=== PATIENT | female | born 1950 | race Caucasian/White ===

== ENCOUNTER 2016-10-25 10:22 | Inpatient (IN) | payer MEDICARE, OTHER ==
[2016-10-25 11:23] LABS: BASO % 0.5 % (0.0-2.0); EOS % 0.5 % (0.0-4.0); HEMOGLOBIN 12.7 g/dL (11.0-16.0); LYMPH # 0.3 K/uL (1.0-4.3); LYMPH % 5.8 % (20.0-40.0); MEAN CORPUSCULAR HEMOGLOBIN 26.2 pg (27.0-31.0); MEAN PLATELET VOLUME 7.8 fL (7.2-11.7); MONO # 0.2 K/uL (0.0-0.8); MONO % 4.1 % (0.0-10.0); NEUT # 4.9 K/uL (1.8-7.0); NEUT % 89.1 % (50.0-75.0); PLATELET COUNT 145 K/uL (130-400); RBC 4.83 Mil/uL (3.80-5.20); RED CELL DISTRIBUTION WIDTH 19.3 % (11.5-14.5); WHITE BLOOD COUNT 5.5 K/uL (4.8-10.8)
[2016-10-25 11:40] LABS: ALBUMIN 3.1 g/dL (3.5-5.0)
[2016-10-25 11:44] LABS: ALB/GLOB RATIO 1.1 (1.0-2.1); CALCIUM 7.7 mg/dl (8.6-10.4)
--- NOTE | 2016-10-25 11:54 | RAD ---
PROCEDURE: CHEST RADIOGRAPH, 1 VIEW HISTORY: chest pain COMPARISON: Comparison is made to 04/11/2016 FINDINGS: LUNGS: No evidence of new infiltrate or consolidation in the lungs. Emphysematous changes and hyperinflation lungs are again noted. PLEURA: No pneumothorax or pleural fluid seen. CARDIOVASCULAR: Mild cardiomegaly is again noted. OSSEOUS STRUCTURES: No significant abnormalities. VISUALIZED UPPER ABDOMEN: Normal. OTHER FINDINGS: None. IMPRESSION: No evidence of new infiltrate or consolidation in the lungs. Moderate emphysema. Mild cardiomegaly.
[2016-10-25 12:22] LABS: ANISOCYTOSIS SLIGHT; BANDS 1 % (0-2); HYPOCHROMIC SLIGHT; LYMPHOCYTE 2 % (20-40); MONOCYTE 2 % (0-10); NEUTROPHIL 95 % (50-75); PLATELET ESTIMATE NORMAL (NORMAL); POLYCHROMIC SLIGHT; TOTAL CELLS COUNTED 100; TROPONIN I 0.28 ng/mL (0.00-0.120)
[2016-10-25 12:23] LABS: LARGE PLATELETS PRESENT; OVALOCYTES SLIGHT; POIKILOCYTOSIS SLIGHT
--- NOTE | 2016-10-25 12:34 | C.PDOC ---
History Of Present Illness The patient, a 66 y/o female with PMHx of HTN, ESRD (dialysis M-W-F), Coronary Artery Disease, and Peripheral Vascular Disease with left [id number] amputation, presents to the ED for evaluation of left-sided chest pain which began this morning after drinking coffee. Patient states her pain was 9/10 in severity this morning but states her symptoms have now improved after tasking 4 baby aspirins. Patient also reports she was sweating and slightly dizzy. Otherwise she denies fever, chills, shortness of breath and nausea. PMD: Dr. Deborah Larson [employer] Assistant: Dr. William Time Seen by Provider: 10/25/16 10:33 Chief Complaint (Nursing): Palpitations History Per: Patient History/Exam Limitations: no limitations Onset/Duration Of Symptoms: Hrs Current Symptoms Are (Timing): Better Quality: "Pain" Associated Symptoms: denies: Nausea, Dyspnea Past Medical History Reviewed: Historical Data, Nursing Documentation, Vital Signs Vital Signs: Last Vital Signs Temp 98.8 F 10/25/16 13:25 Pulse 66 10/25/16 13:25 Resp 16 10/25/16 13:25 BP 163/73 H 10/25/16 13:25 Pulse Ox 100 10/25/16 13:25 - Medical History PMH: Anemia, Arthritis, Asthma, Colonic Polyps, HTN, Hypercholesterolemia, Pneumonia (10 YRS AGO), End Stage Renal Disease, Chronic Kidney Disease Surgical History: Coronary Stent, Endoscopy - [facility] Procedures ANGIOPLASTY OF OTHER NON-CORONARY VESSEL(S) (12/19/14) ATHERECTOMY OF OTHER NON-CORONARY VESSEL(S) (12/19/14) BYPASS L FEM ART TO POPLIT ART W NONAUT SUB, OPEN (06/19/15) BYPASS R FEM ART TO POPLIT ART WITH AUTOL VN, OPEN APPROACH (06/19/15) CONTRAST ARTERIOGRAM-LEG (12/19/14) DETACHMENT AT LEFT UPPER LEG, HIGH, OPEN APPROACH (01/01/16) EXTIRPATION OF MATTER FROM L FEM ART, OPEN APPROACH (06/19/15) EXTIRPATION OF MATTER FROM L POPL ART, OPEN APPROACH (06/19/15) MEASURE OF CARDIAC SAMPL & PRESSURE, L HEART, PERC APPROACH (06/19/15) PERFORMANCE OF URINARY FILTRATION, MULTIPLE (11/01/15) PERFORMANCE OF URINARY FILTRATION, SINGLE (01/01/16) PLAIN RADIOGRAPHY OF LEFT HEART USING OTHER CONTRAST (06/19/15) PROCEDURE ON SINGLE VESSEL (11/07/14) PROCEDURE ON TWO VESSELS (12/19/14) Family History: States: Unknown Family Hx - Social History Hx Tobacco Use: Yes Hx Alcohol Use: No Hx Substance Use: No - Immunization History Hx Tetanus Toxoid Vaccination: Yes Hx Influenza Vaccination: Yes Hx Pneumococcal Vaccination: Yes Review Of Systems Constitutional: Positive for: Sweats. Negative for: Fever, Chills Cardiovascular: Positive for: Chest Pain (left-sided ) Respiratory: Negative for: Shortness of Breath Gastrointestinal: Negative for: Nausea Neurological: Positive for: Dizziness Physical Exam - Physical Exam Appears: Non-toxic, No Acute Distress Skin: Normal Color, Warm, Dry Head: Atraumatic Eye(s): bilateral: Normal Inspection Oral Mucosa: Moist Neck: Supple Chest: Symmetrical, No Deformity, No Tenderness Cardiovascular: Rhythm Regular, No Murmur Respiratory: Normal Breath Sounds, No Rales, No Rhonchi, No Wheezing Gastrointestinal/Abdominal: Soft, No Tenderness, No Guarding, No Rebound Back: Normal Inspection, No Vertebral Tenderness Extremity: Normal ROM, Capillary Refill (less than 2 seconds ), Other (+0.5 pitting edema ) Pulses: Left Dorsalis Pedis: Normal, Right Dorsalis Pedis: Normal Neurological/Psych: Normal Speech, Normal Cognition Gait: Steady ED Course And Treatment - Laboratory Results Result Diagrams: 10/25/16 11:18 10/25/16 11:18 O2 Sat by Pulse Oximetry: 97 (on RA) Pulse Ox Interpretation: Normal Medical Decision Making Medical Decision Making: Impression: 66 y/o female with right-sided chest pain Plan: * labs * EKG * CXR * reassess and disposition Progress: labs, EKG, and CXR ordered and reviewed. Case discussed with Dr. Deborah Larson and Dr. William, who both agree upon admission. Disposition Discussed With : Mateo William - Disposition Disposition: HOME/ ROUTINE Disposition Time: 12:29 Condition: GUARDED - Clinical Impression Clinical Impression: ESRD (end stage renal disease), CAD (coronary artery disease), Elevated troponin I level, CHF (congestive heart failure), ACS (acute coronary syndrome) - Scribe Statement The provider has reviewed the documentation as recorded by the Scribe (Karen Larson) Provider Attestation: All medical record entries made by the Davidibe were at my direction and personally dictated by me. I have reviewed the chart and agree that the record accurately reflects my personal performance of the history, physical exam, medical decision making, and the department course for this patient. I have also personally directed, reviewed, and agree with the discharge instructions and disposition. Decision To Admit - Pt Status Changed To: Hospital Disposition Of: Inpatient - Admit Certification Admit to Inpatient:: After my assessment, the patient will require hospitalization for at least two midnights. This is because of the severity of symptoms shown, intensity of services needed, and/or the medical risk in this patient being treated as an outpatient. - InPatient: Physician Admission Certification: I certify that this patient requires 2 or more midnights of care for the following reason:: patient with ESRD, chest pain , elevated trops, and BNP - . Bed Request Type: Telemetry Patient Diagnosis: ESRD (end stage renal disease), CAD (coronary artery disease), Elevated troponin I level, CHF (congestive heart failure), ACS (acute coronary syndrome)
[2016-10-25 12:50] VITALS: BMI 26.5
[2016-10-25] MEDS ORDERED: Oxycodone/Acetaminophen 5/325 mg Tab PO PRN (16:43)
[2016-10-25 21:08] LABS: INR 1.1
[2016-10-25] MEDS ORDERED: SODIUM CHLORIDE 0.9% IV ONE (21:27)
[2016-10-25] MEDS ORDERED: HEPARIN IV ONE (21:27)
[2016-10-25] MEDS ORDERED: Heparin25000 units/250ml 1/2NS 25,000 UNITS/250 ML BAG IV SCH (22:00)
[2016-10-25] MEDS: Heparin25000 units/250ml 1/2NS 25,000 UNITS/250 ML BAG IV PRN (23:00)
[2016-10-25] MEDS ORDERED: Metoprolol 1 mg/ml Inj IVP ONE (23:21)
--- NOTE | 2016-10-25 23:39 | CP.CCUPN ---
CCU Subjective - Physician Review Events Since Last Encounter (Free Text): 10/26/16 00:20 The Patient was seen and examined at the bedside, Medical records reviewed, all clinical/lab/hemodynamic/radiographic data were reviewed and management issues were discussed and formulated, 66 Y/O F with PMHx of HTN, Hypercholesterolemia, Anemia, Arthritis, Asthma, Colonic Polyps, End Stage Renal Disease, and Peripheral Vascular Disease with left uwyyz-[id number]-woyq amputation Who presents to the ER for evaluation of left-sided chest pain which began this morning after drinking coffee and improved after tasking 4 baby aspirins. Denies fever/chills, shortness of breath, palpitations, nausea/vomiting or diaphoresis. Intially admitted to the telemetry however the second set of Trop went up 0.28-- >6.03, Also in A-Fib with RVR with EKG changes She was started on Heparin drip and ransferred for hemodynamic monitoring and further cardiac work up Also started on ASA, Plavix, BB, Statins Pt Currently she is alert, awake, comfortable, follow basic commands No signs of chest pain noted at this time, breathing comfortable and unlabored. She was admitted to ICU with Acute Coronary syndrome for further cardiac work up and to address uncontrolled A-Fib Currently Chest Pain free CCU Objective - Vital Signs / Intake & Output Vital Signs (Last 4 hours): Vital Signs Pulse 10/25/16 19:40 95 H Intake and Output (Last 8hrs): Intake & Output 10/25/16 10/25/16 10/26/16 14:59 22:59 06:59 Weight 90 lb 3.2 oz - Physical Exam Head: Positive for: Atraumatic, Normocephalic. Negative for: Tenderness, Contusion Pupils: Positive for: PERRL. Negative for: Sluggish, Non-Reactive Extroacular Muscles: Positive for: EOMI Conjunctiva: Positive for: Normal. Negative for: Injected, Icteric Mouth: Positive for: Moist Mucous Membranes Pharnyx: Positive for: Normal Nose (Internal): Positive for: Normal Inspection, Purulent Mucous Neck: Positive for: Trachea Midline. Negative for: Normal Range of Motion, Meningeal Signs, MIDLINE TENDERNESS, Paraspinal Tenderness, JVD, Lymphadenopathy , Bruit, Other Respiratory/Chest: Positive for: Clear to Auscultation. Negative for: Respiratory Distress, Accessory Muscle Use Cardiovascular: Positive for: Irregular Rhythm, Peripheal Pulses Present, Tachycardic. Negative for: Murmurs, Rub Abdomen: Positive for: Normal Bowel Sounds. Negative for: Tenderness, Distention, Peritoneal Signs Upper Extremity: Positive for: Normal Inspection, Normal ROM, NORMAL PULSES, Capillary Refill < 2s. Negative for: Cyanosis, Edema, Tenderness Lower Extremity: Positive for: Normal Inspection, NORMAL PULSES, Capillary Refill < 2 s. Negative for: Edema, CALF TENDERNESS Neurological: Positive for: GCS=15, CN II-XII Intact, Speech Normal, Motor Func Grossly Intact, Normal Sensory Function Skin: Positive for: Warm Psychiatric: Positive for: Alert, Oriented x 3, Normal Insight - Medications Active Medications: Active Medications Generic Name Dose Route Start Last Admin Trade Name Freq PRN Reason Stop Dose Admin Amlodipine Besylate 5 mg 10/26/16 10:00 Norvasc PO DAILY [facility] Aspirin 81 mg 10/26/16 10:00 Ecotrin PO DAILY [facility] Cinacalcet 60 mg 10/26/16 10:00 Sensipar PO DAILY [facility] Clopidogrel Bisulfate 75 mg 10/25/16 20:12 10/25/16 20:29 Plavix PO 75 mg DAILY [facility] Administration Ezetimibe 10 mg 10/26/16 10:00 Zetia PO DAILY [facility] Famotidine 20 mg 10/26/16 10:00 Pepcid PO DAILY [facility] Heparin Sodium/Sodium Chloride 25,000 units in 250 mls @ 4.91 mls/hr 10/25/16 22:56 Heparin 97104 Units/250ml 1/2 Normal Saline IV .Q24H PRN PROTOCOL Protocol 12 UNITS/KG/HR Metoprolol Tartrate 50 mg 10/25/16 18:00 10/25/16 17:51 Lopressor PO 50 mg BID BILL Administration Metoprolol Tartrate 5 mg 10/25/16 23:21 Lopressor IVP 10/25/16 23:22 ONCE ONE Oxycodone/Acetaminophen 1 tab 10/25/16 16:43 Percocet 5/325 Mg Tab PO 10/28/16 16:44 Q4H PRN Pain, Mild (1-3) Rosuvastatin Calcium 10 mg 10/25/16 22:00 Crestor PO HS BILL Sevelamer Carbonate 800 mg 10/25/16 17:00 10/25/16 17:51 Renvela PO 800 mg [facility] BILL Administration - Patient Studies Lab Studies: Lab Studies 10/25/16 10/25/16 Range/Units 20:58 19:23 PT 13.0 H (9.7-12.2) SECONDS INR 1.1 APTT 37 H (21-34) SECONDS Troponin I 6.0300 H* (0.00-0.120) ng/mL Laboratory Results - last 24 hr 10/25/16 10/25/16 19:23 20:58 PT 13.0 H INR 1.1 APTT 37 H Troponin I 6.0300 H* EKG/Cardiology Studies: Cardiology / EKG Studies 10/25/16 20:06 EKG [ELECTROCARDIOGRAM] Stat Comment: Mode Of Transportation: Reason For Exam: elevated [place]CC[place] Review of Systems - Cardiovascular Cardiovascular: absent: As Per HPI, Acrocyanosis, Chest Pain, Chest Pain at Rest , Chest Pain with Activity, Claudication, Diaphoresis, Dyspnea, Dyspnea on Exertion, Edema, Irregular Heart Rhythm, Pain Radiating to Arm/Neck/Jaw, Leg Edema, Leg Ulcers, Lightheadedness, Orthopnea, Palpitations, Paroxysmal Nocturnal Dyspnea, Pedal Edema, Radiating Pain, Rapid Heart Rate, Slow Heart Rate, Syncope, Other, UNREMARKABLE - Respiratory Respiratory: absent: As Per HPI, Cough, Dyspnea, Hemoptysis, Dyspnea on Exertion , Wheezing, Snoring, Stridor, Pain on Inspiration, Chest Congestion, Excessive Mucous Production, Change in Mucous Color, Pain with Coughing, Other, UNREMARKABLE Critical Care Progress Note - Extremities/Vascular Does the Patient have a Central Venous Catheter?: No Does the Patient need a Central Venous Catheter?: No Does the Patient have a Alicea Catheter?: No Does the Patient need a Alicea Catheter?: No - Nutrition Nutrition: Nutrition Category Date Time Status Heart Healthy Diet [DIET] Diets 10/25/16 Lunch Active Assessment/Plan (1) ACS (acute coronary syndrome) Current Visit: Yes Status: Acute Comment: Currently Chest Pain free She was started on Heparin drip and ransferred for hemodynamic monitoring and further cardiac work up Also started on ASA, Plavix, BB, Statins (2) CAD (coronary artery disease) Current Visit: Yes Status: Acute Comment: Patient scheduled for cath on Thursday (3) CHF (congestive heart failure) Current Visit: Yes Status: Acute (4) ESRD (end stage renal disease) Current Visit: Yes Status: Acute Comment: End-stage renal disease on hemodialysis, dialysis schedule for Thursday after cath. (5) Elevated troponin I level Current Visit: Yes Status: Acute (6) A-fib Current Visit: No Status: Acute Comment: HR controlled, on Lopressor Heparin drip (7) Atrial fibrillation with RVR Current Visit: No Status: Acute (8) Prophylactic measure Current Visit: No Status: Acute Comment: DVT PPX: heparin drip GI PPX: Pepcid - Assessment and Plan (Free Text) Assessment: Code status - full code
[2016-10-26 06:14] LABS: INR 1.2; PROTHROMBIN TIME 13.2 SECONDS (9.7-12.2)
[2016-10-26 06:41] LABS: TROPONIN I 4.62 ng/mL (0.00-0.120)
[2016-10-26 08:42] LABS: MAGNESIUM 2.4 mg/dL (1.6-2.3)
--- NOTE | 2016-10-26 15:11 | CP.CCUPN ---
CCU Subjective - Physician Review Events Since Last Encounter (Free Text): 10/26/16 15:05 clinically stable, no complaints, no chest pain. CCU Objective - Vital Signs / Intake & Output Vital Signs (Last 4 hours): Vital Signs Temp Pulse Resp BP Pulse Ox 10/26/16 14:00 129 H 15 97 10/26/16 13:38 131 H 13 161/75 H 99 10/26/16 13:00 117 H 12 97 10/26/16 12:38 128 H 15 150/71 96 10/26/16 12:00 97.5 F L 68 12 96 10/26/16 11:38 133 H 17 168/77 H 97 Intake and Output (Last 8hrs): Intake & Output 10/26/16 10/26/16 10/26/16 06:59 14:59 22:59 Intake Total 39.2 975.0 Output Total 0 0 Balance 39.2 975.0 Weight 90 lb 3 oz Intake: IV 65 Intake, IV Amount 39.2 40.0 Left Hand 39.2 40.0 Oral 870 Output: Urine 0 0 Urine, Voided 0 0 Stool 0 0 Other: # Voids Urine, Voided 0 # Bowel Movements 0 - Physical Exam Head: Positive for: Atraumatic, Normocephalic. Negative for: Tenderness, Contusion Pupils: Positive for: PERRL. Negative for: Sluggish, Non-Reactive Extroacular Muscles: Positive for: EOMI Conjunctiva: Positive for: Normal. Negative for: Injected, Icteric Mouth: Positive for: Moist Mucous Membranes Pharnyx: Positive for: Normal Nose (Internal): Positive for: Normal Inspection, Purulent Mucous Neck: Positive for: Trachea Midline. Negative for: Normal Range of Motion, Meningeal Signs, MIDLINE TENDERNESS, Paraspinal Tenderness, JVD, Lymphadenopathy , Bruit, Other Respiratory/Chest: Positive for: Clear to Auscultation. Negative for: Respiratory Distress, Accessory Muscle Use Cardiovascular: Positive for: Irregular Rhythm, Peripheal Pulses Present, Tachycardic. Negative for: Murmurs, Rub Abdomen: Positive for: Normal Bowel Sounds. Negative for: Tenderness, Distention, Peritoneal Signs Upper Extremity: Positive for: Normal Inspection, Normal ROM, NORMAL PULSES, Capillary Refill < 2s. Negative for: Cyanosis, Edema, Tenderness Lower Extremity: Positive for: Normal Inspection, NORMAL PULSES, Capillary Refill < 2 s. Negative for: Edema, CALF TENDERNESS Neurological: Positive for: GCS=15, CN II-XII Intact, Speech Normal, Motor Func Grossly Intact, Normal Sensory Function Skin: Positive for: Warm Psychiatric: Positive for: Alert, Oriented x 3, Normal Insight - Medications Active Medications: Active Medications Generic Name Dose Route Start Last Admin Trade Name Freq PRN Reason Stop Dose Admin Amlodipine Besylate 5 mg 10/26/16 10:00 10/26/16 09:40 Norvasc PO 5 mg DAILY BILL Administration Aspirin 81 mg 10/26/16 10:00 10/26/16 09:40 Ecotrin PO 81 mg DAILY BILL Administration Cinacalcet 60 mg 10/26/16 10:00 10/26/16 09:40 Sensipar PO 60 mg DAILY BILL Administration Clopidogrel Bisulfate 75 mg 10/25/16 20:12 10/26/16 09:40 Plavix PO 75 mg DAILY BILL Administration Ezetimibe 10 mg 10/26/16 10:00 10/26/16 09:40 Zetia PO 10 mg DAILY BILL Administration Famotidine 20 mg 10/26/16 10:00 10/26/16 09:40 Pepcid PO 20 mg DAILY BILL Administration Heparin Sodium/Sodium Chloride 25,000 units in 250 mls @ 4.91 mls/hr 10/25/16 22:56 10/26/16 12:54 Heparin 62034 Units/250ml 1/2 Normal Saline IV 14 units/kg/hr .Q24H PRN 5.728 mls/hr PROTOCOL Titration Protocol 12 UNITS/KG/HR Metoprolol Tartrate 50 mg 10/25/16 18:00 10/26/16 09:40 Lopressor PO 50 mg BID BILL Administration Oxycodone/Acetaminophen 1 tab 10/25/16 16:43 Percocet 5/325 Mg Tab PO 10/28/16 16:44 Q4H PRN Pain, Mild (1-3) Rosuvastatin Calcium 10 mg 10/25/16 22:00 10/25/16 22:15 Crestor PO 10 mg HS BILL Administration Sevelamer Carbonate 800 mg 10/25/16 17:00 10/26/16 12:16 Renvela PO 800 mg [facility] BILL Administration - Patient Studies Lab Studies: Lab Studies 0710/26/16 10/26/16 Range/Units 12:02 06:02 06:02 PT 13.2 H (9.7-12.2) SECONDS INR 1.2 APTT 42 H D 57 H D (21-34) SECONDS Sodium 133 (132-148) mmol/L Potassium 4.7 (3.6-5.2) mmol/L Chloride 95 L (98-107) mmol/L Carbon Dioxide 26 (22-30) mmol/L Anion Gap 17 (10-20) BUN 36 H (7-17) mg/dL Creatinine 5.2 H (0.7-1.2) MG/DL Est GFR ( Amer) 10 Est GFR (Non-Af Amer) 8 Random Glucose 79 (65-105) mg/dL Calcium 8.0 L (8.6-10.4) mg/dl Phosphorus 6.5 H (2.5-4.5) mg/dL Magnesium 2.4 H (1.6-2.3) mg/dL Troponin I 4.6200 H* (0.00-0.120) ng/mL 10/25/16 10/25/16 Range/Units 20:58 19:23 PT 13.0 H (9.7-12.2) SECONDS INR 1.1 APTT 37 H (21-34) SECONDS Sodium (132-148) mmol/L Potassium (3.6-5.2) mmol/L Chloride (98-107) mmol/L Carbon Dioxide (22-30) mmol/L Anion Gap (10-20) BUN (7-17) mg/dL Creatinine (0.7-1.2) MG/DL Est GFR ( Amer) Est GFR (Non-Af Amer) Random Glucose (65-105) mg/dL Calcium (8.6-10.4) mg/dl Phosphorus (2.5-4.5) mg/dL Magnesium (1.6-2.3) mg/dL Troponin I 6.0300 H* (0.00-0.120) ng/mL Laboratory Results - last 24 hr 10/25/16 10/25/16 10/26/16 19:23 20:58 06:02 PT 13.0 H 13.2 H INR 1.1 1.2 APTT 37 H 57 H D Sodium Potassium Chloride Carbon Dioxide Anion Gap BUN Creatinine Est GFR ( Amer) Est GFR (Non-Af Amer) Random Glucose Calcium Phosphorus Magnesium Troponin I 6.0300 H* 10/26/16 10/26/16 06:02 12:02 PT INR APTT 42 H D Sodium 133 Potassium 4.7 Chloride 95 L Carbon Dioxide 26 Anion Gap 17 BUN 36 H Creatinine 5.2 H Est GFR ( Amer) 10 Est GFR (Non-Af Amer) 8 Random Glucose 79 Calcium 8.0 L Phosphorus 6.5 H Magnesium 2.4 H Troponin I 4.6200 H* EKG/Cardiology Studies: Cardiology / EKG Studies 10/25/16 20:06 EKG [ELECTROCARDIOGRAM] Stat Comment: Mode Of Transportation: Reason For Exam: elevated [place] Review of Systems - EENT Eyes: UNREMARKABLE Ears: UNREMARKABLE Nose/Mouth/Throat: UNREMARKABLE - Cardiovascular Cardiovascular: Paroxysmal Nocturnal Dyspnea, UNREMARKABLE. absent: Chest Pain - Respiratory Respiratory: UNREMARKABLE - Gastrointestinal Gastrointestinal: UNREMARKABLE - Musculoskeletal Musculoskeletal: UNREMARKABLE - Neurological Neurological: UNREMARKABLE - Psychiatric Psychiatric: UNREMARKABLE Critical Care Progress Note - Nutrition Nutrition: Nutrition Category Date Time Status Heart Healthy Diet [DIET] Diets 10/25/16 Lunch Active Assessment/Plan (1) NSTEMI (non-ST elevated myocardial infarction) Assessment and plan: 66yo F. PMHx HTN, hypercholesterolemia, anemia, arthritis, asthma, colonic polyps, ESRD on HD (MWF), PVD with Left AKA. p/w chest pain, found to have NSTEMI. Neuro: Alert and oriented 3 Pulm: No acute issues, breathing spontaneously on 2L NC CV: Hemodynamically stable. Hypertension continue amlodipine. NSTEMI, no chest pain currently, continue Crestor. Patient scheduled for cath tomorrow. Hem: No acute issues. Started on heparin drip, aspirin and Plavix. Renal: No acute issues. End-stage renal disease on hemodialysis, dialysis schedule for tomorrow after cath. Endo: Continue sevelamer and cinacalcet for secondary hyperparathyroidism. GI: Heart healthy diet ID: No acute issues DVT proph - heparin drip GI proph - Pepcid Code status - full code Critical Care Time spent 35 minutes Multi-disciplinary rounds were performed with house staff, nursing, speech therapy, respiratory therapy, pharmacy and nutrition with integrated input from the primary team/attending and other consulting services. The documented time is cumulative and includes review of patient data/exams/labs/chart review and examination of the patient on rounds and throughout the day; time is exclusive of any procedures or teaching time. Current Visit: Yes Status: Acute
--- NOTE | 2016-10-26 16:09 | CP.PCM.PN ---
Subjective - Date & Time of Evaluation Date of Evaluation: 10/26/16 Time of Evaluation: 12:06 - Subjective Subjective: CONDITION SAME. NO CHEST PAIN. ELEVATED TROPONINS. Objective - Vital Signs/Intake and Output Vital Signs (last 24 hours): Temp Pulse Resp BP Pulse Ox 97.5 F L 63 15 152/69 H 96 10/26/16 12:00 10/26/16 15:00 10/26/16 15:00 10/26/16 14:38 10/26/16 15:00 Intake and Output: 10/26/16 10/26/16 06:59 18:59 Intake Total 39.2 980.7 Output Total 0 0 Balance 39.2 980.7 - Medications Medications: Current Medications Amlodipine Besylate (Norvasc) 5 mg PO DAILY [facility] Last Admin: 10/26/16 09:40 Dose: 5 mg Aspirin (Ecotrin) 81 mg PO DAILY [facility] Last Admin: 10/26/16 09:40 Dose: 81 mg Cinacalcet (Sensipar) 60 mg PO DAILY [facility] Last Admin: 10/26/16 09:40 Dose: 60 mg Clopidogrel Bisulfate (Plavix) 75 mg PO DAILY [facility] Last Admin: 10/26/16 09:40 Dose: 75 mg Ezetimibe (Zetia) 10 mg PO DAILY [facility] Last Admin: 10/26/16 09:40 Dose: 10 mg Famotidine (Pepcid) 20 mg PO DAILY [facility] Last Admin: 10/26/16 09:40 Dose: 20 mg Heparin Sodium/Sodium Chloride (Heparin 86854 Units/250ml 1/2 Normal Saline) 25 ,000 units in 250 mls @ 4.91 mls/hr IV .Q24H PRN; Protocol; 12 UNITS/KG/HR PRN Reason: PROTOCOL Last Titration: 10/26/16 12:54 Dose: 14 units/kg/hr, 5.728 mls/hr Metoprolol Tartrate (Lopressor) 50 mg PO BID [facility] Last Admin: 10/26/16 09:40 Dose: 50 mg Oxycodone/Acetaminophen (Percocet 5/325 Mg Tab) 1 tab PO Q4H PRN PRN Reason: Pain, Mild (1-3) Stop: 10/28/16 16:44 Rosuvastatin Calcium (Crestor) 10 mg PO HS [facility] Last Admin: 10/25/16 22:15 Dose: 10 mg Sevelamer Carbonate (Renvela) 800 mg PO [facility] BILL Last Admin: 10/26/16 12:16 Dose: 800 mg - Labs Labs: 10/26/16 06:02 PT 13.2 SECONDS (9.7-12.2) H 10/26/16 06:02 INR 1.2 10/26/16 06:02 APTT 42 SECONDS (21-34) H D 10/26/16 12:02 - Constitutional Appears: No Acute Distress, Chronically Ill - Eye Exam Eye Exam: Normal appearance, PERRL - ENT Exam ENT Exam: Normal Exam - Respiratory Exam Respiratory Exam: Clear to Ausculation Bilateral, NORMAL BREATHING PATTERN - Cardiovascular Exam Cardiovascular Exam: Irregular Rhythm, +S1, +S2 - GI/Abdominal Exam GI & Abdominal Exam: Soft, Normal Bowel Sounds - Back Exam Back Exam: NORMAL INSPECTION - Neurological Exam Neurological Exam: Alert, Awake, CN II-XII Intact, Normal Gait, Oriented x3 Assessment and Plan - Assessment and Plan (Free Text) Assessment: NON ST ELEVATION SD. CRF. PVD. HTN. Plan: ICU CARE. EVAL BY DR. EL.
--- NOTE | 2016-10-26 19:40 | CP.PCM.CON ---
History of Present Illness - History of Present Illness History of Present Illness: Patient with Acute Coronary syndrome Currently Chest Pain free IV Heparin, ASA and Plavix ICU monitoring Past Patient History - Past Medical History & Family History Past Medical History?: Yes - Past Social History Smoking Status: Former Smoker - CARDIAC Hx Hypercholesterolemia: Yes Hx Hypertension: Yes - PULMONARY Hx Asthma: Yes Hx Pneumonia: Yes (10 YRS AGO) - NEUROLOGICAL Hx Neurological Disorder: No - HEENT Hx HEENT Problems: Yes Hx Cataracts: Yes Hx Glaucoma: Yes (slight, no meds) - RENAL Hx Chronic Kidney Disease: Yes - ENDOCRINE/METABOLIC Hx Endocrine Disorders: Yes Hx Diabetes Mellitus Type 2: Yes - HEMATOLOGICAL/ONCOLOGICAL Hx Anemia: Yes - INTEGUMENTARY Hx Dermatological Problems: Yes (SMALL ULCER RIGHT FOOT) Other/Comment: LEFT MEDIAL KNEE AREA- ULCER - MUSCULOSKELETAL/RHEUMATOLOGICAL Hx Arthritis: Yes Hx Falls: Yes - GASTROINTESTINAL Hx Gastrointestinal Disorders: Yes - GENITOURINARY/GYNECOLOGICAL Hx Genitourinary Disorders: Yes Other/Comment: dialysis MWF - PSYCHIATRIC Hx Substance Use: No - SURGICAL HISTORY Hx Coronary Stent: Yes - ANESTHESIA Hx Anesthesia: Yes Hx Anesthesia Reactions: No Hx Malignant Hyperthermia: No Meds Allergies/Adverse Reactions: Allergies Allergy/AdvReac Type Severity Reaction Status Date / Time vancomycin Allergy Intermediate RASH Verified 10/25/16 10:27 - Medications Medications: Current Medications Amlodipine Besylate (Norvasc) 5 mg PO DAILY [facility] Last Admin: 10/26/16 09:40 Dose: 5 mg Aspirin (Ecotrin) 81 mg PO DAILY [facility] Last Admin: 10/26/16 09:40 Dose: 81 mg Cinacalcet (Sensipar) 60 mg PO DAILY [facility] Last Admin: 10/26/16 09:40 Dose: 60 mg Clopidogrel Bisulfate (Plavix) 75 mg PO DAILY [facility] Last Admin: 10/26/16 09:40 Dose: 75 mg Ezetimibe (Zetia) 10 mg PO DAILY [facility] Last Admin: 10/26/16 09:40 Dose: 10 mg Famotidine (Pepcid) 20 mg PO DAILY [facility] Last Admin: 10/26/16 09:40 Dose: 20 mg Heparin Sodium/Sodium Chloride (Heparin 70377 Units/250ml 1/2 Normal Saline) 25 ,000 units in 250 mls @ 4.91 mls/hr IV .Q24H PRN; Protocol; 12 UNITS/KG/HR PRN Reason: PROTOCOL Last Titration: 10/26/16 12:54 Dose: 14 units/kg/hr, 5.728 mls/hr Metoprolol Tartrate (Lopressor) 50 mg PO BID [facility] Last Admin: 10/26/16 17:53 Dose: 50 mg Oxycodone/Acetaminophen (Percocet 5/325 Mg Tab) 1 tab PO Q4H PRN PRN Reason: Pain, Mild (1-3) Stop: 10/28/16 16:44 Rosuvastatin Calcium (Crestor) 10 mg PO HS [facility] Last Admin: 10/25/16 22:15 Dose: 10 mg Sevelamer Carbonate (Renvela) 800 mg PO TIDCC [facility] Last Admin: 10/26/16 16:25 Dose: 800 mg Results - Vital Signs Recent Vital Signs: Last Vital Signs Temp 97.6 F 10/26/16 16:00 Pulse 65 10/26/16 19:00 Resp 16 10/26/16 19:00 BP 154/75 H 10/26/16 18:38 Pulse Ox 96 10/26/16 19:00 - Labs Result Diagrams: 10/25/16 11:18 10/26/16 06:02 Labs: Laboratory Results - last 24 hr 10/25/16 10/25/16 10/26/16 19:23 20:58 06:02 PT 13.0 H 13.2 H INR 1.1 1.2 APTT 37 H 57 H D Sodium Potassium Chloride Carbon Dioxide Anion Gap BUN Creatinine Est GFR ( Amer) Est GFR (Non-Af Amer) Random Glucose Calcium Phosphorus Magnesium Troponin I 6.0300 H* 10/26/16 10/26/16 10/26/16 06:02 12:02 19:00 PT INR APTT 42 H D 48 H D Sodium 133 Potassium 4.7 Chloride 95 L Carbon Dioxide 26 Anion Gap 17 BUN 36 H Creatinine 5.2 H Est GFR ( Amer) 10 Est GFR (Non-Af Amer) 8 Random Glucose 79 Calcium 8.0 L Phosphorus 6.5 H Magnesium 2.4 H Troponin I 4.6200 H*
--- NOTE | 2016-10-26 19:42 | CP.PCM.PN ---
Subjective - Date & Time of Evaluation Date of Evaluation: 10/26/16 Time of Evaluation: 16:05 - Subjective Subjective: Patient seen and evaluated Non ST [facility] For cath tomorrow afternoon Patient on ASA, Plavix and IV Heparin NPO after breakfast Hold IV Heparin from tomorrow 6am till Thursday 6am Orders written Objective - Vital Signs/Intake and Output Vital Signs (last 24 hours): Temp Pulse Resp BP Pulse Ox 97.6 F 65 16 154/75 H 96 10/26/16 16:00 10/26/16 19:00 10/26/16 19:00 10/26/16 18:38 10/26/16 19:00 Intake and Output: 10/26/16 10/27/16 18:59 06:59 Intake Total 1297.8 5.7 Output Total 0 Balance 1297.8 5.7 - Medications Medications: Current Medications Amlodipine Besylate (Norvasc) 5 mg PO DAILY [facility] Last Admin: 10/26/16 09:40 Dose: 5 mg Aspirin (Ecotrin) 81 mg PO DAILY [facility] Last Admin: 10/26/16 09:40 Dose: 81 mg Cinacalcet (Sensipar) 60 mg PO DAILY [facility] Last Admin: 10/26/16 09:40 Dose: 60 mg Clopidogrel Bisulfate (Plavix) 75 mg PO DAILY [facility] Last Admin: 10/26/16 09:40 Dose: 75 mg Ezetimibe (Zetia) 10 mg PO DAILY [facility] Last Admin: 10/26/16 09:40 Dose: 10 mg Famotidine (Pepcid) 20 mg PO DAILY [facility] Last Admin: 10/26/16 09:40 Dose: 20 mg Heparin Sodium/Sodium Chloride (Heparin 96802 Units/250ml 1/2 Normal Saline) 25 ,000 units in 250 mls @ 4.91 mls/hr IV .Q24H PRN; Protocol; 12 UNITS/KG/HR PRN Reason: PROTOCOL Last Titration: 10/26/16 12:54 Dose: 14 units/kg/hr, 5.728 mls/hr Metoprolol Tartrate (Lopressor) 50 mg PO BID [facility] Last Admin: 10/26/16 17:53 Dose: 50 mg Oxycodone/Acetaminophen (Percocet 5/325 Mg Tab) 1 tab PO Q4H PRN PRN Reason: Pain, Mild (1-3) Stop: 10/28/16 16:44 Rosuvastatin Calcium (Crestor) 10 mg PO HS [facility]ILL Last Admin: 10/25/16 22:15 Dose: 10 mg Sevelamer Carbonate (Renvela) 800 mg PO [facility] BILL Last Admin: 10/26/16 16:25 Dose: 800 mg - Labs Labs: 10/26/16 06:02 PT 13.2 SECONDS (9.7-12.2) H 10/26/16 06:02 INR 1.2 10/26/16 06:02 APTT 48 SECONDS (21-34) H D 10/26/16 19:00
[2016-10-27 06:25] LABS: HEMOGLOBIN 12.1 g/dL (11.0-16.0); MEAN CELL VOLUME 82.3 fL (81.0-99.0); MEAN CORPUSCULAR HEMOGLOBIN 26.4 pg (27.0-31.0); MEAN CORPUSCULAR HGB CONC 32.1 g/dL (33.0-37.0); MEAN PLATELET VOLUME 8.2 fL (7.2-11.7); RBC 4.6 Mil/uL (3.80-5.20); WHITE BLOOD COUNT 4.5 K/uL (4.8-10.8)
[2016-10-27 06:35] LABS: CALCIUM 7.3 mg/dl (8.6-10.4)
[2016-10-27 06:56] LABS: INR 1.1; PROTHROMBIN TIME 12.4 SECONDS (9.7-12.2)
--- NOTE | 2016-10-27 07:11 | CP.CCUPN ---
CCU Subjective - Physician Review Subjective (Free Text): 10/27/16 11:01 Patient was seen and examined in the AM at bedside. Patient denies chest pain, shortness of breath, nausea, vomiting, headache, dysuria, constipation or diarrhea. Later in the morning patient began to have palpations as her heart rate increased. CCU Objective - Vital Signs / Intake & Output Vital Signs (Last 4 hours): Vital Signs Temp Pulse Resp BP Pulse Ox 10/27/16 06:00 67 14 97 10/27/16 05:39 142/67 10/27/16 05:00 83 17 95 10/27/16 04:38 99 H 18 132/63 93 L 10/27/16 04:00 97.8 F 118 H 16 95 10/27/16 03:38 82 15 140/69 97 Intake and Output (Last 8hrs): Intake & Output 10/26/16 10/27/16 10/27/16 22:59 06:59 14:59 Intake Total 585.6 145.6 Balance 585.6 145.6 Intake: Intake, IV Amount 45.6 45.6 Left Hand 45.6 45.6 Oral 540 100 Other: # Voids Urine, Voided 0 # Bowel Movements 0 - Physical Exam Head: Positive for: Atraumatic, Normocephalic. Negative for: Tenderness, Contusion Pupils: Positive for: PERRL. Negative for: Sluggish, Non-Reactive Extroacular Muscles: Positive for: EOMI Conjunctiva: Positive for: Normal. Negative for: Injected, Icteric Mouth: Positive for: Moist Mucous Membranes Nose (Internal): Positive for: Normal Inspection Neck: Positive for: Trachea Midline. Negative for: Normal Range of Motion, Meningeal Signs, MIDLINE TENDERNESS, Paraspinal Tenderness, JVD, Lymphadenopathy , Bruit, Other Respiratory/Chest: Positive for: Clear to Auscultation. Negative for: Respiratory Distress, Accessory Muscle Use Cardiovascular: Positive for: Murmurs, Irregular Rhythm, Peripheal Pulses Present, Tachycardic. Negative for: Rub Abdomen: Positive for: Normal Bowel Sounds. Negative for: Tenderness, Distention, Peritoneal Signs, Guarding Upper Extremity: Positive for: Normal Inspection, Normal ROM, NORMAL PULSES, Capillary Refill < 2s. Negative for: Cyanosis, Edema, Tenderness Lower Extremity: Positive for: Normal Inspection (Left AKA), NORMAL PULSES, Capillary Refill < 2 s. Negative for: Edema, CALF TENDERNESS Neurological: Positive for: GCS=15, CN II-XII Intact, Speech Normal, Motor Func Grossly Intact, Normal Sensory Function Skin: Positive for: Warm Psychiatric: Positive for: Alert, Oriented x 3, Normal Insight, Normal Concentration - Medications Active Medications: Active Medications Generic Name Dose Route Start Last Admin Trade Name Freq PRN Reason Stop Dose Admin Amlodipine Besylate 5 mg 10/26/16 10:00 10/26/16 09:40 Norvasc PO 5 mg DAILY BILL Administration Aspirin 81 mg 10/26/16 10:00 10/26/16 09:40 Ecotrin PO 81 mg DAILY BILL Administration Cinacalcet 60 mg 10/26/16 10:00 10/26/16 09:40 Sensipar PO 60 mg DAILY BILL Administration Clopidogrel Bisulfate 75 mg 10/25/16 20:12 10/26/16 09:40 Plavix PO 75 mg DAILY BILL Administration Ezetimibe 10 mg 10/26/16 10:00 10/26/16 09:40 Zetia PO 10 mg DAILY BILL Administration Famotidine 20 mg 10/26/16 10:00 10/26/16 09:40 Pepcid PO 20 mg DAILY BILL Administration Heparin Sodium/Sodium Chloride 25,000 units in 250 mls @ 4.91 mls/hr 10/25/16 22:56 10/26/16 12:54 Heparin 37741 Units/250ml 1/2 Normal Saline IV 14 units/kg/hr .Q24H PRN 5.728 mls/hr PROTOCOL Titration Protocol 12 UNITS/KG/HR Metoprolol Tartrate 50 mg 10/25/16 18:00 10/26/16 17:53 Lopressor PO 50 mg BID BILL Administration Oxycodone/Acetaminophen 1 tab 10/25/16 16:43 Percocet 5/325 Mg Tab PO 10/28/16 16:44 Q4H PRN Pain, Mild (1-3) Rosuvastatin Calcium 10 mg 10/25/16 22:00 10/26/16 21:05 Crestor PO 10 mg HS BILL Administration Sevelamer Carbonate 800 mg 10/25/16 17:00 10/26/16 16:25 Renvela PO 800 mg [facility] BILL Administration - Patient Studies Lab Studies: Lab Studies 10/27/16 10/27/16 10/27/16 Range/Units 06:43 06:11 06:11 WBC 4.5 L (4.8-10.8) K/uL RBC 4.60 (3.80-5.20) Mil/uL Hgb 12.1 (11.0-16.0) g/dL Hct 37.8 (34.0-47.0) % MCV 82.3 (81.0-99.0) fL MCH 26.4 L (27.0-31.0) pg MCHC 32.1 L (33.0-37.0) g/dL RDW 19.0 H (11.5-14.5) % Plt Count 153 (130-400) K/uL MPV 8.2 (7.2-11.7) fL PT 12.4 H (9.7-12.2) SECONDS INR 1.1 APTT 37 H D (21-34) SECONDS Sodium 131 L (132-148) mmol/L Potassium 5.4 H (3.6-5.2) mmol/L Chloride 91 L (98-107) mmol/L Carbon Dioxide 26 (22-30) mmol/L Anion Gap 19 (10-20) BUN 48 H (7-17) mg/dL Creatinine 6.7 H (0.7-1.2) MG/DL Est GFR ( Amer) 7 Est GFR (Non-Af Amer) 6 Random Glucose 73 (65-105) mg/dL Calcium 7.3 L (8.6-10.4) mg/dl Phosphorus (2.5-4.5) mg/dL Magnesium (1.6-2.3) mg/dL Troponin I (0.00-0.120) ng/mL 10/26/16 10/26/16 10/26/16 Range/Units 19:00 12:02 06:02 WBC (4.8-10.8) K/uL RBC (3.80-5.20) Mil/uL Hgb (11.0-16.0) g/dL Hct (34.0-47.0) % MCV (81.0-99.0) fL MCH (27.0-31.0) pg MCHC (33.0-37.0) g/dL RDW (11.5-14.5) % Plt Count (130-400) K/uL MPV (7.2-11.7) fL PT (9.7-12.2) SECONDS INR APTT 48 H D 42 H D (21-34) SECONDS Sodium 133 (132-148) mmol/L Potassium 4.7 (3.6-5.2) mmol/L Chloride 95 L (98-107) mmol/L Carbon Dioxide 26 (22-30) mmol/L Anion Gap 17 (10-20) BUN 36 H (7-17) mg/dL Creatinine 5.2 H (0.7-1.2) MG/DL Est GFR ( Amer) 10 Est GFR (Non-Af Amer) 8 Random Glucose 79 (65-105) mg/dL Calcium 8.0 L (8.6-10.4) mg/dl Phosphorus 6.5 H (2.5-4.5) mg/dL Magnesium 2.4 H (1.6-2.3) mg/dL Troponin I 4.6200 H* (0.00-0.120) ng/mL Laboratory Results - last 24 hr 10/26/16 10/26/16 10/26/16 06:02 12:02 19:00 WBC RBC Hgb Hct MCV MCH MCHC RDW Plt Count MPV PT INR APTT 42 H D 48 H D Sodium 133 Potassium 4.7 Chloride 95 L Carbon Dioxide 26 Anion Gap 17 BUN 36 H Creatinine 5.2 H Est GFR ( Amer) 10 Est GFR (Non-Af Amer) 8 Random Glucose 79 Calcium 8.0 L Phosphorus 6.5 H Magnesium 2.4 H Troponin I 4.6200 H* 10/27/16 10/27/16 10/27/16 06:11 06:11 06:43 WBC 4.5 L RBC 4.60 Hgb 12.1 Hct 37.8 MCV 82.3 MCH 26.4 L MCHC 32.1 L RDW 19.0 H Plt Count 153 MPV 8.2 PT 12.4 H INR 1.1 APTT 37 H D Sodium 131 L Potassium 5.4 H Chloride 91 L Carbon Dioxide 26 Anion Gap 19 BUN 48 H Creatinine 6.7 H Est GFR ( Amer) 7 Est GFR (Non-Af Amer) 6 Random Glucose 73 Calcium 7.3 L Phosphorus Magnesium Troponin I Review of Systems - Constitutional Constitutional: absent: Fever - Cardiovascular Cardiovascular: Palpitations. absent: Chest Pain, Dyspnea - Respiratory Respiratory: absent: Dyspnea - Gastrointestinal Gastrointestinal: absent: Constipation, Diarrhea, Nausea, Vomiting - Genitourinary Genitourinary: absent: Dysuria - Neurological Neurological: absent: Headaches Critical Care Progress Note - Nutrition Nutrition: Nutrition Category Date Time Status Heart Healthy Diet [DIET] Diets 10/25/16 Lunch Active NPO Diet [DIET] Diets 10/27/16 Lunch Active Assessment/Plan - Assessment and Plan (Free Text) Assessment: 66yo F. PMHx HTN, hypercholesterolemia, anemia, arthritis, asthma, colonic polyps, ESRD on HD (MWF), PVD with Left AKA. p/w chest pain, found to have NSTEMI. Plan: Neuro: Alert and oriented 3 Pulm: No acute issues, breathing spontaneously on 2L NC CV: Hemodynamically stable. Hypertension continue amlodipine. NSTEMI, no chest pain currently, continue Crestor. Patient scheduled for cath today 10/27/16. - Patient tachycardia - given 10mg Cardizem IVP - Cardiology Consult: Dr. William --> help appreciated - f/u Lipid panel Hem: No acute issues. Started on heparin drip, aspirin and Plavix. Renal: No acute issues. End-stage renal disease on hemodialysis, dialysis schedule for today after cath. Dialysis is also scheduled for tomorrow per Dr. Lo Renal Consult: Dr. North --> help appreciated Endo: Continue sevelamer and cinacalcet for secondary hyperparathyroidism. - f/u Hemaglobin A1C GI: Heart healthy diet - currently NPO per cardiac cath ID: No acute issues DVT proph - heparin drip GI proph - Pepcid Code status - full code Case discussed with Dr. Cherrie Goldstein PGY-1
--- NOTE | 2016-10-27 10:52 | CP.PCM.CON ---
History of Present Illness - History of Present Illness History of Present Illness: The patient, a 66 y/o female with PMHx of HTN, ESRD (dialysis M-W-), Coronary Artery Disease, and Peripheral Vascular Disease with left [id number] amputation, presents to the ED for evaluation of left-sided chest pain which began this morning after drinking coffee. Patient states her pain was 9/10 in severity this morning but states her symptoms have now improved after tasking 4 baby aspirins. Patient also reports she was sweating and slightly dizzy. Otherwise she denies fever, chills, shortness of breath and nausea. TNIs elevated and cardiac cath planned today. Last dialysis 10/24. Now with AFib with RPR PMH: AOPKD ESRD HTN PVD CAD POST PREVIOUS CATH COPD PAROXYSMAL AFIB DM 2 PSH: AV ACCESS SURGERY X 2 CARDIAC CATH/STENT LEFT AKA Review of Systems - Constitutional Constitutional: Fatigue, Weakness - EENT Eyes: absent: As Per HPI, Blind Spots, Blurred Vision, Change in Vision, Decreased Night Vision, Diplopia, Discharge, Dry Eye, Exophthalmos, Floaters, Irritation, Itchy Eyes, Loss of Peripheral Vision, Pain, Photophobia, Requires Corrective Lenses, Sees Flashes, Spots in Vision, Tunnel Vision, Other Visual Disturbances, Loss of Vision, Other Ears: absent: As Per HPI, Decreased Hearing, Ear Discharge, Ear Pain, Tinnitus, Abnormal Hearing, Disequilibrium, Dizziness, Other Nose/Mouth/Throat: absent: As Per HPI, Epistaxis, Nasal Congestion, Nasal Discharge, Nasal Obstruction, Nasal Trauma, Nose Pain, Post Nasal Drip, Sinus Pain, Sinus Pressure, Bleeding Gums, Change in Voice, Dental Pain, Dry Mouth, Dysphagia, Halitosis, Hoarsness, Lip Swelling, Mouth Lesions, Mouth Pain, Odynophagia, Sore Throat, Throat Swelling, Tongue Swelling, Facial Pain, Neck Pain, Neck Mass, Other - Cardiovascular Cardiovascular: Chest Pain, Dyspnea on Exertion - Respiratory Respiratory: Cough, Dyspnea on Exertion - Gastrointestinal Gastrointestinal: absent: As Per HPI, Abdominal Pain, Belching, Bloating, Change in Bowel Habits, Change in Stool Character, Coffee Ground Emesis, Constipation, Cramping, Diarrhea, Dyspepsia, Dysphagia, Early Satiety, Excessive Flatus, Fecal Incontinence, Heartburn, Hematemesis, Hematochezia, Loose Stools, Melena, Nausea, Odynophagia, Temesmus, Vomiting, Other - Genitourinary Genitourinary: As Per HPI - Musculoskeletal Musculoskeletal: Muscle Weakness, Stiffness - Integumentary Integumentary: absent: As Per HPI, Acne, Alopecia, Bleeding Lesions, Change in Hair, Change in Nails, Change in Pigmentation, Changing Lesions, Dry Skin, Erythema, Furuncle, Hirsutism, Lesions, New Lesions, Non-Healing Lesions, Photosensitivity, Pruritus, Rash, Skin Pain, Skin Ulcer, Sores, Striae, Swelling , Unusual Bruising, Wounds, Jaundice, Other - Neurological Neurological: absent: As Per HPI, Abnormal Gait, Abnormal Hearing, Abnormal Movements, Abnormal Speech, Behavioral Changes, Burning Sensations, Confusion, Convulsions, Disequilibrium, Dizziness, Numbness, Focal Weakness, Frequent Falls , Headaches, Lack of Coordination, Loss of Vision, Memory Loss, Paresthesias, Radicular Pain, Restless Legs, Sensory Deficit, Syncope, Tingling, Tremor, Vertigo, Weakness, Other Visual Disturbances, Other - Psychiatric Psychiatric: absent: As Per HPI, Abnormal Sleep Pattern, Anhedonia, Anxiety, Auditory Hallucinations, Behavioral Changes, Change in Appetite, Change in Libido, Confusion, Depression, Difficulty Concentrating, Hallucinations, Homicidal Ideation, Hopelessness, Irritability, Memory Loss, Mood Swings, Panic Attacks, Paranoia, Suicidal Ideation, Visual Hallucinations, Tactile Hallucinations, Other Past Patient History - Past Medical History & Family History Past Medical History?: Yes Pertinent Family History: AOPKD- brother with polcystic kidneys - Past Social History Smoking Status: Former Smoker Cigar Use: No Alcohol: None Drugs: Denies Home Situation {Lives}: With Family - CARDIAC Hx Hypercholesterolemia: Yes Hx Hypertension: Yes - PULMONARY Hx Asthma: Yes Hx Pneumonia: Yes (10 YRS AGO) - NEUROLOGICAL Hx Neurological Disorder: No - HEENT Hx HEENT Problems: Yes Hx Cataracts: Yes Hx Glaucoma: Yes (slight, no meds) - RENAL Hx Chronic Kidney Disease: Yes Hx Dialysis: Yes - ENDOCRINE/METABOLIC Hx Endocrine Disorders: Yes Hx Diabetes Mellitus Type 2: Yes - HEMATOLOGICAL/ONCOLOGICAL Hx Anemia: Yes - INTEGUMENTARY Hx Dermatological Problems: Yes (SMALL ULCER RIGHT FOOT) Other/Comment: LEFT MEDIAL KNEE AREA- ULCER - MUSCULOSKELETAL/RHEUMATOLOGICAL Hx Arthritis: Yes Hx Falls: Yes - GASTROINTESTINAL Hx Gastrointestinal Disorders: Yes - GENITOURINARY/GYNECOLOGICAL Hx Genitourinary Disorders: Yes Other/Comment: dialysis MWF - PSYCHIATRIC Hx Substance Use: No - SURGICAL HISTORY Hx Surgeries: Yes Hx Amputation: Yes Hx Angiogram: Yes Hx Coronary Stent: Yes - ANESTHESIA Hx Anesthesia: Yes Hx Anesthesia Reactions: No Hx Malignant Hyperthermia: No Meds Allergies/Adverse Reactions: Allergies Allergy/AdvReac Type Severity Reaction Status Date / Time vancomycin Allergy Intermediate RASH Verified 10/25/16 10:27 - Medications Medications: Current Medications Aspirin (Ecotrin) 81 mg PO DAILY [facility] Last Admin: 10/27/16 10:20 Dose: 81 mg Cinacalcet (Sensipar) 60 mg PO DAILY [facility] Last Admin: 10/27/16 10:20 Dose: 60 mg Clopidogrel Bisulfate (Plavix) 75 mg PO DAILY [facility] Last Admin: 10/27/16 10:20 Dose: 75 mg Diltiazem HCl (Cardizem) 30 mg PO QID [facility] Ezetimibe (Zetia) 10 mg PO DAILY [facility] Last Admin: 10/27/16 10:20 Dose: 10 mg Famotidine (Pepcid) 20 mg PO DAILY [facility] Last Admin: 10/27/16 10:20 Dose: 20 mg Heparin Sodium/Sodium Chloride (Heparin 22531 Units/250ml 1/2 Normal Saline) 25 ,000 units in 250 mls @ 4.91 mls/hr IV .Q24H PRN; Protocol; 12 UNITS/KG/HR PRN Reason: PROTOCOL Last Titration: 10/26/16 12:54 Dose: 14 units/kg/hr, 5.728 mls/hr Metoprolol Tartrate (Lopressor) 50 mg PO BID [facility] Last Admin: 10/27/16 10:21 Dose: 50 mg Oxycodone/Acetaminophen (Percocet 5/325 Mg Tab) 1 tab PO Q4H PRN PRN Reason: Pain, Mild (1-3) Stop: 10/28/16 16:44 Rosuvastatin Calcium (Crestor) 10 mg PO HS [facility] Last Admin: 10/26/16 21:05 Dose: 10 mg Sevelamer Carbonate (Renvela) 800 mg PO [facility] Last Admin: 10/27/16 10:21 Dose: 800 mg Physical Exam - Eye Exam Eye Exam: EOMI, Normal appearance - ENT Exam ENT Exam: Normal Exam. absent: Mucous Membranes Dry, Mucous Membranes Moist, Normal External Ear Exam, Normal Oropharynx, TM's Normal Bilaterally - Neck Exam Neck exam: Positive for: Normal Inspection. Negative for: Tenderness - Respiratory Exam Respiratory Exam: Rales, NORMAL BREATHING PATTERN - Cardiovascular Exam Cardiovascular Exam: Tachycardia, Irregular Rhythm - GI/Abdominal Exam GI & Abdominal Exam: Soft. absent: Tenderness - Extremities Exam Extremities exam: Positive for: normal inspection. Negative for: tenderness - Neurological Exam Neurological exam: CN II-XII Intact, Oriented x3 - Skin Skin Exam: Dry, Warm Results - Vital Signs Recent Vital Signs: Last Vital Signs Temp 97.8 F 10/27/16 04:00 Pulse 67 10/27/16 06:00 Resp 14 10/27/16 06:00 BP 142/67 10/27/16 05:39 Pulse Ox 97 10/27/16 06:00 - Labs Result Diagrams: 10/27/16 06:11 10/27/16 06:11 Labs: Laboratory Results - last 24 hr 10/26/16 10/26/16 10/27/16 12:02 19:00 06:11 WBC 4.5 L RBC 4.60 Hgb 12.1 Hct 37.8 MCV 82.3 MCH 26.4 L MCHC 32.1 L RDW 19.0 H Plt Count 153 MPV 8.2 PT INR APTT 42 H D 48 H D Sodium Potassium Chloride Carbon Dioxide Anion Gap BUN Creatinine Est GFR ( Amer) Est GFR (Non-Af Amer) Random Glucose Calcium 10/27/16 10/27/16 06:11 06:43 WBC RBC Hgb Hct MCV MCH MCHC RDW Plt Count MPV PT 12.4 H INR 1.1 APTT 37 H D Sodium 131 L Potassium 5.4 H Chloride 91 L Carbon Dioxide 26 Anion Gap 19 BUN 48 H Creatinine 6.7 H Est GFR ( Amer) 7 Est GFR (Non-Af Amer) 6 Random Glucose 73 Calcium 7.3 L Assessment & Plan (1) ACS (acute coronary syndrome) Status: Acute (2) CAD (coronary artery disease) Status: Acute (3) CHF (congestive heart failure) Status: Acute (4) ESRD (end stage renal disease) Status: Acute (5) NSTEMI (non-ST elevated myocardial infarction) Status: Acute (6) A-fib Status: Acute (7) ADPKD (autosomal dominant polycystic kidney disease) Status: Acute (8) HTN (hypertension) Status: Acute Priority: Medium - Assessment and Plan (Free Text) Plan: Cardiac cath Dialysis later and in AM Cardiac plans post cath Rx AFib
--- NOTE | 2016-10-27 16:25 | CP.PCM.CON ---
History of Present Illness - History of Present Illness History of Present Illness: 66 Y/O F with PMHx of HTN, HLD, Anemia, Arthritis, Asthma, Colonic Polyps, ESRD , and PVD w/ L AKA, who presented to the ER for evaluation of left-sided chest pain. She denied fever/chills, shortness of breath, palpitations, nausea/ vomiting or diaphoresis. Trops were trended as follows: 0.28-->6.03-->4.6. She was also found to be in A- Fib with RVR. Pt was seen by Dr. William who has been caring for her NSTEMI. She was started on Heparin drip, ASA, Plavix, BB, and Statin. She is undergoing cath today. Pt was seen and examined at bedside. She is alert, awake, and oriented. She is not in any acute distress and denies chest pain noted at this time. She is breathing comfortably and unlabored. PMH: ESRD, HTN, HLD, PVD, CAD s/p cath and stents, COPD, PAROXYSMAL AFIB, DM 2 PSH: AV ACCESS SURGERY X 2, CARDIAC CATH/STENT, LEFT AKA Meds: as per med rec Allergies: Vancomycin Social hx: Former tobacco user Review of Systems - EENT Eyes: absent: Change in Vision - Cardiovascular Cardiovascular: As Per HPI. absent: Chest Pain, Chest Pain at Rest, Diaphoresis , Dyspnea - Respiratory Respiratory: As Per HPI. absent: Cough, Dyspnea - Gastrointestinal Gastrointestinal: absent: Bloating, Diarrhea, Dyspepsia - Neurological Neurological: As Per HPI. absent: Dizziness, Numbness Past Patient History - Past Medical History & Family History Past Medical History?: Yes - Past Social History Smoking Status: Former Smoker Cigar Use: No Alcohol: None Drugs: Denies Home Situation {Lives}: With Family - CARDIAC Hx Hypercholesterolemia: Yes Hx Hypertension: Yes - PULMONARY Hx Asthma: Yes Hx Pneumonia: Yes (10 YRS AGO) - NEUROLOGICAL Hx Neurological Disorder: No - HEENT Hx HEENT Problems: Yes Hx Cataracts: Yes Hx Glaucoma: Yes (slight, no meds) - RENAL Hx Chronic Kidney Disease: Yes Hx Dialysis: Yes - ENDOCRINE/METABOLIC Hx Endocrine Disorders: Yes Hx Diabetes Mellitus Type 2: Yes - HEMATOLOGICAL/ONCOLOGICAL Hx Anemia: Yes - INTEGUMENTARY Hx Dermatological Problems: Yes (SMALL ULCER RIGHT FOOT) Other/Comment: LEFT MEDIAL KNEE AREA- ULCER - MUSCULOSKELETAL/RHEUMATOLOGICAL Hx Arthritis: Yes Hx Falls: Yes - GASTROINTESTINAL Hx Gastrointestinal Disorders: Yes - GENITOURINARY/GYNECOLOGICAL Hx Genitourinary Disorders: Yes Other/Comment: dialysis MWF - PSYCHIATRIC Hx Substance Use: No - SURGICAL HISTORY Hx Surgeries: Yes Hx Amputation: Yes Hx Angiogram: Yes Hx Coronary Stent: Yes - ANESTHESIA Hx Anesthesia: Yes Hx Anesthesia Reactions: No Hx Malignant Hyperthermia: No Meds Allergies/Adverse Reactions: Allergies Allergy/AdvReac Type Severity Reaction Status Date / Time vancomycin Allergy Intermediate RASH Verified 10/25/16 10:27 - Medications Medications: Current Medications Aspirin (Ecotrin) 81 mg PO DAILY [facility] Last Admin: 10/27/16 10:20 Dose: 81 mg Cinacalcet (Sensipar) 60 mg PO DAILY [facility] Last Admin: 10/27/16 10:20 Dose: 60 mg Clopidogrel Bisulfate (Plavix) 75 mg PO DAILY [facility] Last Admin: 10/27/16 10:20 Dose: 75 mg Diltiazem HCl (Cardizem) 30 mg PO QID [facility] Last Admin: 10/27/16 16:16 Dose: Not Given Ezetimibe (Zetia) 10 mg PO DAILY [facility] Last Admin: 10/27/16 10:20 Dose: 10 mg Famotidine (Pepcid) 20 mg PO DAILY [facility] Last Admin: 10/27/16 10:20 Dose: 20 mg Heparin Sodium/Sodium Chloride (Heparin 79825 Units/250ml 1/2 Normal Saline) 25 ,000 units in 250 mls @ 4.91 mls/hr IV .Q24H PRN; Protocol; 12 UNITS/KG/HR PRN Reason: PROTOCOL Last Titration: 10/26/16 12:54 Dose: 14 units/kg/hr, 5.728 mls/hr Metoprolol Tartrate (Lopressor) 50 mg PO BID [facility] Last Admin: 10/27/16 10:21 Dose: 50 mg Oxycodone/Acetaminophen (Percocet 5/325 Mg Tab) 1 tab PO Q4H PRN PRN Reason: Pain, Mild (1-3) Stop: 10/28/16 16:44 Rosuvastatin Calcium (Crestor) 10 mg PO HS [facility] Last Admin: 10/26/16 21:05 Dose: 10 mg Sevelamer Carbonate (Renvela) 800 mg PO TIDCC [facility] Last Admin: 10/27/16 14:42 Dose: Not Given Physical Exam - Constitutional Appears: No Acute Distress - Head Exam Head Exam: NORMAL INSPECTION - Eye Exam Eye Exam: EOMI, Normal appearance - ENT Exam ENT Exam: Mucous Membranes Moist - Respiratory Exam Respiratory Exam: Clear to Auscultation Bilateral, NORMAL BREATHING PATTERN - Cardiovascular Exam Cardiovascular Exam: Irregular Rhythm - GI/Abdominal Exam GI & Abdominal Exam: Soft. absent: Distended, Tenderness - Extremities Exam Extremities exam: Positive for: normal inspection. Negative for: calf tenderness Results - Vital Signs Recent Vital Signs: Last Vital Signs Temp 97.8 F 10/27/16 12:00 Pulse 61 10/27/16 15:00 Resp 10 L 10/27/16 15:00 BP 110/59 L 10/27/16 14:39 Pulse Ox 99 10/27/16 15:00 - Labs Result Diagrams: 10/27/16 06:11 10/27/16 06:11 Labs: Laboratory Results - last 24 hr 10/26/16 10/27/16 10/27/16 19:00 06:11 06:11 WBC 4.5 L RBC 4.60 Hgb 12.1 Hct 37.8 MCV 82.3 MCH 26.4 L MCHC 32.1 L RDW 19.0 H Plt Count 153 MPV 8.2 PT INR APTT 48 H D Sodium 131 L Potassium 5.4 H Chloride 91 L Carbon Dioxide 26 Anion Gap 19 BUN 48 H Creatinine 6.7 H Est GFR ( Amer) 7 Est GFR (Non-Af Amer) 6 Random Glucose 73 Hemoglobin A1c Calcium 7.3 L Triglycerides 205 H Cholesterol 135 LDL Cholesterol Direct 86 HDL Cholesterol 35 10/27/16 10/27/16 06:43 12:06 WBC RBC Hgb Hct MCV MCH MCHC RDW Plt Count MPV PT 12.4 H INR 1.1 APTT 37 H D Sodium Potassium Chloride Carbon Dioxide Anion Gap BUN Creatinine Est GFR ( Amer) Est GFR (Non-Af Amer) Random Glucose Hemoglobin A1c 5.1 Calcium Triglycerides Cholesterol LDL Cholesterol Direct HDL Cholesterol Assessment & Plan - Assessment and Plan (Free Text) Assessment: 66 Y/O F with PMHx of HTN, HLD, Anemia, Arthritis, Asthma, Colonic Polyps, ESRD , CAD s/p stents, and PVD w/ L AKA presenting with NSTEMI and Afib Plan: NSTEMI Pt undergoing diagnostic cath by Dr. William- total occlusion of RCA identified, but pre-existing. Medical mgmt as per Dr. William. Pt had stent already in RCA that was placed 7-8 years ago c/w ASA 81mg PO daily c/w Crestor 10mg PO daily c/w metoprolol 50mg PO BID c/w heparin ggt Trops: 0.28-->6.03-->4.6 AFib- Rate controlled c/w heparin ggt c/w cardizem 30mg PO QID c/w metoprolol 50mg PO BID Pt is currently rate limited, stable and asymptomatic
[2016-10-27] MEDS ORDERED: Midazolam 2 MG/2 ML VIAL ONE (16:28)
[2016-10-27] MEDS ORDERED: Iodixanol 320 MG/ML 200 ML BOTTLE IV ONE (16:30)
--- NOTE | 2016-10-27 18:39 | HP ---
HISTORY OF PRESENT ILLNESS: This is a 66-year-old female came to the emergency room with history of severe chest pain associated with diaphoresis. The patient denies having any nausea and vomiting. The patient also had similar pain yesterday, which *------* and went away after drinking coffee. The patient states her pain was 9 to 10 in severity this morning, but states her symptoms have now improved after taking 4 baby aspirins. The patient also reports she has sweating and slight dizzy. The patient denies fever, chills, or shortness of breath. PAST MEDICAL HISTORY: 1. History of hypertension. 2. Peripheral vascular disease. 3. Coronary artery disease. The patient has stent done in the past. 4. History of anemia. 5. Asthma. 6. Colonic polyp. 7. Hypercholesterolemia. 8. Pneumonia . 9. End-stage renal disease. FAMILY HISTORY: No known disease. SOCIAL HISTORY: Nonalcoholic. No IVDA. ALLERGIES: THE PATIENT IS ALLERGIC TO VANCOMYCIN. MEDICATIONS: The patient's medications are reviewed by me. REVIEW OF SYSTEMS: CARDIOVASCULAR: As mentioned above. RESPIRATORY: No shortness of breath. No cough. GASTROINTESTINAL: Negative for vomiting, abdominal pain. CENTRAL NERVOUS SYSTEM: No focal neurological complaints offered. The patient has dizziness. Complained of backache. GENITOURINARY: No urinary complaints. All other systems negative. PSYCHIATRIC: The patient is stable. PHYSICAL EXAMINATION GENERAL: This is a 66-year-old female with left above-knee amputation. Awake, alert, comfortable. VITAL SIGNS: Temperature 98.8, pulse 66, respirations 16, blood pressure 163/73 mmHg, pulse ox is 100% at room air. HEENT: Normal. NECK: JVP is flat. Carotids, no bruits. HEART: S1 and S2 normal. No gallop. No murmur. LUNGS: No rales. No wheezing. ABDOMEN: Soft, nontender. No organomegaly. CENTRAL NERVOUS SYSTEM: No focal neurological deficits. EXTREMITIES: No edema of the legs. LABORATORY DATA: On admission; EKG shows normal sinus rhythm. No acute ST-T change. BUN 26, creatinine 4.0. On repeat first set of troponin is elevated at 0.28. IMPRESSION: 1. Acute coronary syndrome, rule out non-ST elevation myocardial infarction. 2. Chronic renal failure. 3. Hypertension. 4. Peripheral vascular disease. 5. Left above-knee amputation. PLAN: The patient will be admitted to the floor. We will get consult with Dr. William. Continue all the medications. Other workup as needed. Susana Larson MD
--- NOTE | 2016-10-27 20:01 | CP.PCM.PN ---
Subjective - Date & Time of Evaluation Date of Evaluation: 10/27/16 Time of Evaluation: 13:00 - Subjective Subjective: PT WAITING FOR CARDIAC CATH. TROPONIN ELEVATED. MILD CHEST PAIN. Objective - Vital Signs/Intake and Output Vital Signs (last 24 hours): Temp Pulse Resp BP Pulse Ox 97.9 F 110 H 13 135/60 98 10/27/16 18:00 10/27/16 19:00 10/27/16 19:00 10/27/16 18:38 10/27/16 19:00 Intake and Output: 10/27/16 10/28/16 18:59 06:59 Intake Total 550 0 Output Total 0 0 Balance 550 0 - Medications Medications: Current Medications Aspirin (Ecotrin) 81 mg PO DAILY [facility] Last Admin: 10/27/16 10:20 Dose: 81 mg Cinacalcet (Sensipar) 60 mg PO DAILY [facility] Last Admin: 10/27/16 10:20 Dose: 60 mg Clopidogrel Bisulfate (Plavix) 75 mg PO DAILY [facility] Last Admin: 10/27/16 10:20 Dose: 75 mg Diltiazem HCl (Cardizem) 30 mg PO QID [facility] Last Admin: 10/27/16 18:36 Dose: 30 mg Ezetimibe (Zetia) 10 mg PO DAILY [facility] Last Admin: 10/27/16 10:20 Dose: 10 mg Famotidine (Pepcid) 20 mg PO DAILY [facility] Last Admin: 10/27/16 10:20 Dose: 20 mg Heparin Sodium/Sodium Chloride (Heparin 00942 Units/250ml 1/2 Normal Saline) 25 ,000 units in 250 mls @ 4.91 mls/hr IV .Q24H PRN; Protocol; 12 UNITS/KG/HR PRN Reason: PROTOCOL Last Titration: 10/26/16 12:54 Dose: 14 units/kg/hr, 5.728 mls/hr Metoprolol Tartrate (Lopressor) 50 mg PO BID [facility] Last Admin: 10/27/16 18:36 Dose: 50 mg Oxycodone/Acetaminophen (Percocet 5/325 Mg Tab) 1 tab PO Q4H PRN PRN Reason: Pain, Mild (1-3) Stop: 10/28/16 16:44 Rosuvastatin Calcium (Crestor) 10 mg PO HS [facility] Last Admin: 10/26/16 21:05 Dose: 10 mg Sevelamer Carbonate (Renvela) 800 mg PO TIDCC BILL Last Admin: 10/27/16 18:35 Dose: 800 mg - Labs Labs: 10/27/16 06:11 10/27/16 06:11 PT 12.4 SECONDS (9.7-12.2) H 10/27/16 06:43 INR 1.1 10/27/16 06:43 APTT 37 SECONDS (21-34) H D 10/27/16 06:43 - Constitutional Appears: No Acute Distress, Chronically Ill - Eye Exam Eye Exam: Normal appearance, PERRL - ENT Exam ENT Exam: Normal Exam - Respiratory Exam Respiratory Exam: Clear to Ausculation Bilateral, NORMAL BREATHING PATTERN - Cardiovascular Exam Cardiovascular Exam: Irregular Rhythm, +S1, +S2 - GI/Abdominal Exam GI & Abdominal Exam: Soft, Normal Bowel Sounds - Extremities Exam Extremities Exam: Full ROM, Normal Capillary Refill, Normal Inspection. absent : Joint Swelling, Pedal Edema - Back Exam Back Exam: NORMAL INSPECTION - Neurological Exam Neurological Exam: Alert, Awake, CN II-XII Intact, Normal Gait, Oriented x3 - Psychiatric Exam Psychiatric exam: Normal Affect, Normal Mood Assessment and Plan - Assessment and Plan (Free Text) Assessment: CAD. PVD. CRF. Plan: CT PRESENT TREATMENT. FOR CATH.
--- NOTE | 2016-10-27 23:11 | CP.PCM.PN ---
Subjective - Date & Time of Evaluation Date of Evaluation: 10/27/16 Time of Evaluation: 23:08 - Subjective Subjective: Patient s/p cardiac cath 1. L Main: Patent 2. LAD/L Cx: Non obstructive 3. 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 Left to right collaterals Cath findings unchnaged c/w last year Recommend aggressive medica therapy Objective - Vital Signs/Intake and Output Vital Signs (last 24 hours): Temp Pulse Resp BP Pulse Ox 97.6 F 63 13 101/59 L 99 10/27/16 20:00 10/27/16 22:21 10/27/16 22:21 10/27/16 22:21 10/27/16 22:21 Intake and Output: 10/27/16 10/28/16 18:59 06:59 Intake Total 550 100 Output Total 0 0 Balance 550 100 - Medications Medications: Current Medications Aspirin (Ecotrin) 81 mg PO DAILY [facility] Last Admin: 10/27/16 10:20 Dose: 81 mg Cinacalcet (Sensipar) 60 mg PO DAILY [facility] Last Admin: 10/27/16 10:20 Dose: 60 mg Clopidogrel Bisulfate (Plavix) 75 mg PO DAILY [facility] Last Admin: 10/27/16 10:20 Dose: 75 mg Diltiazem HCl (Cardizem) 30 mg PO QID [facility] Last Admin: 10/27/16 18:36 Dose: 30 mg Ezetimibe (Zetia) 10 mg PO DAILY [facility] Last Admin: 10/27/16 10:20 Dose: 10 mg Famotidine (Pepcid) 20 mg PO DAILY [facility] Last Admin: 10/27/16 10:20 Dose: 20 mg Heparin Sodium/Sodium Chloride (Heparin 38886 Units/250ml 1/2 Normal Saline) 25 ,000 units in 250 mls @ 4.91 mls/hr IV .Q24H PRN; Protocol; 12 UNITS/KG/HR PRN Reason: PROTOCOL Last Titration: 10/26/16 12:54 Dose: 14 units/kg/hr, 5.728 mls/hr Metoprolol Tartrate (Lopressor) 50 mg PO BID [facility] Last Admin: 10/27/16 18:36 Dose: 50 mg Oxycodone/Acetaminophen (Percocet 5/325 Mg Tab) 1 tab PO Q4H PRN PRN Reason: Pain, Mild (1-3) Stop: 10/28/16 16:44 Rosuvastatin Calcium (Crestor) 10 mg PO HS [facility] Last Admin: 10/26/16 21:05 Dose: 10 mg Sevelamer Carbonate (Renvela) 800 mg PO TIDCC BILL Last Admin: 10/27/16 18:35 Dose: 800 mg - Labs Labs: 10/27/16 06:11 10/27/16 06:11 PT 12.4 SECONDS (9.7-12.2) H 10/27/16 06:43 INR 1.1 10/27/16 06:43 APTT 37 SECONDS (21-34) H D 10/27/16 06:43
[2016-10-28] MEDS: Heparin25000 units/250ml 1/2NS 25,000 UNITS/250 ML BAG IV PRN ×3 (06:22→21:01)
[2016-10-28 06:42] LABS: BASO % 0.5 % (0.0-2.0); EOS # 0.1 K/uL (0.0-0.7); EOS % 1.3 % (0.0-4.0); HEMOGLOBIN 12.5 g/dL (11.0-16.0); LYMPH # 0.7 K/uL (1.0-4.3); LYMPH % 15.3 % (20.0-40.0); MEAN CELL VOLUME 81.8 fL (81.0-99.0); MEAN CORPUSCULAR HEMOGLOBIN 26.4 pg (27.0-31.0); MEAN CORPUSCULAR HGB CONC 32.2 g/dL (33.0-37.0); MEAN PLATELET VOLUME 8.1 fL (7.2-11.7); MONO # 0.3 K/uL (0.0-0.8); MONO % 6.3 % (0.0-10.0); NEUT # 3.4 K/uL (1.8-7.0); NEUT % 76.6 % (50.0-75.0); RBC 4.73 Mil/uL (3.80-5.20); RED CELL DISTRIBUTION WIDTH 18.8 % (11.5-14.5); WHITE BLOOD COUNT 4.4 K/uL (4.8-10.8)
[2016-10-28 07:02] LABS: ALBUMIN 2.9 g/dL (3.5-5.0); PROTHROMBIN TIME 11.3 SECONDS (9.7-12.2)
[2016-10-28 07:05] LABS: CALCIUM 7.3 mg/dl (8.6-10.4); MAGNESIUM 2.1 mg/dL (1.6-2.3)
--- NOTE | 2016-10-28 09:58 | CP.PCM.PN ---
Subjective - Date & Time of Evaluation Date of Evaluation: 10/28/16 Time of Evaluation: 09:52 - Subjective Subjective: Progress note- Cardiology- Pt seen and examined at bedside. She expresses that she is actively having chest discomfort but denies any shortness or breath. Monitoring exhibits afib with rvr at 135bpm. As per nursing staff pt is due for AM doses of metoprolol and diltiazem. Otherwise pt has been well overnight. She denies F/C/SOB/N/V/bowel and/or bladder irregularities. Pt had cath done by Dr. William yesterday which yielded the following results: 1. L Main: Patent 2. LAD/L Cx: Non obstructive 3. 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 Left to right collaterals Objective - Vital Signs/Intake and Output Vital Signs (last 24 hours): Temp Pulse Resp BP Pulse Ox 97.7 F 93 H 15 135/78 94 L 10/28/16 08:00 10/28/16 08:00 10/28/16 08:00 10/28/16 08:00 10/28/16 08:00 Intake and Output: 10/28/16 10/28/16 06:59 18:59 Intake Total 725 12.3 Output Total 0 Balance 725 12.3 - Medications Medications: Current Medications Aspirin (Ecotrin) 81 mg PO DAILY [facility] Last Admin: 10/28/16 09:07 Dose: 81 mg Cinacalcet (Sensipar) 60 mg PO DAILY [facility] Last Admin: 10/28/16 09:14 Dose: 60 mg Clopidogrel Bisulfate (Plavix) 75 mg PO DAILY [facility] Last Admin: 10/28/16 09:06 Dose: 75 mg Diltiazem HCl (Cardizem) 30 mg PO QID [facility] Last Admin: 10/28/16 09:07 Dose: 30 mg Ezetimibe (Zetia) 10 mg PO DAILY [facility] Last Admin: 10/28/16 09:07 Dose: 10 mg Famotidine (Pepcid) 20 mg PO DAILY [facility] Last Admin: 10/28/16 09:06 Dose: 20 mg Heparin Sodium/Sodium Chloride (Heparin 02977 Units/250ml 1/2 Normal Saline) 25 ,000 units in 250 mls @ 5.728 mls/hr IV .Q24H PRN; Protocol; 14 UNITS/KG/HR PRN Reason: PROTOCOL Last Admin: 10/28/16 07:50 Dose: 16 units/kg/hr, 6.546 mls/hr Metoprolol Tartrate (Lopressor) 50 mg PO BID [facility] Last Admin: 10/28/16 09:07 Dose: 50 mg Oxycodone/Acetaminophen (Percocet 5/325 Mg Tab) 1 tab PO Q4H PRN PRN Reason: Pain, Mild (1-3) Stop: 10/28/16 16:44 Last Admin: 10/28/16 01:09 Dose: 1 tab Rosuvastatin Calcium (Crestor) 10 mg PO HS [facility] Last Admin: 10/27/16 23:40 Dose: 10 mg Sevelamer Carbonate (Renvela) 800 mg PO TIDCC [facility] Last Admin: 10/28/16 07:50 Dose: 800 mg - Labs Labs: 10/28/16 06:35 10/28/16 06:35 PT 11.3 SECONDS (9.7-12.2) 10/28/16 06:35 INR 1.0 10/28/16 06:35 APTT 37 SECONDS (21-34) H 10/28/16 06:35 - Constitutional Appears: In Acute Distress (Pt is experiencing symptomatic afib at 135bpm- mild distress) - Eye Exam Eye Exam: EOMI, Normal appearance - ENT Exam ENT Exam: Mucous Membranes Moist - Respiratory Exam Respiratory Exam: Clear to Ausculation Bilateral, NORMAL BREATHING PATTERN - Cardiovascular Exam Cardiovascular Exam: Tachycardia, Irregular Rhythm - GI/Abdominal Exam GI & Abdominal Exam: Soft. absent: Tenderness - Extremities Exam Extremities Exam: absent: Calf Tenderness - Neurological Exam Neurological Exam: Alert, Awake, Oriented x3 - Psychiatric Exam Psychiatric exam: Normal Mood Assessment and Plan - Assessment and Plan (Free Text) Assessment: 66 Y/O F with PMHx of HTN, HLD, Anemia, Arthritis, Asthma, Colonic Polyps, ESRD , CAD s/p stents in RCA, and PVD w/ L AKA presenting with NSTEMI and Afib with symptomatic RVR when not medically rate controlled Plan: NSTEMI Cardiac cath done by Dr. William- total occlusion of RCA identified; Previous RCA stenting observed. Medical mgmt as per Dr. William. c/w ASA 81mg PO daily c/w Crestor 10mg PO daily c/w metoprolol 50mg PO BID c/w heparin ggt c/w plavix 75mgP PO daily Trops: 0.28-->6.03-->4.6 AFib- Rate controlled with medications c/w heparin ggt c/w cardizem 30mg PO QID switched to cardizem CD 180mg PO daily c/w metoprolol 50mg PO BID Pt can be rate limited, stable and asymptomatic with medications as above. [id number] score: 4 = 4.8% Pt was previously on coumadin at home and may be bridged back, dosing as per INR Eliquis may be considered as pt meets criteria for dosing at 2.5mg PO BID. Criteria fulfilled: under 60kg weight, creatinine >1.5. Case discussed with Dr. Whitehead
--- NOTE | 2016-10-28 10:30 | CP.CCUPN ---
<TristonDeedee NayanMiri - Last Filed: 10/28/16 11:14> CCU Subjective - Physician Review Subjective (Free Text): Patient was seen and examined at bedside in the AM. Patient states she had a chest pain earlier this morning but denies having any currently. Patient does still feel palpitations. Patient denies shortness of breath, headache, nausea, or vomiting. CCU Objective - Vital Signs / Intake & Output Vital Signs (Last 4 hours): Vital Signs Temp Pulse Resp BP Pulse Ox 10/28/16 08:00 97.7 F 93 H 15 135/78 94 L 10/28/16 07:00 149 H 29 H 93 L Intake and Output (Last 8hrs): Intake & Output 10/27/16 10/28/16 10/28/16 22:59 06:59 14:59 Intake Total 585 440 12.3 Output Total 0 Balance 585 440 12.3 Weight 90 lb 6.232 oz Intake: IV 185 Intake, IV Amount 12.3 Left Hand 12.3 Oral 400 440 Output: Urine 0 Urine, Voided 0 Other: # Bowel Movements 0 - Physical Exam Head: Positive for: Atraumatic, Normocephalic. Negative for: Tenderness, Contusion Pupils: Positive for: PERRL. Negative for: Sluggish, Non-Reactive Extroacular Muscles: Positive for: EOMI Conjunctiva: Positive for: Normal. Negative for: Injected, Icteric Mouth: Positive for: Moist Mucous Membranes Pharnyx: Positive for: Normal Neck: Positive for: Trachea Midline. Negative for: Normal Range of Motion, Meningeal Signs, MIDLINE TENDERNESS, Paraspinal Tenderness, JVD, Lymphadenopathy , Bruit, Other Respiratory/Chest: Positive for: Clear to Auscultation. Negative for: Respiratory Distress, Accessory Muscle Use, Rales Cardiovascular: Positive for: Murmurs, Irregular Rhythm, Peripheal Pulses Present, Tachycardic. Negative for: Rub Abdomen: Positive for: Normal Bowel Sounds. Negative for: Tenderness, Distention, Peritoneal Signs Upper Extremity: Positive for: Normal Inspection, Normal ROM, NORMAL PULSES, Capillary Refill < 2s. Negative for: Cyanosis, Edema, Tenderness Lower Extremity: Positive for: Normal Inspection (left lower extremity AKA), NORMAL PULSES, Capillary Refill < 2 s. Negative for: Edema, CALF TENDERNESS Neurological: Positive for: GCS=15, Speech Normal Skin: Positive for: Warm Psychiatric: Positive for: Alert, Oriented x 3, Normal Insight, Normal Concentration - Medications Active Medications: Active Medications Generic Name Dose Route Start Last Admin Trade Name Freq PRN Reason Stop Dose Admin Aspirin 81 mg 10/26/16 10:00 10/28/16 09:07 Ecotrin PO 81 mg DAILY BILL Administration Cinacalcet 60 mg 10/26/16 10:00 10/28/16 09:14 Sensipar PO 60 mg DAILY BILL Administration Clopidogrel Bisulfate 75 mg 10/25/16 20:12 10/28/16 09:06 Plavix PO 75 mg DAILY BILL Administration Diltiazem HCl 30 mg 10/27/16 14:00 10/28/16 09:07 Cardizem PO 30 mg QID BILL Administration Ezetimibe 10 mg 10/26/16 10:00 10/28/16 09:07 Zetia PO 10 mg DAILY BILL Administration Famotidine 20 mg 10/26/16 10:00 10/28/16 09:06 Pepcid PO 20 mg DAILY BILL Administration Heparin Sodium/Sodium Chloride 25,000 units in 250 mls @ 5.728 mls/hr 07:45 10/28/16 07:50 Heparin 68451 Units/250ml 1/2 Normal Saline IV 16 units/kg/hr .Q24H PRN 6.546 mls/hr PROTOCOL Administration Protocol 14 UNITS/KG/HR Metoprolol Tartrate 50 mg 10/25/16 18:00 10/28/16 09:07 Lopressor PO 50 mg BID BILL Administration Oxycodone/Acetaminophen 1 tab 10/25/16 16:43 10/28/16 01:09 Percocet 5/325 Mg Tab PO 10/28/16 16:44 1 tab Q4H PRN Administration Pain, Mild (1-3) Rosuvastatin Calcium 10 mg 10/25/16 22:00 10/27/16 23:40 Crestor PO 10 mg HS BILL Administration Sevelamer Carbonate 800 mg 10/25/16 17:00 10/28/16 07:50 Renvela PO 800 mg TIDCC BILL Administration - Patient Studies Lab Studies: Microbiology Studies 10/25/16 Unknown MRSA Culture (Admit) - Final Nose MRSA NOT DETECTED Lab Studies 10/28/16 10/28/16 10/28/16 Range/Units 06:35 06:35 06:35 WBC 4.4 L (4.8-10.8) K/uL RBC 4.73 (3.80-5.20) Mil/uL Hgb 12.5 (11.0-16.0) g/dL Hct 38.7 (34.0-47.0) % MCV 81.8 (81.0-99.0) fL MCH 26.4 L (27.0-31.0) pg MCHC 32.2 L (33.0-37.0) g/dL RDW 18.8 H (11.5-14.5) % Plt Count 161 (130-400) K/uL MPV 8.1 (7.2-11.7) fL Neut % (Auto) 76.6 H (50.0-75.0) % Lymph % (Auto) 15.3 L (20.0-40.0) % [place] % (Auto) 6.3 (0.0-10.0) % Eos % (Auto) 1.3 (0.0-4.0) % Baso % (Auto) 0.5 (0.0-2.0) % Neut # 3.4 (1.8-7.0) K/uL Lymph # 0.7 L (1.0-4.3) K/uL [place] # 0.3 (0.0-0.8) K/uL Eos # 0.1 (0.0-0.7) K/uL Baso # 0.0 (0.0-0.2) K/uL PT 11.3 (9.7-12.2) SECONDS INR 1.0 APTT 37 H (21-34) SECONDS Sodium 136 (132-148) mmol/L Potassium 4.6 (3.6-5.2) mmol/L Chloride 93 L (98-107) mmol/L Carbon Dioxide 31 H (22-30) mmol/L Anion Gap 17 (10-20) BUN 24 H (7-17) mg/dL Creatinine 3.9 H (0.7-1.2) MG/DL Est GFR ( Amer) 14 Est GFR (Non-Af Amer) 12 Random Glucose 66 (65-105) mg/dL Hemoglobin A1c (4.2-6.5) % Calcium 7.3 L (8.6-10.4) mg/dl Phosphorus 4.4 (2.5-4.5) mg/dL Magnesium 2.1 (1.6-2.3) mg/dL Total Bilirubin 0.7 (0.2-1.3) mg/dL AST 17 (14-36) U/L ALT 23 (9-52) U/L Alkaline Phosphatase 166 H D (38-126) U/L Total Protein 5.8 L (6.3-8.3) g/dL Albumin 2.9 L (3.5-5.0) g/dL Globulin 2.9 (2.2-3.9) gm/dL Albumin/Globulin Ratio 1.0 (1.0-2.1) Triglycerides (0-149) mg/dL Cholesterol (0-199) mg/dL LDL Cholesterol Direct (0-129) mg/dL HDL Cholesterol (30-70) mg/dL 10/27/16 10/27/16 Range/Units 12:06 06:11 WBC (4.8-10.8) K/uL RBC (3.80-5.20) Mil/uL Hgb (11.0-16.0) g/dL Hct (34.0-47.0) % MCV (81.0-99.0) fL MCH (27.0-31.0) pg MCHC (33.0-37.0) g/dL RDW (11.5-14.5) % Plt Count (130-400) K/uL MPV (7.2-11.7) fL Neut % (Auto) (50.0-75.0) % Lymph % (Auto) (20.0-40.0) % [place] % (Auto) (0.0-10.0) % Eos % (Auto) (0.0-4.0) % Baso % (Auto) (0.0-2.0) % Neut # (1.8-7.0) K/uL Lymph # (1.0-4.3) K/uL [place] # (0.0-0.8) K/uL Eos # (0.0-0.7) K/uL Baso # (0.0-0.2) K/uL PT (9.7-12.2) SECONDS INR APTT (21-34) SECONDS Sodium 131 L (132-148) mmol/L Potassium 5.4 H (3.6-5.2) mmol/L Chloride 91 L (98-107) mmol/L Carbon Dioxide 26 (22-30) mmol/L Anion Gap 19 (10-20) BUN 48 H (7-17) mg/dL Creatinine 6.7 H (0.7-1.2) MG/DL Est GFR ( Amer) 7 Est GFR (Non-Af Amer) 6 Random Glucose 73 (65-105) mg/dL Hemoglobin A1c 5.1 (4.2-6.5) % Calcium 7.3 L (8.6-10.4) mg/dl Phosphorus (2.5-4.5) mg/dL Magnesium (1.6-2.3) mg/dL Total Bilirubin (0.2-1.3) mg/dL AST (14-36) U/L ALT (9-52) U/L Alkaline Phosphatase (38-126) U/L Total Protein (6.3-8.3) g/dL Albumin (3.5-5.0) g/dL Globulin (2.2-3.9) gm/dL Albumin/Globulin Ratio (1.0-2.1) Triglycerides 205 H (0-149) mg/dL Cholesterol 135 (0-199) mg/dL LDL Cholesterol Direct 86 (0-129) mg/dL HDL Cholesterol 35 (30-70) mg/dL Laboratory Results - last 24 hr 10/27/16 10/27/16 10/28/16 06:11 12:06 06:35 WBC 4.4 L RBC 4.73 Hgb 12.5 Hct 38.7 MCV 81.8 MCH 26.4 L MCHC 32.2 L RDW 18.8 H Plt Count 161 MPV 8.1 Neut % (Auto) 76.6 H Lymph % (Auto) 15.3 L [place] % (Auto) 6.3 Eos % (Auto) 1.3 Baso % (Auto) 0.5 Neut # 3.4 Lymph # 0.7 L [place] # 0.3 Eos # 0.1 Baso # 0.0 PT INR APTT Sodium 131 L Potassium 5.4 H Chloride 91 L Carbon Dioxide 26 Anion Gap 19 BUN 48 H Creatinine 6.7 H Est GFR ( Amer) 7 Est GFR (Non-Af Amer) 6 Random Glucose 73 Hemoglobin A1c 5.1 Calcium 7.3 L Phosphorus Magnesium Total Bilirubin AST ALT Alkaline Phosphatase Total Protein Albumin Globulin Albumin/Globulin Ratio Triglycerides 205 H Cholesterol 135 LDL Cholesterol Direct 86 HDL Cholesterol 35 10/28/16 10/28/16 06:35 06:35 WBC RBC Hgb Hct MCV MCH MCHC RDW Plt Count MPV Neut % (Auto) Lymph % (Auto) [place] % (Auto) Eos % (Auto) Baso % (Auto) Neut # Lymph # [place] # Eos # Baso # PT 11.3 INR 1.0 APTT 37 H Sodium 136 Potassium 4.6 Chloride 93 L Carbon Dioxide 31 H Anion Gap 17 BUN 24 H Creatinine 3.9 H Est GFR ( Amer) 14 Est GFR (Non-Af Amer) 12 Random Glucose 66 Hemoglobin A1c Calcium 7.3 L Phosphorus 4.4 Magnesium 2.1 Total Bilirubin 0.7 AST 17 ALT 23 Alkaline Phosphatase 166 H D Total Protein 5.8 L Albumin 2.9 L Globulin 2.9 Albumin/Globulin Ratio 1.0 Triglycerides Cholesterol LDL Cholesterol Direct HDL Cholesterol Review of Systems - Constitutional Constitutional: absent: Fever - Cardiovascular Cardiovascular: Palpitations. absent: Chest Pain, Dyspnea - Respiratory Respiratory: absent: Cough, Dyspnea - Gastrointestinal Gastrointestinal: absent: Constipation, Diarrhea, Nausea, Vomiting - Genitourinary Genitourinary: absent: Dysuria - Neurological Neurological: absent: Headaches Critical Care Progress Note - Nutrition Nutrition: Nutrition Category Date Time Status Heart Healthy Diet [DIET] Diets 10/27/16 Dinner Active Assessment/Plan - Assessment and Plan (Free Text) Assessment: 66yo F. PMHx HTN, hypercholesterolemia, anemia, arthritis, asthma, colonic polyps, ESRD on HD (MWF), PVD with Left AKA. p/w chest pain, found to have NSTEMI. Plan: Neuro: Alert and oriented 3 Pulm: No acute issues, breathing spontaneously on 2L NC CV: Hemodynamically stable. - NSTEMI, no chest pain currently - Cardiology Consult: Dr. William --> help appreciated - Rosuvastatin 10mg PO HS - Ezetimibe 10mg PO daily - Metoprolol Tartrate 50mg PO BID - Cardizem 30mg PO QID - Cath 10/27/16: Left main: patent; LAD/L Cx: non obstructive; RCA: proximal 100 % chronical total occlusion - Per Dr. William's note - aggressive medical therapy - Patient tachycardia (10/27) - given 10mg Cardizem IVP - Lipid panel: - Cholesterol: 135; LDL: 86; HDL: 35; Triglycerides: 205 Hem: No acute issues. Started on heparin drip, aspirin and Plavix. Renal: No acute issues. End-stage renal disease on hemodialysis, Dialysis MWF Renal Consult: Dr. North --> help appreciated Endo: Continue sevelamer and cinacalcet for secondary hyperparathyroidism. - Hemaglobin A1C: 5.1 GI: Heart healthy diet ID: No acute issues DVT proph - heparin drip GI proph - Pepcid Code status - full code Case discussed with Dr. Segundo Goldstein PGY-1 <Junior Raymond S - Last Filed: 10/28/16 17:36> CCU Objective - Vital Signs / Intake & Output Vital Signs (Last 4 hours): Vital Signs Temp Pulse Resp BP Pulse Ox 10/28/16 16:00 98.1 F 99 H 16 125/71 94 L 10/28/16 15:00 91 H 21 130/64 95 10/28/16 14:00 109 H 16 135/65 95 Intake and Output (Last 8hrs): Intake & Output 10/28/16 10/28/16 10/28/16 06:59 14:59 22:59 Intake Total 440 411.9 13.2 Output Total 0 0 Balance 440 411.9 13.2 Weight 90 lb 6 oz Intake: Intake, IV Amount 51.9 13.2 Left Hand 51.9 13.2 Oral 440 360 Output: Urine 0 0 Urine, Voided 0 0 - Medications Active Medications: Active Medications Generic Name Dose Route Start Last Admin Trade Name Freq PRN Reason Stop Dose Admin Aspirin 81 mg 10/26/16 10:00 10/28/16 09:07 Ecotrin PO 81 mg DAILY BILL Administration Cinacalcet 60 mg 10/26/16 10:00 10/28/16 09:14 Sensipar PO 60 mg DAILY BILL Administration Clopidogrel Bisulfate 75 mg 10/25/16 20:12 10/28/16 09:06 Plavix PO 75 mg DAILY IBLL Administration Diltiazem HCl 180 mg 10/28/16 16:45 Cardizem Cd PO DAILY BILL Ezetimibe 10 mg 10/26/16 10:00 10/28/16 09:07 Zetia PO 10 mg DAILY BILL Administration Famotidine 20 mg 10/26/16 10:00 10/28/16 09:06 Pepcid PO 20 mg DAILY BILL Administration Heparin Sodium/Sodium Chloride 25,000 units in 250 mls @ 5.728 mls/hr 07:45 10/28/16 07:50 Heparin 93236 Units/250ml 1/2 Normal Saline IV 16 units/kg/hr .Q24H PRN 6.546 mls/hr PROTOCOL Administration Protocol 14 UNITS/KG/HR Metoprolol Tartrate 50 mg 10/25/16 18:00 10/28/16 09:07 Lopressor PO 50 mg BID BILL Administration Rosuvastatin Calcium 10 mg 10/25/16 22:00 10/27/16 23:40 Crestor PO 10 mg HS BILL Administration Sevelamer Carbonate 800 mg 10/25/16 17:00 10/28/16 12:12 Renvela PO 800 mg TIDCC BILL Administration - Patient Studies Lab Studies: Lab Studies 10/28/16 10/28/16 10/28/16 Range/Units 13:49 06:35 06:35 WBC (4.8-10.8) K/uL RBC (3.80-5.20) Mil/uL Hgb (11.0-16.0) g/dL Hct (34.0-47.0) % MCV (81.0-99.0) fL MCH (27.0-31.0) pg MCHC (33.0-37.0) g/dL RDW (11.5-14.5) % Plt Count (130-400) K/uL MPV (7.2-11.7) fL Neut % (Auto) (50.0-75.0) % Lymph % (Auto) (20.0-40.0) % [place] % (Auto) (0.0-10.0) % Eos % (Auto) (0.0-4.0) % Baso % (Auto) (0.0-2.0) % Neut # (1.8-7.0) K/uL Lymph # (1.0-4.3) K/uL [place] # (0.0-0.8) K/uL Eos # (0.0-0.7) K/uL Baso # (0.0-0.2) K/uL PT 11.3 (9.7-12.2) SECONDS INR 1.0 APTT 46 H D 37 H (21-34) SECONDS Sodium 136 (132-148) mmol/L Potassium 4.6 (3.6-5.2) mmol/L Chloride 93 L (98-107) mmol/L Carbon Dioxide 31 H (22-30) mmol/L Anion Gap 17 (10-20) BUN 24 H (7-17) mg/dL Creatinine 3.9 H (0.7-1.2) MG/DL Est GFR ( Amer) 14 Est GFR (Non-Af Amer) 12 Random Glucose 66 (65-105) mg/dL Calcium 7.3 L (8.6-10.4) mg/dl Phosphorus 4.4 (2.5-4.5) mg/dL Magnesium 2.1 (1.6-2.3) mg/dL Total Bilirubin 0.7 (0.2-1.3) mg/dL AST 17 (14-36) U/L ALT 23 (9-52) U/L Alkaline Phosphatase 166 H D (38-126) U/L Total Protein 5.8 L (6.3-8.3) g/dL Albumin 2.9 L (3.5-5.0) g/dL Globulin 2.9 (2.2-3.9) gm/dL Albumin/Globulin Ratio 1.0 (1.0-2.1) 10/28/16 Range/Units 06:35 WBC 4.4 L (4.8-10.8) K/uL RBC 4.73 (3.80-5.20) Mil/uL Hgb 12.5 (11.0-16.0) g/dL Hct 38.7 (34.0-47.0) % MCV 81.8 (81.0-99.0) fL MCH 26.4 L (27.0-31.0) pg MCHC 32.2 L (33.0-37.0) g/dL RDW 18.8 H (11.5-14.5) % Plt Count 161 (130-400) K/uL MPV 8.1 (7.2-11.7) fL Neut % (Auto) 76.6 H (50.0-75.0) % Lymph % (Auto) 15.3 L (20.0-40.0) % [place] % (Auto) 6.3 (0.0-10.0) % Eos % (Auto) 1.3 (0.0-4.0) % Baso % (Auto) 0.5 (0.0-2.0) % Neut # 3.4 (1.8-7.0) K/uL Lymph # 0.7 L (1.0-4.3) K/uL [place] # 0.3 (0.0-0.8) K/uL Eos # 0.1 (0.0-0.7) K/uL Baso # 0.0 (0.0-0.2) K/uL PT (9.7-12.2) SECONDS INR APTT (21-34) SECONDS Sodium (132-148) mmol/L Potassium (3.6-5.2) mmol/L Chloride (98-107) mmol/L Carbon Dioxide (22-30) mmol/L Anion Gap (10-20) BUN (7-17) mg/dL Creatinine (0.7-1.2) MG/DL Est GFR ( Amer) Est GFR (Non-Af Amer) Random Glucose (65-105) mg/dL Calcium (8.6-10.4) mg/dl Phosphorus (2.5-4.5) mg/dL Magnesium (1.6-2.3) mg/dL Total Bilirubin (0.2-1.3) mg/dL AST (14-36) U/L ALT (9-52) U/L Alkaline Phosphatase (38-126) U/L Total Protein (6.3-8.3) g/dL Albumin (3.5-5.0) g/dL Globulin (2.2-3.9) gm/dL Albumin/Globulin Ratio (1.0-2.1) Laboratory Results - last 24 hr 10/28/16 10/28/16 10/28/16 06:35 06:35 06:35 WBC 4.4 L RBC 4.73 Hgb 12.5 Hct 38.7 MCV 81.8 MCH 26.4 L MCHC 32.2 L RDW 18.8 H Plt Count 161 MPV 8.1 Neut % (Auto) 76.6 H Lymph % (Auto) 15.3 L [place] % (Auto) 6.3 Eos % (Auto) 1.3 Baso % (Auto) 0.5 Neut # 3.4 Lymph # 0.7 L [place] # 0.3 Eos # 0.1 Baso # 0.0 PT 11.3 INR 1.0 APTT 37 H Sodium 136 Potassium 4.6 Chloride 93 L Carbon Dioxide 31 H Anion Gap 17 BUN 24 H Creatinine 3.9 H Est GFR ( Amer) 14 Est GFR (Non-Af Amer) 12 Random Glucose 66 Calcium 7.3 L Phosphorus 4.4 Magnesium 2.1 Total Bilirubin 0.7 AST 17 ALT 23 Alkaline Phosphatase 166 H D Total Protein 5.8 L Albumin 2.9 L Globulin 2.9 Albumin/Globulin Ratio 1.0 10/28/16 13:49 WBC RBC Hgb Hct MCV MCH MCHC RDW Plt Count MPV Neut % (Auto) Lymph % (Auto) [place] % (Auto) Eos % (Auto) Baso % (Auto) Neut # Lymph # [place] # Eos # Baso # PT INR APTT 46 H D Sodium Potassium Chloride Carbon Dioxide Anion Gap BUN Creatinine Est GFR ( Amer) Est GFR (Non-Af Amer) Random Glucose Calcium Phosphorus Magnesium Total Bilirubin AST ALT Alkaline Phosphatase Total Protein Albumin Globulin Albumin/Globulin Ratio Critical Care Progress Note - Nutrition Nutrition: Nutrition Category Date Time Status Heart Healthy Diet [DIET] Diets 10/27/16 Dinner Active Attending/Attestation - Attestation I have personally seen and examined this patient.: Yes I have fully participated in the care of the patient.: Yes I have reviewed all pertinent clinical information: Yes Notes (Text): 10/28/16 17:35 Patient seen and examined in the intensive care unit. Case discussed with house staff in the morning rounds. On heparin drip for A. fib with rapid ventricular rate Started on by mouth Cardizem Status post cardiac cath and as per cardiology medical management Transfer patient to telemetry
--- NOTE | 2016-10-28 11:54 | CP.PCM.PN ---
Subjective - Date & Time of Evaluation Date of Evaluation: 10/28/16 Time of Evaluation: 11:52 - Subjective Subjective: s/p cardiac cath, results noted. medical therapy tolerated hd well heart rate remains high in low 100s. on heparin gtt denies any sob/nausea/vomiting/headache/fevers/chills/dizziness had some chest pain this am resolved Objective - Vital Signs/Intake and Output Vital Signs (last 24 hours): Temp Pulse Resp BP Pulse Ox 97.7 F 63 14 106/52 L 95 10/28/16 08:00 10/28/16 11:00 10/28/16 11:00 10/28/16 11:00 10/28/16 11:00 Intake and Output: 10/28/16 10/28/16 06:59 18:59 Intake Total 725 272.1 Output Total 0 0 Balance 725 272.1 - Medications Medications: Current Medications Aspirin (Ecotrin) 81 mg PO DAILY [facility] Last Admin: 10/28/16 09:07 Dose: 81 mg Cinacalcet (Sensipar) 60 mg PO DAILY [facility] Last Admin: 10/28/16 09:14 Dose: 60 mg Clopidogrel Bisulfate (Plavix) 75 mg PO DAILY [facility] Last Admin: 10/28/16 09:06 Dose: 75 mg Diltiazem HCl (Cardizem) 30 mg PO QID [facility] Last Admin: 10/28/16 09:07 Dose: 30 mg Ezetimibe (Zetia) 10 mg PO DAILY [facility] Last Admin: 10/28/16 09:07 Dose: 10 mg Famotidine (Pepcid) 20 mg PO DAILY [facility] Last Admin: 10/28/16 09:06 Dose: 20 mg Heparin Sodium/Sodium Chloride (Heparin 01291 Units/250ml 1/2 Normal Saline) 25 ,000 units in 250 mls @ 5.728 mls/hr IV .Q24H PRN; Protocol; 14 UNITS/KG/HR PRN Reason: PROTOCOL Last Admin: 10/28/16 07:50 Dose: 16 units/kg/hr, 6.546 mls/hr Metoprolol Tartrate (Lopressor) 50 mg PO BID [facility] Last Admin: 10/28/16 09:07 Dose: 50 mg Oxycodone/Acetaminophen (Percocet 5/325 Mg Tab) 1 tab PO Q4H PRN PRN Reason: Pain, Mild (1-3) Stop: 10/28/16 16:44 Last Admin: 10/28/16 01:09 Dose: 1 tab Rosuvastatin Calcium (Crestor) 10 mg PO HS BILL Last Admin: 10/27/16 23:40 Dose: 10 mg Sevelamer Carbonate (Renvela) 800 mg PO TIDCC BILL Last Admin: 10/28/16 07:50 Dose: 800 mg - Labs Labs: 10/28/16 06:35 10/28/16 06:35 PT 11.3 SECONDS (9.7-12.2) 10/28/16 06:35 INR 1.0 10/28/16 06:35 APTT 37 SECONDS (21-34) H 10/28/16 06:35 - Constitutional Appears: Non-toxic, No Acute Distress - Head Exam Head Exam: NORMAL INSPECTION - Eye Exam Eye Exam: Normal appearance - ENT Exam ENT Exam: Mucous Membranes Moist, Normal Exam - Neck Exam Neck Exam: Normal Inspection - Respiratory Exam Respiratory Exam: Clear to Ausculation Bilateral, NORMAL BREATHING PATTERN - Cardiovascular Exam Cardiovascular Exam: Tachycardia, Irregular Rhythm - GI/Abdominal Exam GI & Abdominal Exam: Distended, Soft - Extremities Exam Extremities Exam: Normal Inspection Additional comments: av fistula - Neurological Exam Neurological Exam: Alert, Awake - Skin Skin Exam: Warm Assessment and Plan (1) ACS (acute coronary syndrome) Status: Acute (2) ESRD (end stage renal disease) Status: Acute (3) NSTEMI (non-ST elevated myocardial infarction) Status: Acute (4) A-fib Status: Acute (5) Above knee amputation of left lower extremity Status: Acute - Assessment and Plan (Free Text) Assessment: hd tomorrow cardiac management
--- NOTE | 2016-10-28 12:44 | CP.PCM.PN ---
Subjective - Date & Time of Evaluation Date of Evaluation: 10/28/16 Time of Evaluation: 12:41 - Subjective Subjective: OCCASIONAL CHEST PAIN PRESENT. NO ACUTE DISTRESS. CARDIAC CATH DONE. OLD RCA LESION. MEDICAL THERAPT. A. JAY. DISCUSSED WITH DR. EL. Objective - Vital Signs/Intake and Output Vital Signs (last 24 hours): Temp Pulse Resp BP Pulse Ox 98.1 F 110 H 16 90/57 L 97 10/28/16 12:00 10/28/16 12:00 10/28/16 12:00 10/28/16 12:00 10/28/16 12:00 Intake and Output: 10/28/16 10/28/16 06:59 18:59 Intake Total 725 398.7 Output Total 0 0 Balance 725 398.7 - Medications Medications: Current Medications Aspirin (Ecotrin) 81 mg PO DAILY [facility] Last Admin: 10/28/16 09:07 Dose: 81 mg Cinacalcet (Sensipar) 60 mg PO DAILY [facility] Last Admin: 10/28/16 09:14 Dose: 60 mg Clopidogrel Bisulfate (Plavix) 75 mg PO DAILY [facility] Last Admin: 10/28/16 09:06 Dose: 75 mg Diltiazem HCl (Cardizem) 30 mg PO QID [facility] Last Admin: 10/28/16 09:07 Dose: 30 mg Ezetimibe (Zetia) 10 mg PO DAILY [facility] Last Admin: 10/28/16 09:07 Dose: 10 mg Famotidine (Pepcid) 20 mg PO DAILY [facility] Last Admin: 10/28/16 09:06 Dose: 20 mg Heparin Sodium/Sodium Chloride (Heparin 02773 Units/250ml 1/2 Normal Saline) 25 ,000 units in 250 mls @ 5.728 mls/hr IV .Q24H PRN; Protocol; 14 UNITS/KG/HR PRN Reason: PROTOCOL Last Admin: 10/28/16 07:50 Dose: 16 units/kg/hr, 6.546 mls/hr Metoprolol Tartrate (Lopressor) 50 mg PO BID [facility] Last Admin: 10/28/16 09:07 Dose: 50 mg Oxycodone/Acetaminophen (Percocet 5/325 Mg Tab) 1 tab PO Q4H PRN PRN Reason: Pain, Mild (1-3) Stop: 10/28/16 16:44 Last Admin: 10/28/16 01:09 Dose: 1 tab Rosuvastatin Calcium (Crestor) 10 mg PO HS [facility] Last Admin: 10/27/16 23:40 Dose: 10 mg Sevelamer Carbonate (Renvela) 800 mg PO TIDCC BILL Last Admin: 10/28/16 12:12 Dose: 800 mg - Labs Labs: 10/28/16 06:35 10/28/16 06:35 PT 11.3 SECONDS (9.7-12.2) 10/28/16 06:35 INR 1.0 10/28/16 06:35 APTT 37 SECONDS (21-34) H 10/28/16 06:35 - Constitutional Appears: No Acute Distress - Eye Exam Pupil Exam: PERRL - ENT Exam ENT Exam: Normal Exam - Respiratory Exam Respiratory Exam: Clear to Ausculation Bilateral, NORMAL BREATHING PATTERN - Cardiovascular Exam Cardiovascular Exam: Irregular Rhythm, +S1, +S2 - GI/Abdominal Exam GI & Abdominal Exam: Soft, Normal Bowel Sounds - Extremities Exam Extremities Exam: Full ROM, Normal Capillary Refill, Normal Inspection. absent : Joint Swelling, Pedal Edema - Neurological Exam Neurological Exam: Alert, Awake, CN II-XII Intact, Normal Gait, Oriented x3 - Psychiatric Exam Psychiatric exam: Normal Affect, Normal Mood Assessment and Plan - Assessment and Plan (Free Text) Assessment: CAD NSTEMI. CRF. Plan: FOR ANTICOAGULATION. COUMADIN. CT OTHER TREATMENT. HD.
[2016-10-28] MEDS: diltiaZEM 180 mg/24 Hours CD Cap PO SCH (17:40)
--- NOTE | 2016-10-28 22:56 | CP.PCM.PN ---
Subjective - Date & Time of Evaluation Date of Evaluation: 10/28/16 Time of Evaluation: 12:30 - Subjective Subjective: Patient seen and evaluated Denies chest apin and dyspnea s/p Cath Medical management Objective - Vital Signs/Intake and Output Vital Signs (last 24 hours): Temp Pulse Resp BP Pulse Ox 98.2 F 84 14 113/72 100 10/28/16 20:00 10/28/16 20:00 10/28/16 20:00 10/28/16 20:00 10/28/16 20:00 Intake and Output: 10/28/16 10/29/16 18:59 06:59 Intake Total 558.3 264.0 Output Total 0 0 Balance 558.3 264.0 - Medications Medications: Current Medications Aspirin (Ecotrin) 81 mg PO DAILY [facility] Last Admin: 10/28/16 09:07 Dose: 81 mg Cinacalcet (Sensipar) 60 mg PO DAILY [facility] Last Admin: 10/28/16 09:14 Dose: 60 mg Clopidogrel Bisulfate (Plavix) 75 mg PO DAILY [facility] Last Admin: 10/28/16 09:06 Dose: 75 mg Diltiazem HCl (Cardizem Cd) 180 mg PO DAILY [facility] Last Admin: 10/28/16 17:40 Dose: 180 mg Ezetimibe (Zetia) 10 mg PO DAILY [facility] Last Admin: 10/28/16 09:07 Dose: 10 mg Famotidine (Pepcid) 20 mg PO DAILY [facility] Last Admin: 10/28/16 09:06 Dose: 20 mg Heparin Sodium/Sodium Chloride (Heparin 42570 Units/250ml 1/2 Normal Saline) 25 ,000 units in 250 mls @ 5.728 mls/hr IV .Q24H PRN; Protocol; 14 UNITS/KG/HR PRN Reason: PROTOCOL Last Admin: 10/28/16 21:01 Dose: 18 units/kg/hr, 7.365 mls/hr Metoprolol Tartrate (Lopressor) 50 mg PO BID [facility] Last Admin: 10/28/16 17:40 Dose: 50 mg Rosuvastatin Calcium (Crestor) 10 mg PO HS [facility] Last Admin: 10/28/16 21:07 Dose: 10 mg Sevelamer Carbonate (Renvela) 800 mg PO TIDCC [facility] Last Admin: 10/28/16 17:40 Dose: 800 mg - Labs Labs: 10/28/16 06:35 10/28/16 06:35 PT 11.3 SECONDS (9.7-12.2) 10/28/16 06:35 INR 1.0 10/28/16 06:35 APTT 43 SECONDS (21-34) H 10/28/16 20:17
[2016-10-29 06:59] LABS: ALBUMIN 2.9 g/dL (3.5-5.0); MAGNESIUM 2.2 mg/dL (1.6-2.3)
[2016-10-29 07:24] LABS: BASO % 0.4 % (0.0-2.0); EOS # 0.1 K/uL (0.0-0.7); EOS % 1.4 % (0.0-4.0); LYMPH # 0.8 K/uL (1.0-4.3); LYMPH % 17.8 % (20.0-40.0); MEAN CELL VOLUME 83.2 fL (81.0-99.0); MEAN CORPUSCULAR HEMOGLOBIN 26.2 pg (27.0-31.0); MEAN CORPUSCULAR HGB CONC 31.5 g/dL (33.0-37.0); MEAN PLATELET VOLUME 7.9 fL (7.2-11.7); MONO # 0.3 K/uL (0.0-0.8); MONO % 7.4 % (0.0-10.0); NEUT # 3.3 K/uL (1.8-7.0); NRBC % 0.2 % (0.0-2.0); RBC 4.59 Mil/uL (3.80-5.20); RED CELL DISTRIBUTION WIDTH 19.5 % (11.5-14.5); WHITE BLOOD COUNT 4.5 K/uL (4.8-10.8)
--- NOTE | 2016-10-29 09:49 | CP.PCM.PN ---
Subjective - Date & Time of Evaluation Date of Evaluation: 10/29/16 Time of Evaluation: 09:45 - Subjective Subjective: Cardio progress note. Attending Dr. Whitehead Pt seen/examined at bedside. No acute distress. No events overnight. Pt feeling much better. No fevers, chills, chest pain, sob. Objective - Vital Signs/Intake and Output Vital Signs (last 24 hours): Temp Pulse Resp BP Pulse Ox 98.1 F 59 L 15 133/61 98 10/29/16 09:05 10/29/16 08:55 10/29/16 09:05 10/29/16 09:35 10/29/16 09:05 Intake and Output: 10/29/16 10/29/16 06:59 18:59 Intake Total 264.0 Output Total 0 Balance 264.0 - Medications Medications: Current Medications Aspirin (Ecotrin) 81 mg PO DAILY [facility] Last Admin: 10/28/16 09:07 Dose: 81 mg Cinacalcet (Sensipar) 60 mg PO DAILY [facility] Last Admin: 10/28/16 09:14 Dose: 60 mg Clopidogrel Bisulfate (Plavix) 75 mg PO DAILY [facility] Last Admin: 10/28/16 09:06 Dose: 75 mg Diltiazem HCl (Cardizem Cd) 180 mg PO DAILY [facility] Last Admin: 10/28/16 17:40 Dose: 180 mg Ezetimibe (Zetia) 10 mg PO DAILY [facility] Last Admin: 10/28/16 09:07 Dose: 10 mg Famotidine (Pepcid) 20 mg PO DAILY [facility] Last Admin: 10/28/16 09:06 Dose: 20 mg Heparin Sodium/Sodium Chloride (Heparin 47175 Units/250ml 1/2 Normal Saline) 25 ,000 units in 250 mls @ 5.728 mls/hr IV .Q24H PRN; Protocol; 14 UNITS/KG/HR PRN Reason: PROTOCOL Last Admin: 10/28/16 21:01 Dose: 18 units/kg/hr, 7.365 mls/hr Metoprolol Tartrate (Lopressor) 50 mg PO BID [facility] Last Admin: 10/28/16 17:40 Dose: 50 mg Rosuvastatin Calcium (Crestor) 10 mg PO HS [facility] Last Admin: 10/28/16 21:07 Dose: 10 mg Sevelamer Carbonate (Renvela) 800 mg PO TIDCC [facility] Last Admin: 10/29/16 07:46 Dose: 800 mg - Labs Labs: 10/29/16 06:39 10/29/16 06:39 PT 11.3 SECONDS (9.7-12.2) 10/28/16 06:35 INR 1.0 10/28/16 06:35 APTT 48 SECONDS (21-34) H D 10/29/16 03:23 - Constitutional Appears: Non-toxic, No Acute Distress - Head Exam Head Exam: ATRAUMATIC, NORMAL INSPECTION, NORMOCEPHALIC - Eye Exam Eye Exam: EOMI - ENT Exam ENT Exam: Mucous Membranes Moist - Neck Exam Neck Exam: Full ROM, Normal Inspection - Respiratory Exam Respiratory Exam: NORMAL BREATHING PATTERN. absent: Respiratory Distress - Cardiovascular Exam Cardiovascular Exam: +S1, +S2 - GI/Abdominal Exam GI & Abdominal Exam: Soft, Normal Bowel Sounds. absent: Tenderness - Extremities Exam Extremities Exam: absent: Full ROM, Normal Inspection Additional comments: Left AKA - Neurological Exam Neurological Exam: Alert, Awake, Oriented x3 - Psychiatric Exam Psychiatric exam: Normal Affect, Normal Mood - Skin Skin Exam: Dry, Intact, Normal Color, Warm Assessment and Plan - Assessment and Plan (Free Text) Assessment: This is a 66 year old female with past medical hx of HTN, HLD, Anemia, Arthritis , Asthma, Colonic Polyps, ESRD, CAD s/p stents in RCA, and peripheral vascular disease with left above knee amputation presenting with NSTEMI and A fib NSTEMI Cardiac cath done by Dr. William- total occlusion of RCA identified; Previous RCA stenting observed. Continue med management ASA 81mg PO daily Crestor 10mg PO daily metoprolol 50mg PO BID heparin ggt plavix 75mgP PO daily Trops: 0.28-->6.03-->4.6 AFib- Rate controlled with medications heparin ggt cardizem 30mg PO QID switched to cardizem CD 180mg PO daily metoprolol 50mg PO BID Pt can be rate limited, stable and asymptomatic with medications as above. [id number] score: 4 = 4.8% Pt was previously on warfarin at home and may be bridged back, dosing as per INR Eliquis may be considered as pt meets criteria for dosing at 2.5mg PO BID. Criteria fulfilled: under 60kg weight, creatinine >1.5. Case discussed with Dr. Whitehead
--- NOTE | 2016-10-29 12:53 | CP.PCM.PN ---
Subjective - Date & Time of Evaluation Date of Evaluation: 10/29/16 Time of Evaluation: 12:51 - Subjective Subjective: FEELS BETTER. NO CHEST PAIN. HR CONTROLLED WITH CARDIZEM. NSR. Objective - Vital Signs/Intake and Output Vital Signs (last 24 hours): Temp Pulse Resp BP Pulse Ox 97.9 F 62 15 118/59 L 94 L 10/29/16 12:35 10/29/16 12:35 10/29/16 12:35 10/29/16 12:35 10/29/16 12:00 Intake and Output: 10/29/16 10/29/16 06:59 18:59 Intake Total 264.0 Output Total 0 Balance 264.0 - Medications Medications: Current Medications Aspirin (Ecotrin) 81 mg PO DAILY [facility] Last Admin: 10/29/16 10:25 Dose: 81 mg Cinacalcet (Sensipar) 60 mg PO DAILY [facility] Last Admin: 10/29/16 10:24 Dose: 60 mg Clopidogrel Bisulfate (Plavix) 75 mg PO DAILY [facility] Last Admin: 10/29/16 10:24 Dose: 75 mg Diltiazem HCl (Cardizem Cd) 180 mg PO DAILY [facility] Last Admin: 10/28/16 17:40 Dose: 180 mg Ezetimibe (Zetia) 10 mg PO DAILY [facility] Last Admin: 10/29/16 10:24 Dose: 10 mg Famotidine (Pepcid) 20 mg PO DAILY [facility] Last Admin: 10/29/16 10:25 Dose: 20 mg Heparin Sodium/Sodium Chloride (Heparin 70719 Units/250ml 1/2 Normal Saline) 25 ,000 units in 250 mls @ 5.728 mls/hr IV .Q24H PRN; Protocol; 14 UNITS/KG/HR PRN Reason: PROTOCOL Last Admin: 10/28/16 21:01 Dose: 18 units/kg/hr, 7.365 mls/hr Metoprolol Tartrate (Lopressor) 50 mg PO BID [facility] Last Admin: 10/29/16 10:25 Dose: Not Given Rosuvastatin Calcium (Crestor) 10 mg PO HS [facility] Last Admin: 10/28/16 21:07 Dose: 10 mg Sevelamer Carbonate (Renvela) 800 mg PO TIDCC [facility] Last Admin: 10/29/16 12:26 Dose: 800 mg - Labs Labs: 10/29/16 06:39 10/29/16 06:39 PT 11.3 SECONDS (9.7-12.2) 10/28/16 06:35 INR 1.0 10/28/16 06:35 APTT 46 SECONDS (21-34) H 10/29/16 09:39 - Constitutional Appears: Non-toxic, No Acute Distress, Chronically Ill - Eye Exam Eye Exam: Normal appearance, PERRL - ENT Exam ENT Exam: Normal Exam - Respiratory Exam Respiratory Exam: Clear to Ausculation Bilateral, NORMAL BREATHING PATTERN - Cardiovascular Exam Cardiovascular Exam: REGULAR RHYTHM, +S1, +S2 - GI/Abdominal Exam GI & Abdominal Exam: Soft, Normal Bowel Sounds - Extremities Exam Extremities Exam: Full ROM, Normal Capillary Refill, Normal Inspection. absent : Joint Swelling, Pedal Edema - Neurological Exam Neurological Exam: Alert, Awake, CN II-XII Intact, Normal Gait, Oriented x3 - Psychiatric Exam Psychiatric exam: Normal Affect, Normal Mood Assessment and Plan - Assessment and Plan (Free Text) Assessment: CAD-STABLE. Plan: FOR TRANSFER TO TELEMETRY. CT OTHER TREATMENT.
[2016-10-29] MEDS: diltiaZEM 180 mg/24 Hours CD Cap PO SCH (14:15)
--- NOTE | 2016-10-29 15:32 | CP.PCM.PN ---
Subjective - Date & Time of Evaluation Date of Evaluation: 10/29/16 Time of Evaluation: 15:00 - Subjective Subjective: tolerated HD no chest pain appetite good in afib on monitor anuric no fever not sob no depression no rash no cough no abdominal pain chronic muscle weakness and joint pain Objective - Vital Signs/Intake and Output Vital Signs (last 24 hours): Temp Pulse Resp BP Pulse Ox 97.9 F 62 15 118/59 L 94 L 10/29/16 12:35 10/29/16 12:35 10/29/16 12:35 10/29/16 12:35 10/29/16 12:00 Intake and Output: 10/29/16 10/29/16 06:59 18:59 Intake Total 264.0 Output Total 0 Balance 264.0 - Medications Medications: Current Medications Aspirin (Ecotrin) 81 mg PO DAILY [facility] Last Admin: 10/29/16 10:25 Dose: 81 mg Cinacalcet (Sensipar) 60 mg PO DAILY [facility] Last Admin: 10/29/16 10:24 Dose: 60 mg Clopidogrel Bisulfate (Plavix) 75 mg PO DAILY [facility] Last Admin: 10/29/16 10:24 Dose: 75 mg Diltiazem HCl (Cardizem Cd) 180 mg PO DAILY [facility] Last Admin: 10/29/16 14:15 Dose: 180 mg Ezetimibe (Zetia) 10 mg PO DAILY [facility] Last Admin: 10/29/16 10:24 Dose: 10 mg Famotidine (Pepcid) 20 mg PO DAILY [facility] Last Admin: 10/29/16 10:25 Dose: 20 mg Heparin Sodium/Sodium Chloride (Heparin 31791 Units/250ml 1/2 Normal Saline) 25 ,000 units in 250 mls @ 5.728 mls/hr IV .Q24H PRN; Protocol; 14 UNITS/KG/HR PRN Reason: PROTOCOL Last Admin: 10/28/16 21:01 Dose: 18 units/kg/hr, 7.365 mls/hr Metoprolol Tartrate (Lopressor) 50 mg PO BID [facility] Last Admin: 10/29/16 10:25 Dose: Not Given Rosuvastatin Calcium (Crestor) 10 mg PO HS [facility] Last Admin: 10/28/16 21:07 Dose: 10 mg Sevelamer Carbonate (Renvela) 800 mg PO TIDCC [facility] Last Admin: 10/29/16 12:26 Dose: 800 mg - Labs Labs: 10/29/16 06:39 10/29/16 06:39 PT 11.3 SECONDS (9.7-12.2) 10/28/16 06:35 INR 1.0 10/28/16 06:35 APTT 46 SECONDS (21-34) H 10/29/16 09:39 - Constitutional Appears: Chronically Ill - Head Exam Head Exam: ATRAUMATIC - Eye Exam Eye Exam: EOMI - ENT Exam ENT Exam: Mucous Membranes Moist - Neck Exam Neck Exam: Full ROM. absent: Lymphadenopathy - Respiratory Exam Respiratory Exam: Clear to Ausculation Bilateral. absent: Accessory Muscle Use - Cardiovascular Exam Cardiovascular Exam: Irregular Rhythm. absent: Rubs - GI/Abdominal Exam GI & Abdominal Exam: Soft. absent: Tenderness - Extremities Exam Extremities Exam: absent: Pedal Edema Additional comments: left bka - Neurological Exam Neurological Exam: Alert, Oriented x3 Assessment and Plan - Assessment and Plan (Free Text) Assessment: esrd nstemi medical management maint HD pvd
--- NOTE | 2016-10-29 21:57 | CARDCATH ---
PROCEDURE DATE: 10/27/2016 PROCEDURES: Coronary angiogram. REFERRING PHYSICIANS: 1. Dr. Susana Larson. 2. Dr. Tariq Hubbard. PERFORMING PHYSICIAN: Dr. Mateo William. CLINICAL INDICATIONS: 1. Angina. 2. Non-ST elevation myocardial infarction. 3. Coronary artery disease. 4. Hypertension. 5. Chronic renal failure on hemodialysis. PROCEDURE: After informed consent, the patient was prepped and draped in the usual sterile fashion. A 2% Xylocaine was given in the right groin for local anesthesia. Using micropuncture technique, a 5-Bel[place]ian sheath was inserted in to the right common femoral artery. Using the usual diagnostic catheter, the coronary angiogram was performed. The patient tolerated the procedure well. FINDINGS: 1. Left main coronary artery. 2. LAD and diagonal branch palpated. 3. Left circumflex and obtuse marginal branches are patent. 4. Right coronary artery has proximal to distal lung calcific chronic total occlusion. There are left to right collaterals. IMPRESSION: Chronic total occlusion of the right coronary artery from proximal to distal patent. This is unchanged compared to last year. There are collaterals from left to right. Due to the patient's vascular issues and severe vasculopathy, recommend continued medical management. Mateo William MD
[2016-10-30 07:58] VITALS: RESP 17; TEMP 97.6
[2016-10-30 08:36] VITALS: O2SAT 97
[2016-10-30 08:40] LABS: BASO % 0.7 % (0.0-2.0); HEMOGLOBIN 13.1 g/dL (11.0-16.0); LYMPH # 0.6 K/uL (1.0-4.3); LYMPH % 14.5 % (20.0-40.0); MEAN CELL VOLUME 82.4 fL (81.0-99.0); MEAN CORPUSCULAR HEMOGLOBIN 26.4 pg (27.0-31.0); MEAN CORPUSCULAR HGB CONC 32.1 g/dL (33.0-37.0); MEAN PLATELET VOLUME 8.2 fL (7.2-11.7); MONO # 0.4 K/uL (0.0-0.8); MONO % 8.9 % (0.0-10.0); NEUT # 3.3 K/uL (1.8-7.0); NEUT % 74.9 % (50.0-75.0); RBC 4.96 Mil/uL (3.80-5.20); RED CELL DISTRIBUTION WIDTH 19.7 % (11.5-14.5); WHITE BLOOD COUNT 4.4 K/uL (4.8-10.8)
--- NOTE | 2016-10-30 08:41 | CP.PCM.PN ---
Subjective - Date & Time of Evaluation Date of Evaluation: 10/30/16 Time of Evaluation: 08:40 - Subjective Subjective: Cardiology progress note. Attending: Dr. Whitehead Pt seen and examined at bedside. No acute distress. No events overnight. Pt feels better, no cp, sob. No fevers, chills, vomiting, diarrhea. Objective - Vital Signs/Intake and Output Vital Signs (last 24 hours): Temp Pulse Resp BP Pulse Ox 97.6 F 66 17 146/68 97 10/30/16 07:15 10/30/16 07:15 10/30/16 07:15 10/30/16 07:15 10/30/16 07:15 Intake and Output: 10/30/16 10/30/16 06:59 18:59 Intake Total 279.2 Balance 279.2 - Medications Medications: Current Medications Aspirin (Ecotrin) 81 mg PO DAILY [facility] Last Admin: 10/29/16 10:25 Dose: 81 mg Cinacalcet (Sensipar) 60 mg PO DAILY [facility] Last Admin: 10/29/16 10:24 Dose: 60 mg Clopidogrel Bisulfate (Plavix) 75 mg PO DAILY [facility] Last Admin: 10/29/16 10:24 Dose: 75 mg Diltiazem HCl (Cardizem Cd) 180 mg PO DAILY [facility] Last Admin: 10/29/16 14:15 Dose: 180 mg Ezetimibe (Zetia) 10 mg PO DAILY [facility] Last Admin: 10/29/16 10:24 Dose: 10 mg Famotidine (Pepcid) 20 mg PO DAILY [facility] Last Admin: 10/29/16 10:25 Dose: 20 mg Metoprolol Tartrate (Lopressor) 50 mg PO BID [facility] Last Admin: 10/29/16 17:10 Dose: 50 mg Rosuvastatin Calcium (Crestor) 10 mg PO HS [facility] Last Admin: 10/29/16 21:57 Dose: 10 mg Sevelamer Carbonate (Renvela) 800 mg PO TIDCC [facility] Last Admin: 10/30/16 08:16 Dose: 800 mg Warfarin Sodium (Coumadin) 3 mg PO 1800 [facility] Stop: 10/30/16 18:01 - Labs Labs: 10/29/16 06:39 10/29/16 06:39 PT 11.3 SECONDS (9.7-12.2) 10/28/16 06:35 INR 1.0 10/28/16 06:35 APTT 46 SECONDS (21-34) H 10/29/16 09:39 - Constitutional Appears: Non-toxic, No Acute Distress - Head Exam Head Exam: ATRAUMATIC, NORMAL INSPECTION, NORMOCEPHALIC - Eye Exam Eye Exam: EOMI - ENT Exam ENT Exam: Mucous Membranes Moist - Neck Exam Neck Exam: Full ROM, Normal Inspection - Respiratory Exam Respiratory Exam: NORMAL BREATHING PATTERN. absent: Respiratory Distress - Cardiovascular Exam Cardiovascular Exam: +S1, +S2 - GI/Abdominal Exam GI & Abdominal Exam: Soft, Normal Bowel Sounds. absent: Tenderness - Extremities Exam Extremities Exam: absent: Normal Inspection - Back Exam Back Exam: NORMAL INSPECTION - Neurological Exam Neurological Exam: Alert, Awake, Oriented x3 - Psychiatric Exam Psychiatric exam: Normal Affect, Normal Mood - Skin Skin Exam: Dry, Intact, Normal Color, Warm Assessment and Plan - Assessment and Plan (Free Text) Assessment: This is a 66 year old female with past medical hx of HTN, HLD, Anemia, Arthritis , Asthma, Colonic Polyps, ESRD, CAD s/p stents in RCA, and peripheral vascular disease with left above knee amputation presenting with NSTEMI and A fib NSTEMI Cardiac cath done by Dr. William- total occlusion of RCA identified; Previous RCA stenting observed. Continue med management ASA 81mg PO daily Crestor 10mg PO daily metoprolol 50mg PO BID heparin ggt >>> will dc plavix 75mgPO daily Trops: 0.28-->6.03-->4.6 AFib- Rate controlled with medications cardizem 30mg PO QID switched to cardizem CD 180mg PO daily metoprolol 50mg PO BID Pt can be rate limited, stable and asymptomatic with medications as above. [id number] score: 4 = 4.8% Pt was previously on warfarin at home and may be bridged back, dosing as per INR will start warfarin 3 mg po today Eliquis may be considered as pt meets criteria for dosing at 2.5mg PO BID. Criteria fulfilled: under 60kg weight, creatinine >1.5. Case discussed with Dr. Whitehead
[2016-10-30 08:48] LABS: ALBUMIN 3.2 g/dL (3.5-5.0)
[2016-10-30 08:51] LABS: ALB/GLOB RATIO 1.1 (1.0-2.1)
[2016-10-30 08:52] LABS: CALCIUM 7.9 mg/dl (8.6-10.4); MAGNESIUM 2.3 mg/dL (1.6-2.3)
[2016-10-30 09:48] VITALS: BP 111/52
[2016-10-30] MEDS: diltiaZEM 180 mg/24 Hours CD Cap PO SCH (09:48)
--- NOTE | 2016-10-30 10:44 | CP.PCM.PN ---
Subjective - Date & Time of Evaluation Date of Evaluation: 10/30/16 Time of Evaluation: 10:42 - Subjective Subjective: s/p dialysis 10/29- UF 2500ml Sl CPs this AM Feels better now. Not dyspneic, No n, v, chills, diarrhea, fevers BP controlled s/p NSTEMI Objective - Vital Signs/Intake and Output Vital Signs (last 24 hours): Temp Pulse Resp BP Pulse Ox 97.6 F 73 17 111/52 L 97 10/30/16 07:15 10/30/16 09:47 10/30/16 07:15 10/30/16 09:47 10/30/16 07:15 Intake and Output: 10/30/16 10/30/16 06:59 18:59 Intake Total 279.2 Balance 279.2 - Medications Medications: Current Medications Aspirin (Ecotrin) 81 mg PO DAILY [facility] Last Admin: 10/30/16 09:50 Dose: 81 mg Cinacalcet (Sensipar) 60 mg PO DAILY [facility] Last Admin: 10/29/16 10:24 Dose: 60 mg Clopidogrel Bisulfate (Plavix) 75 mg PO DAILY [facility] Last Admin: 10/30/16 09:50 Dose: 75 mg Diltiazem HCl (Cardizem Cd) 180 mg PO DAILY [facility] Last Admin: 10/30/16 09:48 Dose: 180 mg Ezetimibe (Zetia) 10 mg PO DAILY [facility] Last Admin: 10/30/16 09:49 Dose: 10 mg Famotidine (Pepcid) 20 mg PO DAILY [facility] Last Admin: 10/30/16 09:50 Dose: 20 mg Metoprolol Tartrate (Lopressor) 50 mg PO BID [facility] Last Admin: 10/30/16 09:50 Dose: 50 mg Rosuvastatin Calcium (Crestor) 10 mg PO HS [facility] Last Admin: 10/29/16 21:57 Dose: 10 mg Sevelamer Carbonate (Renvela) 800 mg PO TIDCC [facility] Last Admin: 10/30/16 08:16 Dose: 800 mg Warfarin Sodium (Coumadin) 3 mg PO 1800 [facility] Stop: 10/30/16 18:01 - Labs Labs: 10/30/16 08:23 10/30/16 08:23 PT 11.3 SECONDS (9.7-12.2) 10/28/16 06:35 INR 1.0 10/28/16 06:35 APTT 44 SECONDS (21-34) H 10/30/16 08:23 - Constitutional Appears: No Acute Distress, Chronically Ill - Head Exam Head Exam: ATRAUMATIC, NORMAL INSPECTION - Eye Exam Eye Exam: EOMI, Normal appearance - Neck Exam Neck Exam: Normal Inspection. absent: Tenderness - Respiratory Exam Respiratory Exam: Clear to Ausculation Bilateral, NORMAL BREATHING PATTERN - Cardiovascular Exam Cardiovascular Exam: REGULAR RHYTHM, +S1 - GI/Abdominal Exam GI & Abdominal Exam: Soft. absent: Tenderness - Extremities Exam Extremities Exam: Normal Inspection. absent: Tenderness - Neurological Exam Neurological Exam: Alert, CN II-XII Intact - Skin Skin Exam: Dry, Warm Assessment and Plan (1) ACS (acute coronary syndrome) Status: Acute (2) CAD (coronary artery disease) Status: Acute (3) CHF (congestive heart failure) Status: Acute (4) ESRD (end stage renal disease) Status: Acute (5) NSTEMI (non-ST elevated myocardial infarction) Status: Acute (6) A-fib Status: Acute (7) ADPKD (autosomal dominant polycystic kidney disease) Status: Acute (8) HTN (hypertension) Status: Acute - Assessment and Plan (Free Text) Plan: Dialysis in AM Same meds Monitor BP Cardio plans
[2016-10-30 12:10] VITALS: PULSE 63
--- NOTE | 2016-10-30 13:36 | CP.PCM.PN ---
Subjective - Date & Time of Evaluation Date of Evaluation: 10/30/16 Time of Evaluation: 13:34 - Subjective Subjective: FEELS BETTER. NO CP. Objective - Vital Signs/Intake and Output Vital Signs (last 24 hours): Temp Pulse Resp BP Pulse Ox 97.6 F 63 17 111/52 L 97 10/30/16 07:15 10/30/16 12:00 10/30/16 07:15 10/30/16 09:47 10/30/16 07:15 Intake and Output: 10/30/16 10/30/16 06:59 18:59 Intake Total 279.2 Balance 279.2 - Medications Medications: Current Medications Aspirin (Ecotrin) 81 mg PO DAILY [facility] Last Admin: 10/30/16 09:50 Dose: 81 mg Cinacalcet (Sensipar) 60 mg PO DAILY [facility] Last Admin: 10/30/16 10:52 Dose: 60 mg Clopidogrel Bisulfate (Plavix) 75 mg PO DAILY [facility] Last Admin: 10/30/16 09:50 Dose: 75 mg Diltiazem HCl (Cardizem Cd) 180 mg PO DAILY [facility] Last Admin: 10/30/16 09:48 Dose: 180 mg Ezetimibe (Zetia) 10 mg PO DAILY [facility] Last Admin: 10/30/16 09:49 Dose: 10 mg Famotidine (Pepcid) 20 mg PO DAILY [facility] Last Admin: 10/30/16 09:50 Dose: 20 mg Metoprolol Tartrate (Lopressor) 50 mg PO BID [facility] Last Admin: 10/30/16 09:50 Dose: 50 mg Rosuvastatin Calcium (Crestor) 10 mg PO HS [facility] Last Admin: 10/29/16 21:57 Dose: 10 mg Sevelamer Carbonate (Renvela) 800 mg PO TIDCC [facility] Last Admin: 10/30/16 12:41 Dose: 800 mg Warfarin Sodium (Coumadin) 3 mg PO 1800 [facility] Stop: 10/30/16 18:01 - Labs Labs: 10/30/16 08:23 10/30/16 08:23 PT 11.3 SECONDS (9.7-12.2) 10/28/16 06:35 INR 1.0 10/28/16 06:35 APTT 44 SECONDS (21-34) H 10/30/16 08:23 - Constitutional Appears: No Acute Distress, Chronically Ill - Eye Exam Eye Exam: Normal appearance, PERRL - ENT Exam ENT Exam: Normal Exam - Respiratory Exam Respiratory Exam: Clear to Ausculation Bilateral, NORMAL BREATHING PATTERN - Cardiovascular Exam Cardiovascular Exam: REGULAR RHYTHM, +S1, +S2 - GI/Abdominal Exam GI & Abdominal Exam: Soft, Normal Bowel Sounds - Extremities Exam Extremities Exam: Full ROM, Normal Capillary Refill, Normal Inspection. absent : Joint Swelling, Pedal Edema - Neurological Exam Neurological Exam: Alert, Awake, CN II-XII Intact, Normal Gait, Oriented x3 Assessment and Plan - Assessment and Plan (Free Text) Assessment: NON ST ELEV MS. CAD. PVD HTN. A. FIB. Plan: FOR DISCHARGE HOME. CT ALL MEDS. COUMADIN 3MG PO OD. F/U IN THE OFFICE IN 2 WKS.
--- NOTE | 2016-10-30 14:17 | CP.PCM.PN ---
Subjective - Date & Time of Evaluation Date of Evaluation: 10/30/16 Time of Evaluation: 14:14 - Subjective Subjective: 66 Y/O FEMALE SEEN AND EXAMINED TODAY, PT DENIES ANY CP, SOB, PALPITATION, RESP EASY AND UNLABORED, NAD Objective - Vital Signs/Intake and Output Vital Signs (last 24 hours): Temp Pulse Resp BP Pulse Ox 97.6 F 63 17 111/52 L 97 10/30/16 07:15 10/30/16 12:00 10/30/16 07:15 10/30/16 09:47 10/30/16 07:15 Intake and Output: 10/30/16 10/30/16 06:59 18:59 Intake Total 279.2 Balance 279.2 - Medications Medications: Current Medications Aspirin (Ecotrin) 81 mg PO DAILY [facility] Last Admin: 10/30/16 09:50 Dose: 81 mg Cinacalcet (Sensipar) 60 mg PO DAILY [facility] Last Admin: 10/30/16 10:52 Dose: 60 mg Clopidogrel Bisulfate (Plavix) 75 mg PO DAILY [facility] Last Admin: 10/30/16 09:50 Dose: 75 mg Diltiazem HCl (Cardizem Cd) 180 mg PO DAILY [facility] Last Admin: 10/30/16 09:48 Dose: 180 mg Ezetimibe (Zetia) 10 mg PO DAILY [facility] Last Admin: 10/30/16 09:49 Dose: 10 mg Famotidine (Pepcid) 20 mg PO DAILY [facility] Last Admin: 10/30/16 09:50 Dose: 20 mg Metoprolol Tartrate (Lopressor) 50 mg PO BID [facility] Last Admin: 10/30/16 09:50 Dose: 50 mg Rosuvastatin Calcium (Crestor) 10 mg PO HS [facility] Last Admin: 10/29/16 21:57 Dose: 10 mg Sevelamer Carbonate (Renvela) 800 mg PO TIDCC [facility] Last Admin: 10/30/16 12:41 Dose: 800 mg Warfarin Sodium (Coumadin) 3 mg PO 1800 [facility] Stop: 10/30/16 18:01 - Labs Labs: 10/30/16 08:23 10/30/16 08:23 PT 11.3 SECONDS (9.7-12.2) 10/28/16 06:35 INR 1.0 10/28/16 06:35 APTT 44 SECONDS (21-34) H 10/30/16 08:23 Assessment and Plan - Assessment and Plan (Free Text) Plan: 66 Y/O FEMALE WITH ACS, CHEST PAIN, CAD, NSTEMI, PVD, HTN, AFIB, PT CLEARED FOR DISCHARGE PER DR IRENE CONTINUE HD M/W/F COUMADIN 3 MG PO DAILY CARDIZEM RX PER DR Gerber MOLINA F/U IN THE OFFICE IN 2 WEEKS W/ DR MOLINA
[2016-10-30 14:18] LABS: PROTHROMBIN TIME 10.6 SECONDS (9.7-12.2)
--- NOTE | 2016-10-31 14:09 | CARD ---
APPROVED REPORT EKG Measurement Heart [id number] <Conclusion> Normal sinus rhythm Septal infarct, age undetermined Abnormal ECG
--- NOTE | 2016-11-04 09:29 | DS ---
HISTORY OF PRESENT ILLNESS: This is a 66-year-old female came to the emergency room with history of severe retrosternal chest pain associated with diaphoresis. No history of nausea or vomiting. The patient has history of peripheral vascular disease with amputation done in the past. The patient also has history of chronic renal failure and hypertension. On admission, physical examination was within normal limits. EKG was atrial fibrillation. No acute ST-T changes noted. Blood test showed elevated troponin. Dr. William was consulted for cardiac evaluation. The patient has cardiac catheterization done, which was showing right-sided complete blockage. The findings were seem like previous cardiac catheterization. The patient was observed on the telemetry. The patient more stable. FINAL DIAGNOSES: 1. Non-ST elevation myocardial infarction. 2. Coronary artery disease. 3. Peripheral vascular disease. 4. Chronic renal failure. 5. Hypertension. PLAN: The patient will be discharged home. We will continue medical management. The patient needs Coumadin for atrial fibrillation. Other workup as outpatient. Susana Larson MD
== END 2016-10-30 17:44 | disposition home or self-care (01) | DRG 280 ==
LOC: C.ER 10:22 → C.9E 12:31 → C.6T 13:09 → C.9I 21:58 → C.6T 10-29 21:41
PROVIDERS: ADMIT Internal Medicine; ATTEND Internal Medicine
PROC: 4A023N7 Measurement of Cardiac Sampling and Pressure, Left Heart, Percutaneous Approach (ICD-10-PCS; principal; 2016-10-27)
PROC: B2151ZZ Fluoroscopy of Left Heart using Low Osmolar Contrast (ICD-10-PCS; 2016-10-27)
PROC: B2111ZZ Fluoroscopy of Multiple Coronary Arteries using Low Osmolar Contrast (ICD-10-PCS; 2016-10-27)
DX: I21.4 Non-ST elevation (NSTEMI) myocardial infarction (principal); N18.6 End stage renal disease; I13.2 Hypertensive heart and chronic kidney disease with heart failure and with stage 5 chronic kidney disease, or end stage renal disease; E11.22 Type 2 diabetes mellitus with diabetic chronic kidney disease; Q61.2 Polycystic kidney, adult type; I50.9 Heart failure, unspecified; I73.9 Peripheral vascular disease, unspecified; J44.9 Chronic obstructive pulmonary disease, unspecified; E78.00 Pure hypercholesterolemia, unspecified; I48.0 Paroxysmal atrial fibrillation; E78.5 Hyperlipidemia, unspecified; M19.90 Unspecified osteoarthritis, unspecified site; D64.9 Anemia, unspecified; I25.119 Atherosclerotic heart disease of native coronary artery with unspecified angina pectoris; Z79.01 Long term (current) use of anticoagulants; Z89.612 Acquired absence of left leg above knee; Z95.5 Presence of coronary angioplasty implant and graft; Z87.891 Personal history of nicotine dependence; Z86.010 Personal history of colon polyps; Z87.01 Personal history of pneumonia (recurrent); Z99.2 Dependence on renal dialysis

== ENCOUNTER 2016-11-14 20:16 | Emergency (ER) | payer MEDICARE, OTHER ==
--- NOTE | 2016-11-14 20:29 | C.PDOC ---
Time Seen by Provider: 11/14/16 20:28 Chief Complaint (Nursing): Chest Pain History Per: Patient Past Medical History - Medical History PMH: Anemia, Arthritis, Asthma, Colonic Polyps, HTN, Hypercholesterolemia, Pneumonia (10 YRS AGO), End Stage Renal Disease, Chronic Kidney Disease Surgical History: Coronary Stent, Endoscopy - [facility] Procedures ANGIOPLASTY OF OTHER NON-CORONARY VESSEL(S) (12/19/14) ATHERECTOMY OF OTHER NON-CORONARY VESSEL(S) (12/19/14) BYPASS L FEM ART TO POPLIT ART W NONAUT SUB, OPEN (06/19/15) BYPASS R FEM ART TO POPLIT ART WITH AUTOL VN, OPEN APPROACH (06/19/15) CONTRAST ARTERIOGRAM-LEG (12/19/14) DETACHMENT AT LEFT UPPER LEG, HIGH, OPEN APPROACH (01/01/16) EXTIRPATION OF MATTER FROM L FEM ART, OPEN APPROACH (06/19/15) EXTIRPATION OF MATTER FROM L POPL ART, OPEN APPROACH (06/19/15) FLUOROSCOPY OF LEFT HEART USING LOW OSMOLAR CONTRAST (10/25/16) FLUOROSCOPY OF MULT COR ART USING L OSM CONTRAST (10/25/16) MEASURE OF CARDIAC SAMPL & PRESSURE, L HEART, PERC APPROACH (10/25/16) PERFORMANCE OF URINARY FILTRATION, MULTIPLE (11/01/15) PERFORMANCE OF URINARY FILTRATION, SINGLE (01/01/16) PLAIN RADIOGRAPHY OF LEFT HEART USING OTHER CONTRAST (06/19/15) PROCEDURE ON SINGLE VESSEL (11/07/14) PROCEDURE ON TWO VESSELS (12/19/14) Family History: States: Unknown Family Hx - Social History Hx Tobacco Use: Yes Hx Alcohol Use: No Hx Substance Use: No - Immunization History Hx Tetanus Toxoid Vaccination: Yes Hx Influenza Vaccination: Yes Hx Pneumococcal Vaccination: Yes Disposition Counseled Patient/Family Regarding: Studies Performed, Diagnosis - Disposition Disposition Time: 20:29 Forms: [employer] ([employer])
[2016-11-14 20:31] VITALS: BMI 29.2
[2016-11-14 20:54] LABS: HEMOGLOBIN 13.9 g/dL (11.0-16.0); LYMPH # 0.6 K/uL (1.0-4.3); LYMPH % 12.8 % (20.0-40.0); MEAN CELL VOLUME 83.6 fL (81.0-99.0); MEAN CORPUSCULAR HEMOGLOBIN 26.9 pg (27.0-31.0); MEAN CORPUSCULAR HGB CONC 32.2 g/dL (33.0-37.0); MEAN PLATELET VOLUME 6.9 fL (7.2-11.7); MONO # 0.3 K/uL (0.0-0.8); MONO % 5.9 % (0.0-10.0); NEUT # 3.7 K/uL (1.8-7.0); NEUT % 79.3 % (50.0-75.0); RBC 5.18 Mil/uL (3.80-5.20); RED CELL DISTRIBUTION WIDTH 21.1 % (11.5-14.5); WHITE BLOOD COUNT 4.7 K/uL (4.8-10.8)
[2016-11-14 21:02] LABS: ALBUMIN 3.6 g/dL (3.5-5.0)
[2016-11-14 21:06] LABS: ALB/GLOB RATIO 1.2 (1.0-2.1); CALCIUM 8.6 mg/dl (8.6-10.4); INR 1.1
[2016-11-14 21:18] LABS: TROPONIN I 0.027 ng/mL (0.00-0.120)
--- NOTE | 2016-11-14 22:52 | C.PDOC ---
History Of Present Illness 66 year old female brought in via EMS for a complaint of a-fib and palpitations ; patient was found to have a HR of 120-150, given 23mg cardizem given enroute with resolution. Patient was in no distress on arrival to ER; denies nausea, vomiting, chest pain, or SOB. Time Seen by Provider: 11/14/16 20:28 Chief Complaint (Nursing): Chest Pain History Per: Patient History/Exam Limitations: no limitations Onset/Duration Of Symptoms: Hrs Current Symptoms Are (Timing): Gone Associated Symptoms: denies: Chest Pain, Dyspnea, Dizziness Quality Of Symptoms: Asymptomatic Exacerbating Factor(s): Pos: None Recent travel outside of the [place]: No Past Medical History Reviewed: Historical Data, Nursing Documentation, Vital Signs Vital Signs: Last Vital Signs Temp 98.2 F 11/14/16 20:26 Pulse 70 11/14/16 20:26 Resp 16 11/14/16 20:26 BP 111/57 L 11/14/16 20:26 Pulse Ox 94 L 11/14/16 22:51 - Medical History PMH: Anemia, Arthritis, Asthma, Cardia Arrhythmia, Colonic Polyps, HTN, Hypercholesterolemia, Pneumonia (10 YRS AGO), End Stage Renal Disease, Chronic Kidney Disease Surgical History: Coronary Stent, Endoscopy - [facility] Procedures ANGIOPLASTY OF OTHER NON-CORONARY VESSEL(S) (12/19/14) ATHERECTOMY OF OTHER NON-CORONARY VESSEL(S) (12/19/14) BYPASS L FEM ART TO POPLIT ART W NONAUT SUB, OPEN (06/19/15) BYPASS R FEM ART TO POPLIT ART WITH AUTOL VN, OPEN APPROACH (06/19/15) CONTRAST ARTERIOGRAM-LEG (12/19/14) DETACHMENT AT LEFT UPPER LEG, HIGH, OPEN APPROACH (01/01/16) EXTIRPATION OF MATTER FROM L FEM ART, OPEN APPROACH (06/19/15) EXTIRPATION OF MATTER FROM L POPL ART, OPEN APPROACH (06/19/15) FLUOROSCOPY OF LEFT HEART USING LOW OSMOLAR CONTRAST (10/25/16) FLUOROSCOPY OF MULT COR ART USING L OSM CONTRAST (10/25/16) MEASURE OF CARDIAC SAMPL & PRESSURE, L HEART, PERC APPROACH (10/25/16) PERFORMANCE OF URINARY FILTRATION, MULTIPLE (11/01/15) PERFORMANCE OF URINARY FILTRATION, SINGLE (01/01/16) PLAIN RADIOGRAPHY OF LEFT HEART USING OTHER CONTRAST (06/19/15) PROCEDURE ON SINGLE VESSEL (11/07/14) PROCEDURE ON TWO VESSELS (12/19/14) Family History: States: Unknown Family Hx - Social History Hx Tobacco Use: Yes Hx Alcohol Use: No Hx Substance Use: No - Immunization History Hx Tetanus Toxoid Vaccination: Yes Hx Influenza Vaccination: Yes Hx Pneumococcal Vaccination: Yes Review Of Systems Constitutional: Negative for: Fever, Chills Cardiovascular: Positive for: Palpitations. Negative for: Chest Pain Respiratory: Negative for: Shortness of Breath Gastrointestinal: Negative for: Nausea, Vomiting Neurological: Negative for: Weakness, Numbness Physical Exam - Physical Exam Appears: Non-toxic, No Acute Distress, Other (Thin elderly lady) Skin: Normal Color, Warm, Dry Head: Atraumatic, Normacephalic Oral Mucosa: Moist Chest: Symmetrical, No Tenderness Cardiovascular: Rhythm Regular, No Murmur Respiratory: Normal Breath Sounds, No Rales, No Rhonchi, No Wheezing Gastrointestinal/Abdominal: Soft, No Tenderness Extremity: Other (Right AV fistula, Left AKA) Neurological/Psych: Oriented x3, Normal Speech, Normal Cognition ED Course And Treatment - Laboratory Results Result Diagrams: 11/14/16 20:49 11/14/16 20:49 Lab Interpretation: Normal (d-dimer elev, but VS's normal and low susp of PE) ECG: Interpreted By [facility] ECG Rhythm: Sinus Rhythm ECG Interpretation: Normal Rate From EC O2 Sat by Pulse Oximetry: 94 Pulse Ox Interpretation: Normal - Radiology CXR: Interpreted by [facility] CXR Interpretation: Yes: No Acute Disease Progress Note: EKG, blood work, CXR, and urinalysis ordered. Cardizem administered. Reevaluation Time: 22:50 Reassessment Condition: Improved - Physician Consult Information Outcome Of Conversation: 2039: d/w PMD Dr. Gerber Larson, recommends d/c home with normal eval. Medical Decision Making Medical Decision Making: recurrent PAF Well controlled with single dose of Cardizem IV and PO Disposition Doctor Will See Patient In The: Office Counseled Patient/Family Regarding: Studies Performed, Diagnosis - Disposition Referrals: Susana Larson MD [Staff Provider] - Disposition: HOME/ ROUTINE Disposition Time: 22:51 Condition: GOOD Additional Instructions: Continue your normal medications Follow-up with Dr. Gerber Larson Call to make an appointment. Instructions: Atrial Fibrillation (ED) Forms: [employer] (Palauan) - Clinical Impression Clinical Impression: Paroxysmal atrial fibrillation - Scribe Statement The provider has reviewed the documentation as recorded by the Scribe Man Rogers All medical record entries made by the Scribe were at my direction and personally dictated by me. I have reviewed the chart and agree that the record accurately reflects my personal performance of the history, physical exam, medical decision making, and the department course for this patient. I have also personally directed, reviewed, and agree with the discharge instructions and disposition.
[2016-11-15 02:52] VITALS: BP 178/61; PULSE 67; RESP 18; TEMP 98.1; O2SAT 97
--- NOTE | 2016-11-15 07:48 | RAD ---
PROCEDURE: CHEST RADIOGRAPH, 1 VIEW HISTORY: Shortness of breath COMPARISON: 10/25/2016 FINDINGS: LUNGS: Biapical pleural thickening with upper lobe granulomatous changes. Hyperinflation suggestive for COPD and or emphysematous changes. Bilateral hilar prominence. Focal scarring and or consolidative changes in the right mid and lower lung zones. Scattered nodularity in both lungs. Rounded partially calcified focus projecting over the medial right upper morena thorax of uncertain clinical etiology. Right paratracheal prominence may represent prominent vasculature. PLEURA: As above. CARDIOVASCULAR: Tortuous aorta. Calcification at the aortic knob. OSSEOUS STRUCTURES: Degenerative changes in the spine and shoulders. Question bilateral rib deformities. VISUALIZED UPPER ABDOMEN: Normal. OTHER FINDINGS: None. IMPRESSION: Biapical pleural thickening with upper lobe granulomatous changes. Hyperinflation suggestive for COPD and or emphysematous changes. Bilateral hilar prominence. Focal scarring and or consolidative changes in the right mid and lower lung zones. Scattered nodularity in both lungs. Rounded partially calcified focus projecting over the medial right upper morena thorax of uncertain clinical etiology. Right paratracheal prominence may represent prominent vasculature.
--- NOTE | 2016-11-17 13:09 | CARD ---
APPROVED REPORT EKG Measurement Heart [id number] <Conclusion> Normal sinus rhythm Left axis deviation Septal infarct, age undetermined Inferior infarct, age undetermined Abnormal ECG
== END 2016-11-15 02:50 | disposition home or self-care (01) ==
LOC: C.ER 20:16
DX: I48.0 Paroxysmal atrial fibrillation (principal)

== ENCOUNTER 2017-01-28 21:52 | Emergency (ER) | payer MEDICARE, OTHER ==
[2017-01-28 21:52] VITALS: BMI 29.2
[2017-01-28] MEDS ORDERED: Digoxin 500 mcg/2ml (0.5 mg/2ml) Inj ONE (22:09)
[2017-01-28] MEDS ORDERED: Sodium Chloride 0.9% 500 ML IV ONE ×2 (22:09→22:22)
--- NOTE | 2017-01-28 22:11 | C.PDOC ---
History Of Present Illness 66 year old female, whose PMHx includes ESRD, presents to the ED for evaluation of mid-sternal chest pain associated with shortness of breath which began at around 1900 today. Patient states she attended her dialysis session today and underwent full treatment without any symptoms. Patient notes her current symptoms suddenly developed while she was sitting down at home. Upon EMS arrival , patient was found to be in rapid atrial fibrillation. Patient was given 10mg of Cardizem enroute, after which her blood pressure dropped. Patient presents to the ED with heart rate between 150-160 BPM and blood pressure of 85/62 mmHg. Patient denies nausea, vomiting, extremity numbness/weakness at this time. Chest pain has resolved. Time Seen by Provider: 01/28/17 22:04 Chief Complaint (Nursing): Chest Pain History Per: Patient, EMS History/Exam Limitations: no limitations Onset/Duration Of Symptoms: Hrs, Sudden Onset Current Symptoms Are (Timing): Still Present Quality: Pressure, "Pain" Associated Symptoms: denies: Nausea Additional History Per: Patient, EMS Past Medical History Reviewed: Historical Data, Nursing Documentation, Vital Signs Vital Signs: Last Vital Signs Temp 97.9 F 01/28/17 22:00 Pulse 79 01/28/17 23:45 Resp 20 01/28/17 23:45 BP 109/64 01/28/17 23:45 Pulse Ox 98 01/28/17 23:45 - Medical History PMH: Anemia, Arthritis, Asthma, Cardia Arrhythmia, Colonic Polyps, HTN, Hypercholesterolemia, Pneumonia (10 YRS AGO), End Stage Renal Disease, Chronic Kidney Disease Surgical History: Coronary Stent, Endoscopy - [facility] Procedures ANGIOPLASTY OF OTHER NON-CORONARY VESSEL(S) (12/19/14) ATHERECTOMY OF OTHER NON-CORONARY VESSEL(S) (12/19/14) BYPASS L FEM ART TO POPLIT ART W NONAUT SUB, OPEN (06/19/15) BYPASS R FEM ART TO POPLIT ART WITH AUTOL VN, OPEN APPROACH (06/19/15) CONTRAST ARTERIOGRAM-LEG (12/19/14) DETACHMENT AT LEFT UPPER LEG, HIGH, OPEN APPROACH (01/01/16) EXTIRPATION OF MATTER FROM L FEM ART, OPEN APPROACH (06/19/15) EXTIRPATION OF MATTER FROM L POPL ART, OPEN APPROACH (06/19/15) FLUOROSCOPY OF LEFT HEART USING LOW OSMOLAR CONTRAST (10/25/16) FLUOROSCOPY OF MULT COR ART USING L OSM CONTRAST (10/25/16) MEASURE OF CARDIAC SAMPL & PRESSURE, L HEART, PERC APPROACH (10/25/16) PERFORMANCE OF URINARY FILTRATION, MULTIPLE (11/01/15) PERFORMANCE OF URINARY FILTRATION, SINGLE (01/01/16) PLAIN RADIOGRAPHY OF LEFT HEART USING OTHER CONTRAST (06/19/15) PROCEDURE ON SINGLE VESSEL (11/07/14) PROCEDURE ON TWO VESSELS (12/19/14) Family History: States: Unknown Family Hx - Social History Hx Tobacco Use: Yes Hx Alcohol Use: No Hx Substance Use: No - Immunization History Hx Tetanus Toxoid Vaccination: Yes Hx Influenza Vaccination: Yes Hx Pneumococcal Vaccination: Yes Review Of Systems Cardiovascular: Positive for: Chest Pain Respiratory: Positive for: Shortness of Breath Gastrointestinal: Negative for: Nausea, Vomiting Neurological: Negative for: Weakness, Numbness Physical Exam - Physical Exam Appears: Non-toxic, No Acute Distress Skin: Normal Color, Warm, Dry Head: Atraumatic, Normacephalic Eye(s): bilateral: Normal Inspection Oral Mucosa: Moist Neck: Supple Chest: Symmetrical, No Deformity, No Tenderness Cardiovascular: Rhythm Irregular, No Murmur, Other (rapid heart rate) Respiratory: Normal Breath Sounds, No Rales, No Rhonchi, No Wheezing Extremity: Normal ROM (as per baseline ), Capillary Refill (less than 2 seconds ), Other (left above knee amputation ) Neurological/Psych: Oriented x3, Normal Speech, Normal Cognition Gait: Unable To Assess ED Course And Treatment - Laboratory Results Result Diagrams: 01/28/17 22:34 01/28/17 22:34 Lab Interpretation: No Acute Changes ECG: Interpreted By [facility] ECG Rhythm: Atrial Fibrillation, Atrial Flutter ECG Interpretation: Abnormal (with old inferior and anterior infarcts.) Rate From EC - Radiology CXR: Interpreted by [facility] CXR Interpretation: Yes: No Acute Disease, COPD Reevaluation Time: 23:33 Reassessment Condition: Improved (Repeat EKG shows rhythm now converted to normal sinus with rate 90.) - Physician Consult Information Time Consulting Physician Contacted: 23:34 Physician Contacted: Susana Larson Outcome Of Conversation: Patient is well known to him. She has done this in the past and is currently being treated with Coumadin. He will follow up in the office this week. Disposition - Disposition Disposition: HOME/ ROUTINE Disposition Time: 23:35 Condition: IMPROVED Instructions: Atrial Fibrillation (ED) Forms: [employer] (Latvian) - Clinical Impression Clinical Impression: Atrial fibrillation with RVR, ESRD (end stage renal disease) on dialysis - Scribe Statement The provider has reviewed the documentation as recorded by the Scribe (Karen Larson) Provider Attestation: All medical record entries made by the Scribe were at my direction and personally dictated by me. I have reviewed the chart and agree that the record accurately reflects my personal performance of the history, physical exam, medical decision making, and the department course for this patient. I have also personally directed, reviewed, and agree with the discharge instructions and disposition.
--- NOTE | 2017-01-28 22:14 | C.PDOC ---
Time Seen by Provider: 01/28/17 22:04 Chief Complaint (Nursing): Chest Pain Past Medical History - Medical History PMH: Anemia, Arthritis, Asthma, Cardia Arrhythmia, Colonic Polyps, HTN, Hypercholesterolemia, Pneumonia (10 YRS AGO), End Stage Renal Disease, Chronic Kidney Disease Surgical History: Coronary Stent, Endoscopy - [facility] Procedures ANGIOPLASTY OF OTHER NON-CORONARY VESSEL(S) (12/19/14) ATHERECTOMY OF OTHER NON-CORONARY VESSEL(S) (12/19/14) BYPASS L FEM ART TO POPLIT ART W NONAUT SUB, OPEN (06/19/15) BYPASS R FEM ART TO POPLIT ART WITH AUTOL VN, OPEN APPROACH (06/19/15) CONTRAST ARTERIOGRAM-LEG (12/19/14) DETACHMENT AT LEFT UPPER LEG, HIGH, OPEN APPROACH (01/01/16) EXTIRPATION OF MATTER FROM L FEM ART, OPEN APPROACH (06/19/15) EXTIRPATION OF MATTER FROM L POPL ART, OPEN APPROACH (06/19/15) FLUOROSCOPY OF LEFT HEART USING LOW OSMOLAR CONTRAST (10/25/16) FLUOROSCOPY OF MULT COR ART USING L OSM CONTRAST (10/25/16) MEASURE OF CARDIAC SAMPL & PRESSURE, L HEART, PERC APPROACH (10/25/16) PERFORMANCE OF URINARY FILTRATION, MULTIPLE (11/01/15) PERFORMANCE OF URINARY FILTRATION, SINGLE (01/01/16) PLAIN RADIOGRAPHY OF LEFT HEART USING OTHER CONTRAST (06/19/15) PROCEDURE ON SINGLE VESSEL (11/07/14) PROCEDURE ON TWO VESSELS (12/19/14) Family History: States: Unknown Family Hx - Social History Hx Tobacco Use: Yes Hx Alcohol Use: No Hx Substance Use: No - Immunization History Hx Tetanus Toxoid Vaccination: Yes Hx Influenza Vaccination: Yes Hx Pneumococcal Vaccination: Yes Disposition - Disposition
[2017-01-28] MEDS ORDERED: Digoxin 500 mcg/2ml (0.5 mg/2ml) Inj IVP ONE (22:22)
[2017-01-28 22:30] VITALS: PULSE 150
[2017-01-28 22:38] LABS: BASO % 0.7 % (0.0-2.0); EOS % 0.4 % (0.0-4.0); HEMATOCRIT 48.4 % (34.0-47.0); LYMPH # 0.7 K/uL (1.0-4.3); LYMPH % 11.1 % (20.0-40.0); MEAN CELL VOLUME 83.6 fL (81.0-99.0); MEAN CORPUSCULAR HEMOGLOBIN 26.6 pg (27.0-31.0); MEAN CORPUSCULAR HGB CONC 31.9 g/dL (33.0-37.0); MEAN PLATELET VOLUME 7.4 fL (7.2-11.7); MONO # 0.3 K/uL (0.0-0.8); MONO % 4.9 % (0.0-10.0); WHITE BLOOD COUNT 6.2 K/uL (4.8-10.8)
[2017-01-28 22:47] LABS: POTASSIUM 3.6 mmol/L (3.6-5.2)
[2017-01-28 22:49] LABS: ALB/GLOB RATIO 1.2 (1.0-2.1); BILIRUBIN,TOTAL 0.8 mg/dL (0.2-1.3); TOTAL PROTEIN 7.2 g/dL (6.3-8.3)
[2017-01-28 22:50] LABS: CALCIUM 9.1 mg/dl (8.6-10.4)
[2017-01-28 23:01] LABS: TROPONIN I 0.045 ng/mL (0.00-0.120)
[2017-01-28 23:46] VITALS: RESP 20
[2017-01-29 01:02] VITALS: BP 112/70; PULSE 82; TEMP 98; O2SAT 97
--- NOTE | 2017-01-29 08:16 | RAD ---
PROCEDURE: CHEST RADIOGRAPH, 1 VIEW HISTORY: Palpations COMPARISON: Comparison is made to 11/14/2016 FINDINGS: LUNGS: No significant interval change in the lungs noted since the previous exam. Hyperinflation of the lungs and reticular opacities are again seen. Prominent left hilum is also again noted. PLEURA: No pneumothorax or pleural fluid seen. CARDIOVASCULAR: Normal. OSSEOUS STRUCTURES: Deformity in the chest wall is also again noted. VISUALIZED UPPER ABDOMEN: Vascular calcification or shunt noted at the left arm. OTHER FINDINGS: None. IMPRESSION: No evidence of significant interval change since the previous exam.
--- NOTE | 2017-01-30 12:07 | CARD ---
APPROVED REPORT EKG Measurement Heart [id number] <Conclusion> Sinus rhythm with premature atrial complexes Septal infarct, age undetermined Inferior infarct, age undetermined Abnormal ECG
--- NOTE | 2017-01-30 12:07 | CARD ---
APPROVED REPORT EKG Measurement Heart [id number] <Conclusion> Atrial fibrillation with rapid ventricular response Inferior infarct, age undetermined Anterior infarct, age undetermined Abnormal ECG
== END 2017-01-29 00:59 | disposition home or self-care (01) ==
LOC: C.ER 21:52
DX: I48.91 Unspecified atrial fibrillation (principal); N18.6 End stage renal disease; Z99.2 Dependence on renal dialysis
CPT/HCPCS: 71010; 80053; 84484; 85025; 93005; 96361; 96374; 99285; J1160; J7040

== ENCOUNTER 2017-10-19 13:48 | Inpatient (IN) | payer MEDICARE, OTHER ==
[2017-10-19 13:49] VITALS: PULSE 150; BMI 16.8
--- NOTE | 2017-10-19 15:03 | C.PDOC ---
History Of Present Illness 67 y/o female, w/PMhx of ESRD, presents to the ER for evaluation as she has right leg BKA surgery tomorrow. Patient states that she was referred by her surgeon Dr. Erwin. Patient states that she is undergoing hemodiaylsis on Thursday, Wednesdays, and Fridays and her last dialysis appointment was today. Time Seen by Provider: 10/19/17 14:58 Chief Complaint (Nursing): Medical Clearance History Per: Patient History/Exam Limitations: no limitations Past Medical History Reviewed: Historical Data, Nursing Documentation, Vital Signs Vital Signs: Last Vital Signs Temp 97.8 F 10/19/17 19:48 Pulse 74 10/19/17 19:48 Resp 16 10/19/17 19:48 BP 160/73 H 10/19/17 19:48 Pulse Ox 98 10/19/17 19:48 - Medical History PMH: Anemia, Arthritis, Asthma, Cardia Arrhythmia, Colonic Polyps, HTN, Hypercholesterolemia, Pneumonia (10 YRS AGO), End Stage Renal Disease, Chronic Kidney Disease Surgical History: Coronary Stent, Endoscopy - [facility] Procedures ANGIOPLASTY OF OTHER NON-CORONARY VESSEL(S) (12/19/14) ATHERECTOMY OF OTHER NON-CORONARY VESSEL(S) (12/19/14) BYPASS L FEM ART TO POPLIT ART W NONAUT SUB, OPEN (06/19/15) BYPASS R FEM ART TO POPLIT ART WITH AUTOL VN, OPEN APPROACH (06/19/15) CONTRAST ARTERIOGRAM-LEG (12/19/14) DETACHMENT AT LEFT UPPER LEG, HIGH, OPEN APPROACH (01/01/16) EXTIRPATION OF MATTER FROM L FEM ART, OPEN APPROACH (06/19/15) EXTIRPATION OF MATTER FROM L POPL ART, OPEN APPROACH (06/19/15) FLUOROSCOPY OF LEFT HEART USING LOW OSMOLAR CONTRAST (10/25/16) FLUOROSCOPY OF MULT COR ART USING L OSM CONTRAST (10/25/16) MEASURE OF CARDIAC SAMPL & PRESSURE, L HEART, PERC APPROACH (10/25/16) PERFORMANCE OF URINARY FILTRATION, MULTIPLE (11/01/15) PERFORMANCE OF URINARY FILTRATION, SINGLE (01/01/16) PLAIN RADIOGRAPHY OF LEFT HEART USING OTHER CONTRAST (06/19/15) PROCEDURE ON SINGLE VESSEL (11/07/14) PROCEDURE ON TWO VESSELS (12/19/14) Family History: States: No Known Family Hx - Social History Hx Tobacco Use: Yes Hx Alcohol Use: No Hx Substance Use: No - Immunization History Hx Tetanus Toxoid Vaccination: Yes Hx Influenza Vaccination: Yes Hx Pneumococcal Vaccination: Yes Review Of Systems Except As Marked, All Systems Reviewed And Found Negative. Constitutional: Negative for: Fever, Chills Physical Exam - Physical Exam Appears: Non-toxic, No Acute Distress Skin: Normal Color, Warm, Dry Head: Atraumatic, Normacephalic Eye(s): bilateral: Normal Inspection Nose: Normal Oral Mucosa: Moist Neck: Supple Chest: Symmetrical Cardiovascular: Rhythm Regular Respiratory: Normal Breath Sounds, No Rales, No Rhonchi, No Wheezing Gastrointestinal/Abdominal: Normal Exam, Soft, No Tenderness, No Guarding, No Rebound Extremity: Normal ROM, Other (chronic appearing ulcers to right leg, left leg BKA) Pulses: Right Dorsalis Pedis: Decreased Neurological/Psych: Oriented x3, Normal Speech ED Course And Treatment - Laboratory Results Result Diagrams: 10/19/17 17:16 10/19/17 17:16 ECG: Interpreted By Me, Viewed By Me ECG Rhythm: Sinus Rhythm Interpretation Of ECG: NSR with non-specific T wave changes Rate From EC O2 Sat by Pulse Oximetry: 64 (RA) Pulse Ox Interpretation: Abnormal - Other Rad CXR X-Ray: Viewed By Me, Read By Radiologist Interpretation: PROCEDURE: CHEST RADIOGRAPH, 1 VIEW. HISTORY: SOB. COMPARISON: Chest radiograph dated 10/08/2017. FINDINGS: LUNGS: Stable chronic prominence of the bilateral interstitial markings. PLEURA: Small bilateral pleural effusions. No appreciable pneumothorax. CARDIOVASCULAR: Atherosclerotic aortic calcifications. Cardiomediastinal silhouette stably enlarged. OSSEOUS STRUCTURES: Bilateral rib fractures redemonstrated. Unchanged. VISUALIZED UPPER ABDOMEN: Normal. OTHER FINDINGS: None. IMPRESSION: Stable chronic prominence of the bilateral interstitial markings. Very small bilateral pleural effusions. Medical Decision Making Medical Decision Making: Plan: --Labs --EKG --CXR discussed with surgery requests pmd admission. discussed with pmd agrees to admission. Disposition - Disposition Disposition: HOSPITALIZED Disposition Time: 09:00 Condition: STABLE - Clinical Impression Clinical Impression: PVD (peripheral vascular disease) - Scribe Statement The provider has reviewed the documentation as recorded by the Madisyn Otoole Provider Attestation: All medical record entries made by the Scribe were at my direction and personally dictated by me. I have reviewed the chart and agree that the record accurately reflects my personal performance of the history, physical exam, medical decision making, and the department course for this patient. I have also personally directed, reviewed, and agree with the discharge instructions and disposition. Decision To Admit - Pt Status Changed To: Hospital Disposition Of: Inpatient - Admit Certification Admit to Inpatient:: After my assessment, the patient will require hospitalization for at least two midnights. This is because of the severity of symptoms shown, intensity of services needed, and/or the medical risk in this patient being treated as an outpatient. - InPatient: Physician Admission Certification: I certify that this patient requires 2 or more midnights of care for the following reason:: needs or - . Bed Request Type: Regular Admitting Physician: Susana Larson Patient Diagnosis: PVD (peripheral vascular disease)
--- NOTE | 2017-10-19 15:58 | RAD ---
PROCEDURE: CHEST RADIOGRAPH, 1 VIEW HISTORY: SOB COMPARISON: Chest radiograph dated 10/08/2017. FINDINGS: LUNGS: Stable chronic prominence of the bilateral interstitial markings. PLEURA: Small bilateral pleural effusions. No appreciable pneumothorax. CARDIOVASCULAR: Atherosclerotic aortic calcifications. Cardiomediastinal silhouette stably enlarged. OSSEOUS STRUCTURES: Bilateral rib fractures redemonstrated. Unchanged. VISUALIZED UPPER ABDOMEN: Normal. OTHER FINDINGS: None. IMPRESSION: Stable chronic prominence of the bilateral interstitial markings. Very small bilateral pleural effusions.
[2017-10-19 17:20] LABS: BASO % 0.8 % (0.0-2.0); EOS % 0.7 % (0.0-4.0); HEMOGLOBIN 11.3 g/dL (11.0-16.0); LYMPH # 0.6 K/uL (1.0-4.3); LYMPH % 11.8 % (20.0-40.0); MEAN CELL VOLUME 80.7 fL (81.0-99.0); MEAN CORPUSCULAR HEMOGLOBIN 26.2 pg (27.0-31.0); MEAN CORPUSCULAR HGB CONC 32.5 g/dL (33.0-37.0); MEAN PLATELET VOLUME 6.9 fL (7.2-11.7); MONO # 0.3 K/uL (0.0-0.8); MONO % 5.3 % (0.0-10.0); NEUT % 81.4 % (50.0-75.0); NRBC % 0.1 % (0.0-2.0); RBC 4.33 Mil/uL (3.80-5.20); WHITE BLOOD COUNT 4.9 K/uL (4.8-10.8)
[2017-10-19 17:37] LABS: ALB/GLOB RATIO 1.2 (1.0-2.1); ALBUMIN 3.2 g/dL (3.5-5.0); CALCIUM 8.9 mg/dl (8.6-10.4)
--- NOTE | 2017-10-19 21:43 | CP.PCM.CON ---
History of Present Illness - History of Present Illness History of Present Illness: Vascular Surgery Consult Note for Dr. Erwin This 67F with a PMH of HTN, PAD, DM, COPD, Afib, CAD, ESRD on dialysis MWF presents due to a RLE necrotic toe. The patient has a PSH of an AKA in the LLE and a RLE bypass which has failed. She reports that she has discussed her options with Dr. Erwin and that she understands that all good surgical options have been exhausted. She denies chest pain, SOB, nausea vomiting or diarrhea. PMH: See above PSH: Cardiac stent, AKA, LE bypass ALL: Vancomycin Social: Former smoker of 20 years quit 7 month ago, denies etoh and drugs Review of Systems - Review of Systems All systems: reviewed and no additional remarkable complaints except - Constitutional Constitutional: absent: Anorexia, Chills - EENT Eyes: absent: Blurred Vision, Change in Vision - Cardiovascular Cardiovascular: absent: Chest Pain, Dyspnea - Respiratory Respiratory: absent: Cough, Dyspnea - Musculoskeletal Musculoskeletal: Atrophy Past Patient History - Past Medical History & Family History Past Medical History?: Yes - Past Social History Smoking Status: Never Smoked - CARDIAC Hx Cardia Arrhythmia: Yes Hx Hypercholesterolemia: Yes Hx Hypertension: Yes - PULMONARY Hx Asthma: Yes Hx Pneumonia: Yes (10 YRS AGO) - NEUROLOGICAL Hx Neurological Disorder: No - HEENT Hx Cataracts: Yes - RENAL Hx Chronic Kidney Disease: Yes - ENDOCRINE/METABOLIC Hx Diabetes Mellitus Type 2: Yes - HEMATOLOGICAL/ONCOLOGICAL Hx Anemia: Yes - INTEGUMENTARY Hx Dermatological Problems: Yes (SMALL ULCER RIGHT FOOT) Other/Comment: LEFT MEDIAL KNEE AREA- ULCER - MUSCULOSKELETAL/RHEUMATOLOGICAL Hx Arthritis: Yes - GASTROINTESTINAL Hx Gastrointestinal Disorders: Yes Hx Gastroesophageal Reflux: Yes - GENITOURINARY/GYNECOLOGICAL Other/Comment: dialysis MWF - PSYCHIATRIC Hx Substance Use: No - SURGICAL HISTORY Hx Coronary Stent: Yes - ANESTHESIA Hx Anesthesia: Yes Hx Anesthesia Reactions: No Hx Malignant Hyperthermia: No Meds Allergies/Adverse Reactions: Allergies Allergy/AdvReac Type Severity Reaction Status Date / Time vancomycin Allergy Intermediate RASH Verified 11/14/16 20:37 - Medications Medications: Current Medications Cinacalcet (Sensipar) 60 mg PO DAILY [facility] Diltiazem HCl (Cardizem Cd) 180 mg PO DAILY [facility] Ezetimibe (Zetia) 10 mg PO DAILY BILL Metoprolol Tartrate (Lopressor) 50 mg PO BID BILL Rosuvastatin Calcium (Crestor) 10 mg PO HS BILL Sevelamer Carbonate (Renvela) 800 mg PO TID BILL Physical Exam - Constitutional Appears: Non-toxic, No Acute Distress - Head Exam Head Exam: ATRAUMATIC, NORMOCEPHALIC - Eye Exam Eye Exam: EOMI, Normal appearance - ENT Exam ENT Exam: Mucous Membranes Moist, Normal Exam - Respiratory Exam Respiratory Exam: NORMAL BREATHING PATTERN - Cardiovascular Exam Cardiovascular Exam: +S1, +S2 - Extremities Exam Additional comments: RLE with necrotic small toe, non palpable peripheral pulses, LLE s/p amputation Results - Vital Signs Recent Vital Signs: Last Vital Signs Temp 97.8 F 10/19/17 19:48 Pulse 74 10/19/17 19:48 Resp 16 10/19/17 19:48 BP 160/73 H 10/19/17 19:48 Pulse Ox 64 L 10/19/17 21:35 - Labs Result Diagrams: 10/19/17 17:16 10/19/17 17:16 Labs: Laboratory Results - last 24 hr 10/19/17 10/19/17 10/19/17 17:16 17:16 17:16 WBC 4.9 RBC 4.33 Hgb 11.3 Hct 35.0 MCV 80.7 L MCH 26.2 L MCHC 32.5 L RDW 21.0 H Plt Count 188 MPV 6.9 L Neut % (Auto) 81.4 H Lymph % (Auto) 11.8 L [place] % (Auto) 5.3 Eos % (Auto) 0.7 Baso % (Auto) 0.8 Neut # (Auto) 4.0 Lymph # (Auto) 0.6 L [place] # (Auto) 0.3 Eos # (Auto) 0.0 Baso # (Auto) 0.0 PT 11.0 INR 1.0 APTT 34 Sodium 139 Potassium 4.4 Chloride 96 L Carbon Dioxide 34 H Anion Gap 12 BUN 14 Creatinine 2.6 H Est GFR ( Amer) 22 Est GFR (Non-Af Amer) 18 Random Glucose 100 Calcium 8.9 Total Bilirubin 0.8 AST 13 L ALT 16 Alkaline Phosphatase 92 Total Protein 6.0 L Albumin 3.2 L Globulin 2.7 Albumin/Globulin Ratio 1.2 Blood Type Antibody Screen 10/19/17 17:16 WBC RBC Hgb Hct MCV MCH MCHC RDW Plt Count MPV Neut % (Auto) Lymph % (Auto) [place] % (Auto) Eos % (Auto) Baso % (Auto) Neut # (Auto) Lymph # (Auto) [place] # (Auto) Eos # (Auto) Baso # (Auto) PT INR APTT Sodium Potassium Chloride Carbon Dioxide Anion Gap BUN Creatinine Est GFR ( Amer) Est GFR (Non-Af Amer) Random Glucose Calcium Total Bilirubin AST ALT Alkaline Phosphatase Total Protein Albumin Globulin Albumin/Globulin Ratio Blood Type O POSITIVE Antibody Screen Negative Assessment & Plan - Assessment and Plan (Free Text) Assessment: 67F with PAD and RLE necrotic toe NPO past midnight CMP in am Plan for OR tomorrow for BKA further recs per Dr. Rip Chan PGY3
--- NOTE | 2017-10-20 07:09 | HP ---
HISTORY OF PRESENT ILLNESS: This is a 67-year-old female who was sent to the emergency room for admission. The patient is going to go for right below knee amputation tomorrow morning. Dr. Erwin is consulted for that. The patient also states that she is undergoing hemodialysis on Thursday, Thursday, and Thursday; and her last dialysis appointment was today. Recently, the patient is asymptomatic. REVIEW OF SYSTEMS: CARDIOVASCULAR SYSTEM: Negative for chest pain. RESPIRATORY SYSTEM: Negative for shortness of breath. GASTROINTESTINAL SYSTEM: Negative for nausea, vomiting, or abdominal pain. 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 EXTREMITIES: No edema of the legs. GENITOURINARY: No urinary complaints. CONSTITUTIONAL: No fever or chills. PAST HISTORY: History of anemia, arthritis, asthma, cardiac arrhythmia, colonic polyp, hypertension, hypercholesterolemia, pneumonia 10 years ago, end-stage renal disease, chronic renal failure, and coronary artery disease. ALLERGIES: THE PATIENT IS ALLERGIC TO VANCOMYCIN. FAMILY HISTORY: No known inherited disease. SOCIAL HISTORY: Nonsmoker, nonalcoholic, no IVDA. MEDICATIONS: The patient's medications are reviewed by me. PHYSICAL EXAMINATION: GENERAL: This is a 57-year-old female with left above-knee amputation and going for right below-knee amputation. Awake, alert. VITAL SIGNS: Temperature 97.9, pulse 64, respirations are 18, and blood pressure 120/80 mmHg, pulse ox is low. HEENT: Normal. JVP is flat. Carotids no bruits. LUNGS: No rales. No wheezing. HEART: S1, S2 normal. No gallop. No murmur. ABDOMEN: Soft, nontender. No organomegaly. BARREL RI[employer]ER: No focal neurological deficits. EXTREMITIES: Right leg, the toe has gangrene. Leg is cold below ankle. Mild swelling of the leg is present. The patient was evaluated in Dr. Erwin's office previously and decided to have right-below knee amputation. The patient also has preop workup done which is acceptable. PLAN: The patient will be admitted to the floor. We will get consult with Dr. Erwin and get surgery done tomorrow morning. We will continue all the medications. Other workup as needed. Vinodkumar Larson, MD
[2017-10-20 07:38] LABS: EOS # 0.1 K/uL (0.0-0.7); EOS % 1.8 % (0.0-4.0); HEMOGLOBIN 10.9 g/dL (11.0-16.0); LYMPH # 0.9 K/uL (1.0-4.3); LYMPH % 22.7 % (20.0-40.0); MEAN CELL VOLUME 81.1 fL (81.0-99.0); MEAN CORPUSCULAR HEMOGLOBIN 26.7 pg (27.0-31.0); MEAN CORPUSCULAR HGB CONC 32.9 g/dL (33.0-37.0); MEAN PLATELET VOLUME 7.6 fL (7.2-11.7); MONO # 0.3 K/uL (0.0-0.8); MONO % 6.5 % (0.0-10.0); NEUT # 2.7 K/uL (1.8-7.0); NRBC % 0.2 % (0.0-2.0); RBC 4.09 Mil/uL (3.80-5.20); RED CELL DISTRIBUTION WIDTH 21.1 % (11.5-14.5); WHITE BLOOD COUNT 3.9 K/uL (4.8-10.8)
--- NOTE | 2017-10-20 09:36 | CP.PCM.CON ---
History of Present Illness - History of Present Illness History of Present Illness: This 67F with a PMH of HTN, PAD, DM, COPD, Afib, CAD, ESRD on dialysis MWF presents due to a RLE necrotic toe. The patient has a PSH of an AKA in the LLE and a RLE bypass which has failed. She is scheduled for Rt BKA. Denies any nausea vomiting diarrhea sob dizziness chest pain fevers chills last hd yesterday PMH: See above PSH: Cardiac stent, AKA, LE bypass ALL: Vancomycin Social: Former smoker of 20 years quit 7 month ago, denies etoh and drugs Review of Systems - Review of Systems All systems: reviewed and no additional remarkable complaints except (as per hpi ) Past Patient History - Past Medical History & Family History Past Medical History?: Yes - Past Social History Smoking Status: Former Smoker - CARDIAC Hx Cardia Arrhythmia: Yes Hx Hypercholesterolemia: Yes Hx Hypertension: Yes - PULMONARY Hx Asthma: Yes Hx Pneumonia: Yes (10 YRS AGO) - NEUROLOGICAL Hx Neurological Disorder: No - HEENT Hx Cataracts: Yes - RENAL Hx Chronic Kidney Disease: Yes Date of Last Dialysis Treatment: 10/19/17 - ENDOCRINE/METABOLIC Hx Diabetes Mellitus Type 2: Yes - HEMATOLOGICAL/ONCOLOGICAL Hx Anemia: Yes - INTEGUMENTARY Hx Dermatological Problems: Yes (SMALL ULCER RIGHT FOOT) Other/Comment: LEFT MEDIAL KNEE AREA- ULCER - MUSCULOSKELETAL/RHEUMATOLOGICAL Hx Arthritis: Yes Hx Falls: Yes - GASTROINTESTINAL Hx Gastrointestinal Disorders: Yes Hx Gastroesophageal Reflux: Yes - GENITOURINARY/GYNECOLOGICAL Other/Comment: dialysis MWF - PSYCHIATRIC Hx Substance Use: No - SURGICAL HISTORY Hx Coronary Stent: Yes - ANESTHESIA Hx Anesthesia: Yes Hx Anesthesia Reactions: No Hx Malignant Hyperthermia: No Meds Allergies/Adverse Reactions: Allergies Allergy/AdvReac Type Severity Reaction Status Date / Time vancomycin Allergy Intermediate RASH Verified 11/14/16 20:37 - Medications Medications: Current Medications Cinacalcet (Sensipar) 60 mg PO DAILY [facility] Diltiazem HCl (Cardizem Cd) 180 mg PO DAILY [facility] Ezetimibe (Zetia) 10 mg PO DAILY [facility] Metoprolol Tartrate (Lopressor) 50 mg PO BID BILL Last Admin: 10/19/17 23:06 Dose: 50 mg Morphine Sulfate (Morphine) 2 mg IVP Q4 PRN PRN Reason: Pain, moderate (4-7) Last Admin: 10/19/17 23:45 Dose: 2 mg Rosuvastatin Calcium (Crestor) 10 mg PO HS BILL Last Admin: 10/19/17 23:06 Dose: 10 mg Sevelamer Carbonate (Renvela) 800 mg PO TID BILL Physical Exam - Constitutional Appears: No Acute Distress, Chronically Ill - Head Exam Head Exam: NORMAL INSPECTION, NORMOCEPHALIC - Eye Exam Eye Exam: Normal appearance Pupil Exam: PERRL - ENT Exam ENT Exam: Mucous Membranes Moist, Normal Exam - Neck Exam Neck exam: Positive for: Normal Inspection - Respiratory Exam Respiratory Exam: Clear to Auscultation Bilateral, NORMAL BREATHING PATTERN - Cardiovascular Exam Cardiovascular Exam: REGULAR RHYTHM, RRR - GI/Abdominal Exam GI & Abdominal Exam: Distended, Normal Bowel Sounds, Soft - Extremities Exam Extremities exam: Positive for: normal inspection (lt aka) - Neurological Exam Neurological exam: Alert, Oriented x3 - Psychiatric Exam Psychiatric exam: Normal Affect, Normal Mood - Skin Skin Exam: Dry, Intact Results - Vital Signs Recent Vital Signs: Last Vital Signs Temp 98.5 F 10/20/17 08:00 Pulse 68 10/20/17 08:00 Resp 20 10/20/17 08:00 BP 178/64 H 10/20/17 08:00 Pulse Ox 96 10/20/17 08:00 - Labs Result Diagrams: 10/20/17 07:10 10/19/17 17:16 Labs: Laboratory Results - last 24 hr 10/19/17 10/19/17 10/19/17 17:16 17:16 17:16 WBC 4.9 RBC 4.33 Hgb 11.3 Hct 35.0 MCV 80.7 L MCH 26.2 L MCHC 32.5 L RDW 21.0 H Plt Count 188 MPV 6.9 L Neut % (Auto) 81.4 H Lymph % (Auto) 11.8 L [place] % (Auto) 5.3 Eos % (Auto) 0.7 Baso % (Auto) 0.8 Neut # (Auto) 4.0 Lymph # (Auto) 0.6 L [place] # (Auto) 0.3 Eos # (Auto) 0.0 Baso # (Auto) 0.0 PT 11.0 INR 1.0 APTT 34 Sodium 139 Potassium 4.4 Chloride 96 L Carbon Dioxide 34 H Anion Gap 12 BUN 14 Creatinine 2.6 H Est GFR ( Amer) 22 Est GFR (Non-Af Amer) 18 Random Glucose 100 Calcium 8.9 Total Bilirubin 0.8 AST 13 L ALT 16 Alkaline Phosphatase 92 Total Protein 6.0 L Albumin 3.2 L Globulin 2.7 Albumin/Globulin Ratio 1.2 Blood Type Antibody Screen 10/19/17 10/20/17 10/20/17 17:16 07:10 07:10 WBC 3.9 L RBC 4.09 Hgb 10.9 L Hct 33.2 L MCV 81.1 MCH 26.7 L MCHC 32.9 L RDW 21.1 H Plt Count 178 MPV 7.6 Neut % (Auto) 68.0 Lymph % (Auto) 22.7 [place] % (Auto) 6.5 Eos % (Auto) 1.8 Baso % (Auto) 1.0 Neut # (Auto) 2.7 Lymph # (Auto) 0.9 L [place] # (Auto) 0.3 Eos # (Auto) 0.1 Baso # (Auto) 0.0 PT INR APTT Sodium Potassium Chloride Carbon Dioxide Anion Gap BUN Creatinine Est GFR ( Amer) Est GFR (Non-Af Amer) Random Glucose Calcium Total Bilirubin AST ALT Alkaline Phosphatase Total Protein Albumin Globulin Albumin/Globulin Ratio Blood Type O POSITIVE O POSITIVE Antibody Screen Negative Negative Assessment & Plan (1) PVD (peripheral vascular disease) Status: Acute (2) A-fib Status: Acute (3) ESRD (end stage renal disease) Status: Acute (4) HTN (hypertension) Status: Acute Priority: Medium - Assessment and Plan (Free Text) Assessment: hd mwf add hydralazine for bp hgb at goal surgical management
[2017-10-20] MEDS: diltiaZEM 180 mg/24 Hours CD Cap PO SCH (10:20)
[2017-10-20 11:22] LABS: ALB/GLOB RATIO 1.4 (1.0-2.1); ALBUMIN 3.7 g/dL (3.5-5.0); CALCIUM 9.4 mg/dl (8.6-10.4)
[2017-10-20] MEDS ORDERED: Midazolam 2 MG/2 ML VIAL ONE (12:36)
[2017-10-20] MEDS ORDERED: Propofol 10 mg/ml Inj (20 ML) ONE (12:36)
--- NOTE | 2017-10-20 12:48 | CP.PCM.PN ---
Subjective - Date & Time of Evaluation Date of Evaluation: 10/20/17 Time of Evaluation: 12:46 - Subjective Subjective: CONDITION STABLE. Objective - Vital Signs/Intake and Output Vital Signs (last 24 hours): Temp Pulse Resp BP Pulse Ox 98.5 F 68 20 178/64 H 96 10/20/17 08:00 10/20/17 08:00 10/20/17 08:00 10/20/17 08:00 10/20/17 08:00 Intake and Output: 10/20/17 10/20/17 06:59 18:59 Intake Total 200 Balance 200 - Medications Medications: Current Medications Cinacalcet (Sensipar) 60 mg PO DAILY [facility] Last Admin: 10/20/17 10:09 Dose: Not Given Diltiazem HCl (Cardizem Cd) 180 mg PO DAILY [facility] Last Admin: 10/20/17 10:20 Dose: 180 mg Ezetimibe (Zetia) 10 mg PO DAILY [facility] Last Admin: 10/20/17 10:19 Dose: 10 mg Hydralazine HCl (Apresoline) 25 mg PO BID [facility] Last Admin: 10/20/17 10:20 Dose: 25 mg Metoprolol Tartrate (Lopressor) 50 mg PO BID [facility] Last Admin: 10/20/17 10:19 Dose: 50 mg Morphine Sulfate (Morphine) 2 mg IVP Q4 PRN PRN Reason: Pain, moderate (4-7) Last Admin: 10/19/17 23:45 Dose: 2 mg Rosuvastatin Calcium (Crestor) 10 mg PO HS [facility] Last Admin: 10/19/17 23:06 Dose: 10 mg Sevelamer Carbonate (Renvela) 800 mg PO TID [facility] Last Admin: 10/20/17 10:09 Dose: Not Given - Labs Labs: 10/20/17 07:10 10/20/17 10:57 PT 11.0 SECONDS (9.7-12.2) 10/19/17 17:16 INR 1.0 10/19/17 17:16 APTT 34 SECONDS (21-34) 10/19/17 17:16 - Constitutional Appears: No Acute Distress, Chronically Ill - Eye Exam Eye Exam: EOMI, Normal appearance, PERRL Pupil Exam: NORMAL ACCOMODATION, PERRL - ENT Exam ENT Exam: Mucous Membranes Moist, Normal Exam - Neck Exam Neck Exam: Full ROM, Normal Inspection. absent: Lymphadenopathy - Respiratory Exam Respiratory Exam: Clear to Ausculation Bilateral, NORMAL BREATHING PATTERN - Cardiovascular Exam Cardiovascular Exam: REGULAR RHYTHM, +S1, +S2. absent: Murmur - GI/Abdominal Exam GI & Abdominal Exam: Soft, Normal Bowel Sounds. absent: Tenderness - Extremities Exam Extremities Exam: Full ROM, Normal Capillary Refill, Normal Inspection. absent : Joint Swelling, Pedal Edema - Back Exam Back Exam: NORMAL INSPECTION - Neurological Exam Neurological Exam: Alert, Awake, CN II-XII Intact, Normal Gait, Oriented x3 Assessment and Plan - Assessment and Plan (Free Text) Assessment: PVD. CRF HTN. Plan: PT WENT FOR RT BKA.
[2017-10-20] MEDS ORDERED: Sodium Chloride 0.9% 500 ML IV ONE (12:50)
[2017-10-20] MEDS ORDERED: ceFAZolin 1 gm in NS 1 GM/100 ML BAG IVPB ONE (12:55)
[2017-10-20] MEDS ORDERED: ePHEDrine 50 mg/ml Inj ONE (13:48)
--- NOTE | 2017-10-20 14:12 | PCM.SURG1 ---
Surgeon's Initial Post Op Note - Surgeon's Notes Surgeon: Dr. Erwin [employer] Matcher: Dr. Hart PGY4, Dr. Gonzalez PGY3 Type of Anesthesia: General Endo Pre-Operative Diagnosis: PAD Operative Findings: see operative report Post-Operative Diagnosis: see operative report Operation Performed: right below the knee amputation Specimen/Specimens Removed: right limb Estimated Blood Loss: EBL {In ML}: 125 Blood Products Given: N/A Drains Used: No Drains Post-Op Condition: Good Date of Surgery/Procedure: 10/20/17 Time of Surgery/Procedure: 13:00
[2017-10-20] MEDS ORDERED: HYDROmorphone 0.5 mg/0.5 ml ISec ONE (14:13)
[2017-10-20] MEDS: HYDROmorphone 0.5 mg/0.5 ml ISec IVP PRN ×3 (14:13→15:00)
[2017-10-20] MEDS ORDERED: HYDROmorphone 0.5 mg/0.5 ml ISec IVP PRN (15:15)
[2017-10-20] MEDS: oxyCODONE 5 mg Immediate Release Tab PO PRN ×2 (16:39→23:03)
--- NOTE | 2017-10-21 01:05 | CARD ---
APPROVED REPORT Date of service: 10/19/2017 EKG Measurement Heart [id number] <Conclusion> Normal sinus rhythm Minimal voltage criteria for LVH, may be normal variant Borderline ECG
[2017-10-21] MEDS: diltiaZEM 180 mg/24 Hours CD Cap PO SCH (10:18)
[2017-10-21] MEDS: oxyCODONE 5 mg Immediate Release Tab PO PRN (10:19)
--- NOTE | 2017-10-21 11:43 | CP.PCM.PN ---
Subjective - Date & Time of Evaluation Date of Evaluation: 10/21/17 Time of Evaluation: 10:15 - Subjective Subjective: Patient seen and examined. No acute events over night. Patient reports moderate pain in right BKA site. No strikethrough drainage noted at surgical site. Objective - Vital Signs/Intake and Output Vital Signs (last 24 hours): Temp Pulse Resp BP Pulse Ox 98.2 F 74 20 194/64 H 97 10/21/17 08:00 10/21/17 08:00 10/21/17 08:00 10/21/17 08:00 10/21/17 08:00 Intake and Output: 10/21/17 10/21/17 06:59 18:59 Intake Total 320 Balance 320 - Medications Medications: Current Medications Cinacalcet (Sensipar) 60 mg PO DAILY [facility] Last Admin: 10/21/17 10:20 Dose: 60 mg Diltiazem HCl (Cardizem Cd) 180 mg PO DAILY [facility] Last Admin: 10/21/17 10:18 Dose: 180 mg Ezetimibe (Zetia) 10 mg PO [facility] Heparin Sodium (Porcine) (Heparin) 5,000 units SC Q8 [facility] Last Admin: 10/21/17 05:58 Dose: 5,000 units Hydralazine HCl (Apresoline) 25 mg PO BID [facility] Last Admin: 10/21/17 10:19 Dose: 25 mg Hydromorphone HCl (Dilaudid) 0.5 mg IVP Q4H PRN PRN Reason: Pain, severe (8-10) Metoprolol Tartrate (Lopressor) 50 mg PO BID [facility] Last Admin: 10/21/17 10:19 Dose: 50 mg Oxycodone HCl (Oxycodone Immediate Release Tab) 5 mg PO Q6 PRN PRN Reason: Pain, moderate (4-7) Last Admin: 10/21/17 10:19 Dose: 5 mg Rosuvastatin Calcium (Crestor) 10 mg PO HS [facility] Last Admin: 10/20/17 22:27 Dose: 10 mg Sevelamer Carbonate (Renvela) 800 mg PO TID [facility] Last Admin: 10/21/17 10:19 Dose: 800 mg Warfarin Sodium (Coumadin) 3 mg PO DAILY [facility] - Labs Labs: 10/20/17 07:10 10/20/17 10:57 PT 11.0 SECONDS (9.7-12.2) 10/19/17 17:16 INR 1.0 10/19/17 17:16 APTT 34 SECONDS (21-34) 10/19/17 17:16 - Constitutional Appears: No Acute Distress - Head Exam Head Exam: NORMOCEPHALIC - Eye Exam Eye Exam: Normal appearance - ENT Exam ENT Exam: Mucous Membranes Moist - Respiratory Exam Respiratory Exam: NORMAL BREATHING PATTERN - Cardiovascular Exam Cardiovascular Exam: +S1, +S2 - GI/Abdominal Exam GI & Abdominal Exam: Soft - Extremities Exam Additional comments: R BKA site c/d/i - Neurological Exam Neurological Exam: Alert, Awake, Oriented x3 - Skin Skin Exam: Dry, Intact, Warm Assessment and Plan - Assessment and Plan (Free Text) Assessment: 67F w/ PAD s/p R BKA POD1 Plan: Resume renal diet C/w Knee immobilizer F/u AM labs C/w Analgesics prn Encourage incentive spirometer use Assess for bleeding prn Further recs per Dr. Rip Huang PGY3
--- NOTE | 2017-10-21 12:40 | CP.PCM.PN ---
Subjective - Date & Time of Evaluation Date of Evaluation: 10/21/17 Time of Evaluation: 12:38 - Subjective Subjective: C/O PAIN IN THE RT LEG. AFEBRILE. POST OP STABLE. Objective - Vital Signs/Intake and Output Vital Signs (last 24 hours): Temp Pulse Resp BP Pulse Ox 98.2 F 74 20 194/64 H 97 10/21/17 08:00 10/21/17 08:00 10/21/17 08:00 10/21/17 08:00 10/21/17 08:00 Intake and Output: 10/21/17 10/21/17 06:59 18:59 Intake Total 320 Balance 320 - Medications Medications: Current Medications Cinacalcet (Sensipar) 60 mg PO DAILY [facility] Last Admin: 10/21/17 10:20 Dose: 60 mg Diltiazem HCl (Cardizem Cd) 180 mg PO DAILY [facility] Last Admin: 10/21/17 10:18 Dose: 180 mg Ezetimibe (Zetia) 10 mg PO [facility] Heparin Sodium (Porcine) (Heparin) 5,000 units SC Q8 [facility] Last Admin: 10/21/17 05:58 Dose: 5,000 units Hydralazine HCl (Apresoline) 25 mg PO BID [facility] Last Admin: 10/21/17 10:19 Dose: 25 mg Hydromorphone HCl (Dilaudid) 0.5 mg IVP Q4H PRN PRN Reason: Pain, severe (8-10) Metoprolol Tartrate (Lopressor) 50 mg PO BID [facility] Last Admin: 10/21/17 10:19 Dose: 50 mg Oxycodone HCl (Oxycodone Immediate Release Tab) 5 mg PO Q6 PRN PRN Reason: Pain, moderate (4-7) Last Admin: 10/21/17 10:19 Dose: 5 mg Rosuvastatin Calcium (Crestor) 10 mg PO HS [facility] Last Admin: 10/20/17 22:27 Dose: 10 mg Senna/Docusate Sodium (Senokot S 50 Mg-8.6 Mg) 1 tab PO BID [facility] Sevelamer Carbonate (Renvela) 800 mg PO TID [facility] Last Admin: 10/21/17 10:19 Dose: 800 mg Warfarin Sodium (Coumadin) 3 mg PO DAILY [facility] - Labs Labs: 10/20/17 07:10 10/20/17 10:57 PT 11.0 SECONDS (9.7-12.2) 10/19/17 17:16 INR 1.0 10/19/17 17:16 APTT 34 SECONDS (21-34) 10/19/17 17:16 - Constitutional Appears: No Acute Distress, Chronically Ill - Eye Exam Eye Exam: EOMI, Normal appearance, PERRL Pupil Exam: NORMAL ACCOMODATION, PERRL - ENT Exam ENT Exam: Mucous Membranes Moist, Normal Exam - Neck Exam Neck Exam: Full ROM, Normal Inspection. absent: Lymphadenopathy - Respiratory Exam Respiratory Exam: Clear to Ausculation Bilateral, NORMAL BREATHING PATTERN - Cardiovascular Exam Cardiovascular Exam: REGULAR RHYTHM, +S1, +S2. absent: Murmur - GI/Abdominal Exam GI & Abdominal Exam: Soft, Normal Bowel Sounds. absent: Tenderness - Extremities Exam Extremities Exam: Full ROM, Normal Capillary Refill, Normal Inspection. absent : Joint Swelling, Pedal Edema - Back Exam Back Exam: NORMAL INSPECTION - Neurological Exam Neurological Exam: Alert, Awake, CN II-XII Intact, Normal Gait, Oriented x3 - Psychiatric Exam Psychiatric exam: Normal Affect, Normal Mood Assessment and Plan - Assessment and Plan (Free Text) Assessment: S/P RT LEG BKA. CRF. HD. Plan: PER SURGERY.
[2017-10-21] MEDS ORDERED: oxyCODONE 10 mg Immediate Release Tab PO PRN (12:55)
[2017-10-21] MEDS: HYDROmorphone 0.5 mg/0.5 ml ISec IVP PRN ×2 (13:37→20:33)
--- NOTE | 2017-10-21 14:02 | CP.PCM.PN ---
Subjective - Date & Time of Evaluation Date of Evaluation: 10/21/17 Time of Evaluation: 13:59 - Subjective Subjective: s/p right BKA In much pain- meds adjusted for dialysis now HTN elevated only c/o pains Objective - Vital Signs/Intake and Output Vital Signs (last 24 hours): Temp Pulse Resp BP Pulse Ox 98.2 F 74 20 194/64 H 97 10/21/17 08:00 10/21/17 08:00 10/21/17 08:00 10/21/17 08:00 10/21/17 08:00 Intake and Output: 10/21/17 10/21/17 06:59 18:59 Intake Total 320 Balance 320 - Medications Medications: Current Medications Cinacalcet (Sensipar) 60 mg PO DAILY [facility] Last Admin: 10/21/17 10:20 Dose: 60 mg Diltiazem HCl (Cardizem Cd) 180 mg PO DAILY [facility] Last Admin: 10/21/17 10:18 Dose: 180 mg Ezetimibe (Zetia) 10 mg PO [facility] Heparin Sodium (Porcine) (Heparin) 5,000 units SC Q8 [facility] Last Admin: 10/21/17 13:39 Dose: 5,000 units Hydralazine HCl (Apresoline) 50 mg PO BID [facility] Hydromorphone HCl (Dilaudid) 0.5 mg IVP Q4H PRN PRN Reason: Pain, severe (8-10) Last Admin: 10/21/17 13:37 Dose: 0.5 mg Metoprolol Tartrate (Lopressor) 50 mg PO BID [facility] Last Admin: 10/21/17 10:19 Dose: 50 mg Oxycodone HCl (Oxycodone Immediate Release Tab) 10 mg PO Q6 PRN PRN Reason: Pain, moderate (4-7) Rosuvastatin Calcium (Crestor) 10 mg PO HS [facility] Last Admin: 10/20/17 22:27 Dose: 10 mg Senna/Docusate Sodium (Senokot S 50 Mg-8.6 Mg) 1 tab PO BID [facility] Sevelamer Carbonate (Renvela) 800 mg PO TID [facility] Last Admin: 10/21/17 13:36 Dose: 800 mg Warfarin Sodium (Coumadin) 3 mg PO DAILY [facility] - Labs Labs: 10/20/17 07:10 07/10/18 10:57 PT 11.0 SECONDS (9.7-12.2) 10/19/17 17:16 INR 1.0 10/19/17 17:16 APTT 34 SECONDS (21-34) 10/19/17 17:16 - Constitutional Appears: No Acute Distress, Chronically Ill - Head Exam Head Exam: ATRAUMATIC, NORMAL INSPECTION - Eye Exam Eye Exam: EOMI, Normal appearance - Neck Exam Neck Exam: Normal Inspection. absent: Tenderness - Respiratory Exam Respiratory Exam: Clear to Ausculation Bilateral, NORMAL BREATHING PATTERN - Cardiovascular Exam Cardiovascular Exam: REGULAR RHYTHM, +S1 - GI/Abdominal Exam GI & Abdominal Exam: Soft. absent: Tenderness - Extremities Exam Extremities Exam: Normal Inspection, Tenderness - Neurological Exam Neurological Exam: Alert, CN II-XII Intact - Skin Skin Exam: Dry, Warm Assessment and Plan (1) PVD (peripheral vascular disease) Status: Acute (2) ADPKD (autosomal dominant polycystic kidney disease) Status: Acute (3) ESRD (end stage renal disease) Status: Acute (4) HTN (hypertension) Status: Acute (5) Paroxysmal atrial fibrillation Status: Acute - Assessment and Plan (Free Text) Plan: dialysis now Increase BP meds pain management
[2017-10-21 14:13] LABS: BASO % 0.5 % (0.0-2.0); EOS % 0.1 % (0.0-4.0); HEMOGLOBIN 9.9 g/dL (11.0-16.0); LYMPH # 0.6 K/uL (1.0-4.3); LYMPH % 10.4 % (20.0-40.0); MEAN CELL VOLUME 80.8 fL (81.0-99.0); MEAN CORPUSCULAR HEMOGLOBIN 26.4 pg (27.0-31.0); MEAN CORPUSCULAR HGB CONC 32.7 g/dL (33.0-37.0); MEAN PLATELET VOLUME 7.7 fL (7.2-11.7); MONO # 0.3 K/uL (0.0-0.8); MONO % 6.3 % (0.0-10.0); NEUT # 4.5 K/uL (1.8-7.0); NEUT % 82.7 % (50.0-75.0); NRBC % 0.2 % (0.0-2.0); RBC 3.75 Mil/uL (3.80-5.20); RED CELL DISTRIBUTION WIDTH 20.8 % (11.5-14.5); WHITE BLOOD COUNT 5.5 K/uL (4.8-10.8)
[2017-10-21 14:18] LABS: PROTHROMBIN TIME 11.1 SECONDS (9.7-12.2)
[2017-10-21 14:59] LABS: CALCIUM 8.8 mg/dl (8.6-10.4)
[2017-10-21] MEDS: Docusate-Senna 50 mg-8.6 mg Tab PO SCH (17:26)
[2017-10-22] MEDS: HYDROmorphone 0.5 mg/0.5 ml ISec IVP PRN ×3 (01:05→11:25)
[2017-10-22 01:41] VITALS: RESP 20
--- NOTE | 2017-10-22 07:21 | CP.PCM.PN ---
Subjective - Date & Time of Evaluation Date of Evaluation: 10/22/17 Time of Evaluation: 07:13 - Subjective Subjective: General Surgery Progress Note for Dr. Erwin 67F seen and evaluated this AM. Pt is awake and resting in bed. c/o of pain at the site of BKA that is controlled. No acute events overnight. She denies f/c, n /v/d, SOB, or CP. No strikethrough drainage from right BKA. Objective - Vital Signs/Intake and Output Vital Signs (last 24 hours): Temp Pulse Resp BP Pulse Ox 99.2 F 75 20 136/64 97 10/22/17 00:00 10/22/17 05:25 10/22/17 05:25 10/22/17 05:25 10/22/17 05:25 Intake and Output: 10/22/17 10/22/17 06:59 18:59 Intake Total 150 Balance 150 - Medications Medications: Current Medications Cinacalcet (Sensipar) 60 mg PO DAILY [facility] Last Admin: 10/21/17 10:20 Dose: 60 mg Diltiazem HCl (Cardizem Cd) 180 mg PO DAILY [facility] Last Admin: 10/21/17 10:18 Dose: 180 mg Ezetimibe (Zetia) 10 mg PO HS [facility] Last Admin: 10/21/17 22:34 Dose: 10 mg Hydralazine HCl (Apresoline) 50 mg PO BID [facility] Last Admin: 10/21/17 17:24 Dose: 50 mg Hydromorphone HCl (Dilaudid) 0.5 mg IVP Q4H PRN PRN Reason: Pain, severe (8-10) Last Admin: 10/22/17 05:30 Dose: 0.5 mg Metoprolol Tartrate (Lopressor) 50 mg PO BID [facility] Last Admin: 10/21/17 17:30 Dose: 50 mg Oxycodone HCl (Oxycodone Immediate Release Tab) 10 mg PO Q6 PRN PRN Reason: Pain, moderate (4-7) Rosuvastatin Calcium (Crestor) 10 mg PO HS [facility] Last Admin: 10/21/17 21:13 Dose: 10 mg Senna/Docusate Sodium (Senokot S 50 Mg-8.6 Mg) 1 tab PO BID [facility] Last Admin: 10/21/17 17:26 Dose: 1 tab Sevelamer Carbonate (Renvela) 800 mg PO TID [facility] Last Admin: 10/21/17 17:25 Dose: 800 mg - Labs Labs: 10/21/17 14:06 10/21/17 14:06 PT 11.1 SECONDS (9.7-12.2) 10/21/17 14:06 INR 1.0 10/21/17 14:06 APTT 34 SECONDS (21-34) 10/19/17 17:16 - Constitutional Appears: Well, Non-toxic, No Acute Distress - Head Exam Head Exam: ATRAUMATIC, NORMAL INSPECTION, NORMOCEPHALIC - Eye Exam Eye Exam: EOMI, Normal appearance - Respiratory Exam Respiratory Exam: Clear to Ausculation Bilateral, NORMAL BREATHING PATTERN - Cardiovascular Exam Cardiovascular Exam: REGULAR RHYTHM, +S1, +S2. absent: Murmur - GI/Abdominal Exam GI & Abdominal Exam: Soft, Normal Bowel Sounds. absent: Tenderness - Extremities Exam Extremities Exam: Tenderness Additional comments: Tenderness R BKA site dressings c/d/i - Neurological Exam Neurological Exam: Alert, Awake, Oriented x3 - Psychiatric Exam Psychiatric exam: Normal Affect, Normal Mood - Skin Skin Exam: Dry, Intact, Normal Color, Warm Assessment and Plan - Assessment and Plan (Free Text) Assessment: 67F s/p right BKA POD2 Plan: c/w pain management monitor surgical site encourage IS use encouraged to go to rehab no further surgical intervention at this time, cleared for discharge please reconsult as needed Tai Gonzalez PGY1
[2017-10-22] MEDS ORDERED: oxyCODONE 10 mg Immediate Release Tab PO PRN (08:30)
[2017-10-22 08:34] LABS: BASO % 0.3 % (0.0-2.0); EOS % 0.2 % (0.0-4.0); HEMOGLOBIN 9.2 g/dL (11.0-16.0); LYMPH # 0.3 K/uL (1.0-4.3); MEAN CELL VOLUME 80.8 fL (81.0-99.0); MEAN CORPUSCULAR HEMOGLOBIN 26.7 pg (27.0-31.0); MEAN PLATELET VOLUME 7.8 fL (7.2-11.7); MONO # 0.3 K/uL (0.0-0.8); MONO % 5.4 % (0.0-10.0); NEUT # 4.3 K/uL (1.8-7.0); NEUT % 87.1 % (50.0-75.0); PLATELET COUNT 170 K/uL (130-400); RBC 3.44 Mil/uL (3.80-5.20); RED CELL DISTRIBUTION WIDTH 20.5 % (11.5-14.5); WHITE BLOOD COUNT 4.9 K/uL (4.8-10.8)
[2017-10-22 08:53] LABS: CALCIUM 8.9 mg/dl (8.6-10.4)
[2017-10-22 09:23] LABS: ANISOCYTOSIS SLIGHT; LYMPHOCYTE 7 % (20-40); MONOCYTE 10 % (0-10); NEUTROPHIL 82 % (50-75); PLATELET ESTIMATE NORMAL (NORMAL); POIKILOCYTOSIS SLIGHT; TOTAL CELLS COUNTED 100
[2017-10-22 09:24] LABS: HYPOCHROMIC SLIGHT; TEARDROP CELLS SLIGHT
[2017-10-22 09:25] LABS: TARGET CELLS SLIGHT
--- NOTE | 2017-10-22 09:44 | CP.PCM.PN ---
Subjective - Date & Time of Evaluation Date of Evaluation: 10/22/17 Time of Evaluation: 09:42 - Subjective Subjective: s/p dialysis 10/21- HR increased and BP was lower Hg less now less pains post BKA Objective - Vital Signs/Intake and Output Vital Signs (last 24 hours): Temp Pulse Resp BP Pulse Ox 98.5 F 110 H 20 129/8 L 96 10/22/17 08:00 10/22/17 08:00 10/22/17 08:00 10/22/17 08:00 10/22/17 08:00 Intake and Output: 10/22/17 10/22/17 06:59 18:59 Intake Total 150 Balance 150 - Medications Medications: Current Medications Cinacalcet (Sensipar) 60 mg PO DAILY [facility] Last Admin: 10/21/17 10:20 Dose: 60 mg Diltiazem HCl (Cardizem Cd) 180 mg PO DAILY [facility] Last Admin: 10/21/17 10:18 Dose: 180 mg Ezetimibe (Zetia) 10 mg PO [facility] Last Admin: 10/21/17 22:34 Dose: 10 mg Hydralazine HCl (Apresoline) 50 mg PO BID [facility] Last Admin: 10/21/17 17:24 Dose: 50 mg Hydromorphone HCl (Dilaudid) 0.5 mg IVP Q4H PRN PRN Reason: Pain, severe (8-10) Last Admin: 10/22/17 05:30 Dose: 0.5 mg Metoprolol Tartrate (Lopressor) 50 mg PO BID [facility] Last Admin: 10/21/17 17:30 Dose: 50 mg Oxycodone HCl (Oxycodone Immediate Release Tab) 10 mg PO Q4H PRN PRN Reason: Pain, moderate (4-7) Rosuvastatin Calcium (Crestor) 10 mg PO [facility] Last Admin: 10/21/17 21:13 Dose: 10 mg Senna/Docusate Sodium (Senokot S 50 Mg-8.6 Mg) 1 tab PO BID [facility] Last Admin: 10/21/17 17:26 Dose: 1 tab Sevelamer Carbonate (Renvela) 800 mg PO TID [facility] Last Admin: 10/21/17 17:25 Dose: 800 mg - Labs Labs: 10/22/17 08:28 10/22/17 08:28 PT 11.0 SECONDS (9.7-12.2) 10/22/17 08:28 INR 1.0 10/22/17 08:28 APTT 34 SECONDS (21-34) 10/19/17 17:16 - Constitutional Appears: In Acute Distress, Chronically Ill - Head Exam Head Exam: ATRAUMATIC, NORMAL INSPECTION - Eye Exam Eye Exam: EOMI, Normal appearance - Neck Exam Neck Exam: Normal Inspection. absent: Tenderness - Respiratory Exam Respiratory Exam: Clear to Ausculation Bilateral, NORMAL BREATHING PATTERN - Cardiovascular Exam Cardiovascular Exam: REGULAR RHYTHM, +S1 - GI/Abdominal Exam GI & Abdominal Exam: Soft. absent: Tenderness - Extremities Exam Extremities Exam: Normal Inspection. absent: Tenderness - Neurological Exam Neurological Exam: Awake, CN II-XII Intact - Skin Skin Exam: Dry, Warm Assessment and Plan (1) PVD (peripheral vascular disease) Status: Acute (2) ADPKD (autosomal dominant polycystic kidney disease) Status: Acute (3) ESRD (end stage renal disease) Status: Acute (4) HTN (hypertension) Status: Acute (5) Paroxysmal atrial fibrillation Status: Acute - Assessment and Plan (Free Text) Plan: decrease UF gpoal at HD MWF Adjust BP meds surgical follow up
[2017-10-22] MEDS: Docusate-Senna 50 mg-8.6 mg Tab PO SCH ×2 (11:30→17:08)
[2017-10-22] MEDS: diltiaZEM 180 mg/24 Hours CD Cap PO SCH (11:31)
--- NOTE | 2017-10-22 12:50 | CP.PCM.PN ---
Subjective - Date & Time of Evaluation Date of Evaluation: 10/22/17 Time of Evaluation: 12:48 - Subjective Subjective: CONDITION REMAINS STABLE. AFEBRILE. S/P RT BKA. Objective - Vital Signs/Intake and Output Vital Signs (last 24 hours): Temp Pulse Resp BP Pulse Ox 98.5 F 110 H 20 129/8 L 96 10/22/17 08:00 10/22/17 08:00 10/22/17 08:00 10/22/17 08:00 10/22/17 08:00 Intake and Output: 10/22/17 10/22/17 06:59 18:59 Intake Total 150 Balance 150 - Medications Medications: Current Medications Cinacalcet (Sensipar) [address] [facility] Last Admin: 10/22/17 11:30 Dose: 60 mg Diltiazem HCl (Cardizem Cd) [address] [facility] Last Admin: 10/22/17 11:31 Dose: 180 mg Ezetimibe (Zetia) 10 mg PO [facility] Last Admin: 10/21/17 22:34 Dose: 10 mg Hydromorphone HCl (Dilaudid) 0.5 mg IVP Q4H PRN PRN Reason: Pain, severe (8-10) Last Admin: 10/22/17 11:25 Dose: 0.5 mg Metoprolol Tartrate (Lopressor) [address] [facility] Last Admin: 10/22/17 11:29 Dose: 50 mg Oxycodone HCl (Oxycodone Immediate Release Tab) 10 mg PO Q4H PRN PRN Reason: Pain, moderate (4-7) Rosuvastatin Calcium (Crestor) 10 mg PO [facility] Last Admin: 10/21/17 21:13 Dose: 10 mg Senna/Docusate Sodium (Senokot S 50 Mg-8.6 Mg) [address] [facility] Last Admin: 10/22/17 11:30 Dose: 1 tab Sevelamer Carbonate (Renvela) [address] [facility] Last Admin: 10/22/17 11:31 Dose: 800 mg - Labs Labs: 10/22/17 08:28 10/22/17 08:28 PT 11.0 SECONDS (9.7-12.2) 10/22/17 08:28 INR 1.0 10/22/17 08:28 APTT 34 SECONDS (21-34) 10/19/17 17:16 - Constitutional Appears: No Acute Distress, Chronically Ill - Eye Exam Eye Exam: EOMI, Normal appearance, PERRL Pupil Exam: NORMAL ACCOMODATION, PERRL - ENT Exam ENT Exam: Mucous Membranes Moist, Normal Exam - Respiratory Exam Respiratory Exam: Clear to Ausculation Bilateral, NORMAL BREATHING PATTERN - Cardiovascular Exam Cardiovascular Exam: REGULAR RHYTHM, +S1, +S2. absent: Murmur - GI/Abdominal Exam GI & Abdominal Exam: Soft, Normal Bowel Sounds. absent: Tenderness - Extremities Exam Extremities Exam: Full ROM, Normal Capillary Refill, Normal Inspection. absent : Joint Swelling, Pedal Edema - Neurological Exam Neurological Exam: Alert, Awake, CN II-XII Intact, Normal Gait, Oriented x3 - Psychiatric Exam Psychiatric exam: Normal Affect, Normal Mood Assessment and Plan - Assessment and Plan (Free Text) Assessment: ABOVE. Plan: FOR JASON. CT OTHER TREATMENT.
[2017-10-22 16:10] VITALS: BP 158/60; PULSE 65; TEMP 98.7; O2SAT 97
== END 2017-10-22 21:20 | DRG 239 ==
LOC: C.ER 13:48 → C.9E 18:36 → C.3T 19:37
PROVIDERS: ADMIT Internal Medicine; ATTEND Internal Medicine
PROC: 5A1D70Z Performance of Urinary Filtration, Intermittent, Less than 6 Hours Per Day (ICD-10-PCS; 2017-10-19)
PROC: 0Y6H0Z1 Detachment at Right Lower Leg, High, Open Approach (ICD-10-PCS; principal; 2017-10-20 12:15)
DX: E11.52 Type 2 diabetes mellitus with diabetic peripheral angiopathy with gangrene (principal); N18.6 End stage renal disease; M86.171 Other acute osteomyelitis, right ankle and foot; I12.0 Hypertensive chronic kidney disease with stage 5 chronic kidney disease or end stage renal disease; Q61.2 Polycystic kidney, adult type; E11.69 Type 2 diabetes mellitus with other specified complication; I48.0 Paroxysmal atrial fibrillation; E11.22 Type 2 diabetes mellitus with diabetic chronic kidney disease; I25.10 Atherosclerotic heart disease of native coronary artery without angina pectoris; J44.9 Chronic obstructive pulmonary disease, unspecified; E78.00 Pure hypercholesterolemia, unspecified; M19.90 Unspecified osteoarthritis, unspecified site; K21.9 Gastro-esophageal reflux disease without esophagitis; Z89.612 Acquired absence of left leg above knee; Z79.4 Long term (current) use of insulin; Z86.010 Personal history of colon polyps; Z87.01 Personal history of pneumonia (recurrent); Z87.891 Personal history of nicotine dependence; Z99.2 Dependence on renal dialysis; Z95.5 Presence of coronary angioplasty implant and graft

== ENCOUNTER 2017-12-30 23:09 | Emergency (ER) | payer MEDICARE, OTHER ==
[2017-12-30 23:10] VITALS: PULSE 150; BMI 16.8
[2017-12-30 23:36] LABS: LYMPH # 0.7 K/uL (1.0-4.3); MEAN CORPUSCULAR HEMOGLOBIN 27.3 pg (27.0-31.0); NEUT # 3.7 K/uL (1.8-7.0); WHITE BLOOD COUNT 4.7 K/uL (4.8-10.8)
[2017-12-30 23:47] LABS: PROTHROMBIN TIME 10.6 SECONDS (9.7-12.2)
[2017-12-30 23:49] LABS: ALB/GLOB RATIO 1.2 (1.0-2.1); ALBUMIN 3.6 g/dL (3.5-5.0); CALCIUM 10.2 mg/dl (8.6-10.4)
[2017-12-30 23:55] LABS: BASO % 0.9 % (0.0-2.0); EOS % 0.8 % (0.0-4.0); LYMPH % 14.8 % (20.0-40.0); MEAN CELL VOLUME 82.2 fL (81.0-99.0); MEAN CORPUSCULAR HGB CONC 33.2 g/dL (33.0-37.0); MEAN PLATELET VOLUME 7.4 fL (7.2-11.7); MONO # 0.3 K/uL (0.0-0.8); MONO % 5.5 % (0.0-10.0); NRBC % 0.6 % (0.0-2.0); RED CELL DISTRIBUTION WIDTH 20.4 % (11.5-14.5)
[2017-12-30 23:58] LABS: HEMOGLOBIN 13.7 g/dL (11.0-16.0)
[2017-12-31] LABS: TROPONIN I 0.031 ng/mL (0.00-0.120)
--- NOTE | 2017-12-31 00:07 | C.PDOC ---
History Of Present Illness 67-year-old female, whose PMHx includes CAD and ESRD (on dialysis), presents to the ED for evaluation of chest pain which began earlier today. Patient received dialysis earlier today and states her pain is now resolving. She denies fever, chills, shortness of breath. Time Seen by Provider: 12/30/17 23:19 Chief Complaint (Nursing): Chest Pain History Per: Patient History/Exam Limitations: no limitations Onset/Duration Of Symptoms: Hrs Current Symptoms Are (Timing): Better Quality: "Pain" Additional History Per: Patient Past Medical History Reviewed: Historical Data, Nursing Documentation, Vital Signs Vital Signs: Last Vital Signs Temp 98.6 F 12/31/17 04:59 Pulse 63 12/31/17 06:34 Resp 16 12/31/17 06:34 BP 156/76 H 12/31/17 06:34 Pulse Ox 98 12/31/17 06:34 - Medical History PMH: Anemia, Arthritis, Asthma, Cardia Arrhythmia, Colonic Polyps, HTN, Hypercholesterolemia, Pneumonia (10 YRS AGO), End Stage Renal Disease, Chronic Kidney Disease Surgical History: Coronary Stent, Endoscopy - [facility] Procedures (10/19/17) ANGIOPLASTY OF OTHER NON-CORONARY VESSEL(S) (12/19/14) ATHERECTOMY OF OTHER NON-CORONARY VESSEL(S) (12/19/14) BYPASS L FEM ART TO POPLIT ART W NONAUT SUB, OPEN (06/19/15) BYPASS R FEM ART TO POPLIT ART WITH AUTOL VN, OPEN APPROACH (06/19/15) CONTRAST ARTERIOGRAM-LEG (12/19/14) DETACHMENT AT LEFT UPPER LEG, HIGH, OPEN APPROACH (01/01/16) DETACHMENT AT RIGHT LOWER LEG, HIGH, OPEN APPROACH (10/19/17) EXTIRPATION OF MATTER FROM L FEM ART, OPEN APPROACH (06/19/15) EXTIRPATION OF MATTER FROM L POPL ART, OPEN APPROACH (06/19/15) FLUOROSCOPY OF LEFT HEART USING LOW OSMOLAR CONTRAST (10/25/16) FLUOROSCOPY OF MULT COR ART USING L OSM CONTRAST (10/25/16) MEASURE OF CARDIAC SAMPL & PRESSURE, L HEART, PERC APPROACH (10/25/16) PERFORMANCE OF URINARY FILTRATION, MULTIPLE (11/01/15) PERFORMANCE OF URINARY FILTRATION, SINGLE (01/01/16) PLAIN RADIOGRAPHY OF LEFT HEART USING OTHER CONTRAST (06/19/15) PROCEDURE ON SINGLE VESSEL (11/07/14) PROCEDURE ON TWO VESSELS (12/19/14) Family History: States: Unknown Family Hx - Social History Hx Tobacco Use: Yes Hx Alcohol Use: No Hx Substance Use: No - Immunization History Hx Tetanus Toxoid Vaccination: Yes Hx Influenza Vaccination: Yes Hx Pneumococcal Vaccination: Yes Review Of Systems Constitutional: Negative for: Fever, Chills Cardiovascular: Positive for: Chest Pain Respiratory: Negative for: Shortness of Breath Physical Exam - Physical Exam Appears: Non-toxic, No Acute Distress Skin: Normal Color, Warm, Dry Head: Atraumatic, Normacephalic Eye(s): bilateral: Normal Inspection Oral Mucosa: Moist Neck: Supple Chest: Symmetrical, No Deformity, No Tenderness Cardiovascular: Rhythm Regular, No Murmur Respiratory: Normal Breath Sounds, No Rales, No Rhonchi, No Wheezing Extremity: Other (bilateral lower leg amputations ) Neurological/Psych: Oriented x3, Normal Speech, Normal Cognition ED Course And Treatment - Laboratory Results Result Diagrams: 12/30/17 23:33 12/30/17 23:33 ECG: Interpreted By Me, Viewed By Me ECG Rhythm: Sinus Rhythm Interpretation Of ECG: Normal Sinus Rhythm at rate 87bpm. LVH. Rate From EC O2 Sat by Pulse Oximetry: 98 (on RA) Pulse Ox Interpretation: Normal - Radiology CXR: Interpreted by Me (chronic interstitial markings ) Medical Decision Making Medical Decision Making: cp meron acs- Progress: Bloodwork, CXR, and EKG ordered and reviewed. pt with known h/o of cad. requested pt to be admitted. refuses. understands risks This patient is choosing to leave against medical advice. I have personally explained to the patient that choosing to do so may result in permanent bodily harm or . I have discussed at great length that without further evaluation and monitoring there may be unforeseen circumstances and/or deterioration causing permanent bodily harm or as a result of their choice. The patient is alert, oriented, and shows the mental capacity to make clear decisions regarding the patients health care at this time. The patient continues to wish to leave against medical advice. In light of the patients decision to leave AMA, follow-up has been arranged and the patient is aware of the importance of following up as instructed. The patient has been advised that they should return to the ED immediately if they change their mind at any time, or if their condition begins to change or worsen in any way. Disposition - Disposition Referrals: Mateo William MD [Staff Provider] - Disposition: AGAINST MEDICAL ADVICE Disposition Time: 02:00 Condition: STABLE Additional Instructions: return to er with worsening symptoms or concenrs. you are refusing repeat lab tests and admission. Instructions: Chest Pain, Leaving Against Medical Advice Forms: [employer] [employer] (Polish) - Clinical Impression Clinical Impression: Chest pain - Scribe Statement The provider has reviewed the documentation as recorded by the Scribe (Karen Larson) Provider Attestation: All medical record entries made by the Scribe were at my direction and personally dictated by me. I have reviewed the chart and agree that the record accurately reflects my personal performance of the history, physical exam, medical decision making, and the department course for this patient. I have also personally directed, reviewed, and agree with the discharge instructions and disposition.
[2017-12-31 01:33] VITALS: RESP 16
[2017-12-31 05:00] VITALS: TEMP 98.6
[2017-12-31 05:14] VITALS: O2SAT 98
[2017-12-31 06:38] VITALS: BP 156/76; PULSE 63
--- NOTE | 2017-12-31 08:45 | RAD ---
Date of service: 12/30/2017 PROCEDURE: CHEST RADIOGRAPH, 1 VIEW HISTORY: chest pain COMPARISON: 10/19/2017 FINDINGS: LUNGS: Study rotated towards the right-current inspiration less than before. The vague opacity in the right mid lung zone is slightly more conspicuous is could be due to less inspiration and technique. Chronic interstitial and pleural changes here are in the differential. Elsewhere inferred background hyperlucent COPD like changes and minimal chronic interstitial lung disease prominence appearance is similar. PLEURA: No pneumothorax or pleural fluid seen. CARDIOVASCULAR: Mild cardiomegaly.-similar. Markedly tortuous calcified thoracic aorta accentuated with rotation. Likely similar. Left upper extremity vascular calcification correlate clinically reguarding any intervention here OSSEOUS STRUCTURES: Osteopenia. Old healed rib deformities mid lung zone VISUALIZED UPPER ABDOMEN: Normal. OTHER FINDINGS: None. IMPRESSION: Limited exam rotated towards the right. No definitive interval change suspicious for acute pathology noted. Nevertheless the vague opacity in the right mid lung zone is perceived S slightly more conspicuous this could however be technical. An element of chronic interstitial and pleural disease projecting over this area can contribute to this. When patient can tolerate consider follow-up PA upright without rotation in greater inspiration to clarified. Other findings as above.
--- NOTE | 2017-12-31 21:27 | CARD ---
APPROVED REPORT Date of service: 12/30/2017 EKG Measurement Heart [id number] <Conclusion> Normal sinus rhythm Left axis deviation Anteroseptal infarct, age undetermined Consider old inferior infarct Abnormal ECG
== END 2017-12-31 08:04 | disposition left against medical advice (07) ==
LOC: C.ER 23:09
DX: R07.9 Chest pain, unspecified (principal)

== ENCOUNTER 2018-07-01 11:21 | Emergency (ER) | payer MEDICARE, OTHER ==
[2018-07-01 11:21] VITALS: PULSE 150; BMI 16.8
--- NOTE | 2018-07-01 11:56 | C.PDOC ---
History Of Present Illness 68 y/o female brought to ER by ambulance for evaluation of left hip pain which has been present for the past 2 days. Patient states that she fell off from her bed onto her chair. Patient denies having LOC, headache, dizziness, CP, SOB, nausea, vomiting, weakness, numbness, and other injuries. Time Seen by Provider: 07/01/18 11:46 Chief Complaint (Nursing): Hip Pain History Per: Patient History/Exam Limitations: no limitations Onset/Duration Of Symptoms: Days Current Symptoms Are (Timing): Still Present Severity: Moderate Past Medical History Reviewed: Historical Data, Nursing Documentation, Vital Signs Vital Signs: Last Vital Signs Temp 98.5 F 07/01/18 11:34 Pulse 77 07/01/18 11:34 Resp 18 07/01/18 11:34 BP 153/69 H 07/01/18 11:34 Pulse Ox 99 07/01/18 11:34 - Medical History PMH: Anemia, Arthritis, Asthma, Cardia Arrhythmia, Colonic Polyps, HTN, Hypercholesterolemia, Pneumonia (10 YRS AGO), End Stage Renal Disease, Chronic Kidney Disease Surgical History: Coronary Stent, Endoscopy - [facility] Procedures (10/19/17) ANGIOPLASTY OF OTHER NON-CORONARY VESSEL(S) (12/19/14) ATHERECTOMY OF OTHER NON-CORONARY VESSEL(S) (12/19/14) BYPASS L FEM ART TO POPLIT ART W NONAUT SUB, OPEN (06/19/15) BYPASS R FEM ART TO POPLIT ART WITH AUTOL VN, OPEN APPROACH (06/19/15) CONTRAST ARTERIOGRAM-LEG (12/19/14) DETACHMENT AT LEFT UPPER LEG, HIGH, OPEN APPROACH (01/01/16) DETACHMENT AT RIGHT LOWER LEG, HIGH, OPEN APPROACH (10/19/17) EXTIRPATION OF MATTER FROM L FEM ART, OPEN APPROACH (06/19/15) EXTIRPATION OF MATTER FROM L POPL ART, OPEN APPROACH (06/19/15) FLUOROSCOPY OF LEFT HEART USING LOW OSMOLAR CONTRAST (10/25/16) FLUOROSCOPY OF MULT COR ART USING L OSM CONTRAST (10/25/16) MEASURE OF CARDIAC SAMPL & PRESSURE, L HEART, PERC APPROACH (10/25/16) PERFORMANCE OF URINARY FILTRATION, MULTIPLE (11/01/15) PERFORMANCE OF URINARY FILTRATION, SINGLE (01/01/16) PLAIN RADIOGRAPHY OF LEFT HEART USING OTHER CONTRAST (06/19/15) PROCEDURE ON SINGLE VESSEL (11/07/14) PROCEDURE ON TWO VESSELS (12/19/14) Family History: States: No Known Family Hx - Social History Hx Tobacco Use: Yes Hx Alcohol Use: No Hx Substance Use: No - Immunization History Hx Tetanus Toxoid Vaccination: Yes Hx Influenza Vaccination: Yes Hx Pneumococcal Vaccination: Yes Review Of Systems Except As Marked, All Systems Reviewed And Found Negative. Constitutional: Negative for: Fever, Chills Cardiovascular: Negative for: Chest Pain Respiratory: Negative for: Shortness of Breath Musculoskeletal: Positive for: Other (left hip pain) Neurological: Negative for: Weakness, Numbness, Headache, Dizziness Physical Exam - Physical Exam Appears: Non-toxic, No Acute Distress Skin: Normal Color, Warm, Dry Head: Atraumatic, Normacephalic Eye(s): bilateral: Normal Inspection Nose: Normal Oral Mucosa: Moist Neck: Supple Chest: Symmetrical Cardiovascular: Rhythm Regular Respiratory: Normal Breath Sounds, No Rales, No Rhonchi, No Wheezing Gastrointestinal/Abdominal: Normal Exam, Soft, No Tenderness, No Guarding, No Rebound Extremity: Normal ROM, Tenderness (tenderness to left hip), No Swelling, Other (bilateral BKA) Neurological/Psych: Oriented x3, Normal Speech ED Course And Treatment O2 Sat by Pulse Oximetry: 99 (RA) Pulse Ox Interpretation: Normal - Other Rad X-Ray-Left Hip X-Ray: Viewed By Me, Read By Radiologist Interpretation: PROCEDURE: Left Hip X-ray Radiographs. HISTORY: fall/trauma h/o of bka. COMPARISON: None. FINDINGS: BONES: There is severe diffuse bone demineralization. No acute displaced fracture or bone destruction. Bone alignment is normal. JOINTS: There is moderate degenerative osteoarthrosis in the hip joints, worse on the right. SOFT TISSUES: Normal. OTHER FINDINGS: There are advanced atherosclerotic vascular calcifications. IMPRESSION: No acute displaced fracture or dislocation. Please note occult fractures cannot be excluded on plain radiographs. If there is a persistent clinical concern, an MRI of the hip may be performed for further evaluation. X-Ray- Femur X-Ray: Viewed By Me, Read By Radiologist Interpretation: Date of service: 07/01/2018. PROCEDURE: Left Femur Radiographs. HISTORY: fall/trauma h/o of bka. COMPARISON: None. TECHNIQUE: AP and Lateral Radiographs of the left femur. FINDINGS: FEMUR: There is severe diffuse bone demineralization. There is no acute displaced fracture or bone destruction. Bone alignment is normal. Postsurgical changes of above knee amputation. SOFT TISSUES: Normal. OTHER FINDINGS: There are advanced atherosclerotic vascular calcifications. IMPRESSION: No acute displaced fracture or dislocation. Medical Decision Making Medical Decision Making: Plan: --Tylenol PO --X-Ray-Left Femur mechanical fall -xr neg advise outpt fu return precautions Disposition - Disposition Referrals: [facility] [Outside] [facility] [Outside] [facility] [Outside] [facility] [Outside] Disposition: HOME/ ROUTINE Disposition Time: 14:20 Condition: STABLE Instructions: Hip Pain in Older People, Hip Pain Forms: [employer] (Pashto) - Clinical Impression Clinical Impression: Contusion of hip - Scribe Statement The provider has reviewed the documentation as recorded by the Davidibe Jono Otoole Provider Attestation: All medical record entries made by the Scribe were at my direction and personally dictated by me. I have reviewed the chart and agree that the record accurately reflects my personal performance of the history, physical exam, medical decision making, and the department course for this patient. I have also personally directed, reviewed, and agree with the discharge instructions and disposition.
--- NOTE | 2018-07-01 14:15 | RAD ---
PROCEDURE: Left Hip X-ray Radiographs. HISTORY: fall/trauma h/o of bka COMPARISON: None. FINDINGS: BONES: There is severe diffuse bone demineralization. No acute displaced fracture or bone destruction. Bone alignment is normal. JOINTS: There is moderate degenerative osteoarthrosis in the hip joints, worse on the right. SOFT TISSUES: Normal. OTHER FINDINGS: There are advanced atherosclerotic vascular calcifications. IMPRESSION: No acute displaced fracture or dislocation. Please note occult fractures cannot be excluded on plain radiographs. If there is a persistent clinical concern, an MRI of the hip may be performed for further evaluation.
--- NOTE | 2018-07-01 14:20 | RAD ---
Date of service: 07/01/2018 PROCEDURE: Left Femur Radiographs. HISTORY: fall/trauma h/o of bka COMPARISON: None. TECHNIQUE: AP and Lateral Radiographs of the left femur. FINDINGS: FEMUR: There is severe diffuse bone demineralization. There is no acute displaced fracture or bone destruction. Bone alignment is normal. Postsurgical changes of above knee amputation. SOFT TISSUES: Normal. OTHER FINDINGS: There are advanced atherosclerotic vascular calcifications. IMPRESSION: No acute displaced fracture or dislocation.
[2018-07-01 17:39] VITALS: TEMP 98.5
[2018-07-01 19:27] VITALS: BP 125/90; PULSE 86; RESP 18; O2SAT 97
== END 2018-07-01 19:27 | disposition home or self-care (01) ==
LOC: C.ER 11:21
DX: S70.02XA Contusion of left hip, initial encounter (principal); W06.XXXA Fall from bed, initial encounter

== ENCOUNTER 2018-07-14 12:27 | Inpatient (IN) | payer MEDICARE, OTHER ==
--- NOTE | 2018-07-14 12:49 | C.PDOC ---
History Of Present Illness 68 y/o female, with history of rapid a-fibrillation, is brought in by ambulance from dialysis after completing 2 of 3 hours, then went to rapid a-fib with heart rate of 140. Patient was given Cardizem on field. On arrival, patient is still rapid a-fib on 140s. She denies any chest pressure or palpitations at this time, but feels better. 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 States I was feeling fine until now! Denies recent illness, fever, chest pain, SOB. Patient completed only 2 out of 3 hours of dialysis. Per EMS, patient was found in rapid A Fib, SBP 110. She received 8.5 mg Cardizem, with subsequent drop of BP to 90. HR improved. Patient appears improved per EMS. Patient states she feels better on arrival. She reports compliance with all PO medications and her HD schedule. Of note patient is on Warfarin. Patient also complains of persistent, new onset bilateral leg swelling since 07/01 s/p fall. Patient was evaluated at ED for the same, and had negative left hip and femur x-rays. Patient states her PMD and Dr. Day were made aware. EXAM MILD DIST NONTOXIC HEENT NEG LUNGS CTA B/L NO W/R/R CV IRREG REG TACHY @ 140 ABD NEG EXT B/L AKA. PITTING EDEMA B/L NO FOCAL TEND SKIN WARM DRY REMAINDER NEG <Yi Thomson - Last Filed: 07/16/18 12:45> <Jose Rafael Chapa E - Last Filed: 07/16/18 00:20> History Per: Patient History/Exam Limitations: no limitations Onset/Duration Of Symptoms: Mins Current Symptoms Are (Timing): Better Quality Of Symptoms: Irregular Heart Rate Exacerbating Factor(s): Neg: Recently Missed Doses Of Medication <Yi Thomson - Last Filed: 07/16/18 12:45> Time Seen by Provider: 07/14/18 12:44 Chief Complaint (Nursing): Palpitations Past Medical History Vital Signs: Last Vital Signs Temp 97.6 F 07/14/18 12:46 Pulse 78 07/14/18 14:04 Resp 20 07/14/18 14:04 BP 113/58 L 07/14/18 14:04 Pulse Ox 100 07/14/18 14:04 - [facility] Procedures (10/19/17) ANGIOPLASTY OF OTHER NON-CORONARY VESSEL(S) (12/19/14) ATHERECTOMY OF OTHER NON-CORONARY VESSEL(S) (12/19/14) BYPASS L FEM ART TO POPLIT ART W NONAUT SUB, OPEN (06/19/15) BYPASS R FEM ART TO POPLIT ART WITH AUTOL VN, OPEN APPROACH (06/19/15) CONTRAST ARTERIOGRAM-LEG (12/19/14) DETACHMENT AT LEFT UPPER LEG, HIGH, OPEN APPROACH (01/01/16) DETACHMENT AT RIGHT LOWER LEG, HIGH, OPEN APPROACH (10/19/17) EXTIRPATION OF MATTER FROM L FEM ART, OPEN APPROACH (06/19/15) EXTIRPATION OF MATTER FROM L POPL ART, OPEN APPROACH (06/19/15) FLUOROSCOPY OF LEFT HEART USING LOW OSMOLAR CONTRAST (10/25/16) FLUOROSCOPY OF MULT COR ART USING L OSM CONTRAST (10/25/16) MEASURE OF CARDIAC SAMPL & PRESSURE, L HEART, PERC APPROACH (10/25/16) PERFORMANCE OF URINARY FILTRATION, MULTIPLE (11/01/15) PERFORMANCE OF URINARY FILTRATION, SINGLE (01/01/16) PLAIN RADIOGRAPHY OF LEFT HEART USING OTHER CONTRAST (06/19/15) PROCEDURE ON SINGLE VESSEL (11/07/14) PROCEDURE ON TWO VESSELS (12/19/14) <Jose Rafael Cahpa - Last Filed: 07/16/18 00:20> Reviewed: Historical Data, Nursing Documentation, Vital Signs - Medical History PMH: Anemia, Arthritis, Asthma, Cardia Arrhythmia, Colonic Polyps, HTN, Hypercholesterolemia, Pneumonia (10 YRS AGO), End Stage Renal Disease, Chronic Kidney Disease Surgical History: Coronary Stent, Endoscopy - [facility] Procedures (10/19/17) ANGIOPLASTY OF OTHER NON-CORONARY VESSEL(S) (12/19/14) ATHERECTOMY OF OTHER NON-CORONARY VESSEL(S) (12/19/14) BYPASS L FEM ART TO POPLIT ART W NONAUT SUB, OPEN (06/19/15) BYPASS R FEM ART TO POPLIT ART WITH AUTOL VN, OPEN APPROACH (06/19/15) CONTRAST ARTERIOGRAM-LEG (12/19/14) DETACHMENT AT LEFT UPPER LEG, HIGH, OPEN APPROACH (01/01/16) DETACHMENT AT RIGHT LOWER LEG, HIGH, OPEN APPROACH (10/19/17) EXTIRPATION OF MATTER FROM L FEM ART, OPEN APPROACH (06/19/15) EXTIRPATION OF MATTER FROM L POPL ART, OPEN APPROACH (06/19/15) FLUOROSCOPY OF LEFT HEART USING LOW OSMOLAR CONTRAST (10/25/16) FLUOROSCOPY OF MULT COR ART USING L OSM CONTRAST (10/25/16) MEASURE OF CARDIAC SAMPL & PRESSURE, L HEART, PERC APPROACH (10/25/16) PERFORMANCE OF URINARY FILTRATION, MULTIPLE (11/01/15) PERFORMANCE OF URINARY FILTRATION, SINGLE (01/01/16) PLAIN RADIOGRAPHY OF LEFT HEART USING OTHER CONTRAST (06/19/15) PROCEDURE ON SINGLE VESSEL (11/07/14) PROCEDURE ON TWO VESSELS (12/19/14) Family History: States: Unknown Family Hx - Social History Hx Tobacco Use: Yes Hx Alcohol Use: No Hx Substance Use: No - Immunization History Hx Tetanus Toxoid Vaccination: Yes Hx Influenza Vaccination: Yes Hx Pneumococcal Vaccination: Yes <Yi Thomson - Last Filed: 07/16/18 12:45> Review Of Systems Constitutional: Negative for: Fever, Chills ENT: Negative for: Nose Congestion Cardiovascular: Positive for: Palpitations. Negative for: Chest Pain Respiratory: Negative for: Cough, Shortness of Breath Gastrointestinal: Negative for: Vomiting, Diarrhea Musculoskeletal: Positive for: Other (Bilateral LE swelling). Negative for: Leg Pain Skin: Negative for: Rash Neurological: Negative for: Weakness, Numbness, Change in Speech, Headache, Dizziness <Yi Thomson - Last Filed: 07/16/18 12:45> Physical Exam - Physical Exam Extremity: Deformity (Left AKA, Right BKA) <Jose Rafael Chapa - Last Filed: 07/16/18 00:20> - Physical Exam Appears: Non-toxic, In Acute Distress (mild distress) Skin: Warm, Dry Head: Atraumatic, Normacephalic Eye(s): bilateral: Normal Inspection, PERRL, EOMI Oral Mucosa: Moist Neck: Normal ROM Chest: Symmetrical Cardiovascular: Rhythm Irregular (Irregularly Irregular), Other (Tachycardic @ 140bpm) Respiratory: Normal Breath Sounds, No Rales, No Rhonchi, No Wheezing Gastrointestinal/Abdominal: Soft, No Tenderness, No Distention Extremity: No Tenderness, Deformity (s/p bilateral AKA), Swelling (Pitting edema to the bilateral lower extremities) Pulses: Left Dorsalis Pedis: Normal, Right Dorsalis Pedis: Normal Neurological/Psych: Oriented x3 <Yi Thomson - Last Filed: 07/16/18 12:45> ED Course And Treatment - Laboratory Results Result Diagrams: 07/15/18 06:22 07/15/18 06:22 Lab Results: PT 12.0 SECONDS (9.7-12.2) 07/14/18 12:55 INR 1.1 07/14/18 12:55 APTT 29 SECONDS (21-34) 07/14/18 12:55 Troponin I 10.5000 ng/mL (0.00-0.120) H* 07/14/18 12:55 NT-Pro-B Natriuret Pep 311183 pg/mL (0-900) H 07/14/18 12:55 Total Bilirubin 0.8 mg/dL (0.2-1.3) 07/14/18 12:55 AST 24 U/L (14-36) 07/14/18 12:55 ALT 16 U/L (9-52) 07/14/18 12:55 Alkaline Phosphatase 193 U/L (38-126) H D 07/14/18 12:55 Total Protein 5.3 g/dL (6.3-8.3) L 07/14/18 12:55 Albumin 2.8 g/dL (3.5-5.0) L D 07/14/18 12:55 Globulin 2.5 gm/dL (2.2-3.9) 07/14/18 12:55 Albumin/Globulin Ratio 1.1 (1.0-2.1) 07/14/18 12:55 <Jose Rafael Chapa - Last Filed: 07/16/18 00:20> - Laboratory Results Result Diagrams: 07/16/18 02:54 07/16/18 02:54 ECG: Interpreted By Pa ECG Rhythm: Atrial Fibrillation ECG Interpretation: Abnormal Rate From EC - Radiology CXR: Interpreted by Pa CXR Interpretation: Yes: Other (CHF) <Yi Thomson - Last Filed: 07/16/18 12:45> Progress - Critical Care Critical Care Time: 90 minutes <Jose Rafael Chapa - Last Filed: 07/16/18 00:20> - Re-Evaluation Re-evaluation Note: 07/14/18 12:[address] DAY 07/14/18 13:01 D/W DR DAY WILL CONSULT - Data Reviewed Data Reviewed: Lab, Diagnostic imaging, EKG, Old records - Critical Care Citical Care: Excluding Proc Time Critical Care Time: 90 minutes <BertoYi - Last Filed: 07/16/18 12:45> Medical Decision Making Medical Decision Making: Plan: --Repeat EKG --Aspirin --Cardizem --Heparin 13:[address] Deborah Larson who agrees with ICU consult. 14:15 Spoke with ICU consult who admits patient to ICU to Dr. Raymond. <Jose Rafael Chapa - Last Filed: 07/16/18 00:20> Disposition Doctor Will See Patient In The: Hospital Counseled Patient/Family Regarding: Studies Performed, Diagnosis <Jose Rafael Chapa - Last Filed: 07/16/18 00:20> - Disposition Disposition Time: 13:00 <BertoYi - Last Filed: 07/16/18 12:45> - Disposition Disposition: HOSPITALIZED Condition: GOOD - Clinical Impression Clinical Impression: ESRD (end stage renal disease) on dialysis, Rapid atrial fibrillation, Leg edema - Scribe Statement The provider has reviewed the documentation as recorded by the Davidibkari Gomez Provider Attestation: All medical record entries made by the Davidibe were at my direction and personally dictated by me. I have reviewed the chart and agree that the record accurately reflects my personal performance of the history, physical exam, medical decision making, and the department course for this patient. I have also personally directed, reviewed, and agree with the discharge instructions and disposition. <Jose Rafael Chapa - Last Filed: 07/16/18 00:20> Physician Patient Turnover Patient Signed Over To: Jose Rafael Chapa Handoff Comments: FU LABS, DISPO <BertoYi - Last Filed: 07/16/18 12:45>
[2018-07-14 12:59] LABS: BASO % 0.2 % (0.0-2.0); EOS % 0.1 % (0.0-4.0); LYMPH # 0.5 K/uL (1.0-4.3); LYMPH % 6.2 % (20.0-40.0); MEAN CELL VOLUME 80.8 fL (81.0-99.0); MEAN CORPUSCULAR HEMOGLOBIN 25.4 pg (27.0-31.0); MEAN CORPUSCULAR HGB CONC 31.4 g/dL (33.0-37.0); MEAN PLATELET VOLUME 8.8 fL (7.2-11.7); MONO # 0.4 K/uL (0.0-0.8); NEUT # 6.6 K/uL (1.8-7.0); NEUT % 88.5 % (50.0-75.0); NRBC % 0.1 % (0.0-2.0); PLATELET COUNT 133 K/uL (130-400); RBC 3.65 Mil/uL (3.80-5.20); RED CELL DISTRIBUTION WIDTH 20.9 % (11.5-14.5)
[2018-07-14 13:01] LABS: HEMOGLOBIN 9.3 g/dL (11.0-16.0); WHITE BLOOD COUNT 7.5 K/uL (4.8-10.8)
[2018-07-14 13:09] LABS: INR 1.1
[2018-07-14 13:12] LABS: ALB/GLOB RATIO 1.1 (1.0-2.1); ALBUMIN 2.8 g/dL (3.5-5.0); CALCIUM 8.4 mg/dl (8.6-10.4)
[2018-07-14 13:17] LABS: LYMPHOCYTE 6 % (20-40); MONOCYTE 3 % (0-10); NEUTROPHIL 91 % (50-75); PLATELET ESTIMATE NORMAL (NORMAL); TOTAL CELLS COUNTED 100
[2018-07-14 13:18] LABS: ANISOCYTOSIS SLIGHT; HYPOCHROMIC SLIGHT; OVALOCYTES SLIGHT; POIKILOCYTOSIS SLIGHT
[2018-07-14 13:49] LABS: TROPONIN I 10.5 ng/mL (0.00-0.120)
--- NOTE | 2018-07-14 14:31 | RAD ---
Date of service: 07/14/2018 HISTORY: Palpations COMPARISON: Portable chest 12/30/2017. TECHNIQUE: 1 view obtained. FINDINGS: LUNGS: No active pulmonary disease. PLEURA: No significant pleural effusion identified, no pneumothorax apparent. CARDIOVASCULAR: Calcific atherosclerotic changes are seen related to the thoracic aorta. Normal cardiac size. No pulmonary vascular congestion. OSSEOUS STRUCTURES: No significant abnormalities. VISUALIZED UPPER ABDOMEN: Normal. OTHER FINDINGS: Vascular calcifications are extensive at the medial proximal left upper extremity incidentally. IMPRESSION: No interval acute cardiopulmonary disease appreciated.
[2018-07-14] MEDS ORDERED: Heparin25000 units/250ml 1/2NS 25,000 UNITS/250 ML BAG IV STA (14:37)
[2018-07-14] MEDS ORDERED: Albuterol HFA 90 mcg/actuation (8 g) IH PRN (15:37)
[2018-07-14] MEDS: Heparin25000 units/250ml 1/2NS 25,000 UNITS/250 ML BAG IV PRN (17:31)
--- NOTE | 2018-07-14 17:56 | CP.PCM.CON ---
<Mónica Jane - Last Filed: 07/14/18 17:56> History of Present Illness - History of Present Illness History of Present Illness: Pt is a 68 y/ o female with hx of ESRD on HD, AFibb (on Coumadin), HTN, BL LE Amputee, DM, CPD, CAD, PAD brought to ER from HD center as she was complaining of "pressure-like" chest pain and palpitations 1hour into her HD session today. On presentation, pt was noted to be in Rapid Afibb with RVR with HR in 110's which responded to IV Cardizem followed with PO Cardizem. Troponin was also noted to be elevated at 10.5 At the current moment, pt denies chest pain or palpitations. Pt reports that she was not taking her warfarin for the past 5 days because she felt it made her sick. Also complains of left thigh pain after sustaining a fall 1 week ago (evaluated in ED, Femur Xrays normal). Otherwise denies any sob, recent illness, fever/chills, cough, n/v, abdominal pain. 10 point ROS otherwise negative. PMD: Dr. Larson Frame Tender: Dr. Hubbard PMHX: ESRD on HD, AFibb (on Coumadin), HTN, BL LE Amputee, COPD, CAD, PAD, GERD PSurgHX: Bl LE amputation (Right Below knee in 2018, Left above knee 2-3 years ago for PVD), R. AVF creation Medication: Warfarin, Diltiazem, Metoprolol, Atorvastatin, Albuterol prn, Cinacalcet, Ezetimibe, Omeprazole , Oxycodone FmHx: noncontributory Social: Former Smoker, quit 3 years ago. States she only smokes for 5 years. Denies ETOH or IVDU Review of Systems - Constitutional Constitutional: absent: Chills, Fever - EENT Eyes: absent: Blurred Vision - Cardiovascular Cardiovascular: Irregular Heart Rhythm. absent: Chest Pain at Rest, Diaphoresis, Dyspnea, Lightheadedness - Gastrointestinal Gastrointestinal: absent: Abdominal Pain - Genitourinary Genitourinary: absent: Dysuria Past Patient History - Infectious Disease Hx of Infectious Diseases: None - Past Medical History & Family History Past Medical History?: Yes - Past Social History Smoking Status: Former Smoker - CARDIAC Hx Cardia Arrhythmia: Yes Hx Hypercholesterolemia: Yes Hx Hypertension: Yes - PULMONARY Hx Asthma: Yes Hx Pneumonia: Yes (10 YRS AGO) - NEUROLOGICAL Hx Neurological Disorder: No - HEENT Hx Cataracts: Yes - RENAL Hx Chronic Kidney Disease: Yes - ENDOCRINE/METABOLIC Hx Diabetes Mellitus Type 2: Yes - HEMATOLOGICAL/ONCOLOGICAL Hx Anemia: Yes - INTEGUMENTARY Hx Dermatological Problems: Yes (SMALL ULCER RIGHT FOOT) Other/Comment: LEFT MEDIAL KNEE AREA- ULCER - MUSCULOSKELETAL/RHEUMATOLOGICAL Hx Arthritis: Yes - GASTROINTESTINAL Hx Gastrointestinal Disorders: Yes Hx Gastroesophageal Reflux: Yes - GENITOURINARY/GYNECOLOGICAL Other/Comment: dialysis MWF - PSYCHIATRIC Hx Substance Use: No - SURGICAL HISTORY Hx Coronary Stent: Yes - ANESTHESIA Hx Anesthesia: Yes Hx Anesthesia Reactions: No Hx Malignant Hyperthermia: No Meds Allergies/Adverse Reactions: Allergies Allergy/AdvReac Type Severity Reaction Status Date / Time vancomycin Allergy Intermediate RASH Verified 07/14/18 12:50 - Medications Medications: Current Medications Acetaminophen (Tylenol 325mg Tab) 650 mg PO Q6 PRN PRN Reason: Pain, Mild (1-3) Albuterol (Ventolin Hfa 90 Mcg/Actuation (8 G)) 2 puff IH PRN PRN PRN Reason: Shortness of Breath Cinacalcet (Sensipar) 90 mg PO DAILY BILL Diltiazem HCl (Cardizem Cd) 180 mg PO DAILY BILL Ezetimibe (Zetia) 10 mg PO DAILY BILL Famotidine (Pepcid) 20 mg PO DAILY BILL Heparin Sodium/Sodium Chloride (Heparin 86837 Units/250ml 1/2 Normal Saline) 25,000 units in 250 mls @ 4.56 mls/hr IV .Q24H STA; Protocol Stop: 07/15/18 14:36 Last Admin: 07/14/18 15:30 Dose: 12 units/kg/hr, 4.56 mls/hr Metoprolol Tartrate (Lopressor) 50 mg PO BID BILL Rosuvastatin Calcium (Crestor) 10 mg PO DAILY BILL Sevelamer Carbonate (Renvela) 800 mg PO TIDCC BILL Physical Exam - Constitutional Appears: Chronically Ill (Thin elderly woman, no acute distress noted, cooperative wit hexam) - Head Exam Head Exam: ATRAUMATIC - Eye Exam Eye Exam: Normal appearance, PERRL - ENT Exam ENT Exam: Mucous Membranes Moist - Neck Exam Neck exam: Positive for: Full Rom - Respiratory Exam Respiratory Exam: Clear to Auscultation Bilateral. absent: Accessory Muscle Use, Rales, Wheezes - Cardiovascular Exam Cardiovascular Exam: REGULAR RHYTHM, +S1, +S2, Systolic Murmur (Systolic ejection murmur +2) - GI/Abdominal Exam GI & Abdominal Exam: Normal Bowel Sounds, Soft. absent: Tenderness - Extremities Exam Additional comments: BL LE amputatee. No bruising or swelling noted in left thigh where patient localizes pain. (+) tenderness to palpation in Left Hip. Results - Vital Signs Recent Vital Signs: Last Vital Signs Temp 97.6 F 07/14/18 12:46 Pulse 78 07/14/18 14:04 Resp 20 07/14/18 14:04 BP 113/58 L 07/14/18 14:04 Pulse Ox 100 07/14/18 14:04 - Labs Result Diagrams: 07/14/18 12:55 07/14/18 12:55 Labs: Laboratory Results - last 24 hr 07/14/18 07/14/18 07/14/18 12:55 12:55 12:55 WBC 7.5 D RBC 3.65 L Hgb 9.3 L D Hct 29.5 L MCV 80.8 L MCH 25.4 L MCHC 31.4 L RDW 20.9 H Plt Count 133 MPV 8.8 Neut % (Auto) 88.5 H Lymph % (Auto) 6.2 L [place] % (Auto) 5.0 Eos % (Auto) 0.1 Baso % (Auto) 0.2 Neut # (Auto) 6.6 Lymph # (Auto) 0.5 L [place] # (Auto) 0.4 Eos # (Auto) 0.0 Baso # (Auto) 0.0 Neutrophils % (Manual) 91 H Lymphocytes % (Manual) 6 L Monocytes % (Manual) 3 Platelet Estimate Normal Hypochromasia (manual) Slight Poikilocytosis (manual Slight Anisocytosis (manual) Slight Ovalocytes Slight PT 12.0 INR 1.1 APTT 29 Sodium 133 Potassium 3.5 L Chloride 97 L Carbon Dioxide 28 Anion Gap 12 BUN 22 H Creatinine 2.0 H Est GFR ( Amer) 30 Est GFR (Non-Af Amer) 25 Random Glucose 70 D Calcium 8.4 L Total Bilirubin 0.8 AST 24 ALT 16 Alkaline Phosphatase 193 H D Troponin I 10.5000 H* NT-Pro-B Natriuret Pep 906147 H Total Protein 5.3 L Albumin 2.8 L D Globulin 2.5 Albumin/Globulin Ratio 1.1 Assessment & Plan - Assessment and Plan (Free Text) Assessment: Pt is a 68 y/ o female with hx of ESRD on HD, AFibb (on Coumadin), HTN, BL LE Amputee, DM, CPD, CAD, PAD brought to ER from HD center as she was complaining of chest pain and palpitations 1hour into her HD session today. On presentation, pt was noted to be in Rapid Afibb with RVR which responded to IV Cardizem foll owed with PO Cardizem. Troponin was also noted to be elevated at 10.5 At the current moment, pt denies chest pain or palpitations. Pt reports that she was not taking her warfarin for the past 5 days because she felt it made her sick. Admitted to ICU for closer monitoring in setting of troponemia. Neuro - AOx3 Cardio - Hemodynamically stable - EKG: AFibb with RVR, no ischemic changes - S/P Cardizem -5mg IV and 60mg PO in ED with conversion to sinus rhythm - Now rate and rhythm controlled - Will continue with oral home dose of Metoprolol and Cardizem - Hold Warfarin for now. Currently on Heparin Drip - Troponin 10.5 (baseline troponin ~0.3). Likely demand ischemia. - F/U Serial troponin. Repeat EKG in am - ProBNP 140k, euvolemic on exam - Cxray no acute cardiopulmonary disease, no pulmonary vascular congestion - Myocardial Stress Test (03/2018): Normal, EF 48% - Last Echo (03/2018): EF 50-55%, Mild LVH, Left Atrial pressure moderately elevated, RVSP 37, Mild pulmonary HTN, Mild- mod pericardial effusion noted - Continuous cardiac monitoring in ICU Pulm - Hx of Asthma/COPD - Albuterol prn - Saturating 94% on 3L NC O2 GI - Renal Diet Renal - ESRD on HD MWF - BUN 22 Crea 2.0 (baseline Crea 2-3) - Nephrology consulted, Dr. North Heme - Hg 9.3 - Chronically Anemic, Likely ACD - Cogulation: INR 1.1, subtherapeutic in setting of poor medication compliance - Will hold Coumadin for now and maintain pt on Heparin ggt MSK - Left hip pain s/p Fall - Femur Xray reviewed from (07/01): No acute fx or dislocation - Tylenol prn PPX: - DVT ppx, on Heparin ggt - GI ppx, Pepcid PO Discussed case with Dr. Segundo Jane, PGY2 <Junior Raymond S - Last Filed: 07/14/18 18:11> Meds - Medications Medications: Current Medications Acetaminophen (Tylenol 325mg Tab) 650 mg PO Q6 PRN PRN Reason: Pain, Mild (1-3) Albuterol (Ventolin Hfa 90 Mcg/Actuation (8 G)) 2 puff IH Q4H PRN Cinacalcet (Sensipar) 90 mg PO DAILY [facility] Diltiazem HCl (Cardizem Cd) 180 mg PO DAILY BILL Ezetimibe (Zetia) 10 mg PO DAILY BILL Famotidine (Pepcid) 20 mg PO DAILY [facility] Last Admin: 07/14/18 16:27 Dose: 20 mg Heparin Sodium/Sodium Chloride (Heparin 93286 Units/250ml 1/2 Normal Saline) 25,000 units in 250 mls @ 4.2 mls/hr IV .Q24H PRN; Protocol PRN Reason: PROTOCOL Last Admin: 07/14/18 17:31 Dose: 12 units/kg/hr, 4.2 mls/hr Metoprolol Tartrate (Lopressor) 50 mg PO BID [facility] Last Admin: 07/14/18 17:34 Dose: 50 mg Rosuvastatin Calcium (Crestor) 10 mg PO DAILY [facility] Sevelamer Carbonate (Renvela) 800 mg PO TIDCC [facility] Last Admin: 07/14/18 17:30 Dose: 800 mg Results - Vital Signs Recent Vital Signs: Last Vital Signs Temp 97.6 F 07/14/18 12:46 Pulse 80 07/14/18 16:28 Resp 13 07/14/18 16:59 BP 102/50 L 07/14/18 16:28 Pulse Ox 100 07/14/18 16:59 - Labs Result Diagrams: 07/14/18 12:55 07/14/18 12:55 Labs: Laboratory Results - last 24 hr 07/14/18 07/14/18 07/14/18 12:55 12:55 12:55 WBC 7.5 D RBC 3.65 L Hgb 9.3 L D Hct 29.5 L MCV 80.8 L MCH 25.4 L MCHC 31.4 L RDW 20.9 H Plt Count 133 MPV 8.8 Neut % (Auto) 88.5 H Lymph % (Auto) 6.2 L [place] % (Auto) 5.0 Eos % (Auto) 0.1 Baso % (Auto) 0.2 Neut # (Auto) 6.6 Lymph # (Auto) 0.5 L [place] # (Auto) 0.4 Eos # (Auto) 0.0 Baso # (Auto) 0.0 Neutrophils % (Manual) 91 H Lymphocytes % (Manual) 6 L Monocytes % (Manual) 3 Platelet Estimate Normal Hypochromasia (manual) Slight Poikilocytosis (manual Slight Anisocytosis (manual) Slight Ovalocytes Slight PT 12.0 INR 1.1 APTT 29 Sodium 133 Potassium 3.5 L Chloride 97 L Carbon Dioxide 28 Anion Gap 12 BUN 22 H Creatinine 2.0 H Est GFR ( Amer) 30 Est GFR (Non-Af Amer) 25 POC Glucose (mg/dL) Random Glucose 70 D Calcium 8.4 L Total Bilirubin 0.8 AST 24 ALT 16 Alkaline Phosphatase 193 H D Troponin I 10.5000 H* NT-Pro-B Natriuret Pep 673207 H Total Protein 5.3 L Albumin 2.8 L D Globulin 2.5 Albumin/Globulin Ratio 1.1 07/14/18 17:26 WBC RBC Hgb Hct MCV MCH MCHC RDW Plt Count MPV Neut % (Auto) Lymph % (Auto) [place] % (Auto) Eos % (Auto) Baso % (Auto) Neut # (Auto) Lymph # (Auto) [place] # (Auto) Eos # (Auto) Baso # (Auto) Neutrophils % (Manual) Lymphocytes % (Manual) Monocytes % (Manual) Platelet Estimate Hypochromasia (manual) Poikilocytosis (manual Anisocytosis (manual) Ovalocytes PT INR APTT Sodium Potassium Chloride Carbon Dioxide Anion Gap BUN Creatinine Est GFR ( Amer) Est GFR (Non-Af Amer) POC Glucose (mg/dL) 110 Random Glucose Calcium Total Bilirubin AST ALT Alkaline Phosphatase Troponin I NT-Pro-B Natriuret Pep Total Protein Albumin Globulin Albumin/Globulin Ratio Attending/Attestation - Attestation I have personally seen and examined this patient.: Yes I have fully participated in the care of the patient.: Yes I have reviewed all pertinent clinical information: Yes Notes (Text): 07/14/18 17:57 Patient seen and examined 68-year-old female with history of end-stage renal disease on hemodialysis, coronary artery disease was transferred from hemodialysis center for chest pressure and palpitation. In the emergency room patient found to be in A. fib with rapid ventricular response and received Cardizem with rate control. Admitted to intensive care unit for elevated troponins and started on IV heparin, aspirin Echocardiogram and serial enzymes Cardiology evaluation ICU observation
[2018-07-14] MEDS ORDERED: HYDROmorphone 1 mg/ml ISec IVP STA (20:11)
[2018-07-14] MEDS ORDERED: Oxycodone/Acetaminophen 5/325 mg Tab PO STA (21:57)
--- NOTE | 2018-07-15 02:09 | HP ---
HISTORY OF PRESENT ILLNESS: This is a 68-year-old female who was sent from the dialysis unit. The patient had dialysis about two to three hours and started complaining of palpitation. The patient was feeling dizzy. The patient denies having fever, chills, shortness of breath, or chest pain. The patient has atrial fibrillation with rapid ventricular rate of 140 per minute and systolic blood pressure 110 mmHg. The patient was given Cardizem 8.5 mg on site and the patient draw blood pressure. The patient improved little bit with palpitation, but was sent to the emergency room where she was still in atrial fibrillation with rapid ventricular rate. REVIEW OF SYSTEMS: CARDIOVASCULAR: Positive for palpitation. No chest pain. RESPIRATORY: No shortness of breath. GI: No nausea, vomiting, or abdominal pain. STACK ATTENDANT: No focal neurological complaints offered. No edema of the legs. PAST MEDICAL HISTORY: History of anemia, arthritis, asthma, cardiac arrhythmia, coronary artery disease, chronic polyp, hypertension, hypercholesteremia, end-stage renal disease, and peripheral vascular disease. PAST SURGICAL HISTORY: The patient has coronary stent. ALLERGIES: THE PATIENT IS ALLERGIC TO VANCOMYCIN. MEDICATIONS: The patient's medications are reviewed by me. FAMILY HISTORY: No known family history. SOCIAL HISTORY: Smoking present. No IVDA. No illicit drug use. PHYSICAL EXAMINATION: GENERAL: This is a 68-year-old female awake, alert, comfortable. VITAL SIGNS: Temperature 97.6, pulse 78, respirations 20, blood pressure 113/58 mmHg, pulse oximetry is 100% at room air. HEENT: Normal. NECK: JVP is flat. Carotids, no bruits. LUNGS: No rales. No wheezing. HEART: S1, S2 normal. No gallop. No murmur. ABDOMEN: Abdomen is soft and nontender. No organomegaly. STACK ATTENDANT: No focal neurological deficit. LABORATORY DATA: On admission, white cell count is normal, hemoglobin is 9.3. Potassium is 3.5, BUN 22, and creatinine 2. The patient's troponin is elevated at 0.5. EKG, atrial fibrillation with rapid ventricular rate. No acute ST-T changes. IMPRESSION: Non-ST elevation myocardial infarction, coronary artery disease, atrial fibrillation with rapid ventricular rate, hypotension, peripheral vascular disease, and chronic renal failure. PLAN: The patient will be admitted to ICU. We will continue Cardizem. We will get consult with Dr. William and Dr. North. Other workup as needed. The patient will also need echocardiogram. Susana Larson MD
[2018-07-15] MEDS ORDERED: HYDROmorphone 1 mg/ml ISec IVP STA ×2 (03:31→19:17)
[2018-07-15] MEDS ORDERED: Lidocaine 5% Patch TD STA (04:12)
[2018-07-15 06:32] LABS: BASO % 0.2 % (0.0-2.0); EOS % 0.5 % (0.0-4.0); HEMOGLOBIN 8.4 g/dL (11.0-16.0); LYMPH # 0.6 K/uL (1.0-4.3); LYMPH % 10.4 % (20.0-40.0); MEAN CELL VOLUME 81.1 fL (81.0-99.0); MEAN CORPUSCULAR HEMOGLOBIN 25.4 pg (27.0-31.0); MEAN CORPUSCULAR HGB CONC 31.4 g/dL (33.0-37.0); MEAN PLATELET VOLUME 8.2 fL (7.2-11.7); MONO # 0.3 K/uL (0.0-0.8); MONO % 4.7 % (0.0-10.0); NEUT # 4.5 K/uL (1.8-7.0); NEUT % 84.2 % (50.0-75.0); NRBC % 0.1 % (0.0-2.0); RBC 3.3 Mil/uL (3.80-5.20); RED CELL DISTRIBUTION WIDTH 20.9 % (11.5-14.5); WHITE BLOOD COUNT 5.4 K/uL (4.8-10.8)
[2018-07-15] MEDS: Oxycodone/Acetaminophen 5/325 mg Tab PO PRN ×2 (06:32→21:52)
[2018-07-15 07:01] LABS: ALBUMIN 2.4 g/dL (3.5-5.0); CALCIUM 7.9 mg/dl (8.6-10.4)
[2018-07-15] MEDS ORDERED: Magnesium Sulfate 1 gm in D5W 1 GM/100 ML BAG IVPB ONE (08:44)
[2018-07-15] MEDS: Lidocaine 5% Patch TD SCH (09:22)
[2018-07-15] MEDS: diltiaZEM 180 mg/24 Hours CD Cap PO SCH (09:24)
--- NOTE | 2018-07-15 09:24 | CP.PCM.CON ---
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 On presentation, pt was noted to be in Rapid Afib with RVR with HR in 110's which responded to IV Cardizem followed with PO Cardizem. Troponin was also noted to be elevated at 10.5 At the current moment, pt denies chest pain or palpitations. Pt reports that she was not taking her warfarin for the past 5 days because she felt it made her sick. Also complains of left thigh pain after sustaining a fall 1 week ago (evaluated in ED, Femur Xrays normal). Otherwise denies any sob, recent illness, fever/chills, cough, n/v, abdominal pain. 10 point ROS otherwise negative. Recently stable dialysis but phos, PTH elevated. Had episode of tachycardia last week but refused to go to ER. PMHX: ESRD on HD, AFib (on Coumadin), HTN, BL LE Amputee, COPD, CAD, PAD, ADPKD, sec HPT PSurgHX: Bl LE amputation (Right Below knee in 2018, Left above knee 2-3 years ago for PVD), R. AVF creation Medication: Warfarin, Diltiazem, Metoprolol, Atorvastatin, Albuterol prn, Cinacalcet, Ezetimibe, Omeprazole , Oxycodone FmHx: ? h/o ADPKD Social: Former Smoker, quit 3 years ago. States she only smokes for 5 years. Denies ETOH or IVDU Review of Systems - Constitutional Constitutional: Lethargy, Weight Loss, Weakness - EENT Eyes: absent: As Per HPI, Blind Spots, Blurred Vision, Change in Vision, Decreased Night Vision, Diplopia, Discharge, Dry Eye, Exophthalmos, Floaters, Irritation, Itchy Eyes, Loss of Peripheral Vision, Pain, Photophobia, Requires Corrective Lenses, Sees Flashes, Spots in Vision, Tunnel Vision, Other Visual Disturbances, Loss of Vision, Other Ears: Ear Pain Nose/Mouth/Throat: absent: As Per HPI, Epistaxis, Nasal Congestion, Nasal Discharge, Nasal Obstruction, Nasal Trauma, Nose Pain, Post Nasal Drip, Sinus Pain, Sinus Pressure, Bleeding Gums, Change in Voice, Dental Pain, Dry Mouth, Dysphagia, Halitosis, Hoarsness, Lip Swelling, Mouth Lesions, Mouth Pain, Odyn ophagia, Sore Throat, Throat Swelling, Tongue Swelling, Facial Pain, Neck Pain, Neck Mass, Other - Cardiovascular Cardiovascular: As Per HPI, Dyspnea on Exertion, Irregular Heart Rhythm, Palpitations - Respiratory Respiratory: Dyspnea on Exertion - Gastrointestinal Gastrointestinal: Early Satiety, Nausea - Genitourinary Genitourinary: As Per HPI - Musculoskeletal Musculoskeletal: Muscle Cramps, Muscle Weakness, Myalgias - Neurological Neurological: Weakness Past Patient History - Infectious Disease Hx of Infectious Diseases: None - Past Medical History & Family History Past Medical History?: Yes Past Family History: Reviewed and not pertinent - Past Social History Smoking Status: Former Smoker Chewing Tobacco Use: No Cigar Use: No Alcohol: None Drugs: Denies - CARDIAC Hx Cardia Arrhythmia: Yes Hx Hypercholesterolemia: Yes Hx Hypertension: Yes - PULMONARY Hx Asthma: Yes Hx Pneumonia: Yes (10 YRS AGO) - NEUROLOGICAL Hx Neurological Disorder: No - HEENT Hx Cataracts: Yes - RENAL Hx Chronic Kidney Disease: Yes - ENDOCRINE/METABOLIC Hx Diabetes Mellitus Type 2: Yes - HEMATOLOGICAL/ONCOLOGICAL Hx Anemia: Yes - INTEGUMENTARY Hx Dermatological Problems: Yes (SMALL ULCER RIGHT FOOT) Other/Comment: LEFT MEDIAL KNEE AREA- ULCER - MUSCULOSKELETAL/RHEUMATOLOGICAL Hx Arthritis: Yes - GASTROINTESTINAL Hx Gastrointestinal Disorders: Yes Hx Gastroesophageal Reflux: Yes - GENITOURINARY/GYNECOLOGICAL Other/Comment: dialysis MWF - PSYCHIATRIC Hx Substance Use: No - SURGICAL HISTORY Hx Coronary Stent: Yes - ANESTHESIA Hx Anesthesia: Yes Hx Anesthesia Reactions: No Hx Malignant Hyperthermia: No Meds Allergies/Adverse Reactions: Allergies Allergy/AdvReac Type Severity Reaction Status Date / Time vancomycin Allergy Intermediate RASH Verified 07/14/18 12:50 - Medications Medications: Current Medications Acetaminophen (Tylenol 325mg Tab) 650 mg PO Q6 PRN PRN Reason: Pain, Mild (1-3) Last Admin: 07/15/18 04:16 Dose: 650 mg Albuterol (Ventolin Hfa 90 Mcg/Actuation (8 G)) 2 puff IH Q4H PRN Aspirin (Aspirin Chewable) 81 mg PO DAILY [facility] Cinacalcet (Sensipar) 90 mg PO DAILY [facility] Clopidogrel Bisulfate (Plavix) 75 mg PO DAILY [facility] Diltiazem HCl (Cardizem Cd) 180 mg PO DAILY [facility] Ezetimibe (Zetia) 10 mg PO DAILY [facility] Famotidine (Pepcid) 20 mg PO DAILY [facility] Last Admin: 07/14/18 16:27 Dose: 20 mg Heparin Sodium/Sodium Chloride (Heparin 33114 Units/250ml 1/2 Normal Saline) 25,000 units in 250 mls @ 4.2 mls/hr IV .Q24H PRN; Protocol PRN Reason: PROTOCOL Last Titration: 07/15/18 07:15 Dose: 20 units/kg/hr, 7 mls/hr Diltiazem HCl 125 mg/ Dextrose 125 mls @ 5 mls/hr IV .Q24H BILL; Protocol Last Titration: 07/15/18 07:05 Dose: 10 mg/hr, 10 mls/hr Lidocaine (Lidoderm) 1 ea TD DAILY [facility] Oxycodone/Acetaminophen (Percocet 5/325 Mg Tab) 1 tab PO Q4H PRN PRN Reason: Pain, moderate (4-7) Stop: 07/18/18 05:18 Last Admin: 07/15/18 06:32 Dose: 1 tab Rosuvastatin Calcium (Crestor) 10 mg PO DAILY [facility] Sevelamer Carbonate (Renvela) 800 mg PO TIDCC [facility] Last Admin: 07/15/18 07:56 Dose: 800 mg Physical Exam - Constitutional Appears: No Acute Distress, Chronically Ill - Head Exam Head Exam: ATRAUMATIC, NORMAL INSPECTION - Eye Exam Eye Exam: EOMI, Normal appearance - Neck Exam Neck exam: Positive for: Normal Inspection. Negative for: Tenderness - Respiratory Exam Respiratory Exam: Clear to Auscultation Bilateral, NORMAL BREATHING PATTERN - Cardiovascular Exam Cardiovascular Exam: Tachycardia, Irregular Rhythm - GI/Abdominal Exam GI & Abdominal Exam: Soft. absent: Tenderness - Extremities Exam Extremities exam: Positive for: calf tenderness, tenderness - Neurological Exam Neurological exam: Alert, CN II-XII Intact, Oriented x3 - Skin Skin Exam: Dry, Warm Results - Vital Signs Recent Vital Signs: Last Vital Signs Temp 97.5 F L 07/15/18 08:00 Pulse 131 H 07/15/18 09:00 Resp 17 07/15/18 09:00 BP 103/64 07/15/18 08:56 Pulse Ox 96 07/15/18 07:00 - Labs Result Diagrams: 07/15/18 06:22 07/15/18 06:22 Labs: Laboratory Results - last 24 hr 07/14/18 07/14/18 07/14/18 12:55 12:55 12:55 WBC 7.5 D RBC 3.65 L Hgb 9.3 L D Hct 29.5 L MCV 80.8 L MCH 25.4 L MCHC 31.4 L RDW 20.9 H Plt Count 133 MPV 8.8 Neut % (Auto) 88.5 H Lymph % (Auto) 6.2 L [facility] % (Auto) 5.0 Eos % (Auto) 0.1 Baso % (Auto) 0.2 Neut # (Auto) 6.6 Lymph # (Auto) 0.5 L [facility] # (Auto) 0.4 Eos # (Auto) 0.0 Baso # (Auto) 0.0 Neutrophils % (Manual) 91 H Lymphocytes % (Manual) 6 L Monocytes % (Manual) 3 Platelet Estimate Normal Hypochromasia (manual) Slight Poikilocytosis (manual Slight Anisocytosis (manual) Slight Ovalocytes Slight PT 12.0 INR 1.1 APTT 29 Sodium 133 Potassium 3.5 L Chloride 97 L Carbon Dioxide 28 Anion Gap 12 BUN 22 H Creatinine 2.0 H Est GFR ( Amer) 30 Est GFR (Non-Af Amer) 25 POC Glucose (mg/dL) Random Glucose 70 D Calcium 8.4 L Phosphorus Magnesium Total Bilirubin 0.8 AST 24 ALT 16 Alkaline Phosphatase 193 H D Troponin I 10.5000 H* NT-Pro-B Natriuret Pep 170473 H Total Protein 5.3 L Albumin 2.8 L D Globulin 2.5 Albumin/Globulin Ratio 1.1 TSH 3rd Generation 07/14/18 07/14/18 07/14/18 17:26 18:59 21:04 WBC RBC Hgb Hct MCV MCH MCHC RDW Plt Count MPV Neut % (Auto) Lymph % (Auto) [facility] % (Auto) Eos % (Auto) Baso % (Auto) Neut # (Auto) Lymph # (Auto) [facility] # (Auto) Eos # (Auto) Baso # (Auto) Neutrophils % (Manual) Lymphocytes % (Manual) Monocytes % (Manual) Platelet Estimate Hypochromasia (manual) Poikilocytosis (manual Anisocytosis (manual) Ovalocytes PT INR APTT Sodium Potassium Chloride Carbon Dioxide Anion Gap BUN Creatinine Est GFR ( Amer) Est GFR (Non-Af Amer) POC Glucose (mg/dL) 110 134 H Random Glucose Calcium Phosphorus Magnesium Total Bilirubin AST ALT Alkaline Phosphatase Troponin I 11.6000 H* NT-Pro-B Natriuret Pep Total Protein Albumin Globulin Albumin/Globulin Ratio TSH 3rd Generation 07/14/18 07/15/18 07/15/18 22:24 01:23 06:22 WBC RBC Hgb Hct MCV MCH MCHC RDW Plt Count MPV Neut % (Auto) Lymph % (Auto) [facility] % (Auto) Eos % (Auto) Baso % (Auto) Neut # (Auto) Lymph # (Auto) [facility] # (Auto) Eos # (Auto) Baso # (Auto) Neutrophils % (Manual) Lymphocytes % (Manual) Monocytes % (Manual) Platelet Estimate Hypochromasia (manual) Poikilocytosis (manual Anisocytosis (manual) Ovalocytes PT INR APTT 28 Sodium 131 L Potassium 4.6 Chloride 97 L Carbon Dioxide 30 Anion Gap 9 L BUN 32 H Creatinine 2.8 H Est GFR ( Amer) 20 Est GFR (Non-Af Amer) 17 POC Glucose (mg/dL) Random Glucose 71 Calcium 7.9 L Phosphorus 3.4 Magnesium 2.0 Total Bilirubin 0.6 AST 19 ALT 21 Alkaline Phosphatase 129 H D Troponin I 12.2000 H* NT-Pro-B Natriuret Pep Total Protein 4.8 L Albumin 2.4 L Globulin 2.5 Albumin/Globulin Ratio 1.0 TSH 3rd Generation 5.40 H 07/15/18 07/15/18 06:22 06:22 WBC 5.4 RBC 3.30 L Hgb 8.4 L Hct 26.7 L MCV 81.1 MCH 25.4 L MCHC 31.4 L RDW 20.9 H Plt Count 145 MPV 8.2 Neut % (Auto) 84.2 H Lymph % (Auto) 10.4 L [facility] % (Auto) 4.7 Eos % (Auto) 0.5 Baso % (Auto) 0.2 Neut # (Auto) 4.5 Lymph # (Auto) 0.6 L [facility] # (Auto) 0.3 Eos # (Auto) 0.0 Baso # (Auto) 0.0 Neutrophils % (Manual) Lymphocytes % (Manual) Monocytes % (Manual) Platelet Estimate Hypochromasia (manual) Poikilocytosis (manual Anisocytosis (manual) Ovalocytes PT INR APTT 30 Sodium Potassium Chloride Carbon Dioxide Anion Gap BUN Creatinine Est GFR ( Amer) Est GFR (Non-Af Amer) POC Glucose (mg/dL) Random Glucose Calcium Phosphorus Magnesium Total Bilirubin AST ALT Alkaline Phosphatase Troponin I NT-Pro-B Natriuret Pep Total Protein Albumin Globulin Albumin/Globulin Ratio TSH 3rd Generation Assessment & Plan (1) Rapid atrial fibrillation Status: Acute (2) ADPKD (autosomal dominant polycystic kidney disease) Status: Acute (3) CAD (coronary artery disease) Status: Acute (4) Secondary hyperparathyroidism Status: Acute (5) ESRD (end stage renal disease) Status: Acute (6) PVD (peripheral vascular disease) Status: Acute - Assessment and Plan (Free Text) Plan: IV diltiazem- AFib control as per cardio Evaluate possible new AMI Dialysis MWF Repeat PTH, phos
[2018-07-15] MEDS ORDERED: diltiaZEM 180 mg/24 Hours CD Cap PO SCH (10:00)
--- NOTE | 2018-07-15 10:00 | CP.CCUPN ---
<Jeremy Shell - Last Filed: 07/15/18 12:05> CCU Subjective - Physician Review Subjective (Free Text): ICU Progress Note for Dr. Vaughn Larson Pt seen and examined at bedside this am. Denies any acute complaints, resting comfortably at bedside. No acute events reported overnight by staff. Cardizem drip being tapered down. 12-point ROS obtained, otherwise neg as per pt. CCU Objective - Vital Signs / Intake & Output Vital Signs (Last 4 hours): Vital Signs Temp Pulse Resp BP Pulse Ox 07/15/18 09:00 131 H 17 07/15/18 08:56 107 H 14 103/64 07/15/18 08:30 71 14 07/15/18 08:00 97.5 F L 65 13 07/15/18 07:57 66 11 L 103/38 L 07/15/18 07:30 125 H 16 07/15/18 07:00 141 H 15 96 07/15/18 06:56 125 H 14 128/52 L 100 07/15/18 06:30 123 H 16 Intake and Output (Last 8hrs): Intake & Output 07/14/18 07/15/18 07/15/18 22:59 06:59 14:59 Intake Total 344.9 430.7 321 Output Total 0 0 0 Balance 344.9 430.7 321 Weight 77 lb 2.589 oz 77 lb 2.589 oz Intake: IV 33 97 40 Intake, IV Amount 66.9 73.7 41 Left Forearm 29.4 46.2 21 Left Forearm #2 37.5 27.5 20 Oral 245 260 240 Output: Urine 0 0 0 Urine, Voided 0 0 0 Stool 0 0 0 Emesis 0 0 0 - Physical Exam Head: Positive for: Atraumatic, Normocephalic Pupils: Positive for: PERRL Extroacular Muscles: Positive for: EOMI Conjunctiva: Positive for: Normal Mouth: Positive for: Moist Mucous Membranes Neck: Positive for: Normal Range of Motion Respiratory/Chest: Positive for: Clear to Auscultation, Good Air Exchange. Negative for: Wheezes, Rales, Rhonchi Cardiovascular: Positive for: Regular Rate and Rhythm, Normal S1, S2. Negative for: Murmurs, Rub, Gallop Abdomen: Positive for: Normal Bowel Sounds. Negative for: Tenderness, Distention, Mass/Organomegaly Upper Extremity: Positive for: Normal Inspection, Normal ROM, Neurovascularly Intact, Capillary Refill < 2s. Negative for: Cyanosis, Edema Lower Extremity: Positive for: Normal Inspection, Neurovascularly Intact, Capillary Refill < 2 s. Negative for: Edema Neurological: Positive for: GCS=15, CN II-XII Intact, Speech Normal Skin: Positive for: Warm, Dry Psychiatric: Positive for: Alert, Oriented x 3 - Medications Active Medications: Active Medications Generic Name Dose Route Start Last Admin Trade Name Freq PRN Reason Stop Dose Admin Acetaminophen 650 mg 07/14/18 15:27 07/15/18 04:16 Tylenol 325mg Tab PO 650 mg Q6 PRN Administration Pain, Mild (1-3) Albuterol 2 puff 07/14/18 15:37 Ventolin Hfa 90 Mcg/Actuation (8 G) IH Q4H PRN Aspirin 81 mg 07/15/18 10:00 07/15/18 09:24 Aspirin Chewable PO 81 mg DAILY BILL Administration Cinacalcet 90 mg 07/15/18 10:00 07/15/18 09:24 Sensipar PO 90 mg DAILY BILL Administration Clopidogrel Bisulfate 75 mg 07/15/18 10:00 07/15/18 09:24 Plavix PO 75 mg DAILY BILL Administration Diltiazem HCl 180 mg 07/15/18 10:00 07/15/18 09:24 Cardizem Cd PO 180 mg DAILY BILL Administration Ezetimibe 10 mg 07/15/18 10:00 07/15/18 09:21 Zetia PO 10 mg DAILY BILL Administration Epoetin Amol 10,000 unit 07/16/18 09:00 [facility] Famotidine 20 mg 07/14/18 15:30 07/15/18 09:24 Pepcid PO 20 mg DAILY BILL Administration Heparin Sodium/Sodium Chloride 25,000 units in 250 mls @ 4.2 mls/hr 07/14/18 17:23 07/15/18 07:15 Heparin 05857 Units/250ml 1/2 Normal Saline IV 20 units/kg/hr .Q24H PRN 7 mls/hr PROTOCOL Titration Protocol 12 UNITS/KG/HR Diltiazem HCl 125 mg/ Dextrose 125 mls @ 5 mls/hr 07/14/18 19:00 07/15/18 07:05 IV 10 mg/hr .Q24H BILL 10 mls/hr Titration Protocol 5 MG/HR Lidocaine 1 ea 07/15/18 10:00 07/15/18 09:22 Lidoderm TD 1 ea DAILY BILL Administration Oxycodone/Acetaminophen 1 tab 07/15/18 05:17 07/15/18 06:32 Percocet 5/325 Mg Tab PO 07/18/18 05:18 1 tab Q4H PRN Administration Pain, moderate (4-7) Rosuvastatin Calcium 10 mg 07/15/18 10:00 Crestor PO DAILY BILL Sevelamer Carbonate 800 mg 07/14/18 17:00 07/15/18 07:56 Renvela PO 800 mg [facility] BILL Administration - Patient Studies Lab Studies: Lab Studies 07/15/18 07/15/18 07/15/18 Range/Units 06:22 06:22 06:22 WBC 5.4 (4.8-10.8) K/uL RBC 3.30 L (3.80-5.20) Mil/uL Hgb 8.4 L (11.0-16.0) g/dL Hct 26.7 L (34.0-47.0) % MCV 81.1 (81.0-99.0) fL MCH 25.4 L (27.0-31.0) pg MCHC 31.4 L (33.0-37.0) g/dL RDW 20.9 H (11.5-14.5) % Plt Count 145 (130-400) K/uL MPV 8.2 (7.2-11.7) fL Neut % (Auto) 84.2 H (50.0-75.0) % Lymph % (Auto) 10.4 L (20.0-40.0) % [place] % (Auto) 4.7 (0.0-10.0) % Eos % (Auto) 0.5 (0.0-4.0) % Baso % (Auto) 0.2 (0.0-2.0) % Neut # (Auto) 4.5 (1.8-7.0) K/uL Lymph # (Auto) 0.6 L (1.0-4.3) K/uL [place] # (Auto) 0.3 (0.0-0.8) K/uL Eos # (Auto) 0.0 (0.0-0.7) K/uL Baso # (Auto) 0.0 (0.0-0.2) K/uL Neutrophils % (Manual) (50-75) % Lymphocytes % (Manual) (20-40) % Monocytes % (Manual) (0-10) % Platelet Estimate (NORMAL) Hypochromasia (manual) Poikilocytosis (manual Anisocytosis (manual) Ovalocytes PT (9.7-12.2) SECONDS INR APTT 30 (21-34) SECONDS Sodium 131 L (132-148) mmol/L Potassium 4.6 (3.6-5.2) mmol/L Chloride 97 L (98-107) mmol/L Carbon Dioxide 30 (22-30) mmol/L Anion Gap 9 L (10-20) BUN 32 H (7-17) mg/dL Creatinine 2.8 H (0.7-1.2) mg/dL Est GFR ( Amer) 20 Est GFR (Non-Af Amer) 17 POC Glucose (mg/dL) (65-110) mg/dL Random Glucose 71 (65-105) mg/dL Calcium 7.9 L (8.6-10.4) mg/dl Phosphorus 3.4 (2.5-4.5) mg/dL Magnesium 2.0 (1.6-2.3) mg/dL Total Bilirubin 0.6 (0.2-1.3) mg/dL AST 19 (14-36) U/L ALT 21 (9-52) U/L Alkaline Phosphatase 129 H D (38-126) U/L Troponin I (0.00-0.120) ng/mL NT-Pro-B Natriuret Pep (0-900) pg/mL Total Protein 4.8 L (6.3-8.3) g/dL Albumin 2.4 L (3.5-5.0) g/dL Globulin 2.5 (2.2-3.9) gm/dL Albumin/Globulin Ratio 1.0 (1.0-2.1) TSH 3rd Generation 5.40 H (0.46-4.68) mIU/L 07/15/18 07/14/18 07/14/18 Range/Units 01:23 22:24 21:04 WBC (4.8-10.8) K/uL RBC (3.80-5.20) Mil/uL Hgb (11.0-16.0) g/dL Hct (34.0-47.0) % MCV (81.0-99.0) fL MCH (27.0-31.0) pg MCHC (33.0-37.0) g/dL RDW (11.5-14.5) % Plt Count (130-400) K/uL MPV (7.2-11.7) fL Neut % (Auto) (50.0-75.0) % Lymph % (Auto) (20.0-40.0) % [place] % (Auto) (0.0-10.0) % Eos % (Auto) (0.0-4.0) % Baso % (Auto) (0.0-2.0) % Neut # (Auto) (1.8-7.0) K/uL Lymph # (Auto) (1.0-4.3) K/uL [place] # (Auto) (0.0-0.8) K/uL Eos # (Auto) (0.0-0.7) K/uL Baso # (Auto) (0.0-0.2) K/uL Neutrophils % (Manual) (50-75) % Lymphocytes % (Manual) (20-40) % Monocytes % (Manual) (0-10) % Platelet Estimate (NORMAL) Hypochromasia (manual) Poikilocytosis (manual Anisocytosis (manual) Ovalocytes PT (9.7-12.2) SECONDS INR APTT 28 (21-34) SECONDS Sodium (132-148) mmol/L Potassium (3.6-5.2) mmol/L Chloride (98-107) mmol/L Carbon Dioxide (22-30) mmol/L Anion Gap (10-20) BUN (7-17) mg/dL Creatinine (0.7-1.2) mg/dL Est GFR ( Amer) Est GFR (Non-Af Amer) POC Glucose (mg/dL) 134 H (65-110) mg/dL Random Glucose (65-105) mg/dL Calcium (8.6-10.4) mg/dl Phosphorus (2.5-4.5) mg/dL Magnesium (1.6-2.3) mg/dL Total Bilirubin (0.2-1.3) mg/dL AST (14-36) U/L ALT (9-52) U/L Alkaline Phosphatase (38-126) U/L Troponin I 12.2000 H* (0.00-0.120) ng/mL NT-Pro-B Natriuret Pep (0-900) pg/mL Total Protein (6.3-8.3) g/dL Albumin (3.5-5.0) g/dL Globulin (2.2-3.9) gm/dL Albumin/Globulin Ratio (1.0-2.1) TSH 3rd Generation (0.46-4.68) mIU/L 07/14/18 07/14/18 07/14/18 Range/Units 18:59 17:26 12:55 WBC (4.8-10.8) K/uL RBC (3.80-5.20) Mil/uL Hgb (11.0-16.0) g/dL Hct (34.0-47.0) % MCV (81.0-99.0) fL MCH (27.0-31.0) pg MCHC (33.0-37.0) g/dL RDW (11.5-14.5) % Plt Count (130-400) K/uL MPV (7.2-11.7) fL Neut % (Auto) (50.0-75.0) % Lymph % (Auto) (20.0-40.0) % [place] % (Auto) (0.0-10.0) % Eos % (Auto) (0.0-4.0) % Baso % (Auto) (0.0-2.0) % Neut # (Auto) (1.8-7.0) K/uL Lymph # (Auto) (1.0-4.3) K/uL [place] # (Auto) (0.0-0.8) K/uL Eos # (Auto) (0.0-0.7) K/uL Baso # (Auto) (0.0-0.2) K/uL Neutrophils % (Manual) (50-75) % Lymphocytes % (Manual) (20-40) % Monocytes % (Manual) (0-10) % Platelet Estimate (NORMAL) Hypochromasia (manual) Poikilocytosis (manual Anisocytosis (manual) Ovalocytes PT (9.7-12.2) SECONDS INR APTT (21-34) SECONDS Sodium 133 (132-148) mmol/L Potassium 3.5 L (3.6-5.2) mmol/L Chloride 97 L (98-107) mmol/L Carbon Dioxide 28 (22-30) mmol/L Anion Gap 12 (10-20) BUN 22 H (7-17) mg/dL Creatinine 2.0 H (0.7-1.2) mg/dL Est GFR ( Amer) 30 Est GFR (Non-Af Amer) 25 POC Glucose (mg/dL) 110 (65-110) mg/dL Random Glucose 70 D (65-105) mg/dL Calcium 8.4 L (8.6-10.4) mg/dl Phosphorus (2.5-4.5) mg/dL Magnesium (1.6-2.3) mg/dL Total Bilirubin 0.8 (0.2-1.3) mg/dL AST 24 (14-36) U/L ALT 16 (9-52) U/L Alkaline Phosphatase 193 H D (38-126) U/L Troponin I 11.6000 H* 10.5000 H* (0.00-0.120) ng/mL NT-Pro-B Natriuret Pep 459663 H (0-900) pg/mL Total Protein 5.3 L (6.3-8.3) g/dL Albumin 2.8 L D (3.5-5.0) g/dL Globulin 2.5 (2.2-3.9) gm/dL Albumin/Globulin Ratio 1.1 (1.0-2.1) TSH 3rd Generation (0.46-4.68) mIU/L 07/14/18 07/14/18 Range/Units 12:55 12:55 WBC 7.5 D (4.8-10.8) K/uL RBC 3.65 L (3.80-5.20) Mil/uL Hgb 9.3 L D (11.0-16.0) g/dL Hct 29.5 L (34.0-47.0) % MCV 80.8 L (81.0-99.0) fL MCH 25.4 L (27.0-31.0) pg MCHC 31.4 L (33.0-37.0) g/dL RDW 20.9 H (11.5-14.5) % Plt Count 133 (130-400) K/uL MPV 8.8 (7.2-11.7) fL Neut % (Auto) 88.5 H (50.0-75.0) % Lymph % (Auto) 6.2 L (20.0-40.0) % [place] % (Auto) 5.0 (0.0-10.0) % Eos % (Auto) 0.1 (0.0-4.0) % Baso % (Auto) 0.2 (0.0-2.0) % Neut # (Auto) 6.6 (1.8-7.0) K/uL Lymph # (Auto) 0.5 L (1.0-4.3) K/uL [place] # (Auto) 0.4 (0.0-0.8) K/uL Eos # (Auto) 0.0 (0.0-0.7) K/uL Baso # (Auto) 0.0 (0.0-0.2) K/uL Neutrophils % (Manual) 91 H (50-75) % Lymphocytes % (Manual) 6 L (20-40) % Monocytes % (Manual) 3 (0-10) % Platelet Estimate Normal (NORMAL) Hypochromasia (manual) Slight Poikilocytosis (manual Slight Anisocytosis (manual) Slight Ovalocytes Slight PT 12.0 (9.7-12.2) SECONDS INR 1.1 APTT 29 (21-34) SECONDS Sodium (132-148) mmol/L Potassium (3.6-5.2) mmol/L Chloride (98-107) mmol/L Carbon Dioxide (22-30) mmol/L Anion Gap (10-20) BUN (7-17) mg/dL Creatinine (0.7-1.2) mg/dL Est GFR ( Amer) Est GFR (Non-Af Amer) POC Glucose (mg/dL) (65-110) mg/dL Random Glucose (65-105) mg/dL Calcium (8.6-10.4) mg/dl Phosphorus (2.5-4.5) mg/dL Magnesium (1.6-2.3) mg/dL Total Bilirubin (0.2-1.3) mg/dL AST (14-36) U/L ALT (9-52) U/L Alkaline Phosphatase (38-126) U/L Troponin I (0.00-0.120) ng/mL NT-Pro-B Natriuret Pep (0-900) pg/mL Total Protein (6.3-8.3) g/dL Albumin (3.5-5.0) g/dL Globulin (2.2-3.9) gm/dL Albumin/Globulin Ratio (1.0-2.1) TSH 3rd Generation (0.46-4.68) mIU/L Laboratory Results - last 24 hr 07/14/18 07/14/18 07/14/18 12:55 12:55 12:55 WBC 7.5 D RBC 3.65 L Hgb 9.3 L D Hct 29.5 L MCV 80.8 L MCH 25.4 L MCHC 31.4 L RDW 20.9 H Plt Count 133 MPV 8.8 Neut % (Auto) 88.5 H Lymph % (Auto) 6.2 L [place] % (Auto) 5.0 Eos % (Auto) 0.1 Baso % (Auto) 0.2 Neut # (Auto) 6.6 Lymph # (Auto) 0.5 L [place] # (Auto) 0.4 Eos # (Auto) 0.0 Baso # (Auto) 0.0 Neutrophils % (Manual) 91 H Lymphocytes % (Manual) 6 L Monocytes % (Manual) 3 Platelet Estimate Normal Hypochromasia (manual) Slight Poikilocytosis (manual Slight Anisocytosis (manual) Slight Ovalocytes Slight PT 12.0 INR 1.1 APTT 29 Sodium 133 Potassium 3.5 L Chloride 97 L Carbon Dioxide 28 Anion Gap 12 BUN 22 H Creatinine 2.0 H Est GFR ( Amer) 30 Est GFR (Non-Af Amer) 25 POC Glucose (mg/dL) Random Glucose 70 D Calcium 8.4 L Phosphorus Magnesium Total Bilirubin 0.8 AST 24 ALT 16 Alkaline Phosphatase 193 H D Troponin I 10.5000 H* NT-Pro-B Natriuret Pep 077829 H Total Protein 5.3 L Albumin 2.8 L D Globulin 2.5 Albumin/Globulin Ratio 1.1 TSH 3rd Generation 07/14/18 07/14/18 07/14/18 17:26 18:59 21:04 WBC RBC Hgb Hct MCV MCH MCHC RDW Plt Count MPV Neut % (Auto) Lymph % (Auto) [place] % (Auto) Eos % (Auto) Baso % (Auto) Neut # (Auto) Lymph # (Auto) [place] # (Auto) Eos # (Auto) Baso # (Auto) Neutrophils % (Manual) Lymphocytes % (Manual) Monocytes % (Manual) Platelet Estimate Hypochromasia (manual) Poikilocytosis (manual Anisocytosis (manual) Ovalocytes PT INR APTT Sodium Potassium Chloride Carbon Dioxide Anion Gap BUN Creatinine Est GFR ( Amer) Est GFR (Non-Af Amer) POC Glucose (mg/dL) 110 134 H Random Glucose Calcium Phosphorus Magnesium Total Bilirubin AST ALT Alkaline Phosphatase Troponin I 11.6000 H* NT-Pro-B Natriuret Pep Total Protein Albumin Globulin Albumin/Globulin Ratio [facility] 3rd Generation 07/14/18 07/15/18 07/15/18 22:24 01:23 06:22 WBC RBC Hgb Hct MCV MCH MCHC RDW Plt Count MPV Neut % (Auto) Lymph % (Auto) [place] % (Auto) Eos % (Auto) Baso % (Auto) Neut # (Auto) Lymph # (Auto) [place] # (Auto) Eos # (Auto) Baso # (Auto) Neutrophils % (Manual) Lymphocytes % (Manual) Monocytes % (Manual) Platelet Estimate Hypochromasia (manual) Poikilocytosis (manual Anisocytosis (manual) Ovalocytes PT INR APTT 28 Sodium 131 L Potassium 4.6 Chloride 97 L Carbon Dioxide 30 Anion Gap 9 L BUN 32 H Creatinine 2.8 H Est GFR ( Amer) 20 Est GFR (Non-Af Amer) 17 POC Glucose (mg/dL) Random Glucose 71 Calcium 7.9 L Phosphorus 3.4 Magnesium 2.0 Total Bilirubin 0.6 AST 19 ALT 21 Alkaline Phosphatase 129 H D Troponin I 12.2000 H* NT-Pro-B Natriuret Pep Total Protein 4.8 L Albumin 2.4 L Globulin 2.5 Albumin/Globulin Ratio 1.0 [facility] 3rd Generation 5.40 H 07/15/18 07/15/18 06:22 06:22 WBC 5.4 RBC 3.30 L Hgb 8.4 L Hct 26.7 L MCV 81.1 MCH 25.4 L MCHC 31.4 L RDW 20.9 H Plt Count 145 MPV 8.2 Neut % (Auto) 84.2 H Lymph % (Auto) 10.4 L [place] % (Auto) 4.7 Eos % (Auto) 0.5 Baso % (Auto) 0.2 Neut # (Auto) 4.5 Lymph # (Auto) 0.6 L [place] # (Auto) 0.3 Eos # (Auto) 0.0 Baso # (Auto) 0.0 Neutrophils % (Manual) Lymphocytes % (Manual) Monocytes % (Manual) Platelet Estimate Hypochromasia (manual) Poikilocytosis (manual Anisocytosis (manual) Ovalocytes PT INR APTT 30 Sodium Potassium Chloride Carbon Dioxide Anion Gap BUN Creatinine Est GFR ( Amer) Est GFR (Non-Af Amer) POC Glucose (mg/dL) Random Glucose Calcium Phosphorus Magnesium Total Bilirubin AST ALT Alkaline Phosphatase Troponin I NT-Pro-B Natriuret Pep Total Protein Albumin Globulin Albumin/Globulin Ratio TSH 3rd Generation Radiology Impressions: Radiology Impressions Chest X-Ray 07/14/18 12:44 IMPRESSION: No interval acute cardiopulmonary disease appreciated. EKG/Cardiology Studies: Cardiology / EKG Studies 07/14/18 12:44 ELECTROCARDIOGRAM Stat Comment: Mode Of Transportation: BED Reason For Exam: Palpations 07/14/18 14:06 EKG [ELECTROCARDIOGRAM] Stat Comment: ED 10 Mode Of Transportation: PORTABLE Reason For Exam: new rhythem 07/15/18 07:00 EKG [ELECTROCARDIOGRAM] Routine Comment: Mode Of Transportation: BED Reason For Exam: afibb Fingerstick Blood Sugar Results: 106 Review of Systems - EENT Eyes: UNREMARKABLE Ears: UNREMARKABLE - Cardiovascular Cardiovascular: UNREMARKABLE - Respiratory Respiratory: UNREMARKABLE - Gastrointestinal Gastrointestinal: UNREMARKABLE - Genitourinary Genitourinary: UNREMARKABLE Critical Care Progress Note - Nutrition Nutrition: Nutrition Category Date Time Status Renal Diet [DIET] Diets 07/14/18 Lunch Active Assessment/Plan - Assessment and Plan (Free Text) Assessment: 68 y/ o female with hx of ESRD on HD, AFib (on Coumadin), HTN, BL LE Amputee, DM, CPD, CAD, PAD brought to ER from HD center as she was complaining of chest pain and palpitations 1hour into her HD session today on 07/15/18. On presentation, pt was noted to be in Rapid Afib with RVR which responded to IV Cardizem followed with PO Cardizem. Troponin was also noted to be elevated at 10.5, repeats trending up, likely 2/2 pt being on dialysis. Admitted to ICU for closer monitoring in setting of elevated troponin, Cardizem drip to be tapered down as pt transitions to PO Cardizem. Plan: Neuro - AAOx3 Cardio - Hemodynamically stable - EKG: AFib with RVR, no ischemic changes - S/P Cardizem -5mg IV and 60mg PO in ED with conversion to sinus rhythm - Cardizem drip to be tapered down, transition to PO Cardizem - Now rate and rhythm controlled - Will continue with oral home dose of Metoprolol and Cardizem - Hold Warfarin for now. Currently on Heparin Drip - Troponin 10.5 (baseline troponin ~0.3). Repeats elevated, likely 2/2 pt being on dialysis - ProBNP 140k, euvolemic on exam - Cxray no acute cardiopulmonary disease, no pulmonary vascular congestion - Myocardial Stress Test (03/2018): Normal, EF 48% - Last Echo (03/2018): EF 50-55%, Mild LVH, Left Atrial pressure moderately elevated, RVSP 37, Mild pulmonary HTN, Mild- mod pericardial effusion noted - Continuous cardiac monitoring in ICU Pulm - Hx of Asthma/COPD - Albuterol prn - Saturating well on NC, cont to monitor GI - Renal Diet Renal - ESRD on HD MWF - BUN 22 Cr 2.0 (baseline Cr 2-3) on admission; cont to trend - Nephrology consulted, Dr. [place] Heme - Hg 9.3 on admission - Chronically Anemic, Likely ACD - Coagulation: INR 1.1, subtherapeutic in setting of poor medication compliance; f/u am coags - Will hold Coumadin for now and maintain pt on Heparin ggt MSK - Left hip pain s/p Fall - Femur Xray reviewed from (07/01): No acute fx or dislocation - Tylenol prn PPX: - DVT ppx, on Heparin ggt - GI ppx, Pepcid PO Pt seen, examined with, and plan discussed with Dr. Vaughn Larson, attending physician. Jeremy Shell DO PGY-1, [place] Pager #[phone] <Talisha Larson Last Filed: 07/16/18 17:10> CCU Objective - Vital Signs / Intake & Output Vital Signs (Last 4 hours): Vital Signs Temp Pulse Resp BP 07/15/18 13:00 75 16 07/15/18 12:57 69 16 139/66 07/15/18 12:31 89 13 07/15/18 12:00 98.1 F 110 H 13 07/15/18 11:56 102 H 13 110/55 L 07/15/18 11:55 103 H 14 07/15/18 11:30 68 14 07/15/18 11:00 67 15 07/15/18 10:56 69 14 110/47 L 07/15/18 10:30 73 14 07/15/18 10:00 114 H 14 07/15/18 09:56 102 H 12 101/50 L Intake and Output (Last 8hrs): Intake & Output 07/14/18 07/15/18 07/15/18 22:59 06:59 14:59 Intake Total 344.9 430.7 589 Output Total 0 0 0 Balance 344.9 430.7 589 Weight 77 lb 2.589 oz 77 lb 2.589 oz Intake: IV 33 97 40 Intake, IV Amount 66.9 73.7 189 Left Forearm 29.4 46.2 49 Left Forearm #2 37.5 27.5 40 Left Wrist 100 Oral 245 260 360 Output: Urine 0 0 0 Urine, Voided 0 0 0 Stool 0 0 0 Emesis 0 0 0 Other: # Bowel Movements 1 - Medications Active Medications: Active Medications Generic Name Dose Route Start Last Admin Trade Name Freq PRN Reason Stop Dose Admin Acetaminophen 650 mg 07/14/18 15:27 07/15/18 04:16 Tylenol 325mg Tab PO 650 mg Q6 PRN Administration Pain, Mild (1-3) Albuterol 2 puff 07/14/18 15:37 Ventolin Hfa 90 Mcg/Actuation (8 G) IH Q4H PRN Aspirin 81 mg 07/15/18 10:00 07/15/18 09:24 Aspirin Chewable PO 81 mg DAILY BILL Administration Cinacalcet 90 mg 07/15/18 10:00 07/15/18 09:24 Sensipar PO 90 mg DAILY BILL Administration Clopidogrel Bisulfate 75 mg 07/15/18 10:00 07/15/18 09:24 Plavix PO 75 mg DAILY BILL Administration Diltiazem HCl 180 mg 07/15/18 10:00 07/15/18 09:24 Cardizem Cd PO 180 mg DAILY BILL Administration Ezetimibe 10 mg 07/15/18 10:00 07/15/18 09:21 Zetia PO 10 mg DAILY BILL Administration Epoetin Amol 10,000 unit 07/16/18 09:00 Procrit IV MWF BILL Famotidine 20 mg 07/14/18 15:30 07/15/18 09:24 Pepcid PO 20 mg DAILY BILL Administration Heparin Sodium/Sodium Chloride 25,000 units in 250 mls @ 4.2 mls/hr 07/14/18 17:23 07/15/18 07:15 Heparin 54770 Units/250ml 1/2 Normal Saline IV 20 units/kg/hr .Q24H PRN 7 mls/hr PROTOCOL Titration Protocol 12 UNITS/KG/HR Diltiazem HCl 125 mg/ Dextrose 125 mls @ 5 mls/hr 07/14/18 19:00 07/15/18 07:05 IV 10 mg/hr .Q24H BILL 10 mls/hr Titration Protocol 5 MG/HR Lidocaine 1 ea 07/15/18 10:00 07/15/18 09:22 Lidoderm TD 1 ea DAILY BILL Administration Oxycodone/Acetaminophen 1 tab 07/15/18 05:17 07/15/18 06:32 Percocet 5/325 Mg Tab PO 07/18/18 05:18 1 tab Q4H PRN Administration Pain, moderate (4-7) Rosuvastatin Calcium 10 mg 07/15/18 22:00 Crestor PO HS BILL Sevelamer Carbonate 800 mg 07/14/18 17:00 07/15/18 11:41 Renvela PO 800 mg TID[facility] BILL Administration - Patient Studies Lab Studies: Lab Studies 07/15/18 07/15/18 07/15/18 Range/Units 06:22 06:22 06:22 WBC 5.4 (4.8-10.8) K/uL RBC 3.30 L (3.80-5.20) Mil/uL Hgb 8.4 L (11.0-16.0) g/dL Hct 26.7 L (34.0-47.0) % MCV 81.1 (81.0-99.0) fL MCH 25.4 L (27.0-31.0) pg MCHC 31.4 L (33.0-37.0) g/dL RDW 20.9 H (11.5-14.5) % Plt Count 145 (130-400) K/uL MPV 8.2 (7.2-11.7) fL Neut % (Auto) 84.2 H (50.0-75.0) % Lymph % (Auto) 10.4 L (20.0-40.0) % [place] % (Auto) 4.7 (0.0-10.0) % Eos % (Auto) 0.5 (0.0-4.0) % Baso % (Auto) 0.2 (0.0-2.0) % Neut # (Auto) 4.5 (1.8-7.0) K/uL Lymph # (Auto) 0.6 L (1.0-4.3) K/uL [place] # (Auto) 0.3 (0.0-0.8) K/uL Eos # (Auto) 0.0 (0.0-0.7) K/uL Baso # (Auto) 0.0 (0.0-0.2) K/uL APTT 30 (21-34) SECONDS Sodium 131 L (132-148) mmol/L Potassium 4.6 (3.6-5.2) mmol/L Chloride 97 L (98-107) mmol/L Carbon Dioxide 30 (22-30) mmol/L Anion Gap 9 L (10-20) BUN 32 H (7-17) mg/dL Creatinine 2.8 H (0.7-1.2) mg/dL Est GFR ( Amer) 20 Est GFR (Non-Af Amer) 17 POC Glucose (mg/dL) (65-110) mg/dL Random Glucose 71 (65-105) mg/dL Calcium 7.9 L (8.6-10.4) mg/dl Phosphorus 3.4 (2.5-4.5) mg/dL Magnesium 2.0 (1.6-2.3) mg/dL Total Bilirubin 0.6 (0.2-1.3) mg/dL AST 19 (14-36) U/L ALT 21 (9-52) U/L Alkaline Phosphatase 129 H D (38-126) U/L Troponin I (0.00-0.120) ng/mL NT-Pro-B Natriuret Pep (0-900) pg/mL Total Protein 4.8 L (6.3-8.3) g/dL Albumin 2.4 L (3.5-5.0) g/dL Globulin 2.5 (2.2-3.9) gm/dL Albumin/Globulin Ratio 1.0 (1.0-2.1) TSH 3rd Generation 5.40 H (0.46-4.68) mIU/L 07/15/18 07/14/18 07/14/18 Range/Units 01:23 22:24 21:04 WBC (4.8-10.8) K/uL RBC (3.80-5.20) Mil/uL Hgb (11.0-16.0) g/dL Hct (34.0-47.0) % MCV (81.0-99.0) fL MCH (27.0-31.0) pg MCHC (33.0-37.0) g/dL RDW (11.5-14.5) % Plt Count (130-400) K/uL MPV (7.2-11.7) fL Neut % (Auto) (50.0-75.0) % Lymph % (Auto) (20.0-40.0) % [place] % (Auto) (0.0-10.0) % Eos % (Auto) (0.0-4.0) % Baso % (Auto) (0.0-2.0) % Neut # (Auto) (1.8-7.0) K/uL Lymph # (Auto) (1.0-4.3) K/uL [place] # (Auto) (0.0-0.8) K/uL Eos # (Auto) (0.0-0.7) K/uL Baso # (Auto) (0.0-0.2) K/uL APTT 28 (21-34) SECONDS Sodium (132-148) mmol/L Potassium (3.6-5.2) mmol/L Chloride (98-107) mmol/L Carbon Dioxide (22-30) mmol/L Anion Gap (10-20) BUN (7-17) mg/dL Creatinine (0.7-1.2) mg/dL Est GFR ( Amer) Est GFR (Non-Af Amer) POC Glucose (mg/dL) 134 H (65-110) mg/dL Random Glucose (65-105) mg/dL Calcium (8.6-10.4) mg/dl Phosphorus (2.5-4.5) mg/dL Magnesium (1.6-2.3) mg/dL Total Bilirubin (0.2-1.3) mg/dL AST (14-36) U/L ALT (9-52) U/L Alkaline Phosphatase (38-126) U/L Troponin I 12.2000 H* (0.00-0.120) ng/mL NT-Pro-B Natriuret Pep (0-900) pg/mL Total Protein (6.3-8.3) g/dL Albumin (3.5-5.0) g/dL Globulin (2.2-3.9) gm/dL Albumin/Globulin Ratio (1.0-2.1) TSH 3rd Generation (0.46-4.68) mIU/L 07/14/18 07/14/18 07/14/18 Range/Units 18:59 17:26 12:55 WBC (4.8-10.8) K/uL RBC (3.80-5.20) Mil/uL Hgb (11.0-16.0) g/dL Hct (34.0-47.0) % MCV (81.0-99.0) fL MCH (27.0-31.0) pg MCHC (33.0-37.0) g/dL RDW (11.5-14.5) % Plt Count (130-400) K/uL MPV (7.2-11.7) fL Neut % (Auto) (50.0-75.0) % Lymph % (Auto) (20.0-40.0) % [place] % (Auto) (0.0-10.0) % Eos % (Auto) (0.0-4.0) % Baso % (Auto) (0.0-2.0) % Neut # (Auto) (1.8-7.0) K/uL Lymph # (Auto) (1.0-4.3) K/uL [place] # (Auto) (0.0-0.8) K/uL Eos # (Auto) (0.0-0.7) K/uL Baso # (Auto) (0.0-0.2) K/uL APTT (21-34) SECONDS Sodium (132-148) mmol/L Potassium (3.6-5.2) mmol/L Chloride (98-107) mmol/L Carbon Dioxide (22-30) mmol/L Anion Gap (10-20) BUN (7-17) mg/dL Creatinine (0.7-1.2) mg/dL Est GFR ( Amer) Est GFR (Non-Af Amer) POC Glucose (mg/dL) 110 (65-110) mg/dL Random Glucose (65-105) mg/dL Calcium (8.6-10.4) mg/dl Phosphorus (2.5-4.5) mg/dL Magnesium (1.6-2.3) mg/dL Total Bilirubin (0.2-1.3) mg/dL AST (14-36) U/L ALT (9-52) U/L Alkaline Phosphatase (38-126) U/L Troponin I 11.6000 H* 10.5000 H* (0.00-0.120) ng/mL NT-Pro-B Natriuret Pep [id number] H (0-900) pg/mL Total Protein (6.3-8.3) g/dL Albumin (3.5-5.0) g/dL Globulin (2.2-3.9) gm/dL Albumin/Globulin Ratio (1.0-2.1) TSH 3rd Generation (0.46-4.68) mIU/L Laboratory Results - last 24 hr 07/14/18 07/14/18 07/14/18 12:55 17:26 18:59 WBC RBC Hgb Hct MCV MCH MCHC RDW Plt Count MPV Neut % (Auto) Lymph % (Auto) [place] % (Auto) Eos % (Auto) Baso % (Auto) Neut # (Auto) Lymph # (Auto) [place] # (Auto) Eos # (Auto) Baso # (Auto) APTT Sodium Potassium Chloride Carbon Dioxide Anion Gap BUN Creatinine Est GFR ( Amer) Est GFR (Non-Af Amer) POC Glucose (mg/dL) 110 Random Glucose Calcium Phosphorus Magnesium Total Bilirubin AST ALT Alkaline Phosphatase Troponin I 10.5000 H* 11.6000 H* NT-Pro-B Natriuret Pep 721526 H Total Protein Albumin Globulin Albumin/Globulin Ratio [facility] 3rd Generation 07/14/18 07/14/18 07/15/18 21:04 22:24 01:23 WBC RBC Hgb Hct MCV MCH MCHC RDW Plt Count MPV Neut % (Auto) Lymph % (Auto) [place] % (Auto) Eos % (Auto) Baso % (Auto) Neut # (Auto) Lymph # (Auto) [place] # (Auto) Eos # (Auto) Baso # (Auto) APTT 28 Sodium Potassium Chloride Carbon Dioxide Anion Gap BUN Creatinine Est GFR ( Amer) Est GFR (Non-Af Amer) POC Glucose (mg/dL) 134 H Random Glucose Calcium Phosphorus Magnesium Total Bilirubin AST ALT Alkaline Phosphatase Troponin I 12.2000 H* NT-Pro-B Natriuret Pep Total Protein Albumin Globulin Albumin/Globulin Ratio [facility] 3rd Generation 07/15/18 07/15/18 07/15/18 06:22 06:22 06:22 WBC 5.4 RBC 3.30 L Hgb 8.4 L Hct 26.7 L MCV 81.1 MCH 25.4 L MCHC 31.4 L RDW 20.9 H Plt Count 145 MPV 8.2 Neut % (Auto) 84.2 H Lymph % (Auto) 10.4 L [place] % (Auto) 4.7 Eos % (Auto) 0.5 Baso % (Auto) 0.2 Neut # (Auto) 4.5 Lymph # (Auto) 0.6 L [place] # (Auto) 0.3 Eos # (Auto) 0.0 Baso # (Auto) 0.0 APTT 30 Sodium 131 L Potassium 4.6 Chloride 97 L Carbon Dioxide 30 Anion Gap 9 L BUN 32 H Creatinine 2.8 H Est GFR ( Amer) 20 Est GFR (Non-Af Amer) 17 POC Glucose (mg/dL) Random Glucose 71 Calcium 7.9 L Phosphorus 3.4 Magnesium 2.0 Total Bilirubin 0.6 AST 19 ALT 21 Alkaline Phosphatase 129 H D Troponin I NT-Pro-B Natriuret Pep Total Protein 4.8 L Albumin 2.4 L Globulin 2.5 Albumin/Globulin Ratio 1.0 [facility] Generation 5.40 H Radiology Impressions: Radiology Impressions Chest X-Ray 07/14/18 12:44 IMPRESSION: No interval acute cardiopulmonary disease appreciated. EKG/Cardiology Studies: Cardiology / EKG Studies 07/14/18 12:44 ELECTROCARDIOGRAM Stat Comment: Mode Of Transportation: BED Reason For Exam: Palpations 07/14/18 14:06 EKG [ELECTROCARDIOGRAM] Stat Comment: ED 10 Mode Of Transportation: PORTABLE Reason For Exam: new rhythem 07/15/18 07:00 EKG [ELECTROCARDIOGRAM] Routine Comment: Mode Of Transportation: BED Reason For Exam: afibb Critical Care Progress Note - Nutrition Nutrition: Nutrition Category Date Time Status Renal Diet [DIET] Diets 07/14/18 Lunch Active Assessment/Plan - Assessment and Plan (Free Text) Assessment: Above patient seen and examined at bedside. Patient sitting up eating breakfast. Denies any chst pain, deneis palpiation and denies any pain -A-fib: rate controlledswitch from IV to oral cardizem -continue AC as per cardilogy -ESRD on HD: ocontrinue as per ID -continue all other treatment -once off IV cardizem, [place] OOB, PT/OT -Patient strongly advised to stop smoking. Plan: [facility] Patient has long history of smoking -currently breathing comfortbaly on nasal canula -h/o CAD: continue current management -titrate off IV cardizem and start oral cardizem -patient remains hemodynamically stable - Date & Time Date: 07/15/18 Time: 17:00
--- NOTE | 2018-07-15 13:02 | CP.PCM.PN ---
Subjective - Date & Time of Evaluation Date of Evaluation: 07/15/18 Time of Evaluation: 13:00 - Subjective Subjective: still has a. fib with rvr. on cardizem. bp wnl. troponin 12. anemia and crf. htn. Objective - Vital Signs/Intake and Output Vital Signs (last 24 hours): Temp Pulse Resp BP Pulse Ox 98.1 F 89 13 110/55 L 96 07/15/18 12:00 07/15/18 12:31 07/15/18 12:31 07/15/18 11:56 07/15/18 07:00 Intake and Output: 07/15/18 07/15/18 06:59 18:59 Intake Total 638.0 577 Output Total 0 0 Balance 638.0 577 - Medications Medications: Current Medications Acetaminophen (Tylenol 325mg Tab) 650 mg PO Q6 PRN PRN Reason: Pain, Mild (1-3) Last Admin: 07/15/18 04:16 Dose: 650 mg Albuterol (Ventolin Hfa 90 Mcg/Actuation (8 G)) 2 puff IH Q4H PRN Aspirin (Aspirin Chewable) [address] [facility] Last Admin: 07/15/18 09:24 Dose: 81 mg Cinacalcet (Sensipar) [address] [facility] Last Admin: 07/15/18 09:24 Dose: 90 mg Clopidogrel Bisulfate (Plavix) [address] [facility] Last Admin: 07/15/18 09:24 Dose: 75 mg Diltiazem HCl (Cardizem Cd) [address] [facility] Last Admin: 07/15/18 09:24 Dose: 180 mg Ezetimibe (Zetia) [address] [facility] Last Admin: 07/15/18 09:21 Dose: 10 mg Epoetin Amol (Procrit) 10,[address] [facility] Famotidine (Pepcid) [address] [facility] Last Admin: 07/15/18 09:24 Dose: 20 mg Heparin Sodium/Sodium Chloride (Heparin 26558 Units/250ml 1/2 Normal Saline) 25,000 units in 250 mls @ 4.2 mls/hr IV .Q24H PRN; Protocol PRN Reason: PROTOCOL Last Titration: 07/15/18 07:15 Dose: 20 units/kg/hr, 7 mls/hr Diltiazem HCl 125 mg/ Dextrose 125 mls @ 5 mls/hr IV .Q24H [facility]; Protocol Last Titration: 07/15/18 07:05 Dose: 10 mg/hr, 10 mls/hr Lidocaine (Lidoderm) [address] [facility] Last Admin: 07/15/18 09:22 Dose: 1 ea Oxycodone/Acetaminophen (Percocet 5/325 Mg Tab) 1 tab PO Q4H PRN PRN Reason: Pain, moderate (4-7) Stop: 07/18/18 05:18 Last Admin: 07/15/18 06:32 Dose: 1 tab Rosuvastatin Calcium (Crestor) 10 mg PO HS BILL Sevelamer Carbonate (Renvela) [address] [facility] Last Admin: 07/15/18 11:41 Dose: 800 mg - Labs Labs: 07/15/18 06:22 07/15/18 06:22 PT 12.0 SECONDS (9.7-12.2) 07/14/18 12:55 INR 1.1 07/14/18 12:55 APTT 30 SECONDS (21-34) 07/15/18 06:22 - Constitutional Appears: Chronically Ill - Eye Exam Eye Exam: Normal appearance, PERRL - ENT Exam ENT Exam: Mucous Membranes Moist - Respiratory Exam Respiratory Exam: Clear to Ausculation Bilateral, NORMAL BREATHING PATTERN - Cardiovascular Exam Cardiovascular Exam: Irregular Rhythm, +S1, +S2 - GI/Abdominal Exam GI & Abdominal Exam: Soft, Normal Bowel Sounds - Extremities Exam Extremities Exam: Full ROM, Normal Capillary Refill, Normal Inspection. absent: Joint Swelling, Pedal Edema - Neurological Exam Neurological Exam: Alert, Awake, CN II-XII Intact, Normal Gait, Oriented x3 Assessment and Plan - Assessment and Plan (Free Text) Assessment: as above. Plan: for icu care. f/u dr. garrett.
--- NOTE | 2018-07-15 23:12 | CP.PCM.CON ---
History of Present Illness - History of Present Illness History of Present Illness: CC: Non ST elevation MD Pt is a 68 y/ o female with hx of ESRD on HD, AFibb (on Coumadin), HTN, BL LE Amputee, DM, CPD, CAD, PAD brought to ER from HD center as she was complaining of "pressure-like" chest pain and palpitations 1hour into her HD session today. On presentation, pt was noted to be in Rapid Afibb with RVR with HR in 110's which responded to IV Cardizem followed with PO Cardizem. Troponin was also noted to be elevated at 10.5 At the current moment, pt denies chest pain or palpitations. Pt reports that she was not taking her warfarin for the past 5 days because she felt it made her sick. Also complains of left thigh pain after sustaining a fall 1 week ago (evaluated in ED, Femur Xrays normal). Otherwise d enies any sob, recent illness, fever/chills, cough, n/v, abdominal pain. 10 point ROS otherwise negative. PMD: Dr. Jesús Larson Streetcar Conductor: Dr. Hubbard PMHX: ESRD on HD, AFibb (on Coumadin), HTN, BL LE Amputee, COPD, CAD, PAD, GERD PSurgHX: Bl LE amputation (Right Below knee in 2018, Left above knee 2-3 years ago for PVD), R. AVF creation Medication: Warfarin, Diltiazem, Metoprolol, Atorvastatin, Albuterol prn, Cinacalcet, Ezetimibe, Omeprazole , Oxycodone FmHx: noncontributory Social: Former Smoker, quit 3 years ago. States she only smokes for 5 years. Denies ETOH or IVDU Review of Systems - Constitutional Constitutional: absent: Chills, Fever - EENT Eyes: absent: Blurred Vision - Cardiovascular Cardiovascular: Irregular Heart Rhythm. absent: Chest Pain at Rest, Diaphoresis, Dyspnea, Lightheadedness - Gastrointestinal Gastrointestinal: absent: Abdominal Pain - Genitourinary Genitourinary: absent: Dysuria Past Patient History - Infectious Disease Hx of Infectious Diseases: None - Past Medical History & Family History Past Medical History?: Yes - Past Social History Smoking Status: Former Smoker - CARDIAC Hx Cardia Arrhythmia: Yes Hx Hypercholesterolemia: Yes Hx Hypertension: Yes - PULMONARY Hx Asthma: Yes Hx Pneumonia: Yes (10 YRS AGO) - NEUROLOGICAL Hx Neurological Disorder: No - HEENT Hx Cataracts: Yes - RENAL Hx Chronic Kidney Disease: Yes - ENDOCRINE/METABOLIC Hx Diabetes Mellitus Type 2: Yes - HEMATOLOGICAL/ONCOLOGICAL Hx Anemia: Yes - INTEGUMENTARY Hx Dermatological Problems: Yes (SMALL ULCER RIGHT FOOT) Other/Comment: LEFT MEDIAL KNEE AREA- ULCER - MUSCULOSKELETAL/RHEUMATOLOGICAL Hx Arthritis: Yes - GASTROINTESTINAL Hx Gastrointestinal Disorders: Yes Hx Gastroesophageal Reflux: Yes - GENITOURINARY/GYNECOLOGICAL Other/Comment: dialysis MWF - PSYCHIATRIC Hx Substance Use: No - SURGICAL HISTORY Hx Coronary Stent: Yes - ANESTHESIA Hx Anesthesia: Yes Hx Anesthesia Reactions: No Hx Malignant Hyperthermia: No Meds Allergies/Adverse Reactions: Allergies Allergy/AdvReac Type Severity Reaction Status Date / Time vancomycin Allergy Intermediate RASH Verified 07/14/18 12:50 - Medications Medications: Current Medications Acetaminophen (Tylenol 325mg Tab) 650 mg PO Q6 PRN PRN Reason: Pain, Mild (1-3) Albuterol (Ventolin Hfa 90 Mcg/Actuation (8 G)) 2 puff IH PRN PRN PRN Reason: Shortness of Breath Cinacalcet (Sensipar) 90 mg PO DAILY BILL Diltiazem HCl (Cardizem Cd) 180 mg PO DAILY BILL Ezetimibe (Zetia) 10 mg PO DAILY BILL Famotidine (Pepcid) 20 mg PO DAILY BILL Heparin Sodium/Sodium Chloride (Heparin 11135 Units/250ml 1/2 Normal Saline) 25,000 units in 250 mls @ 4.56 mls/hr IV .Q24H [facility]; Protocol Stop: 07/15/18 14:36 Last Admin: 07/14/18 15:30 Dose: 12 units/kg/hr, 4.56 mls/hr Metoprolol Tartrate (Lopressor) 50 mg PO BID BILL Rosuvastatin Calcium (Crestor) 10 mg PO DAILY BILL Sevelamer Carbonate (Renvela) 800 mg PO TIDCC BILL Physical Exam - Constitutional Appears: Chronically Ill (Thin elderly woman, no acute distress noted, cooperative wit hexam) - Head Exam Head Exam: ATRAUMATIC - Eye Exam Eye Exam: Normal appearance, PERRL - ENT Exam ENT Exam: Mucous Membranes Moist - Neck Exam Neck exam: Positive for: Full Rom - Respiratory Exam Respiratory Exam: Clear to Auscultation Bilateral. absent: Accessory Muscle Use, Rales, Wheezes - Cardiovascular Exam Cardiovascular Exam: REGULAR RHYTHM, +S1, +S2, Systolic Murmur (Systolic ejection murmur +2) - GI/Abdominal Exam GI & Abdominal Exam: Normal Bowel Sounds, Soft. absent: Tenderness - Extremities Exam Additional comments: BL LE amputatee. No bruising or swelling noted in left thigh where patient localizes pain. (+) tenderness to palpation in Left Hip. Results - Vital Signs Recent Vital Signs: Last Vital Signs Temp 97.6 F 07/14/18 12:46 Pulse 78 07/14/18 14:04 Resp 20 07/14/18 14:04 BP 113/58 L 07/14/18 14:04 Pulse Ox 100 07/14/18 14:04 - Labs Result Diagrams: 07/14/18 12:55 07/14/18 12:55 Labs: Laboratory Results - last 24 hr 07/14/18 07/14/18 07/14/18 12:55 12:55 12:55 WBC 7.5 D RBC 3.65 L Hgb 9.3 L D Hct 29.5 L MCV 80.8 L MCH 25.4 L MCHC 31.4 L RDW 20.9 H Plt Count 133 MPV 8.8 Neut % (Auto) 88.5 H Lymph % (Auto) 6.2 L [place] % (Auto) 5.0 Eos % (Auto) 0.1 Baso % (Auto) 0.2 Neut # (Auto) 6.6 Lymph # (Auto) 0.5 L [place] # (Auto) 0.4 Eos # (Auto) 0.0 Baso # (Auto) 0.0 Neutrophils % (Manual) 91 H Lymphocytes % (Manual) 6 L Monocytes % (Manual) 3 Platelet Estimate Normal Hypochromasia (manual) Slight Poikilocytosis (manual Slight Anisocytosis (manual) Slight Ovalocytes Slight PT 12.0 INR 1.1 APTT 29 Sodium 133 Potassium 3.5 L Chloride 97 L Carbon Dioxide 28 Anion Gap 12 BUN 22 H Creatinine 2.0 H Est GFR ( Amer) 30 Est GFR (Non-Af Amer) 25 Random Glucose 70 D Calcium 8.4 L Total Bilirubin 0.8 AST 24 ALT 16 Alkaline Phosphatase 193 H D Troponin I 10.5000 H* NT-Pro-B Natriuret Pep 938124 H Total Protein 5.3 L Albumin 2.8 L D Globulin 2.5 Albumin/Globulin Ratio 1.1 Assessment & Plan - Assessment and Plan (Free Text) Assessment: Pt is a 68 y/ o female with hx of ESRD on HD, AFibb (on Coumadin), HTN, BL LE Amputee, DM, CPD, CAD, PAD brought to ER from HD center as she was complaining of chest pain and palpitations 1hour into her HD session today. On presentation, pt was noted to be in Rapid Afibb with RVR which responded to IV Cardizem followed with PO Cardizem. Troponin was also noted to be elevated at 10.5 At the current moment, pt denies chest pain or palpitations. Pt reports that she was not taking her warfarin for the past 5 days because she felt it made her sick. Admitted to ICU for closer monitoring in setting of troponemia. Neuro - AOx3 Cardio - Hemodynamically stable - EKG: AFibb with RVR, no ischemic changes - S/P Cardizem -5mg IV and 60mg PO in ED with conversion to sinus rhythm - Now rate and rhythm controlled - Will continue with oral home dose of Metoprolol and Cardizem - Hold Warfarin for now. Currently on Heparin Drip - Troponin 10.5 (baseline troponin ~0.3). Likely demand ischemia. - F/U Serial troponin. Repeat EKG in am - ProBNP 140k, euvolemic on exam - Cxray no acute cardiopulmonary disease, no pulmonary vascular congestion - Myocardial Stress Test (03/2018): Normal, EF 48% - Last Echo (03/2018): EF 50-55%, Mild LVH, Left Atrial pressure moderately elevated, RVSP 37, Mild pulmonary HTN, Mild- mod pericardial effusion noted - Continuous cardiac monitoring in ICU -Not a candidate for cardiac cath due to vascular issues Pulm - Hx of Asthma/COPD - Albuterol prn - Saturating 94% on 3L NC O2 GI - Renal Diet Renal - ESRD on HD MWF - BUN 22 Crea 2.0 (baseline Crea 2-3) - Nephrology consulted, Dr. [place] - Hg 9.3 - Chronically Anemic, Likely ACD - Cogulation: INR 1.1, subtherapeutic in setting of poor medication compliance - Will hold Coumadin for now and maintain pt on Heparin ggt MSK - Left hip pain s/p Fall - Femur Xray reviewed from (07/01): No acute fx or dislocation - Tylenol prn PPX: - DVT ppx, on Heparin ggt - GI ppx, Pepcid PO Past Patient History - Infectious Disease Hx of Infectious Diseases: None - Past Medical History & Family History Past Medical History?: Yes Past Family History: Reviewed and not pertinent - Past Social History Smoking Status: Former Smoker Chewing Tobacco Use: No Cigar Use: No Alcohol: None Drugs: Denies - CARDIAC Hx Cardia Arrhythmia: Yes Hx Hypercholesterolemia: Yes Hx Hypertension: Yes - PULMONARY Hx Asthma: Yes Hx Pneumonia: Yes (10 YRS AGO) - NEUROLOGICAL Hx Neurological Disorder: No - HEENT Hx Cataracts: Yes - RENAL Hx Chronic Kidney Disease: Yes - ENDOCRINE/METABOLIC Hx Diabetes Mellitus Type 2: Yes - HEMATOLOGICAL/ONCOLOGICAL Hx Anemia: Yes - INTEGUMENTARY Hx Dermatological Problems: Yes (SMALL ULCER RIGHT FOOT) Other/Comment: LEFT MEDIAL KNEE AREA- ULCER - MUSCULOSKELETAL/RHEUMATOLOGICAL Hx Arthritis: Yes - GASTROINTESTINAL Hx Gastrointestinal Disorders: Yes Hx Gastroesophageal Reflux: Yes - GENITOURINARY/GYNECOLOGICAL Other/Comment: dialysis MWF - PSYCHIATRIC Hx Substance Use: No - SURGICAL HISTORY Hx Coronary Stent: Yes - ANESTHESIA Hx Anesthesia: Yes Hx Anesthesia Reactions: No Hx Malignant Hyperthermia: No Meds Allergies/Adverse Reactions: Allergies Allergy/AdvReac Type Severity Reaction Status Date / Time vancomycin Allergy Intermediate RASH Verified 07/14/18 12:50 - Medications Medications: Current Medications Acetaminophen (Tylenol 325mg Tab) 650 mg PO Q6 PRN PRN Reason: Pain, Mild (1-3) Last Admin: 07/15/18 04:16 Dose: 650 mg Albuterol (Ventolin Hfa 90 Mcg/Actuation (8 G)) 2 puff IH Q4H PRN Aspirin (Aspirin Chewable) 81 mg PO DAILY [facility] Last Admin: 07/15/18 09:24 Dose: 81 mg Cinacalcet (Sensipar) 90 mg PO DAILY [facility] Last Admin: 07/15/18 09:24 Dose: 90 mg Clopidogrel Bisulfate (Plavix) 75 mg PO DAILY [facility] Last Admin: 07/15/18 09:24 Dose: 75 mg Diltiazem HCl (Cardizem Cd) 180 mg PO DAILY [facility] Last Admin: 07/15/18 09:24 Dose: 180 mg Ezetimibe (Zetia) 10 mg PO DAILY [facility] Last Admin: 07/15/18 09:21 Dose: 10 mg Epoetin Amol (Procrit) 10,000 unit IV MWF [facility] Famotidine (Pepcid) 20 mg PO DAILY [facility] Last Admin: 07/15/18 09:24 Dose: 20 mg Heparin Sodium/Sodium Chloride (Heparin 18494 Units/250ml 1/2 Normal Saline) 25,000 units in 250 mls @ 4.2 mls/hr IV .Q24H PRN; Protocol PRN Reason: PROTOCOL Last Titration: 07/15/18 20:48 Dose: 26 units/kg/hr, 9.1 mls/hr Diltiazem HCl 125 mg/ Dextrose 125 mls @ 5 mls/hr IV .Q24H BILL; Protocol Last Admin: 07/15/18 20:03 Dose: Not Given Lidocaine (Lidoderm) 1 ea TD DAILY [facility] Last Admin: 07/15/18 09:22 Dose: 1 ea Oxycodone/Acetaminophen (Percocet 5/325 Mg Tab) 1 tab PO Q4H PRN PRN Reason: Pain, moderate (4-7) Stop: 07/18/18 05:18 Last Admin: 07/15/18 21:52 Dose: 1 tab Rosuvastatin Calcium (Crestor) 10 mg PO HS [facility] Last Admin: 07/15/18 21:52 Dose: 10 mg Sevelamer Carbonate (Renvela) 800 mg PO TIDCC [facility] Last Admin: 07/15/18 17:03 Dose: 800 mg Results - Vital Signs Recent Vital Signs: Last Vital Signs Temp 98.2 F 07/15/18 20:00 Pulse 76 07/15/18 22:00 Resp 16 07/15/18 22:00 BP 122/50 L 07/15/18 21:56 Pulse Ox 77 L 07/15/18 21:30 - Labs Result Diagrams: 07/15/18 06:22 07/15/18 06:22 Labs: Laboratory Results - last 24 hr 07/15/18 07/15/18 07/15/18 01:23 06:22 06:22 WBC 5.4 RBC 3.30 L Hgb 8.4 L Hct 26.7 L MCV 81.1 MCH 25.4 L MCHC 31.4 L RDW 20.9 H Plt Count 145 MPV 8.2 Neut % (Auto) 84.2 H Lymph % (Auto) 10.4 L [place] % (Auto) 4.7 Eos % (Auto) 0.5 Baso % (Auto) 0.2 Neut # (Auto) 4.5 Lymph # (Auto) 0.6 L [place] # (Auto) 0.3 Eos # (Auto) 0.0 Baso # (Auto) 0.0 APTT Sodium 131 L Potassium 4.6 Chloride 97 L Carbon Dioxide 30 Anion Gap 9 L BUN 32 H Creatinine 2.8 H Est GFR ( Amer) 20 Est GFR (Non-Af Amer) 17 POC Glucose (mg/dL) Random Glucose 71 Calcium 7.9 L Phosphorus 3.4 Magnesium 2.0 % Saturation Ferritin Total Bilirubin 0.6 AST 19 ALT 21 Alkaline Phosphatase 129 H D Troponin I 12.2000 H* Total Protein 4.8 L Albumin 2.4 L Globulin 2.5 Albumin/Globulin Ratio 1.0 TSH 3rd Generation 5.40 H 07/15/18 07/15/18 07/15/18 06:22 07:25 13:26 WBC RBC Hgb Hct MCV MCH MCHC RDW Plt Count MPV Neut % (Auto) Lymph % (Auto) [place] % (Auto) Eos % (Auto) Baso % (Auto) Neut # (Auto) Lymph # (Auto) [place] # (Auto) Eos # (Auto) Baso # (Auto) APTT 30 Sodium Potassium Chloride Carbon Dioxide Anion Gap BUN Creatinine Est GFR ( Amer) Est GFR (Non-Af Amer) POC Glucose (mg/dL) 106 Random Glucose Calcium Phosphorus Magnesium % Saturation 21 Ferritin Total Bilirubin AST ALT Alkaline Phosphatase Troponin I Total Protein Albumin Globulin Albumin/Globulin Ratio TSH 3rd Generation 07/15/18 07/15/18 07/15/18 13:26 13:26 20:14 WBC RBC Hgb Hct MCV MCH MCHC RDW Plt Count MPV Neut % (Auto) Lymph % (Auto) [place] % (Auto) Eos % (Auto) Baso % (Auto) Neut # (Auto) Lymph # (Auto) [place] # (Auto) Eos # (Auto) Baso # (Auto) APTT 32 37 H D Sodium Potassium Chloride Carbon Dioxide Anion Gap BUN Creatinine Est GFR ( Amer) Est GFR (Non-Af Amer) POC Glucose (mg/dL) Random Glucose Calcium Phosphorus Magnesium % Saturation Ferritin 927.0 Total Bilirubin AST ALT Alkaline Phosphatase Troponin I Total Protein Albumin Globulin Albumin/Globulin Ratio TSH 3rd Generation
--- NOTE | 2018-07-15 23:15 | CP.PCM.PN ---
Subjective - Date & Time of Evaluation Date of Evaluation: 07/15/18 Time of Evaluation: 16:20 - Subjective Subjective: Pt seen and examined Denies chest pain and dyspnea CCU Objective - Vital Signs / Intake & Output Vital Signs (Last 4 hours): Vital Signs Temp Pulse Resp BP Pulse Ox 07/15/18 09:00 131 H 17 07/15/18 08:56 107 H 14 103/64 07/15/18 08:30 71 14 07/15/18 08:00 97.5 F L 65 13 07/15/18 07:57 66 11 L 103/38 L 07/15/18 07:30 125 H 16 07/15/18 07:00 141 H 15 96 07/15/18 06:56 125 H 14 128/52 L 100 07/15/18 06:30 123 H 16 Intake and Output (Last 8hrs): Intake & Output 07/14/18 07/15/18 07/15/18 22:59 06:59 14:59 Intake Total 344.9 430.7 321 Output Total 0 0 0 Balance 344.9 430.7 321 Weight 77 lb 2.589 oz 77 lb 2.589 oz Intake: IV 33 97 40 Intake, IV Amount 66.9 73.7 41 Left Forearm 29.4 46.2 21 Left Forearm #2 37.5 27.5 20 Oral 245 260 240 Output: Urine 0 0 0 Urine, Voided 0 0 0 Stool 0 0 0 Emesis 0 0 0 - Physical Exam Head: Positive for: Atraumatic, Normocephalic Pupils: Positive for: PERRL Extroacular Muscles: Positive for: EOMI Conjunctiva: Positive for: Normal Mouth: Positive for: Moist Mucous Membranes Neck: Positive for: Normal Range of Motion Respiratory/Chest: Positive for: Clear to Auscultation, Good Air Exchange. Negative for: Wheezes, Rales, Rhonchi Cardiovascular: Positive for: Regular Rate and Rhythm, Normal S1, S2. Negative for: Murmurs, Rub, Gallop Abdomen: Positive for: Normal Bowel Sounds. Negative for: Tenderness, Disten tion, Mass/Organomegaly Upper Extremity: Positive for: Normal Inspection, Normal ROM, Neurovascularly Intact, Capillary Refill < 2s. Negative for: Cyanosis, Edema Lower Extremity: Positive for: Normal Inspection, Neurovascularly Intact, Capillary Refill < 2 s. Negative for: Edema Neurological: Positive for: GCS=15, CN II-XII Intact, Speech Normal Skin: Positive for: Warm, Dry Psychiatric: Positive for: Alert, Oriented x 3 Objective - Vital Signs/Intake and Output Vital Signs (last 24 hours): Temp Pulse Resp BP Pulse Ox 98.2 F 76 16 122/50 L 77 L 07/15/18 20:00 07/15/18 22:00 07/15/18 22:00 07/15/18 21:56 07/15/18 21:30 Intake and Output: 07/15/18 07/16/18 18:59 06:59 Intake Total 1006.0 263.0 Output Total 0 0 Balance 1006.0 263.0 - Medications Medications: Current Medications Acetaminophen (Tylenol 325mg Tab) 650 mg PO Q6 PRN PRN Reason: Pain, Mild (1-3) Last Admin: 07/15/18 04:16 Dose: 650 mg Albuterol (Ventolin Hfa 90 Mcg/Actuation (8 G)) 2 puff IH Q4H PRN Aspirin (Aspirin Chewable) 81 mg PO DAILY [facility] Last Admin: 07/15/18 09:24 Dose: 81 mg Cinacalcet (Sensipar) 90 mg PO DAILY [facility] Last Admin: 07/15/18 09:24 Dose: 90 mg Clopidogrel Bisulfate (Plavix) 75 mg PO DAILY [facility] Last Admin: 07/15/18 09:24 Dose: 75 mg Diltiazem HCl (Cardizem Cd) 180 mg PO DAILY [facility] Last Admin: 07/15/18 09:24 Dose: 180 mg Ezetimibe (Zetia) 10 mg PO DAILY [facility] Last Admin: 07/15/18 09:21 Dose: 10 mg Epoetin Amol (Procrit) 10,000 unit IV MWF [facility] Famotidine (Pepcid) 20 mg PO DAILY [facility] Last Admin: 07/15/18 09:24 Dose: 20 mg Heparin Sodium/Sodium Chloride (Heparin 55115 Units/250ml 1/2 Normal Saline) 25,000 units in 250 mls @ 4.2 mls/hr IV .Q24H PRN; Protocol PRN Reason: PROTOCOL Last Titration: 07/15/18 20:48 Dose: 26 units/kg/hr, 9.1 mls/hr Diltiazem HCl 125 mg/ Dextrose 125 mls @ 5 mls/hr IV .Q24H BILL; Protocol Last Admin: 07/15/18 20:03 Dose: Not Given Lidocaine (Lidoderm) 1 ea TD DAILY [facility] Last Admin: 07/15/18 09:22 Dose: 1 ea Oxycodone/Acetaminophen (Percocet 5/325 Mg Tab) 1 tab PO Q4H PRN PRN Reason: Pain, moderate (4-7) Stop: 07/18/18 05:18 Last Admin: 07/15/18 21:52 Dose: 1 tab Rosuvastatin Calcium (Crestor) 10 mg PO HS [facility] Last Admin: 07/15/18 21:52 Dose: 10 mg Sevelamer Carbonate (Renvela) 800 mg PO TIDCC [facility] Last Admin: 07/15/18 17:03 Dose: 800 mg - Labs Labs: 07/15/18 06:22 07/15/18 06:22 PT 12.0 SECONDS (9.7-12.2) 07/14/18 12:55 INR 1.1 07/14/18 12:55 APTT 37 SECONDS (21-34) H D 07/15/18 20:14 Assessment and Plan - Assessment and Plan (Free Text) Assessment: 68 y/ o female with hx of ESRD on HD, AFib (on Coumadin), HTN, BL LE Amputee, DM, CPD, CAD, PAD brought to ER from HD center as she was complaining of chest pain and palpitations 1hour into her HD session today on 07/15/18. On presentation, pt was noted to be in Rapid Afib with RVR which responded to IV Cardizem followed with PO Cardizem. Troponin was also noted to be elevated at 10.5, repeats trending up, likely 2/2 pt being on dialysis. Admitted to ICU for closer monitoring in setting of elevated troponin, Cardizem drip to be tapered down as pt transitions to PO Cardizem. Plan: Neuro - AAOx3 Cardio - Hemodynamically stable - EKG: AFib with RVR, no ischemic changes - S/P Cardizem -5mg IV and 60mg PO in ED with conversion to sinus rhythm - Cardizem drip to be tapered down, transition to PO Cardizem - Now rate and rhythm controlled - Will continue with oral home dose of Metoprolol and Cardizem - Hold Warfarin for now. Currently on Heparin Drip - Troponin 10.5 (baseline troponin ~0.3). Repeats elevated, likely 2/2 pt being on dialysis - ProBNP 140k, euvolemic on exam - Cxray no acute cardiopulmonary disease, no pulmonary vascular congestion - Myocardial Stress Test (03/2018): Normal, EF 48% - Last Echo (03/2018): EF 50-55%, Mild LVH, Left Atrial pressure moderately elevated, RVSP 37, Mild pulmonary HTN, Mild- mod pericardial effusion noted - Continuous cardiac monitoring in ICU -Not a candidate for cath due to vascular access issues Pulm - Hx of Asthma/COPD - Albuterol prn - Saturating well on NC, cont to monitor GI - Renal Diet Renal - ESRD on HD MWF - BUN 22 Cr 2.0 (baseline Cr 2-3) on admission; cont to trend - Nephrology consulted, Dr. [place] Heme - Hg 9.3 on admission - Chronically Anemic, Likely ACD - Coagulation: INR 1.1, subtherapeutic in setting of poor medication compliance; f/u am coags - Will hold Coumadin for now and maintain pt on Heparin ggt MSK - Left hip pain s/p Fall - Femur Xray reviewed from (07/01): No acute fx or dislocation - Tylenol prn PPX: - DVT ppx, on Heparin ggt - GI ppx, Pepcid PO
[2018-07-16] MEDS ORDERED: HYDROmorphone 1 mg/ml ISec IVP STA (00:58)
[2018-07-16 03:00] LABS: BASO % 0.1 % (0.0-2.0); EOS % 0.1 % (0.0-4.0); HEMOGLOBIN 7.7 g/dL (11.0-16.0); LYMPH # 0.4 K/uL (1.0-4.3); LYMPH % 6.6 % (20.0-40.0); MEAN CELL VOLUME 80.4 fL (81.0-99.0); MEAN CORPUSCULAR HEMOGLOBIN 24.6 pg (27.0-31.0); MEAN CORPUSCULAR HGB CONC 30.6 g/dL (33.0-37.0); MEAN PLATELET VOLUME 7.7 fL (7.2-11.7); MONO # 0.2 K/uL (0.0-0.8); MONO % 3.2 % (0.0-10.0); PLATELET COUNT 161 K/uL (130-400); RBC 3.13 Mil/uL (3.80-5.20); RED CELL DISTRIBUTION WIDTH 21.1 % (11.5-14.5); WHITE BLOOD COUNT 6.7 K/uL (4.8-10.8)
[2018-07-16 03:38] LABS: ALBUMIN 2.3 g/dL (3.5-5.0); CALCIUM 7.5 mg/dl (8.6-10.4)
[2018-07-16] MEDS: Heparin25000 units/250ml 1/2NS 25,000 UNITS/250 ML BAG IV PRN ×2 (03:43→14:36)
[2018-07-16 05:03] LABS: ANISOCYTOSIS MODERATE; HYPOCHROMIC MODERATE; LYMPHOCYTE 6 % (20-40); MONOCYTE 5 % (0-10); NEUTROPHIL 89 % (50-75); PLATELET ESTIMATE NORMAL (NORMAL); POIKILOCYTOSIS MODERATE; TOTAL CELLS COUNTED 100
[2018-07-16] MEDS: Oxycodone/Acetaminophen 5/325 mg Tab PO PRN (06:13)
[2018-07-16] MEDS: diltiaZEM 180 mg/24 Hours CD Cap PO SCH ×2 (06:46→11:54)
[2018-07-16] MEDS ORDERED: Epoetin Alfa 10,000 unit/ml Dialysis IV SCH (09:00)
[2018-07-16] MEDS: Lidocaine 5% Patch TD SCH (11:51)
--- NOTE | 2018-07-16 12:56 | CP.PCM.PN ---
Subjective - Date & Time of Evaluation Date of Evaluation: 07/16/18 Time of Evaluation: 12:53 - Subjective Subjective: pt seen and examined. a. fib with rvr. pos troponin. discussed with dr. garrett, treat medicallt. cardizem po. Objective - Vital Signs/Intake and Output Vital Signs (last 24 hours): Temp Pulse Resp BP Pulse Ox 98.1 F 155 H 15 125/56 L 96 07/16/18 12:00 07/16/18 12:30 07/16/18 12:30 07/16/18 12:14 07/16/18 12:30 Intake and Output: 07/16/18 07/16/18 06:59 18:59 Intake Total 427.8 227.3 Output Total 0 Balance 427.8 227.3 - Medications Medications: Current Medications Acetaminophen (Tylenol 325mg Tab) 650 mg PO Q6 PRN PRN Reason: Pain, Mild (1-3) Last Admin: 07/15/18 04:16 Dose: 650 mg Albuterol (Ventolin Hfa 90 Mcg/Actuation (8 G)) 2 puff IH Q4H PRN Aspirin (Aspirin Chewable) 81 mg PO DAILY [facility] Last Admin: 07/16/18 11:52 Dose: 81 mg Cinacalcet (Sensipar) 90 mg PO DAILY [facility] Last Admin: 07/16/18 11:53 Dose: 90 mg Clopidogrel Bisulfate (Plavix) 75 mg PO DAILY [facility] Last Admin: 07/16/18 11:52 Dose: 75 mg Diltiazem HCl (Cardizem Cd) 180 mg PO DAILY [facility] Last Admin: 07/16/18 11:54 Dose: Not Given Ezetimibe (Zetia) 10 mg PO DAILY [facility] Last Admin: 07/16/18 11:51 Dose: 10 mg Epoetin Amol (Procrit) 10,000 unit IV MWF [facility] Famotidine (Pepcid) 20 mg PO DAILY [facility] Last Admin: 07/16/18 11:51 Dose: 20 mg Heparin Sodium/Sodium Chloride (Heparin 75064 Units/250ml 1/2 Normal Saline) 25,000 units in 250 mls @ 4.2 mls/hr IV .Q24H PRN; Protocol PRN Reason: PROTOCOL Last Admin: 07/16/18 03:43 Dose: 26 units/kg/hr, 9.1 mls/hr Diltiazem HCl 125 mg/ Dextrose 125 mls @ 5 mls/hr IV .Q24H BILL; Protocol Last Admin: 07/15/18 20:03 Dose: Not Given Lidocaine (Lidoderm) 1 ea TD DAILY [facility] Last Admin: 07/16/18 11:51 Dose: 1 ea Oxycodone/Acetaminophen (Percocet 5/325 Mg Tab) 1 tab PO Q4H PRN PRN Reason: Pain, moderate (4-7) Stop: 07/18/18 05:18 Last Admin: 07/16/18 06:13 Dose: 1 tab Rosuvastatin Calcium (Crestor) 10 mg PO HS [facility] Last Admin: 07/15/18 21:52 Dose: 10 mg Sevelamer Carbonate (Renvela) 800 mg PO TIDCC [facility] Last Admin: 07/16/18 11:52 Dose: 800 mg - Labs Labs: 07/16/18 02:54 07/16/18 02:54 PT 12.0 SECONDS (9.7-12.2) 07/14/18 12:55 INR 1.1 07/14/18 12:55 APTT 37 SECONDS (21-34) H D 07/16/18 09:10 - Constitutional Appears: Chronically Ill - Eye Exam Eye Exam: PERRL - ENT Exam ENT Exam: Mucous Membranes Moist - Respiratory Exam Respiratory Exam: Clear to Ausculation Bilateral, NORMAL BREATHING PATTERN - Cardiovascular Exam Cardiovascular Exam: Irregular Rhythm, +S1, +S2 - GI/Abdominal Exam GI & Abdominal Exam: Soft, Normal Bowel Sounds - Back Exam Back Exam: NORMAL INSPECTION Assessment and Plan - Assessment and Plan (Free Text) Assessment: same. Plan: as per icu.
--- NOTE | 2018-07-16 13:41 | CP.PCM.PN ---
Subjective - Date & Time of Evaluation Date of Evaluation: 07/16/18 Time of Evaluation: 13:38 - Subjective Subjective: post dialysis now had runs of SVT- given IV diltiazem on oral diltiazem as well no other complaints Hg low- on EPO Objective - Vital Signs/Intake and Output Vital Signs (last 24 hours): Temp Pulse Resp BP Pulse Ox 98.1 F 155 H 15 125/56 L 96 07/16/18 12:00 07/16/18 12:30 07/16/18 12:30 07/16/18 12:14 07/16/18 12:30 Intake and Output: 07/16/18 07/16/18 06:59 18:59 Intake Total 427.8 227.3 Output Total 0 Balance 427.8 227.3 - Medications Medications: Current Medications Acetaminophen (Tylenol 325mg Tab) 650 mg PO Q6 PRN PRN Reason: Pain, Mild (1-3) Last Admin: 07/15/18 04:16 Dose: 650 mg Albuterol (Ventolin Hfa 90 Mcg/Actuation (8 G)) 2 puff IH Q4H PRN Aspirin (Aspirin Chewable) 81 mg PO DAILY [facility] Last Admin: 07/16/18 11:52 Dose: 81 mg Cinacalcet (Sensipar) 90 mg PO DAILY [facility] Last Admin: 07/16/18 11:53 Dose: 90 mg Clopidogrel Bisulfate (Plavix) 75 mg PO DAILY [facility] Last Admin: 07/16/18 11:52 Dose: 75 mg Diltiazem HCl (Cardizem Cd) 180 mg PO DAILY [facility] Last Admin: 07/16/18 11:54 Dose: Not Given Ezetimibe (Zetia) 10 mg PO DAILY [facility] Last Admin: 07/16/18 11:51 Dose: 10 mg Epoetin Amol (Procrit) 10,000 unit IV MWF [facility] Famotidine (Pepcid) 20 mg PO DAILY [facility] Last Admin: 07/16/18 11:51 Dose: 20 mg Heparin Sodium/Sodium Chloride (Heparin 23309 Units/250ml 1/2 Normal Saline) 25,000 units in 250 mls @ 4.2 mls/hr IV .Q24H PRN; Protocol PRN Reason: PROTOCOL Last Admin: 07/16/18 03:43 Dose: 26 units/kg/hr, 9.1 mls/hr Diltiazem HCl 125 mg/ Dextrose 125 mls @ 5 mls/hr IV .Q24H BILL; Protocol Last Admin: 07/16/18 13:19 Dose: 10 mg/hr, 10 mls/hr Lidocaine (Lidoderm) 1 ea TD DAILY [facility] Last Admin: 07/16/18 11:51 Dose: 1 ea Oxycodone/Acetaminophen (Percocet 5/325 Mg Tab) 1 tab PO Q4H PRN PRN Reason: Pain, moderate (4-7) Stop: 07/18/18 05:18 Last Admin: 07/16/18 06:13 Dose: 1 tab Rosuvastatin Calcium (Crestor) 10 mg PO HS [facility] Last Admin: 07/15/18 21:52 Dose: 10 mg Sevelamer Carbonate (Renvela) 800 mg PO TIDCC [facility] Last Admin: 07/16/18 11:52 Dose: 800 mg - Labs Labs: 07/16/18 02:54 07/16/18 02:54 PT 12.0 SECONDS (9.7-12.2) 07/14/18 12:55 INR 1.1 07/14/18 12:55 APTT 37 SECONDS (21-34) H D 07/16/18 09:10 - Constitutional Appears: No Acute Distress, Chronically Ill - Head Exam Head Exam: ATRAUMATIC, NORMAL INSPECTION - Eye Exam Eye Exam: EOMI, Normal appearance - Neck Exam Neck Exam: Normal Inspection. absent: Tenderness - Respiratory Exam Respiratory Exam: Clear to Ausculation Bilateral, NORMAL BREATHING PATTERN - Cardiovascular Exam Cardiovascular Exam: Tachycardia, Irregular Rhythm - GI/Abdominal Exam GI & Abdominal Exam: Soft. absent: Tenderness - Extremities Exam Extremities Exam: Tenderness - Neurological Exam Neurological Exam: Awake, CN II-XII Intact - Skin Skin Exam: Dry, Warm Assessment and Plan (1) Rapid atrial fibrillation Status: Acute (2) ADPKD (autosomal dominant polycystic kidney disease) Status: Acute (3) CAD (coronary artery disease) Status: Acute (4) Secondary hyperparathyroidism Status: Acute (5) ESRD (end stage renal disease) Status: Acute (6) PVD (peripheral vascular disease) Status: Acute - Assessment and Plan (Free Text) Assessment: dialysis MWF decrease UF goal follow up labs rate control as per cardio
[2018-07-16] MEDS ORDERED: Heparin25000 units/250ml 1/2NS 25,000 UNITS/250 ML BAG IV PRN ×2 (13:48→14:20)
--- NOTE | 2018-07-16 18:35 | CP.CCUPN ---
<Mónica Jane - Last Filed: 07/16/18 18:30> CCU Subjective - Physician Review Subjective (Free Text): 07/16/18 Seen and evaluated at the bedside with Dr. Gabriel. Denies complaints. Seen eating breakast. Was Afibb with HR in 130-140's am. Restarted Cardizem ggt. Plan for HD today. Critical Care Time Spent (in minutes): 35 CCU Objective - Vital Signs / Intake & Output Vital Signs (Last 4 hours): Vital Signs Temp Pulse Pulse Resp BP BP Pulse Ox 07/16/18 10:20 98 F 84 84 16 119/47 L 119/47 L 100 07/16/18 09:37 84 20 104/43 L 07/16/18 09:30 83 15 07/16/18 09:22 119 H 19 117/48 L 84 L 07/16/18 09:07 130 H 17 130/56 L 07/16/18 09:00 127 H 14 07/16/18 08:30 162 H 16 07/16/18 08:00 98.0 F 114 H 14 100 07/16/18 07:57 121 H 12 120/60 100 Intake and Output (Last 8hrs): Intake & Output 07/15/18 07/16/18 07/16/18 22:59 06:59 14:59 Intake Total 604.6 164.8 227.3 Output Total 0 0 Balance 604.6 164.8 227.3 Weight 83 lb 5.356 oz 38 lb 9.6 oz Intake: IV 110 32 Intake, IV Amount 74.6 72.8 27.3 Left Forearm 68.6 72.8 27.3 Left Forearm #2 6 0 Left Wrist 0 0 Oral 420 60 200 Output: Urine 0 0 Urine, Voided 0 0 Emesis 0 0 Other: # Voids Urine, Voided 0 # Bowel Movements 0 - Physical Exam Head: Positive for: Atraumatic, Normocephalic Pupils: Positive for: PERRL Extroacular Muscles: Positive for: EOMI Conjunctiva: Positive for: Normal Mouth: Positive for: Moist Mucous Membranes Neck: Positive for: Normal Range of Motion Respiratory/Chest: Positive for: Clear to Auscultation, Good Air Exchange. Negative for: Wheezes, Rales, Rhonchi Cardiovascular: Positive for: Regular Rate and Rhythm, Normal S1, S2. Negative for: Murmurs, Rub, Gallop Abdomen: Positive for: Normal Bowel Sounds. Negative for: Tenderness, Distention, Mass/Organomegaly Upper Extremity: Positive for: Normal Inspection, Normal ROM, Neurovascularly Intact, Capillary Refill < 2s. Negative for: Cyanosis, Edema Lower Extremity: Positive for: Normal Inspection, Neurovascularly Intact, Capillary Refill < 2 s. Negative for: Edema Neurological: Positive for: GCS=15, CN II-XII Intact, Speech Normal Skin: Positive for: Warm, Dry Psychiatric: Positive for: Alert, Oriented x 3 - Medications Active Medications: Active Medications Generic Name Dose Route Start Last Admin Trade Name Freq PRN Reason Stop Dose Admin Acetaminophen 650 mg 07/14/18 15:27 07/15/18 04:16 Tylenol 325mg Tab PO 650 mg Q6 PRN Administration Pain, Mild (1-3) Albuterol 2 puff 07/14/18 15:37 Ventolin Hfa 90 Mcg/Actuation (8 G) IH Q4H PRN Aspirin 81 mg 07/15/18 10:00 07/15/18 09:24 Aspirin Chewable PO 81 mg DAILY BILL Administration Cinacalcet 90 mg 07/15/18 10:00 07/15/18 09:24 Sensipar PO 90 mg DAILY BILL Administration Clopidogrel Bisulfate 75 mg 07/15/18 10:00 07/15/18 09:24 Plavix PO 75 mg DAILY BILL Administration Diltiazem HCl 180 mg 07/15/18 10:00 07/16/18 06:46 Cardizem Cd PO 180 mg DAILY BILL Administration Ezetimibe 10 mg 07/15/18 10:00 07/15/18 09:21 Zetia PO 10 mg DAILY BILL Administration Epoetin Amol 10,000 unit 07/16/18 09:00 Procrit IV MWF [facility] Famotidine 20 mg 07/14/18 15:30 07/15/18 09:24 Pepcid PO 20 mg DAILY BILL Administration Heparin Sodium/Sodium Chloride 25,000 units in 250 mls @ 4.2 mls/hr 07/14/18 17:23 07/16/18 03:43 Heparin 39413 Units/250ml 1/2 Normal Saline IV 26 units/kg/hr .Q24H PRN 9.1 mls/hr PROTOCOL Administration Protocol 12 UNITS/KG/HR Diltiazem HCl 125 mg/ Dextrose 125 mls @ 5 mls/hr 07/14/18 19:00 07/15/18 20:03 IV Not Given .Q24H BILL Protocol 5 MG/HR Lidocaine 1 ea 07/15/18 10:00 07/15/18 09:22 Lidoderm TD 1 ea DAILY BILL Administration Oxycodone/Acetaminophen 1 tab 07/15/18 05:17 07/16/18 06:13 Percocet 5/325 Mg Tab PO 07/18/18 05:18 1 tab Q4H PRN Administration Pain, moderate (4-7) Rosuvastatin Calcium 10 mg 07/15/18 22:00 07/15/18 21:52 Crestor PO 10 mg HS BILL Administration Sevelamer Carbonate 800 mg 07/14/18 17:00 07/16/18 07:56 Renvela PO 800 mg TIDCC BILL Administration - Patient Studies Lab Studies: Microbiology Studies 07/14/18 20:56 MRSA Culture (Admit) - Final Naris MRSA NOT DETECTED Lab Studies 07/16/18 07/16/18 07/16/18 Range/Units 09:10 02:54 02:54 WBC 6.7 (4.8-10.8) K/uL RBC 3.13 L (3.80-5.20) Mil/uL Hgb 7.7 L (11.0-16.0) g/dL Hct 25.1 L (34.0-47.0) % MCV 80.4 L (81.0-99.0) fL MCH 24.6 L (27.0-31.0) pg MCHC 30.6 L (33.0-37.0) g/dL RDW 21.1 H (11.5-14.5) % Plt Count 161 (130-400) K/uL MPV 7.7 (7.2-11.7) fL Neut % (Auto) 90.0 H (50.0-75.0) % Lymph % (Auto) 6.6 L (20.0-40.0) % Nuckolls % (Auto) 3.2 (0.0-10.0) % Eos % (Auto) 0.1 (0.0-4.0) % Baso % (Auto) 0.1 (0.0-2.0) % Neut # (Auto) 6.0 (1.8-7.0) K/uL Lymph # (Auto) 0.4 L (1.0-4.3) K/uL Nuckolls # (Auto) 0.2 (0.0-0.8) K/uL Eos # (Auto) 0.0 (0.0-0.7) K/uL Baso # (Auto) 0.0 (0.0-0.2) K/uL Neutrophils % (Manual) 89 H (50-75) % Lymphocytes % (Manual) 6 L (20-40) % Monocytes % (Manual) 5 (0-10) % Platelet Estimate Normal (NORMAL) Hypochromasia (manual) Moderate Poikilocytosis (manual Moderate Anisocytosis (manual) Moderate APTT 37 H D 46 H D (21-34) SECONDS Sodium (132-148) mmol/L Potassium (3.6-5.2) mmol/L Chloride (98-107) mmol/L Carbon Dioxide (22-30) mmol/L Anion Gap (10-20) BUN (7-17) mg/dL Creatinine (0.7-1.2) mg/dL Est GFR ( Amer) Est GFR (Non-Af Amer) POC Glucose (mg/dL) (65-110) mg/dL Random Glucose (65-105) mg/dL Calcium (8.6-10.4) mg/dl Phosphorus (2.5-4.5) mg/dL Magnesium (1.6-2.3) mg/dL % Saturation (20-55) Ferritin ng/mL Total Bilirubin (0.2-1.3) mg/dL AST (14-36) U/L ALT (9-52) U/L Alkaline Phosphatase (38-126) U/L Total Protein (6.3-8.3) g/dL Albumin (3.5-5.0) g/dL Globulin (2.2-3.9) gm/dL Albumin/Globulin Ratio (1.0-2.1) 07/16/18 07/15/18 07/15/18 Range/Units 02:54 20:14 13:26 WBC (4.8-10.8) K/uL RBC (3.80-5.20) Mil/uL Hgb (11.0-16.0) g/dL Hct (34.0-47.0) % MCV (81.0-99.0) fL MCH (27.0-31.0) pg MCHC (33.0-37.0) g/dL RDW (11.5-14.5) % Plt Count (130-400) K/uL MPV (7.2-11.7) fL Neut % (Auto) (50.0-75.0) % Lymph % (Auto) (20.0-40.0) % Nuckolls % (Auto) (0.0-10.0) % Eos % (Auto) (0.0-4.0) % Baso % (Auto) (0.0-2.0) % Neut # (Auto) (1.8-7.0) K/uL Lymph # (Auto) (1.0-4.3) K/uL Nuckolls # (Auto) (0.0-0.8) K/uL Eos # (Auto) (0.0-0.7) K/uL Baso # (Auto) (0.0-0.2) K/uL Neutrophils % (Manual) (50-75) % Lymphocytes % (Manual) (20-40) % Monocytes % (Manual) (0-10) % Platelet Estimate (NORMAL) Hypochromasia (manual) Poikilocytosis (manual Anisocytosis (manual) APTT 37 H D 32 (21-34) SECONDS Sodium 130 L (132-148) mmol/L Potassium 4.1 (3.6-5.2) mmol/L Chloride 96 L (98-107) mmol/L Carbon Dioxide 27 (22-30) mmol/L Anion Gap 11 (10-20) BUN 38 H (7-17) mg/dL Creatinine 3.6 H (0.7-1.2) mg/dL Est GFR ( Amer) 15 Est GFR (Non-Af Amer) 13 POC Glucose (mg/dL) (65-110) mg/dL Random Glucose 76 (65-105) mg/dL Calcium 7.5 L (8.6-10.4) mg/dl Phosphorus 3.2 (2.5-4.5) mg/dL Magnesium 2.2 (1.6-2.3) mg/dL % Saturation (20-55) Ferritin ng/mL Total Bilirubin 0.4 (0.2-1.3) mg/dL AST 9 L D (14-36) U/L ALT 22 (9-52) U/L Alkaline Phosphatase 139 H (38-126) U/L Total Protein 4.6 L (6.3-8.3) g/dL Albumin 2.3 L (3.5-5.0) g/dL Globulin 2.4 (2.2-3.9) gm/dL Albumin/Globulin Ratio 1.0 (1.0-2.1) 07/15/18 07/15/18 07/15/18 Range/Units 13:26 13:26 07:25 WBC (4.8-10.8) K/uL RBC (3.80-5.20) Mil/uL Hgb (11.0-16.0) g/dL Hct (34.0-47.0) % MCV (81.0-99.0) fL MCH (27.0-31.0) pg MCHC (33.0-37.0) g/dL RDW (11.5-14.5) % Plt Count (130-400) K/uL MPV (7.2-11.7) fL Neut % (Auto) (50.0-75.0) % Lymph % (Auto) (20.0-40.0) % Nuckolls % (Auto) (0.0-10.0) % Eos % (Auto) (0.0-4.0) % Baso % (Auto) (0.0-2.0) % Neut # (Auto) (1.8-7.0) K/uL Lymph # (Auto) (1.0-4.3) K/uL Nuckolls # (Auto) (0.0-0.8) K/uL Eos # (Auto) (0.0-0.7) K/uL Baso # (Auto) (0.0-0.2) K/uL Neutrophils % (Manual) (50-75) % Lymphocytes % (Manual) (20-40) % Monocytes % (Manual) (0-10) % Platelet Estimate (NORMAL) Hypochromasia (manual) Poikilocytosis (manual Anisocytosis (manual) APTT (21-34) SECONDS Sodium (132-148) mmol/L Potassium (3.6-5.2) mmol/L Chloride (98-107) mmol/L Carbon Dioxide (22-30) mmol/L Anion Gap (10-20) BUN (7-17) mg/dL Creatinine (0.7-1.2) mg/dL Est GFR ( Amer) Est GFR (Non-Af Amer) POC Glucose (mg/dL) 106 (65-110) mg/dL Random Glucose (65-105) mg/dL Calcium (8.6-10.4) mg/dl Phosphorus (2.5-4.5) mg/dL Magnesium (1.6-2.3) mg/dL % Saturation 21 (20-55) Ferritin 927.0 ng/mL Total Bilirubin (0.2-1.3) mg/dL AST (14-36) U/L ALT (9-52) U/L Alkaline Phosphatase (38-126) U/L Total Protein (6.3-8.3) g/dL Albumin (3.5-5.0) g/dL Globulin (2.2-3.9) gm/dL Albumin/Globulin Ratio (1.0-2.1) Laboratory Results - last 24 hr 07/15/18 07/15/18 07/15/18 07:25 13:26 13:26 WBC RBC Hgb Hct MCV MCH MCHC RDW Plt Count MPV Neut % (Auto) Lymph % (Auto) Nuckolls % (Auto) Eos % (Auto) Baso % (Auto) Neut # (Auto) Lymph # (Auto) Nuckolls # (Auto) Eos # (Auto) Baso # (Auto) Neutrophils % (Manual) Lymphocytes % (Manual) Monocytes % (Manual) Platelet Estimate Hypochromasia (manual) Poikilocytosis (manual Anisocytosis (manual) APTT Sodium Potassium Chloride Carbon Dioxide Anion Gap BUN Creatinine Est GFR ( Amer) Est GFR (Non-Af Amer) POC Glucose (mg/dL) 106 Random Glucose Calcium Phosphorus Magnesium % Saturation 21 Ferritin 927.0 Total Bilirubin AST ALT Alkaline Phosphatase Total Protein Albumin Globulin Albumin/Globulin Ratio 07/15/18 07/15/18 07/16/18 13:26 20:14 02:54 WBC RBC Hgb Hct MCV MCH MCHC RDW Plt Count MPV Neut % (Auto) Lymph % (Auto) Nuckolls % (Auto) Eos % (Auto) Baso % (Auto) Neut # (Auto) Lymph # (Auto) Nuckolls # (Auto) Eos # (Auto) Baso # (Auto) Neutrophils % (Manual) Lymphocytes % (Manual) Monocytes % (Manual) Platelet Estimate Hypochromasia (manual) Poikilocytosis (manual Anisocytosis (manual) APTT 32 37 H D Sodium 130 L Potassium 4.1 Chloride 96 L Carbon Dioxide 27 Anion Gap 11 BUN 38 H Creatinine 3.6 H Est GFR ( Amer) 15 Est GFR (Non-Af Amer) 13 POC Glucose (mg/dL) Random Glucose 76 Calcium 7.5 L Phosphorus 3.2 Magnesium 2.2 % Saturation Ferritin Total Bilirubin 0.4 AST 9 L D ALT 22 Alkaline Phosphatase 139 H Total Protein 4.6 L Albumin 2.3 L Globulin 2.4 Albumin/Globulin Ratio 1.0 07/16/18 07/16/18 07/16/18 02:54 02:54 09:10 WBC 6.7 RBC 3.13 L Hgb 7.7 L Hct 25.1 L MCV 80.4 L MCH 24.6 L MCHC 30.6 L RDW 21.1 H Plt Count 161 MPV 7.7 Neut % (Auto) 90.0 H Lymph % (Auto) 6.6 L Nuckolls % (Auto) 3.2 Eos % (Auto) 0.1 Baso % (Auto) 0.1 Neut # (Auto) 6.0 Lymph # (Auto) 0.4 L Nuckolls # (Auto) 0.2 Eos # (Auto) 0.0 Baso # (Auto) 0.0 Neutrophils % (Manual) 89 H Lymphocytes % (Manual) 6 L Monocytes % (Manual) 5 Platelet Estimate Normal Hypochromasia (manual) Moderate Poikilocytosis (manual Moderate Anisocytosis (manual) Moderate APTT 46 H D 37 H D Sodium Potassium Chloride Carbon Dioxide Anion Gap BUN Creatinine Est GFR ( Amer) Est GFR (Non-Af Amer) POC Glucose (mg/dL) Random Glucose Calcium Phosphorus Magnesium % Saturation Ferritin Total Bilirubin AST ALT Alkaline Phosphatase Total Protein Albumin Globulin Albumin/Globulin Ratio Fingerstick Blood Sugar Results: 74 Critical Care Progress Note - Nutrition Nutrition: Nutrition Category Date Time Status Renal Diet [DIET] Diets 07/14/18 Lunch Active Assessment/Plan - Assessment and Plan (Free Text) Assessment: 68 y/ o female with hx of ESRD on HD, AFib (on Coumadin), HTN, BL LE Amputee, DM, CPD, CAD, PAD brought to ER from HD center as she was complaining of chest pain and palpitations 1hour into her HD session today on 07/15/18. On presentation, pt was noted to be in Rapid Afib with RVR which responded to IV Cardizem followed with PO Cardizem. Troponin was also noted to be elevated at 10.5, repeats trending up, likely 2/2 pt being on dialysis. Admitted to ICU for closer monitoring in setting of elevated troponin, Cardizem drip to be tapered down as pt transitions to PO Cardizem. Plan: Neuro - AAOx3 Cardio - Hemodynamically stable - EKG: AFib with RVR, no ischemic changes - S/P Cardizem -5mg IV and 60mg PO in ED with conversion to sinus rhythm - Cardizem drip to be tapered down, transition to PO Cardizem as tolerated - Now rate and rhythm controlled - Will continue with oral home dose of Metoprolol and Cardizem - Hold Warfarin for now. Currently on Heparin Drip - Troponin 10.5 (baseline troponin ~0.3). Repeats elevated, likely 2/2 pt being on dialysis - ProBNP 140k, euvolemic on exam - Cxray no acute cardiopulmonary disease, no pulmonary vascular congestion - Myocardial Stress Test (03/2018): Normal, EF 48% - Last Echo (03/2018): EF 50-55%, Mild LVH, Left Atrial pressure moderately elevated, RVSP 37, Mild pulmonary HTN, Mild- mod pericardial effusion noted - Continuous cardiac monitoring in ICU - Cardiology consulted- no cardiac intervention given pt's vascular issues Pulm - Hx of Asthma/COPD - Albuterol prn - Saturating well on NC, cont to monitor GI - Renal Diet Renal - ESRD on HD MWF - BUN 22 Cr 2.0 (baseline Cr 2-3) on admission; cont to trend - Nephrology consulted, Dr. North Heme - Hg 9.3 on admission. No 7.7. Will monitor closely and transfuse if needed - Chronically Anemic, Likely ACD - Coagulation: INR 1.1, subtherapeutic in setting of poor medication compliance; f/u am coags - Will hold Coumadin for now and maintain pt on Heparin ggt MSK - Left hip pain s/p Fall - Femur Xray reviewed from (07/01): No acute fx or dislocation - Tylenol prn PPX: - DVT ppx, on Heparin ggt - GI ppx, Pepcid PO Pt seen, examined with, and plan discussed with Dr. Gabriel, attending physician. Mónica Jane, PGY2 <Jae Gabriel M - Last Filed: 07/17/18 20:18> CCU Objective - Vital Signs / Intake & Output Vital Signs (Last 4 hours): Vital Signs Pulse Resp BP 07/17/18 18:00 82 24 07/17/18 17:56 80 20 90/43 L 07/17/18 17:00 81 15 07/17/18 16:56 82 18 97/44 L Intake and Output (Last 8hrs): Intake & Output 07/17/18 07/17/18 07/17/18 06:59 14:59 22:59 Intake Total 428.4 598.4 219.2 Balance 428.4 598.4 219.2 Weight 78 lb 0.153 oz Intake: IV 310 10 Intake, IV Amount 118.4 108.4 39.2 Left Forearm 78.4 78.4 39.2 Left Forearm #2 40 30 Oral 0 480 180 Other: # Voids Urine, Voided 0 0 0 # Bowel Movements 0 0 - Medications Active Medications: Active Medications Generic Name Dose Route Start Last Admin Trade Name Freq PRN Reason Stop Dose Admin Acetaminophen 650 mg 07/14/18 15:27 07/15/18 04:16 Tylenol 325mg Tab PO 650 mg Q6 PRN Administration Pain, Mild (1-3) Albuterol 2 puff 07/14/18 15:37 Ventolin Hfa 90 Mcg/Actuation (8 G) IH Q4H PRN Aspirin 81 mg 07/15/18 10:00 07/17/18 09:14 Aspirin Chewable PO 81 mg DAILY BILL Administration Cinacalcet 90 mg 07/15/18 10:00 07/17/18 09:12 Sensipar PO 90 mg DAILY BILL Administration Clopidogrel Bisulfate 75 mg 07/15/18 10:00 07/17/18 09:13 Plavix PO 75 mg DAILY BILL Administration Diltiazem HCl 180 mg 07/15/18 10:00 07/17/18 09:12 Cardizem Cd PO 180 mg DAILY BILL Administration Ezetimibe 10 mg 07/15/18 10:00 07/17/18 09:13 Zetia PO 10 mg DAILY BILL Administration Epoetin Amol 10,000 unit 07/16/18 09:00 07/16/18 13:00 Procrit IV 10,000 unit MWF BILL Administration Famotidine 20 mg 07/14/18 15:30 07/17/18 09:12 Pepcid PO 20 mg DAILY BILL Administration Heparin Sodium/Sodium Chloride 25,000 units in 250 mls @ 9.8 mls/hr 07/16/18 14:21 07/17/18 06:15 Heparin 90383 Units/250ml 1/2 Normal Saline IV 28 units/kg/hr .Q24H PRN 9.8 mls/hr PROTOCOL Administration Protocol 28 UNITS/KG/HR Lidocaine 1 ea 07/15/18 10:00 07/17/18 09:13 Lidoderm TD 1 ea DAILY BILL Administration Metoprolol Tartrate 12.5 mg 07/17/18 18:00 07/17/18 17:18 Lopressor PO 12.5 mg BID BILL Administration Oxycodone/Acetaminophen 1 tab 07/15/18 05:17 07/17/18 10:23 Percocet 5/325 Mg Tab PO 07/18/18 05:18 1 tab Q4H PRN Administration Pain, moderate (4-7) Rosuvastatin Calcium 10 mg 07/15/18 22:00 07/16/18 21:53 Crestor PO 10 mg HS BILL Administration - Patient Studies Lab Studies: Lab Studies 07/17/18 07/17/18 07/17/18 Range/Units 13:31 07:41 06:31 WBC (4.8-10.8) K/uL RBC (3.80-5.20) Mil/uL Hgb (11.0-16.0) g/dL Hct (34.0-47.0) % MCV (81.0-99.0) fL MCH (27.0-31.0) pg MCHC (33.0-37.0) g/dL RDW (11.5-14.5) % Plt Count (130-400) K/uL MPV (7.2-11.7) fL Neut % (Auto) (50.0-75.0) % Lymph % (Auto) (20.0-40.0) % Nuckolls % (Auto) (0.0-10.0) % Eos % (Auto) (0.0-4.0) % Baso % (Auto) (0.0-2.0) % Neut # (Auto) (1.8-7.0) K/uL Lymph # (Auto) (1.0-4.3) K/uL Nuckolls # (Auto) (0.0-0.8) K/uL Eos # (Auto) (0.0-0.7) K/uL Baso # (Auto) (0.0-0.2) K/uL Neutrophils % (Manual) (50-75) % Lymphocytes % (Manual) (20-40) % Monocytes % (Manual) (0-10) % Toxic Granulation Platelet Estimate (NORMAL) Large Platelets Polychromasia Hypochromasia (manual) Poikilocytosis (manual Anisocytosis (manual) Spherocytes Ovalocytes PT 13.9 H (9.7-12.2) SECONDS INR 1.3 APTT 48 H (21-34) SECONDS Sodium (132-148) mmol/L Potassium (3.6-5.2) mmol/L Chloride (98-107) mmol/L Carbon Dioxide (22-30) mmol/L Anion Gap (10-20) BUN (7-17) mg/dL Creatinine (0.7-1.2) mg/dL Est GFR ( Amer) Est GFR (Non-Af Amer) POC Glucose (mg/dL) 86 (65-110) mg/dL Random Glucose (65-105) mg/dL Calcium (8.6-10.4) mg/dl Phosphorus (2.5-4.5) mg/dL Magnesium (1.6-2.3) mg/dL 07/17/18 07/17/18 07/16/18 Range/Units 06:31 06:31 20:49 WBC 8.6 (4.8-10.8) K/uL RBC 3.18 L (3.80-5.20) Mil/uL Hgb 7.9 L (11.0-16.0) g/dL Hct 25.4 L (34.0-47.0) % MCV 80.0 L (81.0-99.0) fL MCH 24.8 L (27.0-31.0) pg MCHC 31.0 L (33.0-37.0) g/dL RDW 20.7 H (11.5-14.5) % Plt Count 213 (130-400) K/uL MPV 7.9 (7.2-11.7) fL Neut % (Auto) 91.9 H (50.0-75.0) % Lymph % (Auto) 4.5 L (20.0-40.0) % Nuckolls % (Auto) 3.2 (0.0-10.0) % Eos % (Auto) 0.1 (0.0-4.0) % Baso % (Auto) 0.3 (0.0-2.0) % Neut # (Auto) 7.9 H (1.8-7.0) K/uL Lymph # (Auto) 0.4 L (1.0-4.3) K/uL Nuckolls # (Auto) 0.3 (0.0-0.8) K/uL Eos # (Auto) 0.0 (0.0-0.7) K/uL Baso # (Auto) 0.0 (0.0-0.2) K/uL Neutrophils % (Manual) 94 H (50-75) % Lymphocytes % (Manual) 4 L (20-40) % Monocytes % (Manual) 2 (0-10) % Toxic Granulation Present Platelet Estimate Normal (NORMAL) Large Platelets Present Polychromasia Moderate Hypochromasia (manual) Moderate Poikilocytosis (manual Slight Anisocytosis (manual) Marked Spherocytes Slight Ovalocytes Slight PT (9.7-12.2) SECONDS INR APTT 51 H D (21-34) SECONDS Sodium 132 (132-148) mmol/L Potassium 3.4 L (3.6-5.2) mmol/L Chloride 95 L (98-107) mmol/L Carbon Dioxide 31 H (22-30) mmol/L Anion Gap 10 (10-20) BUN 23 H (7-17) mg/dL Creatinine 2.5 H (0.7-1.2) mg/dL Est GFR ( Amer) 23 Est GFR (Non-Af Amer) 19 POC Glucose (mg/dL) (65-110) mg/dL Random Glucose 72 (65-105) mg/dL Calcium 7.2 L (8.6-10.4) mg/dl Phosphorus 2.3 L (2.5-4.5) mg/dL Magnesium 2.1 (1.6-2.3) mg/dL Laboratory Results - last 24 hr 07/16/18 07/17/18 07/17/18 20:49 06:31 06:31 WBC 8.6 RBC 3.18 L Hgb 7.9 L Hct 25.4 L MCV 80.0 L MCH 24.8 L MCHC 31.0 L RDW 20.7 H Plt Count 213 MPV 7.9 Neut % (Auto) 91.9 H Lymph % (Auto) 4.5 L Nuckolls % (Auto) 3.2 Eos % (Auto) 0.1 Baso % (Auto) 0.3 Neut # (Auto) 7.9 H Lymph # (Auto) 0.4 L Nuckolls # (Auto) 0.3 Eos # (Auto) 0.0 Baso # (Auto) 0.0 Neutrophils % (Manual) 94 H Lymphocytes % (Manual) 4 L Monocytes % (Manual) 2 Toxic Granulation Present Platelet Estimate Normal Large Platelets Present Polychromasia Moderate Hypochromasia (manual) Moderate Poikilocytosis (manual Slight Anisocytosis (manual) Marked Spherocytes Slight Ovalocytes Slight PT INR APTT 51 H D Sodium 132 Potassium 3.4 L Chloride 95 L Carbon Dioxide 31 H Anion Gap 10 BUN 23 H Creatinine 2.5 H Est GFR ( Amer) 23 Est GFR (Non-Af Amer) 19 POC Glucose (mg/dL) Random Glucose 72 Calcium 7.2 L Phosphorus 2.3 L Magnesium 2.1 07/17/18 07/17/18 07/17/18 06:31 07:41 13:31 WBC RBC Hgb Hct MCV MCH MCHC RDW Plt Count MPV Neut % (Auto) Lymph % (Auto) Nuckolls % (Auto) Eos % (Auto) Baso % (Auto) Neut # (Auto) Lymph # (Auto) Nuckolls # (Auto) Eos # (Auto) Baso # (Auto) Neutrophils % (Manual) Lymphocytes % (Manual) Monocytes % (Manual) Toxic Granulation Platelet Estimate Large Platelets Polychromasia Hypochromasia (manual) Poikilocytosis (manual Anisocytosis (manual) Spherocytes Ovalocytes PT 13.9 H INR 1.3 APTT 48 H Sodium Potassium Chloride Carbon Dioxide Anion Gap BUN Creatinine Est GFR ( Amer) Est GFR (Non-Af Amer) POC Glucose (mg/dL) 86 Random Glucose Calcium Phosphorus Magnesium Critical Care Progress Note - Nutrition Nutrition: Nutrition Category Date Time Status Renal Diet [DIET] Diets 07/14/18 Lunch Active Attending/Attestation - Attestation I have personally seen and examined this patient.: Yes I have fully participated in the care of the patient.: Yes I have reviewed all pertinent clinical information: Yes Notes (Text): 07/17/18 20:18 The patient was Seen and examined by me at the bedside during ICU round, Medical records reviewed and Management issues were discussed and formulated with the house staff. I have reviewed all the relevant clinical, laboratory, hemodynamic, radiographic data and medications I concur with resident's assessment and plan of care
[2018-07-17] MEDS: Heparin25000 units/250ml 1/2NS 25,000 UNITS/250 ML BAG IV PRN (06:15)
[2018-07-17 06:38] LABS: BASO % 0.3 % (0.0-2.0); EOS % 0.1 % (0.0-4.0); HEMOGLOBIN 7.9 g/dL (11.0-16.0); LYMPH # 0.4 K/uL (1.0-4.3); LYMPH % 4.5 % (20.0-40.0); MEAN CORPUSCULAR HEMOGLOBIN 24.8 pg (27.0-31.0); MEAN PLATELET VOLUME 7.9 fL (7.2-11.7); MONO # 0.3 K/uL (0.0-0.8); MONO % 3.2 % (0.0-10.0); NEUT # 7.9 K/uL (1.8-7.0); NEUT % 91.9 % (50.0-75.0); PLATELET COUNT 213 K/uL (130-400); RBC 3.18 Mil/uL (3.80-5.20); RED CELL DISTRIBUTION WIDTH 20.7 % (11.5-14.5); WHITE BLOOD COUNT 8.6 K/uL (4.8-10.8)
[2018-07-17 07:02] LABS: CALCIUM 7.2 mg/dl (8.6-10.4)
--- NOTE | 2018-07-17 08:09 | CP.PCM.PN ---
Subjective - Date & Time of Evaluation Date of Evaluation: 07/16/18 Time of Evaluation: 18:50 - Subjective Subjective: Pt seen and examined Denies chest pain and dyspnea HR improving Physical Examination - Physical Exam Head: Positive for: Atraumatic, Normocephalic Pupils: Positive for: PERRL Extroacular Muscles: Positive for: EOMI Conjunctiva: Positive for: Normal Mouth: Positive for: Moist Mucous Membranes Neck: Positive for: Normal Range of Motion Respiratory/Chest: Positive for: Clear to Auscultation, Good Air Exchange. Negative for: Wheezes, Rales, Rhonchi Cardiovascular: Positive for: Regular Rate and Rhythm, Normal S1, S2. Negative for: Murmurs, Rub, Gallop Abdomen: Positive for: Normal Bowel Sounds. Negative for: Tenderness, Distention, Mass/Organomegaly Upper Extremity: Positive for: Normal Inspection, Normal ROM, Neurovascularly Intact, Capillary Refill < 2s. Negative for: Cyanosis, Edema Lower Extremity: Positive for: Normal Inspection, Neurovascularly Intact, Capillary Refill < 2 s. Negative for: Edema Neurological: Positive for: GCS=15, CN II-XII Intact, Speech Normal Skin: Positive for: Warm, Dry Psychiatric: Positive for: Alert, Oriented x 3 Objective - Vital Signs/Intake and Output Vital Signs (last 24 hours): Temp Pulse Resp BP Pulse Ox 98.3 F 112 H 14 119/55 L 100 07/17/18 04:00 07/17/18 07:00 07/17/18 07:00 07/17/18 06:57 07/17/18 04:00 Intake and Output: 07/17/18 07/17/18 06:59 18:59 Intake Total 487.6 14.8 Balance 487.6 14.8 - Medications Medications: Current Medications Acetaminophen (Tylenol 325mg Tab) 650 mg PO Q6 PRN PRN Reason: Pain, Mild (1-3) Last Admin: 07/15/18 04:16 Dose: 650 mg Albuterol (Ventolin Hfa 90 Mcg/Actuation (8 G)) 2 puff IH Q4H PRN Aspirin (Aspirin Chewable) 81 mg PO DAILY [facility] Last Admin: 07/16/18 11:52 Dose: 81 mg Cinacalcet (Sensipar) 90 mg PO DAILY [facility] Last Admin: 07/16/18 11:53 Dose: 90 mg Clopidogrel Bisulfate (Plavix) 75 mg PO DAILY [facility] Last Admin: 07/16/18 11:52 Dose: 75 mg Diltiazem HCl (Cardizem Cd) 180 mg PO DAILY [facility] Last Admin: 07/16/18 11:54 Dose: Not Given Ezetimibe (Zetia) 10 mg PO DAILY [facility] Last Admin: 07/16/18 11:51 Dose: 10 mg Epoetin Amol (Procrit) 10,000 unit IV MWF [facility] Last Admin: 07/16/18 13:00 Dose: 10,000 unit Famotidine (Pepcid) 20 mg PO DAILY [facility] Last Admin: 07/16/18 11:51 Dose: 20 mg Diltiazem HCl 125 mg/ Dextrose 125 mls @ 5 mls/hr IV .Q24H [facility]; Protocol Last Admin: 07/16/18 19:40 Dose: Not Given Heparin Sodium/Sodium Chloride (Heparin 96927 Units/250ml 1/2 Normal Saline) 25,000 units in 250 mls @ 9.8 mls/hr IV .Q24H PRN; Protocol PRN Reason: PROTOCOL Last Admin: 07/17/18 06:15 Dose: 28 units/kg/hr, 9.8 mls/hr Lidocaine (Lidoderm) 1 ea TD DAILY [facility] Last Admin: 07/16/18 11:51 Dose: 1 ea Oxycodone/Acetaminophen (Percocet 5/325 Mg Tab) 1 tab PO Q4H PRN PRN Reason: Pain, moderate (4-7) Stop: 07/18/18 05:18 Last Admin: 07/16/18 06:13 Dose: 1 tab Rosuvastatin Calcium (Crestor) 10 mg PO HS [facility] Last Admin: 07/16/18 21:53 Dose: 10 mg Sevelamer Carbonate (Renvela) 800 mg PO TIDCC [facility] Last Admin: 07/17/18 08:05 Dose: 800 mg - Labs Labs: 07/17/18 06:31 07/17/18 06:31 PT 12.0 SECONDS (9.7-12.2) 07/14/18 12:55 INR 1.1 07/14/18 12:55 APTT 48 SECONDS (21-34) H 07/17/18 06:31 Assessment and Plan - Assessment and Plan (Free Text) Assessment: 68 y/ o female with hx of ESRD on HD, AFib (on Coumadin), HTN, BL LE Amputee, DM, CPD, CAD, PAD brought to ER from HD center as she was complaining of chest pain and palpitations 1hour into her HD session today on 07/15/18. On presentation, pt was noted to be in Rapid Afib with RVR which responded to IV Cardizem followed with PO Cardizem. Troponin was also noted to be elevated at 10.5, repeats trending up, likely 2/2 pt being on dialysis. Admitted to ICU for closer monitoring in setting of elevated troponin, Cardizem drip to be tapered down as pt transitions to PO Cardizem. Plan: Neuro - AAOx3 Cardio - Hemodynamically stable - EKG: AFib with RVR, no ischemic changes - S/P Cardizem -5mg IV and 60mg PO in ED with conversion to sinus rhythm - Cardizem drip to be tapered down, transition to PO Cardizem - Now rate and rhythm controlled - Will continue with oral home dose of Metoprolol and Cardizem - Hold Warfarin for now. Currently on Heparin Drip - Troponin 10.5 (baseline troponin ~0.3). Repeats elevated, likely 2/2 pt being on dialysis - ProBNP 140k, euvolemic on exam - Cxray no acute cardiopulmonary disease, no pulmonary vascular congestion - Myocardial Stress Test (03/2018): Normal, EF 48% - Last Echo (03/2018): EF 50-55%, Mild LVH, Left Atrial pressure moderately elevated, RVSP 37, Mild pulmonary HTN, Mild- mod pericardial effusion noted - Continuous cardiac monitoring in ICU -Not a candidate for cath due to vascular access issues Pulm - Hx of Asthma/COPD - Albuterol prn - Saturating well on NC, cont to monitor GI - Renal Diet Renal - ESRD on HD MWF - BUN 22 Cr 2.0 (baseline Cr 2-3) on admission; cont to trend - Nephrology consulted, Dr. [place] Heme - Hg 9.3 on admission - Chronically Anemic, Likely ACD - Coagulation: INR 1.1, subtherapeutic in setting of poor medication compliance; f/u am coags - Will hold Coumadin for now and maintain pt on Heparin ggt MSK - Left hip pain s/p Fall - Femur Xray reviewed from (07/01): No acute fx or dislocation - Tylenol prn PPX: - DVT ppx, on Heparin ggt - GI ppx, Pepcid PO Mediacl management Titrate off Cardizem drip and increase PO Cardizem as needed Switch over to Coumadin from IV Heparin with a goal INR of 2-3 Consider only single antiplatelet (Either ASA or Plavix) with Coumadin on board
[2018-07-17 09:06] LABS: LYMPHOCYTE 4 % (20-40); MONOCYTE 2 % (0-10); NEUTROPHIL 94 % (50-75); PLATELET ESTIMATE NORMAL (NORMAL); TOTAL CELLS COUNTED 100
[2018-07-17 09:07] LABS: ANISOCYTOSIS MARKED; HYPOCHROMIC MODERATE; POLYCHROMIC MODERATE
[2018-07-17 09:08] LABS: LARGE PLATELETS PRESENT; TOXIC GRANULATION PRESENT
[2018-07-17 09:09] LABS: OVALOCYTES SLIGHT; POIKILOCYTOSIS SLIGHT; SPHEROCYTES SLIGHT
[2018-07-17] MEDS: diltiaZEM 180 mg/24 Hours CD Cap PO SCH (09:12)
[2018-07-17] MEDS: Lidocaine 5% Patch TD SCH (09:13)
--- NOTE | 2018-07-17 09:40 | CP.PCM.PN ---
Subjective - Date & Time of Evaluation Date of Evaluation: 07/17/18 Time of Evaluation: 09:37 - Subjective Subjective: s/p dialysis 4/5- tolerated well now in A fib, VR 108 Recently with increased VR and IV diltiazem restarted feels better otherwise phos decreased Objective - Vital Signs/Intake and Output Vital Signs (last 24 hours): Temp Pulse Resp BP Pulse Ox 98.6 F 88 17 108/46 L 100 07/17/18 08:00 07/17/18 09:00 07/17/18 09:00 07/17/18 08:57 07/17/18 04:00 Intake and Output: 07/17/18 07/17/18 06:59 18:59 Intake Total 487.6 224.4 Balance 487.6 224.4 - Medications Medications: Current Medications Acetaminophen (Tylenol 325mg Tab) 650 mg PO Q6 PRN PRN Reason: Pain, Mild (1-3) Last Admin: 07/15/18 04:16 Dose: 650 mg Albuterol (Ventolin Hfa 90 Mcg/Actuation (8 G)) 2 puff IH Q4H PRN Aspirin (Aspirin Chewable) 81 mg PO DAILY [facility] Last Admin: 07/17/18 09:14 Dose: 81 mg Cinacalcet (Sensipar) 90 mg PO DAILY [facility] Last Admin: 07/17/18 09:12 Dose: 90 mg Clopidogrel Bisulfate (Plavix) 75 mg PO DAILY [facility] Last Admin: 07/17/18 09:13 Dose: 75 mg Diltiazem HCl (Cardizem Cd) 180 mg PO DAILY [facility] Last Admin: 07/17/18 09:12 Dose: 180 mg Ezetimibe (Zetia) 10 mg PO DAILY [facility] Last Admin: 07/17/18 09:13 Dose: 10 mg Epoetin Amol (Procrit) 10,000 unit IV MWF [facility] Last Admin: 07/16/18 13:00 Dose: 10,000 unit Famotidine (Pepcid) 20 mg PO DAILY [facility] Last Admin: 07/17/18 09:12 Dose: 20 mg Diltiazem HCl 125 mg/ Dextrose 125 mls @ 5 mls/hr IV .Q24H [facility]; Protocol Last Admin: 07/16/18 19:40 Dose: Not Given Heparin Sodium/Sodium Chloride (Heparin 94975 Units/250ml 1/2 Normal Saline) 25,000 units in 250 mls @ 9.8 mls/hr IV .Q24H PRN; Protocol PRN Reason: PROTOCOL Last Admin: 07/17/18 06:15 Dose: 28 units/kg/hr, 9.8 mls/hr Lidocaine (Lidoderm) 1 ea TD DAILY [facility] Last Admin: 07/17/18 09:13 Dose: 1 ea Oxycodone/Acetaminophen (Percocet 5/325 Mg Tab) 1 tab PO Q4H PRN PRN Reason: Pain, moderate (4-7) Stop: 07/18/18 05:18 Last Admin: 07/16/18 06:13 Dose: 1 tab Rosuvastatin Calcium (Crestor) 10 mg PO HS [facility] Last Admin: 07/16/18 21:53 Dose: 10 mg Sevelamer Carbonate (Renvela) 800 mg PO TIDCC [facility] Last Admin: 07/17/18 08:05 Dose: 800 mg - Labs Labs: 07/17/18 06:31 07/17/18 06:31 PT 12.0 SECONDS (9.7-12.2) 07/14/18 12:55 INR 1.1 07/14/18 12:55 APTT 48 SECONDS (21-34) H 07/17/18 06:31 - Constitutional Appears: No Acute Distress, Chronically Ill - Head Exam Head Exam: ATRAUMATIC, NORMAL INSPECTION - Eye Exam Eye Exam: EOMI, Normal appearance - Neck Exam Neck Exam: Normal Inspection. absent: Tenderness - Respiratory Exam Respiratory Exam: Clear to Ausculation Bilateral, NORMAL BREATHING PATTERN - Cardiovascular Exam Cardiovascular Exam: Tachycardia, Irregular Rhythm - GI/Abdominal Exam GI & Abdominal Exam: Soft. absent: Tenderness - Extremities Exam Extremities Exam: Normal Inspection. absent: Tenderness - Neurological Exam Neurological Exam: Awake, CN II-XII Intact - Skin Skin Exam: Dry, Warm Assessment and Plan (1) Rapid atrial fibrillation Status: Acute (2) ADPKD (autosomal dominant polycystic kidney disease) Status: Acute (3) CAD (coronary artery disease) Status: Acute (4) Secondary hyperparathyroidism Status: Acute (5) ESRD (end stage renal disease) Status: Acute (6) PVD (peripheral vascular disease) Status: Acute - Assessment and Plan (Free Text) Plan: Afib control as per cardio HD MWF stop renvela
[2018-07-17] MEDS: Oxycodone/Acetaminophen 5/325 mg Tab PO PRN (10:23)
--- NOTE | 2018-07-17 10:36 | CARD ---
APPROVED REPORT Date of service: 07/15/2018 EXAM: Two-dimensional and M-mode echocardiogram with Doppler and color Doppler. Other Information Quality : GoodRhythm : INDICATION Cardiac Disease: CAD Chest Pain Congestive Heart Failure Non STEMI 2D DIMENSIONS IVSd1.0 (0.7-1.1cm)LVDd4.5 (3.9-5.9cm) LVOT Diameter1.9 (1.8-2.4cm)PWd1.1 (0.7-1.1cm) LA Bghphp08 (18-58mL)LVDs3.9 (2.5-4.0cm) FS (%) 15.2 %LVEF (%)50.0 (>50%) LVEF (Valdez's)50 % M-Mode DIMENSIONS Left Atrium (MM)5.19 (2.5-4.0cm)IVSd0.75 (0.7-1.1cm) Aortic Root3.44 (2.2-3.7cm)LVDd5.67 (4.0-5.6cm) Aortic Cusp Exc.1.66 (1.5-2.0cm)PWd0.75 (0.7-1.1cm) FS (%) 13 %LVDs4.92 (2.0-3.8cm) LVEF (%)50 (>50%) Aortic Valve AoV Peak Davnrerd574.6cm/sAoV VTI40.3cmAO Peak GR.16mmHg LVOT Peak Tyvtokry96.0cm/sLVOT VTI17.77cmAO Mean GR.9mmHg RONALDO (VMAX)1.85po7LJZ (VTI)1.27cm2 Mitral Valve MV E Tiqvtrgc998.6cm/sMV A Bxymuclf81.0cm/sE/A ratio1.8 QQVY531.65 cm/s TDI Lateral E' Peak V5.64cm/sMedial E' Peak V4.90cm/sE/Lateral E'23.9 E/Medial E'27.5 Tricuspid Valve TR Peak Dblfxaav382tt/sTR Peak Gr.98ogUsNOGA87chUs LEFT VENTRICLE The left ventricle is normal size. There is mild to moderate concentric left ventricular hypertrophy. Left ventricle systolic function is moderately impaired. The Ejection Fraction is 40-45%. There is mild to moderate hypokinesis in the lateral wall. Tissue Doppler imaging reveals abnormal left ventricular diastolic dysfunction. No left ventricle thrombus noted on this study. There is no ventricular septal defect visualized. RIGHT VENTRICLE The right ventricular systolic function is normal. ATRIA The left atrium is moderately dilated. The right atrium size is normal. The interatrial septum is intact with no evidence for an atrial septal defect. AORTIC VALVE The aortic valve is moderately sclerotic. No aortic regurgitation is present. There is mild to moderate valvular aortic stenosis. Peak Gradient 18 and mean gradient 10 There is no aortic valvular vegetation. MITRAL VALVE Mitral annular calcification is moderate to severe. There is no evidence of mitral valve prolapse. There is no mitral valve stenosis. Mitral regurgitation is moderate. TRICUSPID VALVE The tricuspid valve is normal in structure. There is mild tricuspid regurgitation. There is no tricuspid valve prolapse or vegetation. There is no tricuspid valve stenosis. PULMONIC VALVE The pulmonary valve is normal in structure. GREAT VESSELS The aortic root is normal in size. <Conclusion> Left ventricle systolic function is moderately impaired. The Ejection Fraction is 40-45%. There is mild to moderate hypokinesis in the lateral wall. The right ventricular systolic function is normal. The left atrium is moderately dilated. The aortic valve is moderately sclerotic. There is mild to moderate valvular aortic stenosis. Peak Gradient 18 and mean gradient 10 Mitral annular calcification is moderate to severe. Mitral regurgitation is moderate. The aortic root is normal in size.
[2018-07-17] MEDS ORDERED: Metoprolol 1 mg/ml Inj IVP ONE (12:50)
[2018-07-17 13:39] LABS: INR 1.3; PROTHROMBIN TIME 13.9 SECONDS (9.7-12.2)
--- NOTE | 2018-07-17 22:19 | CP.PCM.PN ---
Subjective - Date & Time of Evaluation Date of Evaluation: 07/17/18 Time of Evaluation: 10:30 - Subjective Subjective: condition same. no cp. no sob. a. fib with rvr. Objective - Vital Signs/Intake and Output Vital Signs (last 24 hours): Temp Pulse Resp BP Pulse Ox 99.9 F H 93 H 13 97/38 L 100 07/17/18 20:00 07/17/18 21:00 07/17/18 21:00 07/17/18 20:57 07/17/18 20:00 Intake and Output: 07/17/18 07/18/18 18:59 06:59 Intake Total 817.6 29.4 Balance 817.6 29.4 - Medications Medications: Current Medications Acetaminophen (Tylenol 325mg Tab) 650 mg PO Q6 PRN PRN Reason: Pain, Mild (1-3) Last Admin: 07/15/18 04:16 Dose: 650 mg Albuterol (Ventolin Hfa 90 Mcg/Actuation (8 G)) 2 puff IH Q4H PRN Aspirin (Aspirin Chewable) 81 mg PO DAILY [facility] Last Admin: 07/17/18 09:14 Dose: 81 mg Cinacalcet (Sensipar) 90 mg PO DAILY [facility] Last Admin: 07/17/18 09:12 Dose: 90 mg Clopidogrel Bisulfate (Plavix) 75 mg PO DAILY [facility] Last Admin: 07/17/18 09:13 Dose: 75 mg Diltiazem HCl (Cardizem Cd) 180 mg PO DAILY [facility] Last Admin: 07/17/18 09:12 Dose: 180 mg Ezetimibe (Zetia) 10 mg PO DAILY [facility] Last Admin: 07/17/18 09:13 Dose: 10 mg Epoetin Amol (Procrit) 10,000 unit IV MWF [facility] Last Admin: 07/16/18 13:00 Dose: 10,000 unit Famotidine (Pepcid) 20 mg PO DAILY [facility] Last Admin: 07/17/18 09:12 Dose: 20 mg Heparin Sodium/Sodium Chloride (Heparin 41893 Units/250ml 1/2 Normal Saline) 25,000 units in 250 mls @ 9.8 mls/hr IV .Q24H PRN; Protocol PRN Reason: PROTOCOL Last Admin: 07/17/18 06:15 Dose: 28 units/kg/hr, 9.8 mls/hr Lidocaine (Lidoderm) 1 ea TD DAILY [facility] Last Admin: 07/17/18 09:13 Dose: 1 ea Metoprolol Tartrate (Lopressor) 12.5 mg PO BID [facility] Last Admin: 07/17/18 17:18 Dose: 12.5 mg Oxycodone/Acetaminophen (Percocet 5/325 Mg Tab) 1 tab PO Q4H PRN PRN Reason: Pain, moderate (4-7) Stop: 07/18/18 05:18 Last Admin: 07/17/18 10:23 Dose: 1 tab Rosuvastatin Calcium (Crestor) 10 mg PO HS [facility] Last Admin: 07/17/18 22:15 Dose: 10 mg - Labs Labs: 07/17/18 06:31 07/17/18 06:31 PT 13.9 SECONDS (9.7-12.2) H 07/17/18 13:31 INR 1.3 07/17/18 13:31 APTT 48 SECONDS (21-34) H 07/17/18 06:31 - Constitutional Appears: No Acute Distress, Chronically Ill - Eye Exam Eye Exam: PERRL - ENT Exam ENT Exam: Mucous Membranes Moist - Respiratory Exam Respiratory Exam: Clear to Ausculation Bilateral, NORMAL BREATHING PATTERN - Cardiovascular Exam Cardiovascular Exam: Irregular Rhythm, +S1, +S2 - GI/Abdominal Exam GI & Abdominal Exam: Soft, Normal Bowel Sounds. absent: Tenderness - Exam Exam: Circumcision, NORMAL INSPECTION External exam: NORMAL EXTERNAL EXAM Speculum exam: NORMAL SPECULUM EXAM Bimanual exam: NORMAL BIMANUAL EXAM - Extremities Exam Extremities Exam: Full ROM, Normal Capillary Refill, Normal Inspection. absent: Joint Swelling, Pedal Edema - Back Exam Back Exam: NORMAL INSPECTION - Neurological Exam Neurological Exam: Alert, Awake, CN II-XII Intact, Normal Gait, Oriented x3 Assessment and Plan - Assessment and Plan (Free Text) Assessment: same Plan: ct present treatment.
[2018-07-18 07:09] LABS: BASO % 0.4 % (0.0-2.0); EOS % 0.2 % (0.0-4.0); LYMPH # 0.3 K/uL (1.0-4.3); LYMPH % 6.9 % (20.0-40.0); MEAN CELL VOLUME 81.6 fL (81.0-99.0); MEAN CORPUSCULAR HEMOGLOBIN 24.7 pg (27.0-31.0); MEAN CORPUSCULAR HGB CONC 30.3 g/dL (33.0-37.0); MONO # 0.1 K/uL (0.0-0.8); MONO % 1.9 % (0.0-10.0); NEUT # 3.9 K/uL (1.8-7.0); NEUT % 90.6 % (50.0-75.0); NRBC % 0.1 % (0.0-2.0); PLATELET COUNT 210 K/uL (130-400); RBC 3.64 Mil/uL (3.80-5.20); RED CELL DISTRIBUTION WIDTH 21.8 % (11.5-14.5); WHITE BLOOD COUNT 4.3 K/uL (4.8-10.8)
[2018-07-18 07:19] LABS: INR 1.4; PROTHROMBIN TIME 14.9 SECONDS (9.7-12.2)
[2018-07-18 07:49] LABS: ALBUMIN 2.7 g/dL (3.5-5.0); ALT/SGPT < 6 U/L (9-52); AST/SGOT 20 U/L (14-36); BLOOD UREA NITROGEN 40 mg/dL (7-17); CALCIUM 6.9 mg/dl (8.6-10.4); GFR NON-AFRICAN AMERICAN 13
[2018-07-18] MEDS ORDERED: Metoprolol 1 mg/ml Inj IVP ONE ×2 (08:09→23:13)
[2018-07-18 08:15] LABS: BANDS 2 % (0-2); LYMPHOCYTE 6 % (20-40); MONOCYTE 2 % (0-10); NEUTROPHIL 90 % (50-75); TOTAL CELLS COUNTED 100
[2018-07-18 08:16] LABS: PLATELET ESTIMATE NORMAL (NORMAL)
[2018-07-18 08:17] LABS: ANISOCYTOSIS SLIGHT
[2018-07-18 08:18] LABS: HYPOCHROMIC MODERATE; POLYCHROMIC SLIGHT
[2018-07-18 08:20] LABS: POIKILOCYTOSIS SLIGHT
[2018-07-18 08:21] LABS: LARGE PLATELETS PRESENT; OVALOCYTES SLIGHT
[2018-07-18 08:22] LABS: SCHISTOCYTES SLIGHT
[2018-07-18 08:23] LABS: TOXIC GRANULATION PRESENT
[2018-07-18] MEDS: Heparin25000 units/250ml 1/2NS 25,000 UNITS/250 ML BAG IV PRN (10:10)
--- NOTE | 2018-07-18 10:10 | CP.PCM.PN ---
Subjective - Date & Time of Evaluation Date of Evaluation: 07/17/18 Time of Evaluation: 18:05 - Subjective Subjective: Pt seen and examined Denies chest pain and dyspnea Physical Examination - Physical Exam Head: Positive for: Atraumatic, Normocephalic Pupils: Positive for: PERRL Extroacular Muscles: Positive for: EOMI Conjunctiva: Positive for: Normal Mouth: Positive for: Moist Mucous Membranes Neck: Positive for: Normal Range of Motion Respiratory/Chest: Positive for: Clear to Auscultation, Good Air Exchange. Negative for: Wheezes, Rales, Rhonchi Cardiovascular: Positive for: Regular Rate and Rhythm, Normal S1, S2. Negative for: Murmurs, Rub, Gallop Abdomen: Positive for: Normal Bowel Sounds. Negative for: Tenderness, Distention, Mass/Organomegaly Upper Extremity: Positive for: Normal Inspection, Normal ROM, Neurovascularly Intact, Capillary Refill < 2s. Negative for: Cyanosis, Edema Lower Extremity: Positive for: Normal Inspection, Neurovascularly Intact, Capillary Refill < 2 s. Negative for: Edema Neurological: Positive for: GCS=15, CN II-XII Intact, Speech Normal Skin: Positive for: Warm, Dry Psychiatric: Positive for: Alert, Oriented x 3 Assessment and Plan - Assessment and Plan (Free Text) Assessment: 68 y/ o female with hx of ESRD on HD, AFib (on Coumadin), HTN, BL LE Amputee, DM, CPD, CAD, PAD brought to ER from HD center as she was complaining of chest pain and palpitations 1hour into her HD session today on 07/15/18. On presentation, pt was noted to be in Rapid Afib with RVR which responded to IV Cardizem followed with PO Cardizem. Troponin was also noted to be elevated at 10.5, repeats trending up, likely 2/2 pt being on dialysis. Admitted to ICU for closer monitoring in setting of elevated troponin, Cardizem drip to be tapered down as pt transitions to PO Cardizem. Plan: Neuro - AAOx3 Cardio - Hemodynamically stable - EKG: AFib with RVR, no ischemic changes - S/P Cardizem -5mg IV and 60mg PO in ED with conversion to sinus rhythm - Cardizem drip to be tapered down, transition to PO Cardizem - Now rate and rhythm controlled - Will continue with oral home dose of Metoprolol and Cardizem - Hold Warfarin for now. Currently on Heparin Drip - Troponin 10.5 (baseline troponin ~0.3). Repeats elevated, likely 2/2 pt being on dialysis - ProBNP 140k, euvolemic on exam - Cxray no acute cardiopulmonary disease, no pulmonary vascular congestion - Myocardial Stress Test (03/2018): Normal, EF 48% - Last Echo (03/2018): EF 50-55%, Mild LVH, Left Atrial pressure moderately elevated, RVSP 37, Mild pulmonary HTN, Mild- mod pericardial effusion noted - Continuous cardiac monitoring in ICU -Not a candidate for cath due to vascular access issues Pulm - Hx of Asthma/COPD - Albuterol prn - Saturating well on NC, cont to monitor GI - Renal Diet Renal - ESRD on HD MWF - BUN 22 Cr 2.0 (baseline Cr 2-3) on admission; cont to trend - Nephrology consulted, Dr. [place] Heme - Hg 9.3 on admission - Chronically Anemic, Likely ACD - Coagulation: INR 1.1, subtherapeutic in setting of poor medication compliance; f/u am coags - Will hold Coumadin for now and maintain pt on Heparin ggt MSK - Left hip pain s/p Fall - Femur Xray reviewed from (07/01): No acute fx or dislocation - Tylenol prn PPX: - DVT ppx, on Heparin ggt - GI ppx, Pepcid PO Objective - Vital Signs/Intake and Output Vital Signs (last 24 hours): Temp Pulse Resp BP Pulse Ox 98.5 F 136 H 23 130/58 L 97 07/18/18 04:00 07/18/18 07:00 07/18/18 07:00 07/18/18 06:57 07/18/18 07:00 Intake and Output: 07/18/18 07/18/18 06:59 18:59 Intake Total 117.6 9.8 Balance 117.6 9.8 - Medications Medications: Current Medications Acetaminophen (Tylenol 325mg Tab) 650 mg PO Q6 PRN PRN Reason: Pain, Mild (1-3) Last Admin: 07/15/18 04:16 Dose: 650 mg Albuterol (Ventolin Hfa 90 Mcg/Actuation (8 G)) 2 puff IH Q4H PRN Aspirin (Aspirin Chewable) 81 mg PO DAILY [facility] Last Admin: 07/17/18 09:14 Dose: 81 mg Cinacalcet (Sensipar) 90 mg PO DAILY [facility] Last Admin: 07/17/18 09:12 Dose: 90 mg Clopidogrel Bisulfate (Plavix) 75 mg PO DAILY [facility] Last Admin: 07/17/18 09:13 Dose: 75 mg Diltiazem HCl (Cardizem Cd) 180 mg PO DAILY [facility] Last Admin: 07/17/18 09:12 Dose: 180 mg Ezetimibe (Zetia) 10 mg PO DAILY [facility] Last Admin: 07/17/18 09:13 Dose: 10 mg Epoetin Amol (Procrit) 10,000 unit IV MWF [facility] Last Admin: 07/16/18 13:00 Dose: 10,000 unit Famotidine (Pepcid) 20 mg PO DAILY [facility] Last Admin: 07/17/18 09:12 Dose: 20 mg Heparin Sodium/Sodium Chloride (Heparin 78358 Units/250ml 1/2 Normal Saline) 25,000 units in 250 mls @ 9.8 mls/hr IV .Q24H PRN; Protocol PRN Reason: PROTOCOL Last Admin: 07/17/18 06:15 Dose: 28 units/kg/hr, 9.8 mls/hr Lidocaine (Lidoderm) 1 ea TD DAILY [facility] Last Admin: 07/17/18 09:13 Dose: 1 ea Metoprolol Tartrate (Lopressor) 12.5 mg PO BID [facility] Last Admin: 07/17/18 17:18 Dose: 12.5 mg Rosuvastatin Calcium (Crestor) 10 mg PO HS [facility] Last Admin: 07/17/18 22:15 Dose: 10 mg - Labs Labs: 07/18/18 07:04 07/18/18 07:04 PT 14.9 SECONDS (9.7-12.2) H 07/18/18 07:04 INR 1.4 07/18/18 07:04 APTT 32 SECONDS (21-34) D 07/18/18 07:04
[2018-07-18] MEDS: diltiaZEM 180 mg/24 Hours CD Cap PO SCH (10:11)
[2018-07-18] MEDS: Lidocaine 5% Patch TD SCH (10:12)
--- NOTE | 2018-07-18 15:16 | CP.PCM.PN ---
Subjective - Date & Time of Evaluation Date of Evaluation: 07/18/18 Time of Evaluation: 11:00 - Subjective Subjective: CONDITION SAME. A. FIB RVR. CRF. Objective - Vital Signs/Intake and Output Vital Signs (last 24 hours): Temp Pulse Resp BP Pulse Ox 98.5 F 136 H 23 130/58 L 97 07/18/18 04:00 07/18/18 07:00 07/18/18 07:00 07/18/18 06:57 07/18/18 07:00 Intake and Output: 07/18/18 07/18/18 06:59 18:59 Intake Total 117.6 259.8 Balance 117.6 259.8 - Medications Medications: Current Medications Acetaminophen (Tylenol 325mg Tab) 650 mg PO Q6 PRN PRN Reason: Pain, Mild (1-3) Last Admin: 07/15/18 04:16 Dose: 650 mg Albuterol (Ventolin Hfa 90 Mcg/Actuation (8 G)) 2 puff IH Q4H PRN Aspirin (Aspirin Chewable) 81 mg PO DAILY [facility] Last Admin: 07/18/18 10:11 Dose: 81 mg Cinacalcet (Sensipar) 90 mg PO DAILY [facility] Last Admin: 07/18/18 10:11 Dose: 90 mg Clopidogrel Bisulfate (Plavix) 75 mg PO DAILY [facility] Last Admin: 07/18/18 10:11 Dose: 75 mg Diltiazem HCl (Cardizem Cd) 180 mg PO DAILY [facility] Last Admin: 07/18/18 10:11 Dose: 180 mg Ezetimibe (Zetia) 10 mg PO DAILY [facility] Last Admin: 07/18/18 10:11 Dose: 10 mg Epoetin Amol (Procrit) 10,000 unit IV MWF [facility] Last Admin: 07/16/18 13:00 Dose: 10,000 unit Famotidine (Pepcid) 20 mg PO DAILY [facility] Last Admin: 07/18/18 10:11 Dose: 20 mg Heparin Sodium/Sodium Chloride (Heparin 85160 Units/250ml 1/2 Normal Saline) 25,000 units in 250 mls @ 9.8 mls/hr IV .Q24H PRN; Protocol PRN Reason: PROTOCOL Last Admin: 07/18/18 10:10 Dose: 32 units/kg/hr, 11.2 mls/hr Lidocaine (Lidoderm) 1 ea TD DAILY [facility] Last Admin: 07/18/18 10:12 Dose: 1 ea Metoprolol Tartrate (Lopressor) 12.5 mg PO BID [facility] Last Admin: 07/18/18 10:11 Dose: 12.5 mg Rosuvastatin Calcium (Crestor) 10 mg PO HS [facility] Last Admin: 07/17/18 22:15 Dose: 10 mg - Labs Labs: 07/18/18 07:04 07/18/18 07:04 PT 14.9 SECONDS (9.7-12.2) H 07/18/18 07:04 INR 1.4 07/18/18 07:04 APTT 100 SECONDS (21-34) H* D 07/18/18 14:56 - Constitutional Appears: No Acute Distress, Chronically Ill - Eye Exam Eye Exam: EOMI, Normal appearance, PERRL Pupil Exam: NORMAL ACCOMODATION, PERRL - ENT Exam ENT Exam: Mucous Membranes Moist, Normal Exam - Neck Exam Neck Exam: Full ROM, Normal Inspection. absent: Lymphadenopathy - Respiratory Exam Respiratory Exam: Clear to Ausculation Bilateral, NORMAL BREATHING PATTERN - Cardiovascular Exam Cardiovascular Exam: Tachycardia, Irregular Rhythm, +S1, +S2 - GI/Abdominal Exam GI & Abdominal Exam: Soft, Normal Bowel Sounds - Extremities Exam Extremities Exam: Full ROM, Normal Capillary Refill, Normal Inspection. absent: Joint Swelling, Pedal Edema - Neurological Exam Neurological Exam: Alert, Awake, CN II-XII Intact, Normal Gait, Oriented x3 - Psychiatric Exam Psychiatric exam: Normal Affect, Normal Mood Assessment and Plan - Assessment and Plan (Free Text) Assessment: SAME. Plan: PER ICU. HD.
--- NOTE | 2018-07-18 20:06 | PCM.RRT ---
<Radha Gee - Last Filed: 07/18/18 20:40> AUTO TRANSPORT DRIVER Nurses Assessment - Situation Date: 07/18/18 Time AUTO TRANSPORT DRIVER was called: 19:56 AUTO TRANSPORT DRIVER Location:: 9I ICU Room Number: 14B AUTO TRANSPORT DRIVER Reason for Call: O2 Saturation below 90% AUTO TRANSPORT DRIVER Called By: RN - IV IV Inserted during AUTO TRANSPORT DRIVER?: No - Respiratory AUTO TRANSPORT DRIVER Delivery Method: Venturi Mask @% Oxygen Flow Rate: 50 - Diagnostic Test Ordered EKG: Yes (Afib @ 128 with RVR) Chest X-Ray: Yes - Stat Labs Ordered AUTO TRANSPORT DRIVER Stat Labs Ordered: CBC, PT/PTT CPR started during AUTO TRANSPORT DRIVER?: No - Vital Signs Vital Signs: HR 138 BP 98/54 - Gordo Coma Scale Coma Scale Eye Opening: Spontaneous Coma Scale Motor: Obeys Commands Movement Coma Scale Verbal: Oriented Coma Scale Total: 15 - Time AUTO TRANSPORT DRIVER Ended Time AUTO TRANSPORT DRIVER Ended: 20:25 - Recommendations 5) AUTO TRANSPORT DRIVER Level of Care Recommendations: Remain in current setting I.Reason for AUTO TRANSPORT DRIVER - A) Acute Change in Patient: (Select all that apply): Acute change in SpO2 less - Neurological Status (Select all that apply): Alert, Responsive, Oriented, Verbal, Follows Commands - Respiratory Oxygen Delivery Method: Venturi Mask @% Oxygen Flow Rate: 50 - Constitutional Appears: In Acute Distress - Head Head Exam: ATRAUMATIC, NORMOCEPHALIC - Eyes Eye Exam: EOMI, PERRL - Respiratory Exam Respiratory Exam: Accessory Muscle Use, Decreased Breath Sounds. absent: Rales, Rhonchi, Wheezes Additional comments: tachypnea - Cardiovascular Exam Cardiovascular Exam: Tachycardia, Irregular Rhythm, +S1, +S2 - GI/Abdominal Exam GI & Abdominal Exam: Soft, Normal Bowel Sounds. absent: Tenderness - Neurological Exam Neurological Exam: Alert, Awake, Oriented x3 - Extremities Exam Additional comments: generalized weakness Plan - Assessment of Findings&Treatment Plan AUTO TRANSPORT DRIVER called at 1956 by RN for hypoxia and acute desaturation to the high 70s She had one episode of melanotic stool earlier this evening Heparin stopped NC 3L switched to Venturi mask at 50% and O2 sat came up to low 90s CXR, EKG, CBC, coags ordered Patient remains tachycardic switching between afib and sinus tachy EKG shows Afib@128 with RVR and anterolateral ischemia, worsened from admission Venturi mask switched to BiPAP due to worsening CHF Med rec performed: Albuterol stopped Protonix drip started. Will hold off on anticoagulation at this time due to acute anemia Drs. Deborah Larson and Stewart called. Both did not last picker - left a message. <Tariq Jo P - Last Filed: 07/19/18 08:18> Attending/Attestation - Attestation I have personally seen and examined this patient.: Yes I have fully participated in the care of the patient.: Yes I have reviewed all pertinent clinical information, including history, physical exam and plan: Yes Notes (Text): 07/19/18 08:16 Gi blood loss, secondary worsen cardiac ischemia, nstemi, aflutter, chf form ischemia, ESRD on hd, pvd with b/l leg amputations Plan PPI, heparin held, prn transfusion, hd as needed, bipap, patient transferred to ICU, primary team notified.
--- NOTE | 2018-07-18 20:09 | CARD ---
APPROVED REPORT Date of service: 07/14/2018 EKG Measurement Heart [id number] <Conclusion> Normal sinus rhythm Nonspecific T wave abnormality Abnormal ECG
--- NOTE | 2018-07-18 20:14 | CARD ---
APPROVED REPORT Date of service: 07/14/2018 EKG Measurement Heart [id number] <Conclusion> Atrial fibrillation with rapid ventricular response Anterior infarct, age undetermined Abnormal ECG
[2018-07-18 20:30] LABS: BASO % 0.4 % (0.0-2.0); EOS % 0.3 % (0.0-4.0); INR 1.9; LYMPH # 0.2 K/uL (1.0-4.3); LYMPH % 1.8 % (20.0-40.0); MEAN CELL VOLUME 81.5 fL (81.0-99.0); MEAN CORPUSCULAR HEMOGLOBIN 25.2 pg (27.0-31.0); MEAN CORPUSCULAR HGB CONC 30.9 g/dL (33.0-37.0); MEAN PLATELET VOLUME 8.1 fL (7.2-11.7); MONO % 0.3 % (0.0-10.0); NEUT # 10.9 K/uL (1.8-7.0); NEUT % 97.2 % (50.0-75.0); PLATELET COUNT 222 K/uL (130-400); PROTHROMBIN TIME 20.3 SECONDS (9.7-12.2); RBC 3.02 Mil/uL (3.80-5.20); RED CELL DISTRIBUTION WIDTH 21.4 % (11.5-14.5)
[2018-07-18 20:32] LABS: WHITE BLOOD COUNT 11.2 K/uL (4.8-10.8)
[2018-07-18 20:34] LABS: HEMOGLOBIN 7.6 g/dL (11.0-16.0)
[2018-07-18] MEDS ORDERED: Pantoprazole 80 MG in Sodium Chloride 0.9% 100 ML IVP SCH (20:45)
[2018-07-18 20:56] LABS: BANDS 15 % (0-2); LYMPHOCYTE 2 % (20-40); NEUTROPHIL 83 % (50-75); TOTAL CELLS COUNTED 100
[2018-07-18 20:57] LABS: ANISOCYTOSIS SLIGHT; PLATELET ESTIMATE NORMAL (NORMAL); POLYCHROMIC SLIGHT
[2018-07-18 20:58] LABS: HYPOCHROMIC MODERATE; OVALOCYTES SLIGHT
[2018-07-18] MEDS ORDERED: Digoxin 500 mcg/2ml (0.5 mg/2ml) Inj IVP ONE (21:47)
[2018-07-18] MEDS: Pantoprazole 80 MG in Sodium Chloride 0.9% 100 ML IV SCH (22:00)
--- NOTE | 2018-07-18 22:06 | CP.PCM.CON ---
History of Present Illness - History of Present Illness History of Present Illness: CCM 68 yo female with hx A-fib/ ESRD/ COPD/PAD/HTN /DM /CAD adm. from HD with rapid A-fib. Pt found with NSTEMI. received rate control and transferred to telemetry. Today pt had melena on heparin drip and had rapid responise called for desat. Pt changed from NC to VM and O2 st improved into 90's. Pt noted to hve ST depressions on EKG. CXR with CHF and pt started on BIPAP. Pt denied chest pain. Not c/o sob or nausea. Pt does not give much hx. ROS- as noted All- vanco Social-+tob/ no etoh or drugs Meds- reviewed FH- Unknown Pe T-97/.1 P-135 R-20 BP 93/50 sl. lethargic, responsive Neck-+jvd lungs- bilat bs Heart-irreg irreg Abd- bs+, soft, nontender Ext- R BKD, L AKA Labs, ekg, s-[id number] A&P Rapid A-fib Acute blood loss Anemia GI Bleed CHF NSTEMI COPD HTN DM PAD Transfer back to ICU service cont BIPAP titrate O2 check ABG f/u cbc Transfuse prn rate control Cardiology f/u HD as per Nephrology Rx PPI d/c heparin GI eval Past Patient History - Infectious Disease Hx of Infectious Diseases: None - Past Medical History & Family History Past Medical History?: Yes Past Family History: Reviewed and not pertinent - Past Social History Smoking Status: Former Smoker Chewing Tobacco Use: No Cigar Use: No Alcohol: None Drugs: Denies - CARDIAC Hx Cardia Arrhythmia: Yes Hx Hypercholesterolemia: Yes Hx Hypertension: Yes - PULMONARY Hx Asthma: Yes Hx Pneumonia: Yes (10 YRS AGO) - NEUROLOGICAL Hx Neurological Disorder: No - HEENT Hx Cataracts: Yes - RENAL Hx Chronic Kidney Disease: Yes - ENDOCRINE/METABOLIC Hx Diabetes Mellitus Type 2: Yes - HEMATOLOGICAL/ONCOLOGICAL Hx Anemia: Yes - INTEGUMENTARY Hx Dermatological Problems: Yes (SMALL ULCER RIGHT FOOT) Other/Comment: LEFT MEDIAL KNEE AREA- ULCER - MUSCULOSKELETAL/RHEUMATOLOGICAL Hx Arthritis: Yes - GASTROINTESTINAL Hx Gastrointestinal Disorders: Yes Hx Gastroesophageal Reflux: Yes - GENITOURINARY/GYNECOLOGICAL Other/Comment: dialysis MWF - PSYCHIATRIC Hx Substance Use: No - SURGICAL HISTORY Hx Coronary Stent: Yes - ANESTHESIA Hx Anesthesia: Yes Hx Anesthesia Reactions: No Hx Malignant Hyperthermia: No Meds Allergies/Adverse Reactions: Allergies Allergy/AdvReac Type Severity Reaction Status Date / Time vancomycin Allergy Intermediate RASH Verified 07/14/18 12:50 - Medications Medications: Current Medications Acetaminophen (Tylenol 325mg Tab) 650 mg PO Q6 PRN PRN Reason: Pain, Mild (1-3) Last Admin: 07/15/18 04:16 Dose: 650 mg Aspirin (Aspirin Chewable) 81 mg PO DAILY [facility] Last Admin: 07/18/18 10:11 Dose: 81 mg Cinacalcet (Sensipar) 90 mg PO DAILY [facility] Last Admin: 07/18/18 10:11 Dose: 90 mg Clopidogrel Bisulfate (Plavix) 75 mg PO DAILY [facility] Last Admin: 07/18/18 10:11 Dose: 75 mg Diltiazem HCl (Cardizem Cd) 180 mg PO DAILY [facility] Last Admin: 07/18/18 10:11 Dose: 180 mg Ezetimibe (Zetia) 10 mg PO DAILY [facility] Last Admin: 07/18/18 10:11 Dose: 10 mg Epoetin Amol (Procrit) 10,000 unit IV MWF [facility] Last Admin: 07/16/18 13:00 Dose: 10,000 unit Famotidine (Pepcid) 20 mg PO DAILY [facility] Last Admin: 07/18/18 10:11 Dose: 20 mg Pantoprazole Sodium 80 mg/ (Sodium Chloride) 100 mls @ 10 mls/hr IV .Q10H [facility] Lidocaine (Lidoderm) 1 ea TD DAILY [facility] Last Admin: 07/18/18 10:12 Dose: 1 ea Metoprolol Tartrate (Lopressor) 12.5 mg PO BID [facility] Last Admin: 07/18/18 18:01 Dose: 12.5 mg Rosuvastatin Calcium (Crestor) 10 mg PO HS [facility] Last Admin: 07/18/18 21:23 Dose: 10 mg Results - Vital Signs Recent Vital Signs: Last Vital Signs Temp 97.1 F L 07/18/18 16:00 Pulse 141 H 07/18/18 21:40 Resp 27 H 07/18/18 19:19 BP 93/50 L 07/18/18 19:20 Pulse Ox 100 07/18/18 08:00 - Labs Result Diagrams: 07/18/18 20:16 07/18/18 07:04 Labs: Laboratory Results - last 24 hr 07/18/18 07/18/18 07/18/18 07:04 07:04 07:04 WBC 4.3 L RBC 3.64 L Hgb 9.0 L Hct 29.7 L MCV 81.6 MCH 24.7 L MCHC 30.3 L RDW 21.8 H Plt Count 210 MPV 8.0 Neut % (Auto) 90.6 H Lymph % (Auto) 6.9 L [place] % (Auto) 1.9 Eos % (Auto) 0.2 Baso % (Auto) 0.4 Neut # (Auto) 3.9 Lymph # (Auto) 0.3 L [place] # (Auto) 0.1 Eos # (Auto) 0.0 Baso # (Auto) 0.0 Neutrophils % (Manual) 90 H Band Neutrophils % 2 Lymphocytes % (Manual) 6 L Monocytes % (Manual) 2 Toxic Granulation Present Platelet Estimate Normal Large Platelets Present Polychromasia Slight Hypochromasia (manual) Moderate Poikilocytosis (manual Slight Anisocytosis (manual) Slight Ovalocytes Slight Schistocytes Slight PT 14.9 H INR 1.4 APTT 32 D Sodium 130 L Potassium 4.7 Chloride 95 L Carbon Dioxide 21 L Anion Gap 19 BUN 40 H Creatinine 3.4 H Est GFR ( Amer) 16 Est GFR (Non-Af Amer) 13 POC Glucose (mg/dL) Random Glucose 65 Calcium 6.9 L Phosphorus 3.5 Magnesium 2.1 Total Bilirubin 0.9 AST 20 ALT < 6 L D Alkaline Phosphatase 175 H D Total Protein 5.4 L Albumin 2.7 L Globulin 2.6 Albumin/Globulin Ratio 1.0 07/18/18 07/18/18 07/18/18 07:55 14:56 16:38 WBC RBC Hgb Hct MCV MCH MCHC RDW Plt Count MPV Neut % (Auto) Lymph % (Auto) [place] % (Auto) Eos % (Auto) Baso % (Auto) Neut # (Auto) Lymph # (Auto) [place] # (Auto) Eos # (Auto) Baso # (Auto) Neutrophils % (Manual) Band Neutrophils % Lymphocytes % (Manual) Monocytes % (Manual) Toxic Granulation Platelet Estimate Large Platelets Polychromasia Hypochromasia (manual) Poikilocytosis (manual Anisocytosis (manual) Ovalocytes Schistocytes PT INR APTT 100 H* D Sodium Potassium Chloride Carbon Dioxide Anion Gap BUN Creatinine Est GFR ( Amer) Est GFR (Non-Af Amer) POC Glucose (mg/dL) 112 H 113 H Random Glucose Calcium Phosphorus Magnesium Total Bilirubin AST ALT Alkaline Phosphatase Total Protein Albumin Globulin Albumin/Globulin Ratio 07/18/18 07/18/18 07/18/18 19:58 20:16 20:16 WBC 11.2 H D RBC 3.02 L Hgb 7.6 L Hct 24.6 L MCV 81.5 MCH 25.2 L MCHC 30.9 L RDW 21.4 H Plt Count 222 MPV 8.1 Neut % (Auto) 97.2 H Lymph % (Auto) 1.8 L [place] % (Auto) 0.3 Eos % (Auto) 0.3 Baso % (Auto) 0.4 Neut # (Auto) 10.9 H Lymph # (Auto) 0.2 L [place] # (Auto) 0.0 Eos # (Auto) 0.0 Baso # (Auto) 0.0 Neutrophils % (Manual) 83 H Band Neutrophils % 15 H* Lymphocytes % (Manual) 2 L Monocytes % (Manual) TEST NOT PERFORMED Toxic Granulation Platelet Estimate Normal Large Platelets Polychromasia Slight Hypochromasia (manual) Moderate Poikilocytosis (manual Anisocytosis (manual) Slight Ovalocytes Slight Schistocytes PT 20.3 H D INR 1.9 D APTT 43 H D Sodium Potassium Chloride Carbon Dioxide Anion Gap BUN Creatinine Est GFR ( Amer) Est GFR (Non- Amer) POC Glucose (mg/dL) 103 Random Glucose Calcium Phosphorus Magnesium Total Bilirubin AST ALT Alkaline Phosphatase Total Protein Albumin Globulin Albumin/Globulin Ratio 07/18/18 21:29 WBC RBC Hgb Hct MCV MCH MCHC RDW Plt Count MPV Neut % (Auto) Lymph % (Auto) [place] % (Auto) Eos % (Auto) Baso % (Auto) Neut # (Auto) Lymph # (Auto) [place] # (Auto) Eos # (Auto) Baso # (Auto) Neutrophils % (Manual) Band Neutrophils % Lymphocytes % (Manual) Monocytes % (Manual) Toxic Granulation Platelet Estimate Large Platelets Polychromasia Hypochromasia (manual) Poikilocytosis (manual Anisocytosis (manual) Ovalocytes Schistocytes PT INR APTT Sodium Potassium Chloride Carbon Dioxide Anion Gap BUN Creatinine Est GFR ( Amer) Est GFR (Non-Af Amer) POC Glucose (mg/dL) 74 Random Glucose Calcium Phosphorus Magnesium Total Bilirubin AST ALT Alkaline Phosphatase Total Protein Albumin Globulin Albumin/Globulin Ratio Assessment & Plan (1) Acute blood loss anemia Status: Acute (2) GI bleed Status: Acute (3) CHF (congestive heart failure) Status: Acute (4) ESRD (end stage renal disease) on dialysis Status: Acute (5) Rapid atrial fibrillation Status: Chronic (6) COPD (chronic obstructive pulmonary disease) Status: Chronic
[2018-07-18 23:07] LABS: ARTERIAL BLOOD GAS HCO3 22.4 mmol/L (21-28); ARTERIAL BLOOD GAS HEMOGLOBIN 6.6 g/dL (11.7-17.4); ARTERIAL BLOOD GAS O2 SAT 99.2 % (95-98); ARTERIAL BLOOD GAS PCO2 22 mm/Hg (35-45); ARTERIAL BLOOD GAS PH 7.54 (7.35-7.45); ARTERIAL BLOOD GAS PO2 87 mm/Hg (80-100); ARTERIAL BLOOD GAS TCO2 19.5 mmol/L (22-28)
[2018-07-18 23:16] LABS: MEAN CELL VOLUME 79.9 fL (81.0-99.0); MEAN CORPUSCULAR HEMOGLOBIN 25.2 pg (27.0-31.0); MEAN CORPUSCULAR HGB CONC 31.6 g/dL (33.0-37.0); MEAN PLATELET VOLUME 8.4 fL (7.2-11.7); RBC 2.54 Mil/uL (3.80-5.20); RED CELL DISTRIBUTION WIDTH 20.9 % (11.5-14.5); WHITE BLOOD COUNT 13.6 K/uL (4.8-10.8)
[2018-07-18 23:18] LABS: HEMOGLOBIN 6.4 g/dL (11.0-16.0)
--- NOTE | 2018-07-18 23:37 | CP.PCM.PN ---
Subjective - Date & Time of Evaluation Date of Evaluation: 07/18/18 Time of Evaluation: 16:30 Objective - Vital Signs/Intake and Output Vital Signs (last 24 hours): Temp Pulse Resp BP Pulse Ox 97.1 F L 141 H 27 H 93/50 L 100 07/18/18 16:00 07/18/18 21:40 07/18/18 19:19 07/18/18 19:20 07/18/18 08:00 Intake and Output: 07/18/18 07/19/18 18:59 06:59 Intake Total 399.8 Balance 399.8 - Medications Medications: Current Medications Acetaminophen (Tylenol 325mg Tab) 650 mg PO Q6 PRN PRN Reason: Pain, Mild (1-3) Last Admin: 07/15/18 04:16 Dose: 650 mg Aspirin (Aspirin Chewable) 81 mg PO DAILY [facility] Last Admin: 07/18/18 10:11 Dose: 81 mg Cinacalcet (Sensipar) 90 mg PO DAILY [facility] Last Admin: 07/18/18 10:11 Dose: 90 mg Clopidogrel Bisulfate (Plavix) 75 mg PO DAILY [facility] Last Admin: 07/18/18 10:11 Dose: 75 mg Diltiazem HCl (Cardizem Cd) 180 mg PO DAILY [facility] Last Admin: 07/18/18 10:11 Dose: 180 mg Ezetimibe (Zetia) 10 mg PO DAILY [facility] Last Admin: 07/18/18 10:11 Dose: 10 mg Epoetin Amol (Procrit) 10,000 unit IV MWF [facility] Last Admin: 07/16/18 13:00 Dose: 10,000 unit Famotidine (Pepcid) 20 mg PO DAILY [facility] Last Admin: 07/18/18 10:11 Dose: 20 mg Pantoprazole Sodium 80 mg/ (Sodium Chloride) 100 mls @ 10 mls/hr IV .Q10H [facility] Last Admin: 07/18/18 22:00 Dose: 10 mls/hr Lidocaine (Lidoderm) 1 ea TD DAILY [facility] Last Admin: 07/18/18 10:12 Dose: 1 ea Metoprolol Tartrate (Lopressor) 12.5 mg PO BID [facility] Last Admin: 07/18/18 18:01 Dose: 12.5 mg Rosuvastatin Calcium (Crestor) 10 mg PO HS [facility] Last Admin: 07/18/18 21:23 Dose: 10 mg - Labs Labs: 07/18/18 23:13 07/18/18 07:04 PT 20.3 SECONDS (9.7-12.2) H D 07/18/18 20:16 INR 1.9 D 07/18/18 20:16 APTT 43 SECONDS (21-34) H D 07/18/18 20:16
[2018-07-19] MEDS ORDERED: Digoxin 500 mcg/2ml (0.5 mg/2ml) Inj IVP ONE (00:24)
[2018-07-19 00:41] VITALS: PULSE 129
[2018-07-19] MEDS: Nitroglycerin 2% Ointment Foilpak UD TOP SCH ×5 (03:41→20:05)
[2018-07-19] MEDS: Pantoprazole 80 MG in Sodium Chloride 0.9% 100 ML IV SCH ×2 (06:30→14:00)
[2018-07-19 06:50] LABS: BASO % 0.1 % (0.0-2.0); EOS # 0.1 K/uL (0.0-0.7); EOS % 0.5 % (0.0-4.0); HEMOGLOBIN 7.8 g/dL (11.0-16.0); LYMPH # 0.1 K/uL (1.0-4.3); MEAN CELL VOLUME 80.5 fL (81.0-99.0); MEAN CORPUSCULAR HEMOGLOBIN 26.1 pg (27.0-31.0); MEAN CORPUSCULAR HGB CONC 32.3 g/dL (33.0-37.0); MEAN PLATELET VOLUME 8.5 fL (7.2-11.7); MONO # 0.3 K/uL (0.0-0.8); MONO % 1.6 % (0.0-10.0); NEUT % 96.8 % (50.0-75.0); PLATELET COUNT 168 K/uL (130-400); RBC 2.98 Mil/uL (3.80-5.20); RED CELL DISTRIBUTION WIDTH 20.7 % (11.5-14.5); WHITE BLOOD COUNT 15.5 K/uL (4.8-10.8)
[2018-07-19 06:54] LABS: INR 2.1; PROTHROMBIN TIME 23.1 SECONDS (9.7-12.2)
[2018-07-19 07:21] LABS: CALCIUM 5.9 mg/dl (8.6-10.4); TROPONIN I 6.05 ng/mL (0.00-0.120)
[2018-07-19 07:22] LABS: ALBUMIN 2.2 g/dL (3.5-5.0)
[2018-07-19 08:38] LABS: ANISOCYTOSIS SLIGHT; BANDS 10 % (0-2); HYPOCHROMIC SLIGHT; LYMPHOCYTE 1 % (20-40); MONOCYTE 1 % (0-10); NEUTROPHIL 88 % (50-75); PLATELET ESTIMATE NORMAL (NORMAL); POIKILOCYTOSIS SLIGHT; POLYCHROMIC SLIGHT; TOTAL CELLS COUNTED 100
[2018-07-19 08:39] LABS: BURR CELLS SLIGHT; MICROCYTOSIS SLIGHT; TARGET CELLS SLIGHT
[2018-07-19] MEDS: Lidocaine 5% Patch TD SCH (09:46)
[2018-07-19] MEDS: diltiaZEM 180 mg/24 Hours CD Cap PO SCH (10:15)
[2018-07-19] MEDS ORDERED: SODIUM CHLORIDE 0.9% IV ONE (10:44)
[2018-07-19] MEDS ORDERED: DESMOPRESSIN IV ONE (10:44)
--- NOTE | 2018-07-19 10:52 | CP.PCM.PN ---
Subjective - Date & Time of Evaluation Date of Evaluation: 07/19/18 Time of Evaluation: 10:49 - Subjective Subjective: Events noted Has active rectal bleeding- just had another bloody BM heparin stopped, IV PPI drip added placed on bipap; cxr showed mild CHF on 07/18 s/p 1 unit prbcs last 24 hrs awake, lethargic due for HD now Objective - Vital Signs/Intake and Output Vital Signs (last 24 hours): Temp Pulse Resp BP Pulse Ox 99.0 F 84 32 H 95/49 L 100 07/19/18 08:00 07/19/18 10:21 07/19/18 09:11 07/19/18 09:11 07/19/18 09:11 Intake and Output: 07/19/18 07/19/18 06:59 18:59 Intake Total 867.5 30 Balance 867.5 30 - Medications Medications: Current Medications Acetaminophen (Tylenol 325mg Tab) 650 mg PO Q6 PRN PRN Reason: Pain, Mild (1-3) Last Admin: 07/15/18 04:16 Dose: 650 mg Cinacalcet (Sensipar) 90 mg PO DAILY [facility] Last Admin: 07/18/18 10:11 Dose: 90 mg Diltiazem HCl (Cardizem Cd) 180 mg PO DAILY [facility] Last Admin: 07/18/18 10:11 Dose: 180 mg Ezetimibe (Zetia) 10 mg PO DAILY [facility] Last Admin: 07/18/18 10:11 Dose: 10 mg Epoetin Amol (Procrit) 10,000 unit IV MWF [facility] Last Admin: 07/16/18 13:00 Dose: 10,000 unit Pantoprazole Sodium 80 mg/ (Sodium Chloride) 100 mls @ 10 mls/hr IV .Q10H [facility] Last Admin: 07/19/18 06:30 Dose: 10 mls/hr Desmopressin Acetate 10.7775 (mcg/ Sodium Chloride) 52.6944 mls @ 100 mls/hr IV ONCE ONE Stop: 07/19/18 11:13 Lidocaine (Lidoderm) 1 ea TD DAILY [facility] Last Admin: 07/19/18 09:46 Dose: 1 ea Metoprolol Tartrate (Lopressor) 12.5 mg PO BID [facility] Last Admin: 07/18/18 18:01 Dose: 12.5 mg Nitroglycerin (Nitro-Bid 2% Oint) 1 ea TOP Q4H [facility] Last Admin: 07/19/18 08:06 Dose: Not Given Rosuvastatin Calcium (Crestor) 10 mg PO HS [facility] Last Admin: 07/18/18 21:23 Dose: 10 mg - Labs Labs: 07/19/18 06:43 07/19/18 06:49 PT 23.1 SECONDS (9.7-12.2) H 07/19/18 06:43 INR 2.1 07/19/18 06:43 APTT 43 SECONDS (21-34) H D 07/18/18 20:16 - Constitutional Appears: In Acute Distress, Confused, Chronically Ill - Head Exam Head Exam: ATRAUMATIC, NORMAL INSPECTION - Eye Exam Eye Exam: EOMI, Normal appearance - Neck Exam Neck Exam: Normal Inspection. absent: Tenderness - Respiratory Exam Respiratory Exam: Rhonchi, Respiratory Distress - Cardiovascular Exam Cardiovascular Exam: Tachycardia, Irregular Rhythm - GI/Abdominal Exam GI & Abdominal Exam: Soft, Tenderness - Extremities Exam Extremities Exam: Tenderness - Neurological Exam Neurological Exam: Awake - Skin Skin Exam: Dry, Warm Assessment and Plan (1) Rapid atrial fibrillation Status: Chronic (2) ADPKD (autosomal dominant polycystic kidney disease) Status: Acute (3) CAD (coronary artery disease) Status: Acute (4) Secondary hyperparathyroidism Status: Acute (5) ESRD (end stage renal disease) Status: Acute (6) PVD (peripheral vascular disease) Status: Acute - Assessment and Plan (Free Text) Plan: IV PPIs hold anticoagulation hemodialysis soon adequate UF repeat blkood transfusion 1 u prbcs
--- NOTE | 2018-07-19 12:57 | CP.PCM.PN ---
Subjective - Date & Time of Evaluation Date of Evaluation: 07/19/18 Time of Evaluation: 12:54 - Subjective Subjective: condition poor. lower gi bleeding present. a. fib rvr. crf. cad pvd. htn. Objective - Vital Signs/Intake and Output Vital Signs (last 24 hours): Temp Pulse Resp BP Pulse Ox 99.0 F 89 32 H 95/49 L 100 07/19/18 08:00 07/19/18 11:37 07/19/18 09:11 07/19/18 09:11 07/19/18 09:11 Intake and Output: 07/19/18 07/19/18 06:59 18:59 Intake Total 867.5 30 Balance 867.5 30 - Medications Medications: Current Medications Acetaminophen (Tylenol 325mg Tab) 650 mg PO Q6 PRN PRN Reason: Pain, Mild (1-3) Last Admin: 07/15/18 04:16 Dose: 650 mg Cinacalcet (Sensipar) 90 mg PO DAILY [facility] Last Admin: 07/19/18 10:15 Dose: Not Given Diltiazem HCl (Cardizem Cd) 180 mg PO DAILY [facility] Last Admin: 07/19/18 10:15 Dose: Not Given Ezetimibe (Zetia) 10 mg PO DAILY [facility] Last Admin: 07/19/18 10:15 Dose: Not Given Epoetin Amol (Procrit) 10,000 unit IV MWF [facility] Last Admin: 07/16/18 13:00 Dose: 10,000 unit Pantoprazole Sodium 80 mg/ (Sodium Chloride) 100 mls @ 10 mls/hr IV .Q10H [facility] Last Admin: 07/19/18 06:30 Dose: 10 mls/hr Lidocaine (Lidoderm) 1 ea TD DAILY [facility] Last Admin: 07/19/18 09:46 Dose: 1 ea Metoprolol Tartrate (Lopressor) 12.5 mg PO BID [facility] Last Admin: 07/19/18 10:15 Dose: Not Given Nitroglycerin (Nitro-Bid 2% Oint) 1 ea TOP Q4H [facility] Last Admin: 07/19/18 12:02 Dose: Not Given Rosuvastatin Calcium (Crestor) 10 mg PO HS [facility] Last Admin: 07/18/18 21:23 Dose: 10 mg - Labs Labs: 07/19/18 06:43 07/19/18 06:49 PT 23.1 SECONDS (9.7-12.2) H 07/19/18 06:43 INR 2.1 07/19/18 06:43 APTT 43 SECONDS (21-34) H D 07/18/18 20:16 - Constitutional Appears: Chronically Ill - Eye Exam Eye Exam: Normal appearance - ENT Exam ENT Exam: Mucous Membranes Moist, Normal Exam - Neck Exam Neck Exam: Full ROM, Normal Inspection. absent: Lymphadenopathy - Respiratory Exam Respiratory Exam: Decreased Breath Sounds, Rhonchi - Cardiovascular Exam Cardiovascular Exam: Tachycardia, Irregular Rhythm, +S1, +S2 - GI/Abdominal Exam GI & Abdominal Exam: Soft, Normal Bowel Sounds - Neurological Exam Neurological Exam: Alert, Awake, CN II-XII Intact, Normal Gait, Oriented x3 - Skin Skin Exam: Mottled, Pallor Assessment and Plan - Assessment and Plan (Free Text) Assessment: gi bleed. a. fib rvr. Plan: as per icu. hd.
--- NOTE | 2018-07-19 13:25 | RAD ---
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 FINDINGS: Examination limited by habitus. The patient's chin obscures evaluation of the right lung apex. LUNGS: Chronic appearing interstitial markings. Superimposed infection or edema considered. PLEURA: No significant pleural effusion identified. No definite pneumothorax . CARDIOVASCULAR: Cardiomegaly. Atherosclerotic calcifications present. OSSEOUS STRUCTURES: Osseous demineralization. Degenerative changes. VISUALIZED UPPER ABDOMEN: Unremarkable. OTHER FINDINGS: Dense vascular calcifications. IMPRESSION: Interstitial prominence may be chronic. Mild superimposed infection/edema considered. Cardiomegaly.
--- NOTE | 2018-07-19 13:26 | CP.PCM.CON ---
<Mickey Vides - Last Filed: 07/19/18 14:04> History of Present Illness - History of Present Illness History of Present Illness: GI Fellow PGY4, consult note. Patricia De Guzman is a 68F with extensive comorbidities who was admitted to the hospital 5 days ago for afib with RVR and found to have elevated troponin. We were consulted for GI bleed. Patient was started on heparin drip and aspirin. Nurse reports difficult obtain therapeutic doses, so additional heparin was being given. She was being follow by cardiology and she was not a candidate for cardiac cath due to comorbidities. A rapid response was called for her last night as she was severely hypoxic and melena was noted in the chart. At that time she was placed on BiPAP, transferred to ICU, heparin stopped and PPI drip started. Also, DDAVP given per ICU team. Nurse report 2 more red bowel movements since that time, but none recently. Her Hb was 6.4 and 1u PRBc increased it to 7.8. She is scheduled for dialysis today where she will have 1 more unit transfused. PMHx - HTn, PAD, COPD, DM, AFIB on coumadin (non compliant), CAD, ESRD PSHx - BKA x2, fistula FMHx - unknown SocHx - brother lives in [place] Unable to complete 12pt ROS due to patient's condition. Past Patient History - Infectious Disease Hx of Infectious Diseases: None - Past Medical History & Family History Past Medical History?: Yes Past Family History: Reviewed and not pertinent - Past Social History Smoking Status: Former Smoker Chewing Tobacco Use: No Cigar Use: No Alcohol: None Drugs: Denies - CARDIAC Hx Cardia Arrhythmia: Yes Hx Hypercholesterolemia: Yes Hx Hypertension: Yes - PULMONARY Hx Asthma: Yes Hx Pneumonia: Yes (10 YRS AGO) - NEUROLOGICAL Hx Neurological Disorder: No - HEENT Hx Cataracts: Yes - RENAL Hx Chronic Kidney Disease: Yes - ENDOCRINE/METABOLIC Hx Diabetes Mellitus Type 2: Yes - HEMATOLOGICAL/ONCOLOGICAL Hx Anemia: Yes - INTEGUMENTARY Hx Dermatological Problems: Yes (SMALL ULCER RIGHT FOOT) Other/Comment: LEFT MEDIAL KNEE AREA- ULCER - MUSCULOSKELETAL/RHEUMATOLOGICAL Hx Arthritis: Yes - GASTROINTESTINAL Hx Gastrointestinal Disorders: Yes Hx Gastroesophageal Reflux: Yes - GENITOURINARY/GYNECOLOGICAL Other/Comment: dialysis MWF - PSYCHIATRIC Hx Substance Use: No - SURGICAL HISTORY Hx Coronary Stent: Yes - ANESTHESIA Hx Anesthesia: Yes Hx Anesthesia Reactions: No Hx Malignant Hyperthermia: No Meds Allergies/Adverse Reactions: Allergies Allergy/AdvReac Type Severity Reaction Status Date / Time vancomycin Allergy Intermediate RASH Verified 07/14/18 12:50 - Medications Medications: Current Medications Acetaminophen (Tylenol 325mg Tab) 650 mg PO Q6 PRN PRN Reason: Pain, Mild (1-3) Last Admin: 07/15/18 04:16 Dose: 650 mg Cinacalcet (Sensipar) 90 mg PO DAILY [facility] Last Admin: 07/19/18 10:15 Dose: Not Given Diltiazem HCl (Cardizem Cd) 180 mg PO DAILY [facility] Last Admin: 07/19/18 10:15 Dose: Not Given Ezetimibe (Zetia) 10 mg PO DAILY [facility] Last Admin: 07/19/18 10:15 Dose: Not Given Epoetin Amol (Procrit) 10,000 unit IV MWF [facility] Last Admin: 07/16/18 13:00 Dose: 10,000 unit Pantoprazole Sodium 80 mg/ (Sodium Chloride) 100 mls @ 10 mls/hr IV .Q10H [facility] Last Admin: 07/19/18 06:30 Dose: 10 mls/hr Lidocaine (Lidoderm) 1 ea TD DAILY [facility] Last Admin: 07/19/18 09:46 Dose: 1 ea Metoprolol Tartrate (Lopressor) 12.5 mg PO BID [facility] Last Admin: 07/19/18 10:15 Dose: Not Given Nitroglycerin (Nitro-Bid 2% Oint) 1 ea TOP Q4H [facility] Last Admin: 07/19/18 12:02 Dose: Not Given Rosuvastatin Calcium (Crestor) 10 mg PO HS [facility] Last Admin: 07/18/18 21:23 Dose: 10 mg Physical Exam - Constitutional Appears: Older Than Stated Age, Confused, Chronically Ill - Head Exam Head Exam: ATRAUMATIC, NORMAL INSPECTION - Respiratory Exam Respiratory Exam: Respiratory Distress. absent: NORMAL BREATHING PATTERN - Cardiovascular Exam Cardiovascular Exam: REGULAR RHYTHM, +S1, +S2 - GI/Abdominal Exam GI & Abdominal Exam: Hypoactive Bowel Sounds, Soft. absent: Distended, Organomegaly, Tenderness - Extremities Exam Extremities exam: Negative for: normal inspection - Neurological Exam Neurological exam: Altered - Psychiatric Exam Psychiatric exam: Normal Affect, Normal Mood - Skin Skin Exam: Dry, Normal Color Results - Vital Signs Recent Vital Signs: Last Vital Signs Temp 99.0 F 07/19/18 08:00 Pulse 89 07/19/18 11:37 Resp 32 H 07/19/18 09:11 BP 95/49 L 07/19/18 09:11 Pulse Ox 100 07/19/18 09:11 - Labs Result Diagrams: 07/19/18 06:43 07/19/18 06:49 Labs: Laboratory Results - last 24 hr 07/18/18 07/18/18 07/18/18 14:56 16:38 19:58 WBC RBC Hgb Hct MCV MCH MCHC RDW Plt Count MPV Neut % (Auto) Lymph % (Auto) [place] % (Auto) Eos % (Auto) Baso % (Auto) Neut # (Auto) Lymph # (Auto) [place] # (Auto) Eos # (Auto) Baso # (Auto) Neutrophils % (Manual) Band Neutrophils % Lymphocytes % (Manual) Monocytes % (Manual) Platelet Estimate Polychromasia Hypochromasia (manual) Poikilocytosis (manual Anisocytosis (manual) Microcytosis (manual) Target Cells Ovalocytes [place] Cells PT INR APTT 100 H* D Puncture Site pCO2 pO2 HCO3 ABG pH ABG Total CO2 ABG O2 Saturation ABG Base Excess ABG Hemoglobin ABG Carboxyhemoglobin POC ABG HHb (Measured) ABG Methemoglobin Kristopher Test A-a O2 Difference Respiratory Index Hgb O2 Saturation Vent Mode Mechanical Rate FiO2 Inspiratory BiPAP Expiratory BiPAP Sodium Potassium Chloride Carbon Dioxide Anion Gap BUN Creatinine Est GFR ( Amer) Est GFR (Non-Af Amer) POC Glucose (mg/dL) 113 H 103 Random Glucose Calcium Phosphorus Magnesium Total Bilirubin AST ALT Alkaline Phosphatase Troponin I Total Protein Albumin Globulin Albumin/Globulin Ratio Blood Type Antibody Screen 07/18/18 07/18/18 07/18/18 20:16 20:16 21:29 WBC 11.2 H D RBC 3.02 L Hgb 7.6 L Hct 24.6 L MCV 81.5 MCH 25.2 L MCHC 30.9 L RDW 21.4 H Plt Count 222 MPV 8.1 Neut % (Auto) 97.2 H Lymph % (Auto) 1.8 L [place] % (Auto) 0.3 Eos % (Auto) 0.3 Baso % (Auto) 0.4 Neut # (Auto) 10.9 H Lymph # (Auto) 0.2 L [place] # (Auto) 0.0 Eos # (Auto) 0.0 Baso # (Auto) 0.0 Neutrophils % (Manual) 83 H Band Neutrophils % 15 H* Lymphocytes % (Manual) 2 L Monocytes % (Manual) TEST NOT PERFORMED Platelet Estimate Normal Polychromasia Slight Hypochromasia (manual) Moderate Poikilocytosis (manual Anisocytosis (manual) Slight Microcytosis (manual) Target Cells Ovalocytes Slight [place] Cells PT 20.3 H D INR 1.9 D APTT 43 H D Puncture Site pCO2 pO2 HCO3 ABG pH ABG Total CO2 ABG O2 Saturation ABG Base Excess ABG Hemoglobin ABG Carboxyhemoglobin POC ABG HHb (Measured) ABG Methemoglobin Kristopher Test A-a O2 Difference Respiratory Index Hgb O2 Saturation Vent Mode Mechanical Rate FiO2 Inspiratory BiPAP Expiratory BiPAP Sodium Potassium Chloride Carbon Dioxide Anion Gap BUN Creatinine Est GFR ( Amer) Est GFR (Non-Af Amer) POC Glucose (mg/dL) 74 Random Glucose Calcium Phosphorus Magnesium Total Bilirubin AST ALT Alkaline Phosphatase Troponin I Total Protein Albumin Globulin Albumin/Globulin Ratio Blood Type Antibody Screen 07/18/18 07/18/18 07/18/18 22:45 23:13 23:49 WBC 13.6 H RBC 2.54 L Hgb 6.4 L* Hct 20.3 L MCV 79.9 L MCH 25.2 L MCHC 31.6 L RDW 20.9 H Plt Count 189 MPV 8.4 Neut % (Auto) Lymph % (Auto) [place] % (Auto) Eos % (Auto) Baso % (Auto) Neut # (Auto) Lymph # (Auto) [place] # (Auto) Eos # (Auto) Baso # (Auto) Neutrophils % (Manual) Band Neutrophils % Lymphocytes % (Manual) Monocytes % (Manual) Platelet Estimate Polychromasia Hypochromasia (manual) Poikilocytosis (manual Anisocytosis (manual) Microcytosis (manual) Target Cells Ovalocytes [place] Cells PT INR APTT Puncture Site Lradial pCO2 22 L pO2 87 HCO3 22.4 ABG pH 7.54 H ABG Total CO2 19.5 L ABG O2 Saturation 99.2 H ABG Base Excess -3.3 L ABG Hemoglobin 6.6 L ABG Carboxyhemoglobin 2.0 H POC ABG HHb (Measured) 0.8 ABG Methemoglobin 1.1 Kristopher Test Na A-a O2 Difference 242.0 Respiratory Index 2.8 Hgb O2 Saturation 96.1 Vent Mode Bipap Mechanical Rate 12 FiO2 50.0 Inspiratory BiPAP 12 Expiratory BiPAP 6 Sodium Potassium Chloride Carbon Dioxide Anion Gap BUN Creatinine Est GFR ( Amer) Est GFR (Non-Af Amer) POC Glucose (mg/dL) Random Glucose Calcium Phosphorus Magnesium Total Bilirubin AST ALT Alkaline Phosphatase Troponin I Total Protein Albumin Globulin Albumin/Globulin Ratio Blood Type O POSITIVE Antibody Screen Negative 07/19/18 07/19/18 07/19/18 06:43 06:43 06:49 WBC 15.5 H RBC 2.98 L Hgb 7.8 L Hct 24.0 L MCV 80.5 L MCH 26.1 L MCHC 32.3 L RDW 20.7 H Plt Count 168 MPV 8.5 Neut % (Auto) 96.8 H Lymph % (Auto) 1.0 L [place] % (Auto) 1.6 Eos % (Auto) 0.5 Baso % (Auto) 0.1 Neut # (Auto) 15.0 H Lymph # (Auto) 0.1 L [place] # (Auto) 0.3 Eos # (Auto) 0.1 Baso # (Auto) 0.0 Neutrophils % (Manual) 88 H Band Neutrophils % 10 H Lymphocytes % (Manual) 1 L Monocytes % (Manual) 1 Platelet Estimate Normal Polychromasia Slight Hypochromasia (manual) Slight Poikilocytosis (manual Slight Anisocytosis (manual) Slight Microcytosis (manual) Slight Target Cells Slight Ovalocytes [place] Cells Slight PT 23.1 H INR 2.1 APTT Puncture Site pCO2 pO2 HCO3 ABG pH ABG Total CO2 ABG O2 Saturation ABG Base Excess ABG Hemoglobin ABG Carboxyhemoglobin POC ABG HHb (Measured) ABG Methemoglobin Kristopher Test A-a O2 Difference Respiratory Index Hgb O2 Saturation Vent Mode Mechanical Rate FiO2 Inspiratory BiPAP Expiratory BiPAP Sodium 130 L Potassium 4.1 Chloride 96 L Carbon Dioxide 23 Anion Gap 16 BUN 57 H Creatinine 4.0 H Est GFR ( Amer) 14 Est GFR (Non-Af Amer) 11 POC Glucose (mg/dL) Random Glucose 74 Calcium 5.9 L* Phosphorus 3.0 Magnesium 1.9 Total Bilirubin 1.3 AST 30 ALT 11 Alkaline Phosphatase 160 H Troponin I 6.0500 H* Total Protein 4.3 L Albumin 2.2 L Globulin 2.1 L Albumin/Globulin Ratio 1.0 Blood Type Antibody Screen 07/19/18 07/19/18 07:46 11:38 WBC RBC Hgb Hct MCV MCH MCHC RDW Plt Count MPV Neut % (Auto) Lymph % (Auto) [place] % (Auto) Eos % (Auto) Baso % (Auto) Neut # (Auto) Lymph # (Auto) [place] # (Auto) Eos # (Auto) Baso # (Auto) Neutrophils % (Manual) Band Neutrophils % Lymphocytes % (Manual) Monocytes % (Manual) Platelet Estimate Polychromasia Hypochromasia (manual) Poikilocytosis (manual Anisocytosis (manual) Microcytosis (manual) Target Cells Ovalocytes [place] Cells PT INR APTT Puncture Site pCO2 pO2 HCO3 ABG pH ABG Total CO2 ABG O2 Saturation ABG Base Excess ABG Hemoglobin ABG Carboxyhemoglobin POC ABG HHb (Measured) ABG Methemoglobin Kristopher Test A-a O2 Difference Respiratory Index Hgb O2 Saturation Vent Mode Mechanical Rate FiO2 Inspiratory BiPAP Expiratory BiPAP Sodium Potassium Chloride Carbon Dioxide Anion Gap BUN Creatinine Est GFR ( Amer) Est GFR (Non-Af Amer) POC Glucose (mg/dL) 72 84 Random Glucose Calcium Phosphorus Magnesium Total Bilirubin AST ALT Alkaline Phosphatase Troponin I Total Protein Albumin Globulin Albumin/Globulin Ratio Blood Type Antibody Screen Assessment & Plan - Assessment and Plan (Free Text) Assessment: #Acute blood loss anemia due to GI bleed #Possible sepsis - elevated bands, leukocytosis #Elevated INR #T2DM #COPD #CAD #ESRD #Afib PLAN: -Patient is active bleeding, melena -Continue supportive care -s/p 1 unit -Monitor Hb q8h with as needed transfusions. Hb goal >8. -Continue PPI drip -Hold anticoagulation, NSAIDs. -Unable to perform EGD while on BiPAP. Discussed with ICU staff. If intubated, EGD can be performed. -Prognosis is very poor. No family available at this time. -Full Code Case discussed with Dr. Alaniz, see attestation. - Date & Time Date: 07/19/18 Time: 13:33 <Jaz Alaniz - Last Filed: 07/19/18 14:18> Meds - Medications Medications: Current Medications Acetaminophen (Tylenol 325mg Tab) 650 mg PO Q6 PRN PRN Reason: Pain, Mild (1-3) Last Admin: 07/15/18 04:16 Dose: 650 mg Cinacalcet (Sensipar) 90 mg PO DAILY [facility] Last Admin: 07/19/18 10:15 Dose: Not Given Diltiazem HCl (Cardizem Cd) 180 mg PO DAILY [facility] Last Admin: 07/19/18 10:15 Dose: Not Given Ezetimibe (Zetia) 10 mg PO DAILY [facility] Last Admin: 07/19/18 10:15 Dose: Not Given Epoetin Amol (Procrit) 10,000 unit IV MWF [facility] Last Admin: 07/16/18 13:00 Dose: 10,000 unit Pantoprazole Sodium 80 mg/ (Sodium Chloride) 100 mls @ 10 mls/hr IV .Q10H [facility] Last Admin: 07/19/18 06:30 Dose: 10 mls/hr Lidocaine (Lidoderm) 1 ea TD DAILY [facility] Last Admin: 07/19/18 09:46 Dose: 1 ea Metoprolol Tartrate (Lopressor) 12.5 mg PO BID [facility] Last Admin: 07/19/18 10:15 Dose: Not Given Nitroglycerin (Nitro-Bid 2% Oint) 1 ea TOP Q4H [facility] Last Admin: 07/19/18 12:02 Dose: Not Given Rosuvastatin Calcium (Crestor) 10 mg PO HS [facility] Last Admin: 07/18/18 21:23 Dose: 10 mg Results - Vital Signs Recent Vital Signs: Last Vital Signs Temp 98.0 F 07/19/18 12:00 Pulse 108 H 07/19/18 14:00 Resp 33 H 07/19/18 14:00 BP 83/48 L 07/19/18 13:48 Pulse Ox 99 07/19/18 14:00 - Labs Result Diagrams: 07/19/18 06:43 07/19/18 06:49 Labs: Laboratory Results - last 24 hr 07/18/18 07/18/18 07/18/18 14:56 16:38 19:58 WBC RBC Hgb Hct MCV MCH MCHC RDW Plt Count MPV Neut % (Auto) Lymph % (Auto) [place] % (Auto) Eos % (Auto) Baso % (Auto) Neut # (Auto) Lymph # (Auto) [place] # (Auto) Eos # (Auto) Baso # (Auto) Neutrophils % (Manual) Band Neutrophils % Lymphocytes % (Manual) Monocytes % (Manual) Platelet Estimate Polychromasia Hypochromasia (manual) Poikilocytosis (manual Anisocytosis (manual) Microcytosis (manual) Target Cells Ovalocytes [place] Cells PT INR APTT 100 H* D Puncture Site pCO2 pO2 HCO3 ABG pH ABG Total CO2 ABG O2 Saturation ABG Base Excess ABG Hemoglobin ABG Carboxyhemoglobin POC ABG HHb (Measured) ABG Methemoglobin Kristopher Test A-a O2 Difference Respiratory Index Hgb O2 Saturation Vent Mode Mechanical Rate FiO2 Inspiratory BiPAP Expiratory BiPAP Sodium Potassium Chloride Carbon Dioxide Anion Gap BUN Creatinine Est GFR ( Amer) Est GFR (Non-Af Amer) POC Glucose (mg/dL) 113 H 103 Random Glucose Calcium Phosphorus Magnesium Total Bilirubin AST ALT Alkaline Phosphatase Troponin I Total Protein Albumin Globulin Albumin/Globulin Ratio Blood Type Antibody Screen 07/18/18 07/18/18 07/18/18 20:16 20:16 21:29 WBC 11.2 H D RBC 3.02 L Hgb 7.6 L Hct 24.6 L MCV 81.5 MCH 25.2 L MCHC 30.9 L RDW 21.4 H Plt Count 222 MPV 8.1 Neut % (Auto) 97.2 H Lymph % (Auto) 1.8 L [place] % (Auto) 0.3 Eos % (Auto) 0.3 Baso % (Auto) 0.4 Neut # (Auto) 10.9 H Lymph # (Auto) 0.2 L [place] # (Auto) 0.0 Eos # (Auto) 0.0 Baso # (Auto) 0.0 Neutrophils % (Manual) 83 H Band Neutrophils % 15 H* Lymphocytes % (Manual) 2 L Monocytes % (Manual) TEST NOT PERFORMED Platelet Estimate Normal Polychromasia Slight Hypochromasia (manual) Moderate Poikilocytosis (manual Anisocytosis (manual) Slight Microcytosis (manual) Target Cells Ovalocytes Slight [place] Cells PT 20.3 H D INR 1.9 D APTT 43 H D Puncture Site pCO2 pO2 HCO3 ABG pH ABG Total CO2 ABG O2 Saturation ABG Base Excess ABG Hemoglobin ABG Carboxyhemoglobin POC ABG HHb (Measured) ABG Methemoglobin Kristopher Test A-a O2 Difference Respiratory Index Hgb O2 Saturation Vent Mode Mechanical Rate FiO2 Inspiratory BiPAP Expiratory BiPAP Sodium Potassium Chloride Carbon Dioxide Anion Gap BUN Creatinine Est GFR ( Amer) Est GFR (Non-Af Amer) POC Glucose (mg/dL) 74 Random Glucose Calcium Phosphorus Magnesium Total Bilirubin AST ALT Alkaline Phosphatase Troponin I Total Protein Albumin Globulin Albumin/Globulin Ratio Blood Type Antibody Screen 07/18/18 07/18/18 07/18/18 22:45 23:13 23:49 WBC 13.6 H RBC 2.54 L Hgb 6.4 L* Hct 20.3 L MCV 79.9 L MCH 25.2 L MCHC 31.6 L RDW 20.9 H Plt Count 189 MPV 8.4 Neut % (Auto) Lymph % (Auto) [place] % (Auto) Eos % (Auto) Baso % (Auto) Neut # (Auto) Lymph # (Auto) [place] # (Auto) Eos # (Auto) Baso # (Auto) Neutrophils % (Manual) Band Neutrophils % Lymphocytes % (Manual) Monocytes % (Manual) Platelet Estimate Polychromasia Hypochromasia (manual) Poikilocytosis (manual Anisocytosis (manual) Microcytosis (manual) Target Cells Ovalocytes [place] Cells PT INR APTT Puncture Site Lradial pCO2 22 L pO2 87 HCO3 22.4 ABG pH 7.54 H ABG Total CO2 19.5 L ABG O2 Saturation 99.2 H ABG Base Excess -3.3 L ABG Hemoglobin 6.6 L ABG Carboxyhemoglobin 2.0 H POC ABG HHb (Measured) 0.8 ABG Methemoglobin 1.1 Kristopher Test Na A-a O2 Difference 242.0 Respiratory Index 2.8 Hgb O2 Saturation 96.1 Vent Mode Bipap Mechanical Rate 12 FiO2 50.0 Inspiratory BiPAP 12 Expiratory BiPAP 6 Sodium Potassium Chloride Carbon Dioxide Anion Gap BUN Creatinine Est GFR ( Amer) Est GFR (Non-Af Amer) POC Glucose (mg/dL) Random Glucose Calcium Phosphorus Magnesium Total Bilirubin AST ALT Alkaline Phosphatase Troponin I Total Protein Albumin Globulin Albumin/Globulin Ratio Blood Type O POSITIVE Antibody Screen Negative 07/19/18 07/19/18 07/19/18 06:43 06:43 06:49 WBC 15.5 H RBC 2.98 L Hgb 7.8 L Hct 24.0 L MCV 80.5 L MCH 26.1 L MCHC 32.3 L RDW 20.7 H Plt Count 168 MPV 8.5 Neut % (Auto) 96.8 H Lymph % (Auto) 1.0 L [place] % (Auto) 1.6 Eos % (Auto) 0.5 Baso % (Auto) 0.1 Neut # (Auto) 15.0 H Lymph # (Auto) 0.1 L [place] # (Auto) 0.3 Eos # (Auto) 0.1 Baso # (Auto) 0.0 Neutrophils % (Manual) 88 H Band Neutrophils % 10 H Lymphocytes % (Manual) 1 L Monocytes % (Manual) 1 Platelet Estimate Normal Polychromasia Slight Hypochromasia (manual) Slight Poikilocytosis (manual Slight Anisocytosis (manual) Slight Microcytosis (manual) Slight Target Cells Slight Ovalocytes [place] Cells Slight PT 23.1 H INR 2.1 APTT Puncture Site pCO2 pO2 HCO3 ABG pH ABG Total CO2 ABG O2 Saturation ABG Base Excess ABG Hemoglobin ABG Carboxyhemoglobin POC ABG HHb (Measured) ABG Methemoglobin Kristopher Test A-a O2 Difference Respiratory Index Hgb O2 Saturation Vent Mode Mechanical Rate FiO2 Inspiratory BiPAP Expiratory BiPAP Sodium 130 L Potassium 4.1 Chloride 96 L Carbon Dioxide 23 Anion Gap 16 BUN 57 H Creatinine 4.0 H Est GFR ( Amer) 14 Est GFR (Non-Af Amer) 11 POC Glucose (mg/dL) Random Glucose 74 Calcium 5.9 L* Phosphorus 3.0 Magnesium 1.9 Total Bilirubin 1.3 AST 30 ALT 11 Alkaline Phosphatase 160 H Troponin I 6.0500 H* Total Protein 4.3 L Albumin 2.2 L Globulin 2.1 L Albumin/Globulin Ratio 1.0 Blood Type Antibody Screen 07/19/18 07/19/18 07:46 11:38 WBC RBC Hgb Hct MCV MCH MCHC RDW Plt Count MPV Neut % (Auto) Lymph % (Auto) [place] % (Auto) Eos % (Auto) Baso % (Auto) Neut # (Auto) Lymph # (Auto) [place] # (Auto) Eos # (Auto) Baso # (Auto) Neutrophils % (Manual) Band Neutrophils % Lymphocytes % (Manual) Monocytes % (Manual) Platelet Estimate Polychromasia Hypochromasia (manual) Poikilocytosis (manual Anisocytosis (manual) Microcytosis (manual) Target Cells Ovalocytes [place] Cells PT INR APTT Puncture Site pCO2 pO2 HCO3 ABG pH ABG Total CO2 ABG O2 Saturation ABG Base Excess ABG Hemoglobin ABG Carboxyhemoglobin POC ABG HHb (Measured) ABG Methemoglobin Kristopher Test A-a O2 Difference Respiratory Index Hgb O2 Saturation Vent Mode Mechanical Rate FiO2 Inspiratory BiPAP Expiratory BiPAP Sodium Potassium Chloride Carbon Dioxide Anion Gap BUN Creatinine Est GFR ( Amer) Est GFR (Non-Af Amer) POC Glucose (mg/dL) 72 84 Random Glucose Calcium Phosphorus Magnesium Total Bilirubin AST ALT Alkaline Phosphatase Troponin I Total Protein Albumin Globulin Albumin/Globulin Ratio Blood Type Antibody Screen Attending/Attestation - Attestation I have personally seen and examined this patient.: Yes I have fully participated in the care of the patient.: Yes I have reviewed all pertinent clinical information: Yes Notes (Text): 07/19/18 14:08 I have seen and examine the patient with the GI fellow. In summary, this is a frail 68 yo F with CAD, poorly controlled DM, PVD s/p b/l BKA, ESRD on HD, COPD, afib non-compliant with coumadin who p/w afib with RVR, found to have NSTEMI, started on hep gtt and ASA. Course c/b difficulty getting her PTT levels therapeutic as well as RR called last night due to hypoxia, now in the ICU on bipap. Hb noted to drop to 6.4, 1U RBC given with increase to 7.8. Hep gtt stopped. PPI gtt started. Currently, with melena and hypotensive. Awaiting ESRD today and another 1U RBC. General: frail, cachectic Lungs: SOB on bipap, using accessory muscles Abd: soft, nt, nd Rectal: liquid melena Ext: b/l BKA Plan: -hypotensive 83/43 --> would recommend another 1U RBC with HD -likely will need to be intubated as pt appears to be tiring out -appears to be having active UGIB -ppi gtt -CBC q8hrs -hold hep gtt for now -hold coumadin -will proceed with EGD tmrw if pt becomes intubated, otherwise, will only proceed with EGD if with significant bleeding -d/w ICU team and nursing 07/19/18 14:10
[2018-07-19] MEDS ORDERED: Etomidate 20 mg/10ml Inj IV ONE (15:07)
[2018-07-19] MEDS ORDERED: Phytonadione 10 mg/ml Inj (Adult) IV STA (16:28)
[2018-07-19] MEDS ORDERED: Phytonadione 10 MG in Sodium Chloride 0.9% 50 ML IV ONE (17:00)
[2018-07-19] MEDS ORDERED: DOPamine 400mg/250ml D5W 400 MG/250 ML BAG IV PRN (17:02)
--- NOTE | 2018-07-19 17:03 | RAD ---
HISTORY: s/p intubation; ETT placement COMPARISON: Chest x-ray performed 07/18/18 TECHNIQUE: Chest, one view. FINDINGS: Endotracheal tube terminates at the shelly and should be withdrawn approximately 3 cm. LUNGS: Interstitial prominence may be chronic. Mild superimposed infection/edema considered. PLEURA: Small right pleural effusion. No definite pneumothorax . CARDIOVASCULAR: Cardiomegaly. Atherosclerotic calcifications. OSSEOUS STRUCTURES: Degenerative changes. Osseous demineralization. VISUALIZED UPPER ABDOMEN: Unremarkable. OTHER FINDINGS: None. IMPRESSION: Endotracheal tube terminates at the shelly and should be withdrawn approximately 3 cm. Interstitial prominence may be chronic. Mild superimposed infection/edema considered. Small right pleural effusion. Cardiomegaly. Endotracheal tube placement discussed with Dr. Jane on 07/19/18 at 4:57 p.m.
--- NOTE | 2018-07-19 18:18 | CARD ---
APPROVED REPORT Date of service: 07/18/2018 EKG Measurement Heart [id number] <Conclusion> Atrial fibrillation ST & T wave abnormality, consider anterolateral ischemia Abnormal ECG
--- NOTE | 2018-07-19 18:23 | RAD ---
Date of service: 07/19/2018 HISTORY: ETT placement COMPARISON: Multiple serial examinations preceding the most recent study: July 19, 2018. Time of the most recent examination: 15:20. FINDINGS: LUNGS: Stable multifocal infiltrates. PLEURA: No significant pleural effusion identified, no pneumothorax apparent. CARDIOVASCULAR: Atherosclerotic calcifications identified primarily aortic arch. Normal. OSSEOUS STRUCTURES: No significant abnormalities. VISUALIZED UPPER ABDOMEN: Normal. OTHER FINDINGS: Satisfactory position of recently placed endotracheal tube. The tip is 1.75 cm above the shelly. Satisfactory position of the nasogastric tube. IMPRESSION: Satisfactory position of recently placed endotracheal tube. Otherwise, no interval change.
[2018-07-19 18:51] LABS: VENOUS BLOOD GAS BASE EXCESS -9.2 mmol/L (0.0-2.0); VENOUS BLOOD GAS PCO2 72 mmHg (40-60); VENOUS BLOOD GAS PO2 24 mm/Hg (30-55); VENOUS BLOOD PH 7.09 (7.32-7.43)
[2018-07-19 19:12] LABS: BASO % 0.4 % (0.0-2.0); EOS # 0.1 K/uL (0.0-0.7); EOS % 3.8 % (0.0-4.0); HEMOGLOBIN 9.5 g/dL (11.0-16.0); LYMPH # 0.1 K/uL (1.0-4.3); MEAN CELL VOLUME 86.8 fL (81.0-99.0); MEAN CORPUSCULAR HEMOGLOBIN 27.8 pg (27.0-31.0); MEAN PLATELET VOLUME 8.9 fL (7.2-11.7); MONO % 0.6 % (0.0-10.0); NEUT # 3.1 K/uL (1.8-7.0); NEUT % 91.2 % (50.0-75.0); NRBC % 0.2 % (0.0-2.0); PLATELET COUNT 88 K/uL (130-400); RBC 3.41 Mil/uL (3.80-5.20); RED CELL DISTRIBUTION WIDTH 17.6 % (11.5-14.5); WHITE BLOOD COUNT 3.4 K/uL (4.8-10.8)
--- NOTE | 2018-07-19 19:27 | CP.CCUPN ---
CCU Subjective - Physician Review Subjective (Free Text): Overnight events: -[employer] called, pt was dyspnic, desturating and had episode of Melena. Hg 6.4 -Placed on BIPAP and transferred to ICU -S/P transfusion 1 unit PRBC. AM: Seen and evaluated at the bedside this. On BIPAP. Appears lethargic. Able to follow simple commands. Hg 7.8 this am. Afternoon Events: As per RN patient had another episode of Melena in the afternoon. DDVP, FFP, and 1 unit PRBC ordered to be given with HD Discussed need for Endoscopy with GI at bedside. Pt not stable at this point. Will consider if intubated and more stable. Pt's mental status declined as day progressed. Decision made to intubate. Pt was intubated. Shortly after, became bradycardic and lost pulse twice and had ROSC. Central line was attempted many times through IJ and Femoral but vein was occluded. Right EJ was placed. Currently she is not on Dopamine and Vasopressin for BP support. Re-discussed case with GI, stated that pt is not stable for Endoscopy at this time and given poor prognosis will not benefit much. 07/19/18 18:41 CCU Objective - Vital Signs / Intake & Output Vital Signs (Last 4 hours): Vital Signs Temp Pulse Resp BP Pulse Ox 07/19/18 10:21 84 07/19/18 09:11 90 32 H 95/49 L 100 07/19/18 08:00 99.0 F 91 H 26 H 92/35 L 100 Intake and Output (Last 8hrs): Intake & Output 07/18/18 07/19/18 07/19/18 22:59 06:59 14:59 Intake Total 207.5 800 30 Balance 207.5 800 30 Weight 79 lb 3.2 oz Intake: IV 140 Intake, IV Amount 17.5 60 30 Left Forearm 17.5 60 30 Oral 50 0 Blood Product 650 Red Blood Cells Cpd As1 325 Lr Unit [id number] Other 90 Red Blood Cells Cpd As1 60 Lr Unit [id number] Other: # Voids Urine, Voided 0 0 0 # Bowel Movements 1 0 - Physical Exam Physical Exam Limitations: Positive for: Altered Mental Status (lethargic, follows commands ) Head: Positive for: Atraumatic, Normocephalic Pupils: Positive for: PERRL Extroacular Muscles: Positive for: EOMI Conjunctiva: Positive for: Normal Mouth: Positive for: Moist Mucous Membranes Neck: Positive for: Normal Range of Motion Respiratory/Chest: Positive for: Clear to Auscultation, Good Air Exchange. Negative for: Wheezes, Rales, Rhonchi Cardiovascular: Positive for: Regular Rate and Rhythm, Normal S1, S2. Negative for: Murmurs, Rub, Gallop Abdomen: Positive for: Normal Bowel Sounds. Negative for: Tenderness, Distention, Mass/Organomegaly Upper Extremity: Positive for: Normal Inspection, Normal ROM, Neurovascularly Intact, Capillary Refill < 2s. Negative for: Cyanosis, Edema Lower Extremity: Positive for: Normal Inspection, Neurovascularly Intact, Capillary Refill < 2 s. Negative for: Edema Neurological: Positive for: GCS=15, CN II-XII Intact, Speech Normal Skin: Positive for: Warm, Dry Psychiatric: Positive for: Alert, Oriented x 3 - Medications Active Medications: Active Medications Generic Name Dose Route Start Last Admin Trade Name Freq PRN Reason Stop Dose Admin Acetaminophen 650 mg 07/14/18 15:27 07/15/18 04:16 Tylenol 325mg Tab PO 650 mg Q6 PRN Administration Pain, Mild (1-3) Cinacalcet 90 mg 07/15/18 10:00 07/18/18 10:11 Sensipar PO 90 mg DAILY BILL Administration Diltiazem HCl 180 mg 07/15/18 10:00 07/18/18 10:11 Cardizem Cd PO 180 mg DAILY BILL Administration Ezetimibe 10 mg 07/15/18 10:00 07/18/18 10:11 Zetia PO 10 mg DAILY BILL Administration Epoetin Amol 10,000 unit 07/16/18 09:00 07/16/18 13:00 Procrit IV 10,000 unit MWF BILL Administration Pantoprazole Sodium 80 mg/ 100 mls @ 10 mls/hr 07/18/18 22:00 07/19/18 06:30 Sodium Chloride IV 10 mls/hr .Q10H BILL Administration 8 MG/HR Lidocaine 1 ea 07/15/18 10:00 07/19/18 09:46 Lidoderm TD 1 ea DAILY BILL Administration Metoprolol Tartrate 12.5 mg 07/17/18 18:00 07/18/18 18:01 Lopressor PO 12.5 mg BID BILL Administration Nitroglycerin 1 ea 07/19/18 04:00 07/19/18 08:06 Nitro-Bid 2% Oint TOP Not Given Q4H [facility] Rosuvastatin Calcium 10 mg 07/15/18 22:00 07/18/18 21:23 Crestor PO 10 mg HS BILL Administration - Patient Studies Lab Studies: Lab Studies 07/19/18 07/19/18 07/19/18 Range/Units 07:46 06:49 06:43 WBC 15.5 H (4.8-10.8) K/uL RBC 2.98 L (3.80-5.20) Mil/uL Hgb 7.8 L (11.0-16.0) g/dL Hct 24.0 L (34.0-47.0) % MCV 80.5 L (81.0-99.0) fL MCH 26.1 L (27.0-31.0) pg MCHC 32.3 L (33.0-37.0) g/dL RDW 20.7 H (11.5-14.5) % Plt Count 168 (130-400) K/uL MPV 8.5 (7.2-11.7) fL Neut % (Auto) 96.8 H (50.0-75.0) % Lymph % (Auto) 1.0 L (20.0-40.0) % [place] % (Auto) 1.6 (0.0-10.0) % Eos % (Auto) 0.5 (0.0-4.0) % Baso % (Auto) 0.1 (0.0-2.0) % Neut # (Auto) 15.0 H (1.8-7.0) K/uL Lymph # (Auto) 0.1 L (1.0-4.3) K/uL [place] # (Auto) 0.3 (0.0-0.8) K/uL Eos # (Auto) 0.1 (0.0-0.7) K/uL Baso # (Auto) 0.0 (0.0-0.2) K/uL Neutrophils % (Manual) 88 H (50-75) % Band Neutrophils % 10 H (0-2) % Lymphocytes % (Manual) 1 L (20-40) % Monocytes % (Manual) 1 Platelet Estimate Normal (NORMAL) Polychromasia Slight Hypochromasia (manual) Slight Poikilocytosis (manual Slight Anisocytosis (manual) Slight Microcytosis (manual) Slight Target Cells Slight Ovalocytes [place] Cells Slight PT (9.7-12.2) SECONDS INR APTT (21-34) SECONDS Puncture Site pCO2 (35-45) mm/Hg pO2 (80-100) mm/Hg HCO3 (21-28) mmol/L ABG pH (7.35-7.45) ABG Total CO2 (22-28) mmol/L ABG O2 Saturation (95-98) % ABG Base Excess (-2.0-3.0) mmol/L ABG Hemoglobin (11.7-17.4) g/dL ABG Carboxyhemoglobin (0.5-1.5) % POC ABG HHb (Measured) (0.0-5.0) % ABG Methemoglobin (0.0-3.0) % Kristopher Test A-a O2 Difference mm/Hg Respiratory Index Hgb O2 Saturation (95.0-98.0) % Vent Mode Mechanical Rate FiO2 % Inspiratory BiPAP Expiratory BiPAP Sodium 130 L (132-148) mmol/L Potassium 4.1 (3.6-5.2) mmol/L Chloride 96 L (98-107) mmol/L Carbon Dioxide 23 (22-30) mmol/L Anion Gap 16 (10-20) BUN 57 H (7-17) mg/dL Creatinine 4.0 H (0.7-1.2) mg/dL Est GFR ( Amer) 14 Est GFR (Non-Af Amer) 11 POC Glucose (mg/dL) 72 (65-110) mg/dL Random Glucose 74 (65-105) mg/dL Calcium 5.9 L* (8.6-10.4) mg/dl Phosphorus 3.0 (2.5-4.5) mg/dL Magnesium 1.9 (1.6-2.3) mg/dL Total Bilirubin 1.3 (0.2-1.3) mg/dL AST 30 (14-36) U/L ALT 11 (9-52) U/L Alkaline Phosphatase 160 H (38-126) U/L Troponin I 6.0500 H* (0.00-0.120) ng/mL Total Protein 4.3 L (6.3-8.3) g/dL Albumin 2.2 L (3.5-5.0) g/dL Globulin 2.1 L (2.2-3.9) gm/dL Albumin/Globulin Ratio 1.0 (1.0-2.1) Blood Type Antibody Screen 07/19/18 07/18/18 07/18/18 Range/Units 06:43 23:49 23:13 WBC 13.6 H (4.8-10.8) K/uL RBC 2.54 L (3.80-5.20) Mil/uL Hgb 6.4 L* (11.0-16.0) g/dL Hct 20.3 L (34.0-47.0) % MCV 79.9 L (81.0-99.0) fL MCH 25.2 L (27.0-31.0) pg MCHC 31.6 L (33.0-37.0) g/dL RDW 20.9 H (11.5-14.5) % Plt Count 189 (130-400) K/uL MPV 8.4 (7.2-11.7) fL Neut % (Auto) (50.0-75.0) % Lymph % (Auto) (20.0-40.0) % [place] % (Auto) (0.0-10.0) % Eos % (Auto) (0.0-4.0) % Baso % (Auto) (0.0-2.0) % Neut # (Auto) (1.8-7.0) K/uL Lymph # (Auto) (1.0-4.3) K/uL [place] # (Auto) (0.0-0.8) K/uL Eos # (Auto) (0.0-0.7) K/uL Baso # (Auto) (0.0-0.2) K/uL Neutrophils % (Manual) (50-75) % Band Neutrophils % (0-2) % Lymphocytes % (Manual) (20-40) % Monocytes % (Manual) Platelet Estimate (NORMAL) Polychromasia Hypochromasia (manual) Poikilocytosis (manual Anisocytosis (manual) Microcytosis (manual) Target Cells Ovalocytes [place] Cells PT 23.1 H (9.7-12.2) SECONDS INR 2.1 APTT (21-34) SECONDS Puncture Site pCO2 (35-45) mm/Hg pO2 (80-100) mm/Hg HCO3 (21-28) mmol/L ABG pH (7.35-7.45) ABG Total CO2 (22-28) mmol/L ABG O2 Saturation (95-98) % ABG Base Excess (-2.0-3.0) mmol/L ABG Hemoglobin (11.7-17.4) g/dL ABG Carboxyhemoglobin (0.5-1.5) % POC ABG HHb (Measured) (0.0-5.0) % ABG Methemoglobin (0.0-3.0) % Kristopher Test A-a O2 Difference mm/Hg Respiratory Index Hgb O2 Saturation (95.0-98.0) % Vent Mode Mechanical Rate FiO2 % Inspiratory BiPAP Expiratory BiPAP Sodium (132-148) mmol/L Potassium (3.6-5.2) mmol/L Chloride (98-107) mmol/L Carbon Dioxide (22-30) mmol/L Anion Gap (10-20) BUN (7-17) mg/dL Creatinine (0.7-1.2) mg/dL Est GFR ( Amer) Est GFR (Non-Af Amer) POC Glucose (mg/dL) (65-110) mg/dL Random Glucose (65-105) mg/dL Calcium (8.6-10.4) mg/dl Phosphorus (2.5-4.5) mg/dL Magnesium (1.6-2.3) mg/dL Total Bilirubin (0.2-1.3) mg/dL AST (14-36) U/L ALT (9-52) U/L Alkaline Phosphatase (38-126) U/L Troponin I (0.00-0.120) ng/mL Total Protein (6.3-8.3) g/dL Albumin (3.5-5.0) g/dL Globulin (2.2-3.9) gm/dL Albumin/Globulin Ratio (1.0-2.1) Blood Type O POSITIVE Antibody Screen Negative 07/18/18 07/18/18 07/18/18 Range/Units 22:45 21:29 20:16 WBC (4.8-10.8) K/uL RBC (3.80-5.20) Mil/uL Hgb (11.0-16.0) g/dL Hct (34.0-47.0) % MCV (81.0-99.0) fL MCH (27.0-31.0) pg MCHC (33.0-37.0) g/dL RDW (11.5-14.5) % Plt Count (130-400) K/uL MPV (7.2-11.7) fL Neut % (Auto) (50.0-75.0) % Lymph % (Auto) (20.0-40.0) % [place] % (Auto) (0.0-10.0) % Eos % (Auto) (0.0-4.0) % Baso % (Auto) (0.0-2.0) % Neut # (Auto) (1.8-7.0) K/uL Lymph # (Auto) (1.0-4.3) K/uL [place] # (Auto) (0.0-0.8) K/uL Eos # (Auto) (0.0-0.7) K/uL Baso # (Auto) (0.0-0.2) K/uL Neutrophils % (Manual) (50-75) % Band Neutrophils % (0-2) % Lymphocytes % (Manual) (20-40) % Monocytes % (Manual) Platelet Estimate (NORMAL) Polychromasia Hypochromasia (manual) Poikilocytosis (manual Anisocytosis (manual) Microcytosis (manual) Target Cells Ovalocytes [place] Cells PT 20.3 H D (9.7-12.2) SECONDS INR 1.9 D APTT 43 H D (21-34) SECONDS Puncture Site Lradial pCO2 22 L (35-45) mm/Hg pO2 87 (80-100) mm/Hg HCO3 22.4 (21-28) mmol/L ABG pH 7.54 H (7.35-7.45) ABG Total CO2 19.5 L (22-28) mmol/L ABG O2 Saturation 99.2 H (95-98) % ABG Base Excess -3.3 L (-2.0-3.0) mmol/L ABG Hemoglobin 6.6 L (11.7-17.4) g/dL ABG Carboxyhemoglobin 2.0 H (0.5-1.5) % POC ABG HHb (Measured) 0.8 (0.0-5.0) % ABG Methemoglobin 1.1 (0.0-3.0) % Kristopher Test Na A-a O2 Difference 242.0 mm/Hg Respiratory Index 2.8 Hgb O2 Saturation 96.1 (95.0-98.0) % Vent Mode Bipap Mechanical Rate 12 FiO2 50.0 % Inspiratory BiPAP 12 Expiratory BiPAP 6 Sodium (132-148) mmol/L Potassium (3.6-5.2) mmol/L Chloride (98-107) mmol/L Carbon Dioxide (22-30) mmol/L Anion Gap (10-20) BUN (7-17) mg/dL Creatinine (0.7-1.2) mg/dL Est GFR ( Amer) Est GFR (Non-Af Amer) POC Glucose (mg/dL) 74 (65-110) mg/dL Random Glucose (65-105) mg/dL Calcium (8.6-10.4) mg/dl Phosphorus (2.5-4.5) mg/dL Magnesium (1.6-2.3) mg/dL Total Bilirubin (0.2-1.3) mg/dL AST (14-36) U/L ALT (9-52) U/L Alkaline Phosphatase (38-126) U/L Troponin I (0.00-0.120) ng/mL Total Protein (6.3-8.3) g/dL Albumin (3.5-5.0) g/dL Globulin (2.2-3.9) gm/dL Albumin/Globulin Ratio (1.0-2.1) Blood Type Antibody Screen 07/18/18 07/18/18 07/18/18 Range/Units 20:16 19:58 16:38 WBC 11.2 H D (4.8-10.8) K/uL RBC 3.02 L (3.80-5.20) Mil/uL Hgb 7.6 L (11.0-16.0) g/dL Hct 24.6 L (34.0-47.0) % MCV 81.5 (81.0-99.0) fL MCH 25.2 L (27.0-31.0) pg MCHC 30.9 L (33.0-37.0) g/dL RDW 21.4 H (11.5-14.5) % Plt Count 222 (130-400) K/uL MPV 8.1 (7.2-11.7) fL Neut % (Auto) 97.2 H (50.0-75.0) % Lymph % (Auto) 1.8 L (20.0-40.0) % [place] % (Auto) 0.3 (0.0-10.0) % Eos % (Auto) 0.3 (0.0-4.0) % Baso % (Auto) 0.4 (0.0-2.0) % Neut # (Auto) 10.9 H (1.8-7.0) K/uL Lymph # (Auto) 0.2 L (1.0-4.3) K/uL [place] # (Auto) 0.0 (0.0-0.8) K/uL Eos # (Auto) 0.0 (0.0-0.7) K/uL Baso # (Auto) 0.0 (0.0-0.2) K/uL Neutrophils % (Manual) 83 H (50-75) % Band Neutrophils % 15 H* (0-2) % Lymphocytes % (Manual) 2 L (20-40) % Monocytes % (Manual) TEST NOT PERFORMED Platelet Estimate Normal (NORMAL) Polychromasia Slight Hypochromasia (manual) Moderate Poikilocytosis (manual Anisocytosis (manual) Slight Microcytosis (manual) Target Cells Ovalocytes Slight [place] Cells PT (9.7-12.2) SECONDS INR APTT (21-34) SECONDS Puncture Site pCO2 (35-45) mm/Hg pO2 (80-100) mm/Hg HCO3 (21-28) mmol/L ABG pH (7.35-7.45) ABG Total CO2 (22-28) mmol/L ABG O2 Saturation (95-98) % ABG Base Excess (-2.0-3.0) mmol/L ABG Hemoglobin (11.7-17.4) g/dL ABG Carboxyhemoglobin (0.5-1.5) % POC ABG HHb (Measured) (0.0-5.0) % ABG Methemoglobin (0.0-3.0) % Kristopher Test A-a O2 Difference mm/Hg Respiratory Index Hgb O2 Saturation (95.0-98.0) % Vent Mode Mechanical Rate FiO2 % Inspiratory BiPAP Expiratory BiPAP Sodium (132-148) mmol/L Potassium (3.6-5.2) mmol/L Chloride (98-107) mmol/L Carbon Dioxide (22-30) mmol/L Anion Gap (10-20) BUN (7-17) mg/dL Creatinine (0.7-1.2) mg/dL Est GFR ( Amer) Est GFR (Non-Af Amer) POC Glucose (mg/dL) 103 113 H (65-110) mg/dL Random Glucose (65-105) mg/dL Calcium (8.6-10.4) mg/dl Phosphorus (2.5-4.5) mg/dL Magnesium (1.6-2.3) mg/dL Total Bilirubin (0.2-1.3) mg/dL AST (14-36) U/L ALT (9-52) U/L Alkaline Phosphatase (38-126) U/L Troponin I (0.00-0.120) ng/mL Total Protein (6.3-8.3) g/dL Albumin (3.5-5.0) g/dL Globulin (2.2-3.9) gm/dL Albumin/Globulin Ratio (1.0-2.1) Blood Type Antibody Screen 07/18/18 Range/Units 14:56 WBC (4.8-10.8) K/uL RBC (3.80-5.20) Mil/uL Hgb (11.0-16.0) g/dL Hct (34.0-47.0) % MCV (81.0-99.0) fL MCH (27.0-31.0) pg MCHC (33.0-37.0) g/dL RDW (11.5-14.5) % Plt Count (130-400) K/uL MPV (7.2-11.7) fL Neut % (Auto) (50.0-75.0) % Lymph % (Auto) (20.0-40.0) % [place] % (Auto) (0.0-10.0) % Eos % (Auto) (0.0-4.0) % Baso % (Auto) (0.0-2.0) % Neut # (Auto) (1.8-7.0) K/uL Lymph # (Auto) (1.0-4.3) K/uL [place] # (Auto) (0.0-0.8) K/uL Eos # (Auto) (0.0-0.7) K/uL Baso # (Auto) (0.0-0.2) K/uL Neutrophils % (Manual) (50-75) % Band Neutrophils % (0-2) % Lymphocytes % (Manual) (20-40) % Monocytes % (Manual) Platelet Estimate (NORMAL) Polychromasia Hypochromasia (manual) Poikilocytosis (manual Anisocytosis (manual) Microcytosis (manual) Target Cells Ovalocytes [place] Cells PT (9.7-12.2) SECONDS INR APTT 100 H* D (21-34) SECONDS Puncture Site pCO2 (35-45) mm/Hg pO2 (80-100) mm/Hg HCO3 (21-28) mmol/L ABG pH (7.35-7.45) ABG Total CO2 (22-28) mmol/L ABG O2 Saturation (95-98) % ABG Base Excess (-2.0-3.0) mmol/L ABG Hemoglobin (11.7-17.4) g/dL ABG Carboxyhemoglobin (0.5-1.5) % POC ABG HHb (Measured) (0.0-5.0) % ABG Methemoglobin (0.0-3.0) % Kristopher Test A-a O2 Difference mm/Hg Respiratory Index Hgb O2 Saturation (95.0-98.0) % Vent Mode Mechanical Rate FiO2 % Inspiratory BiPAP Expiratory BiPAP Sodium (132-148) mmol/L Potassium (3.6-5.2) mmol/L Chloride (98-107) mmol/L Carbon Dioxide (22-30) mmol/L Anion Gap (10-20) BUN (7-17) mg/dL Creatinine (0.7-1.2) mg/dL Est GFR ( Amer) Est GFR (Non-Af Amer) POC Glucose (mg/dL) (65-110) mg/dL Random Glucose (65-105) mg/dL Calcium (8.6-10.4) mg/dl Phosphorus (2.5-4.5) mg/dL Magnesium (1.6-2.3) mg/dL Total Bilirubin (0.2-1.3) mg/dL AST (14-36) U/L ALT (9-52) U/L Alkaline Phosphatase (38-126) U/L Troponin I (0.00-0.120) ng/mL Total Protein (6.3-8.3) g/dL Albumin (3.5-5.0) g/dL Globulin (2.2-3.9) gm/dL Albumin/Globulin Ratio (1.0-2.1) Blood Type Antibody Screen Laboratory Results - last 24 hr 07/18/18 07/18/18 07/18/18 14:56 16:38 19:58 WBC RBC Hgb Hct MCV MCH MCHC RDW Plt Count MPV Neut % (Auto) Lymph % (Auto) [place] % (Auto) Eos % (Auto) Baso % (Auto) Neut # (Auto) Lymph # (Auto) [place] # (Auto) Eos # (Auto) Baso # (Auto) Neutrophils % (Manual) Band Neutrophils % Lymphocytes % (Manual) Monocytes % (Manual) Platelet Estimate Polychromasia Hypochromasia (manual) Poikilocytosis (manual Anisocytosis (manual) Microcytosis (manual) Target Cells Ovalocytes [place] Cells PT INR APTT 100 H* D Puncture Site pCO2 pO2 HCO3 ABG pH ABG Total CO2 ABG O2 Saturation ABG Base Excess ABG Hemoglobin ABG Carboxyhemoglobin POC ABG HHb (Measured) ABG Methemoglobin Kristopher Test A-a O2 Difference Respiratory Index Hgb O2 Saturation Vent Mode Mechanical Rate FiO2 Inspiratory BiPAP Expiratory BiPAP Sodium Potassium Chloride Carbon Dioxide Anion Gap BUN Creatinine Est GFR ( Amer) Est GFR (Non-Af Amer) POC Glucose (mg/dL) 113 H 103 Random Glucose Calcium Phosphorus Magnesium Total Bilirubin AST ALT Alkaline Phosphatase Troponin I Total Protein Albumin Globulin Albumin/Globulin Ratio Blood Type Antibody Screen 07/18/18 07/18/18 07/18/18 20:16 20:16 21:29 WBC 11.2 H D RBC 3.02 L Hgb 7.6 L Hct 24.6 L MCV 81.5 MCH 25.2 L MCHC 30.9 L RDW 21.4 H Plt Count 222 MPV 8.1 Neut % (Auto) 97.2 H Lymph % (Auto) 1.8 L [place] % (Auto) 0.3 Eos % (Auto) 0.3 Baso % (Auto) 0.4 Neut # (Auto) 10.9 H Lymph # (Auto) 0.2 L [place] # (Auto) 0.0 Eos # (Auto) 0.0 Baso # (Auto) 0.0 Neutrophils % (Manual) 83 H Band Neutrophils % 15 H* Lymphocytes % (Manual) 2 L Monocytes % (Manual) TEST NOT PERFORMED Platelet Estimate Normal Polychromasia Slight Hypochromasia (manual) Moderate Poikilocytosis (manual Anisocytosis (manual) Slight Microcytosis (manual) Target Cells Ovalocytes Slight [place] Cells PT 20.3 H D INR 1.9 D APTT 43 H D Puncture Site pCO2 pO2 HCO3 ABG pH ABG Total CO2 ABG O2 Saturation ABG Base Excess ABG Hemoglobin ABG Carboxyhemoglobin POC ABG HHb (Measured) ABG Methemoglobin Kristopher Test A-a O2 Difference Respiratory Index Hgb O2 Saturation Vent Mode Mechanical Rate FiO2 Inspiratory BiPAP Expiratory BiPAP Sodium Potassium Chloride Carbon Dioxide Anion Gap BUN Creatinine Est GFR ( Amer) Est GFR (Non-Af Amer) POC Glucose (mg/dL) 74 Random Glucose Calcium Phosphorus Magnesium Total Bilirubin AST ALT Alkaline Phosphatase Troponin I Total Protein Albumin Globulin Albumin/Globulin Ratio Blood Type Antibody Screen 07/18/18 07/18/18 07/18/18 22:45 23:13 23:49 WBC 13.6 H RBC 2.54 L Hgb 6.4 L* Hct 20.3 L MCV 79.9 L MCH 25.2 L MCHC 31.6 L RDW 20.9 H Plt Count 189 MPV 8.4 Neut % (Auto) Lymph % (Auto) [place] % (Auto) Eos % (Auto) Baso % (Auto) Neut # (Auto) Lymph # (Auto) [place] # (Auto) Eos # (Auto) Baso # (Auto) Neutrophils % (Manual) Band Neutrophils % Lymphocytes % (Manual) Monocytes % (Manual) Platelet Estimate Polychromasia Hypochromasia (manual) Poikilocytosis (manual Anisocytosis (manual) Microcytosis (manual) Target Cells Ovalocytes [place] Cells PT INR APTT Puncture Site Lradial pCO2 22 L pO2 87 HCO3 22.4 ABG pH 7.54 H ABG Total CO2 19.5 L ABG O2 Saturation 99.2 H ABG Base Excess -3.3 L ABG Hemoglobin 6.6 L ABG Carboxyhemoglobin 2.0 H POC ABG HHb (Measured) 0.8 ABG Methemoglobin 1.1 Kristopher Test Na A-a O2 Difference 242.0 Respiratory Index 2.8 Hgb O2 Saturation 96.1 Vent Mode Bipap Mechanical Rate 12 FiO2 50.0 Inspiratory BiPAP 12 Expiratory BiPAP 6 Sodium Potassium Chloride Carbon Dioxide Anion Gap BUN Creatinine Est GFR ( Amer) Est GFR (Non-Af Amer) POC Glucose (mg/dL) Random Glucose Calcium Phosphorus Magnesium Total Bilirubin AST ALT Alkaline Phosphatase Troponin I Total Protein Albumin Globulin Albumin/Globulin Ratio Blood Type O POSITIVE Antibody Screen Negative 07/19/18 07/19/18 07/19/18 06:43 06:43 06:49 WBC 15.5 H RBC 2.98 L Hgb 7.8 L Hct 24.0 L MCV 80.5 L MCH 26.1 L MCHC 32.3 L RDW 20.7 H Plt Count 168 MPV 8.5 Neut % (Auto) 96.8 H Lymph % (Auto) 1.0 L [place] % (Auto) 1.6 Eos % (Auto) 0.5 Baso % (Auto) 0.1 Neut # (Auto) 15.0 H Lymph # (Auto) 0.1 L [place] # (Auto) 0.3 Eos # (Auto) 0.1 Baso # (Auto) 0.0 Neutrophils % (Manual) 88 H Band Neutrophils % 10 H Lymphocytes % (Manual) 1 L Monocytes % (Manual) 1 Platelet Estimate Normal Polychromasia Slight Hypochromasia (manual) Slight Poikilocytosis (manual Slight Anisocytosis (manual) Slight Microcytosis (manual) Slight Target Cells Slight Ovalocytes [place] Cells Slight PT 23.1 H INR 2.1 APTT Puncture Site pCO2 pO2 HCO3 ABG pH ABG Total CO2 ABG O2 Saturation ABG Base Excess ABG Hemoglobin ABG Carboxyhemoglobin POC ABG HHb (Measured) ABG Methemoglobin Kristopher Test A-a O2 Difference Respiratory Index Hgb O2 Saturation Vent Mode Mechanical Rate FiO2 Inspiratory BiPAP Expiratory BiPAP Sodium 130 L Potassium 4.1 Chloride 96 L Carbon Dioxide 23 Anion Gap 16 BUN 57 H Creatinine 4.0 H Est GFR ( Amer) 14 Est GFR (Non-Af Amer) 11 POC Glucose (mg/dL) Random Glucose 74 Calcium 5.9 L* Phosphorus 3.0 Magnesium 1.9 Total Bilirubin 1.3 AST 30 ALT 11 Alkaline Phosphatase 160 H Troponin I 6.0500 H* Total Protein 4.3 L Albumin 2.2 L Globulin 2.1 L Albumin/Globulin Ratio 1.0 Blood Type Antibody Screen 07/19/18 07:46 WBC RBC Hgb Hct MCV MCH MCHC RDW Plt Count MPV Neut % (Auto) Lymph % (Auto) [place] % (Auto) Eos % (Auto) Baso % (Auto) Neut # (Auto) Lymph # (Auto) [place] # (Auto) Eos # (Auto) Baso # (Auto) Neutrophils % (Manual) Band Neutrophils % Lymphocytes % (Manual) Monocytes % (Manual) Platelet Estimate Polychromasia Hypochromasia (manual) Poikilocytosis (manual Anisocytosis (manual) Microcytosis (manual) Target Cells Ovalocytes [place] Cells PT INR APTT Puncture Site pCO2 pO2 HCO3 ABG pH ABG Total CO2 ABG O2 Saturation ABG Base Excess ABG Hemoglobin ABG Carboxyhemoglobin POC ABG HHb (Measured) ABG Methemoglobin Kristopher Test A-a O2 Difference Respiratory Index Hgb O2 Saturation Vent Mode Mechanical Rate FiO2 Inspiratory BiPAP Expiratory BiPAP Sodium Potassium Chloride Carbon Dioxide Anion Gap BUN Creatinine Est GFR ( Amer) Est GFR (Non-Af Amer) POC Glucose (mg/dL) 72 Random Glucose Calcium Phosphorus Magnesium Total Bilirubin AST ALT Alkaline Phosphatase Troponin I Total Protein Albumin Globulin Albumin/Globulin Ratio Blood Type Antibody Screen EKG/Cardiology Studies: Cardiology / EKG Studies 07/18/18 20:12 EKG [ELECTROCARDIOGRAM] Stat Comment: Mode Of Transportation: Reason For Exam: SIGN POSTER, hypoxia Fingerstick Blood Sugar Results: 72 Critical Care Progress Note - Nutrition Nutrition: Nutrition Category Date Time Status Renal Diet [DIET] Diets 07/14/18 Lunch Active Assessment/Plan - Assessment and Plan (Free Text) Assessment: 68 y/ o female with hx of ESRD on HD, AFib (on Coumadin), HTN, BL LE Amputee, DM, CPD, CAD, PAD brought to ER from HD center as she was complaining of chest pain and palpitations 1hour into her HD session today on 07/15/18. On presentation, pt was noted to be in Rapid Afib with RVR and had elevated troponins so she was admitted to ICU. Her arrythemia responded to IV Cardizem and troponin trended down.She was evaluated by cardiology who did not recommend intervention given her poor vascular access. She was started on ASA, Plavix, and Heparin ggt as per NSTEMI protocol. Pt was downgraded to Telemetry on 07/16. While there, an SIGN POSTER was called on 07/17 as patient was dyspnic, desaturating and had an episode of melena. She was transferred to ICU, placed on BIPAP, transfused 1 unit PRBC and started on PPX drip. Pt became more lethargic and hemodynamically untable and was intubated on 07/19/18. Shortly after she had cardiac arrest x2, with ROSC. GI states no plan for endoscopy at this point given that pt is unstable. Pt is currently on Dopamine and Vasopressin. Plan: Neuro - Comatose - GCS 3 - Pupils minimally reactive Cardio - Bradycardic intermittently throughout the day - BP now stable on 2 pressors- Dopamine and Vasopressin. Maintain MAP>65 - Troponin 10.5 (baseline troponin ~0.3). Repeats trending down 12>6. likely 2/2 pt being on dialysis - Myocardial Stress Test (03/2018): Normal, EF 48% - Last Echo (03/2018): EF 50-55%, Mild LVH, Left Atrial pressure moderately elevated, RVSP 37, Mild pulmonary HTN, Mild- mod pericardial effusion noted - Cardiology consulted- no cardiac intervention given pt's vascular issues Pulm -Intubated on MV, PRVC FIO2 100% Saturating 90%, RR 20 - VBG: respiratory acidosis pH 7.09, pCO2 72, HCO3 15.7 - Monitor respiratory status GI - Renal Diet - Active GI bleed, melena - GI: no plan for endoscopy given pt is acutely unstable - Continue with PPi ggt - Coagulation reversal agents given Renal - ESRD on HD MWF, completed today - BUN 57 Cr 4.0 (baseline Cr 2-3) on admission; cont to trend - Nephrology consulted, Dr. [place] Heme - Hg 6.4>7.8. Repeat labs at 6pm. Will monitor closely and transfuse if needed - Chronically Anemic, Likely ACD - Coagulation: INR 2.1, PTT 42. S/P FFP x4, DDAVP, Vitamin K IV x2, - ASA, Plavix, and Heparin held in light of GI bleed PPX: - DVT ppx- SCD's given GI bleed - GI ppx-- Protonix ggt Pt seen, examined with, and plan discussed with Dr. Grier, attending physician. Mónica Jane, PGY2
[2018-07-19 19:39] LABS: INR 1.8; PROTHROMBIN TIME 19.6 SECONDS (9.7-12.2)
[2018-07-19 19:40] LABS: ALB/GLOB RATIO 1.2 (1.0-2.1); ALBUMIN 2.5 g/dL (3.5-5.0); CALCIUM 6.5 mg/dl (8.6-10.4); TROPONIN I 5.74 ng/mL (0.00-0.120)
[2018-07-19] MEDS ORDERED: Dextrose 50% SYRINGE Inj (50 ml) ONE ×2 (20:55→22:39)
[2018-07-19] MEDS ORDERED: Dextrose 50% SYRINGE Inj (50 ml) IV STA (20:58)
[2018-07-19] MEDS ORDERED: DOPamine 400mg/250ml D5W IV ONE (22:39)
[2018-07-19] MEDS ORDERED: Vasopressin 20 Units/ml Inj ONE (22:39)
[2018-07-19] MEDS ORDERED: Sodium Bicarbonate (8.4%) 50 Meq Syringe ONE (22:39)
[2018-07-19 23:00] LABS: PLATELET ESTIMATE DECREASED (NORMAL)
[2018-07-19 23:01] LABS: ANISOCYTOSIS SLIGHT; BANDS 1 % (0-2); LYMPHOCYTE 4 % (20-40); MONOCYTE 5 % (0-10); NEUTROPHIL 90 % (50-75); POIKILOCYTOSIS SLIGHT; TOTAL CELLS COUNTED 100
[2018-07-19 23:02] LABS: BURR CELLS SLIGHT; HYPERSEGMENTATION PRESENT; LARGE PLATELETS PRESENT; MICROCYTOSIS SLIGHT; SMUDGE CELLS PRESENT; SPHEROCYTES SLIGHT
--- NOTE | 2018-07-19 23:06 | CP.PCM.PN ---
Subjective - Date & Time of Evaluation Date of Evaluation: 07/19/18 Time of Evaluation: 12:05 - Subjective Subjective: Patient s/p Cardiac arrest Intubated GIB NON STEMI Poor Prognosis CCU Objective - Vital Signs / Intake & Output Vital Signs (Last 4 hours): Vital Signs Temp Pulse Resp BP Pulse Ox 07/19/18 10:21 84 07/19/18 09:11 90 32 H 95/49 L 100 07/19/18 08:00 99.0 F 91 H 26 H 92/35 L 100 Intake and Output (Last 8hrs): Intake & Output 07/18/18 07/19/18 07/19/18 22:59 06:59 14:59 Intake Total 207.5 800 30 Balance 207.5 800 30 Weight 79 lb 3.2 oz Intake: IV 140 Intake, IV Amount 17.5 60 30 Left Forearm 17.5 60 30 Oral 50 0 Blood Product 650 Red Blood Cells Cpd As1 325 Lr Unit [id number] Other 90 Red Blood Cells Cpd As1 60 Lr Unit [id number] Other: # Voids Urine, Voided 0 0 0 # Bowel Movements 1 0 - Physical Exam Physical Exam Limitations: Positive for: Altered Mental Status (lethargic, follows commands ) Head: Positive for: Atraumatic, Normocephalic Pupils: Positive for: PERRL Extroacular Muscles: Positive for: EOMI Conjunctiva: Positive for: Normal Mouth: Positive for: Moist Mucous Membranes Neck: Positive for: Normal Range of Motion Respiratory/Chest: Positive for: Clear to Auscultation, Good Air Exchange. Negative for: Wheezes, Rales, Rhonchi Cardiovascular: Positive for: Regular Rate and Rhythm, Normal S1, S2. Negative for: Murmurs, Rub, Gallop Abdomen: Positive for: Normal Bowel Sounds. Negative for: Tenderness, Di stention, Mass/Organomegaly Upper Extremity: Positive for: Normal Inspection, Normal ROM, Neurovascularly Intact, Capillary Refill < 2s. Negative for: Cyanosis, Edema Lower Extremity: Positive for: Normal Inspection, Neurovascularly Intact, Capillary Refill < 2 s. Negative for: Edema Neurological: Positive for: GCS=15, CN II-XII Intact, Speech Normal Skin: Positive for: Warm, Dry Psychiatric: Positive for: Alert, Oriented x 3 Objective - Vital Signs/Intake and Output Vital Signs (last 24 hours): Temp Pulse Resp BP Pulse Ox 97.7 F 101 H 24 96/49 L 88 L 07/19/18 17:10 07/19/18 19:43 07/19/18 19:43 07/19/18 19:43 07/19/18 19:43 Intake and Output: 07/19/18 07/20/18 18:59 06:59 Intake Total 228.1 648.1 Output Total 50 Balance 228.1 598.1 - Medications Medications: Current Medications Acetaminophen (Tylenol 325mg Tab) 650 mg PO Q6 PRN PRN Reason: Pain, Mild (1-3) Last Admin: 07/15/18 04:16 Dose: 650 mg Cinacalcet (Sensipar) 90 mg PO DAILY [facility] Last Admin: 07/19/18 10:15 Dose: Not Given Diltiazem HCl (Cardizem Cd) 180 mg PO DAILY [facility] Last Admin: 07/19/18 10:15 Dose: Not Given Ezetimibe (Zetia) 10 mg PO DAILY [facility] Last Admin: 07/19/18 10:15 Dose: Not Given Epoetin Amol (Procrit) 10,000 unit IV MWF [facility] Last Admin: 07/16/18 13:00 Dose: 10,000 unit Dopamine HCl/Dextrose (Dopamine 400mg/250ml D5w) 400 mg in 250 mls @ 2.694 mls/hr IV .Q24H PRN; Protocol PRN Reason: TITRATE PER MD ORDER Last Titration: 07/19/18 17:15 Dose: 20 mcg/kg/min, 26.944 mls/hr Vasopressin 40 units/ Sodium (Chloride) 40 mls @ 0.6 mls/hr IV .Q24H BILL; Protocol Last Admin: 07/19/18 17:40 Dose: 0.02 units/min, 1.2 mls/hr Lidocaine (Lidoderm) 1 ea TD DAILY BILL Last Admin: 07/19/18 09:46 Dose: 1 ea Metoprolol Tartrate (Lopressor) 12.5 mg PO BID BILL Last Admin: 07/19/18 18:29 Dose: Not Given Nitroglycerin (Nitro-Bid 2% Oint) 1 ea TOP Q4H BILL Last Admin: 07/19/18 20:05 Dose: Not Given Pantoprazole Sodium (Protonix Inj) 40 mg IVP Q12H BILL Last Admin: 07/19/18 19:45 Dose: 40 mg Rosuvastatin Calcium (Crestor) 10 mg PO HS [facility] Last Admin: 07/19/18 21:28 Dose: Not Given - Labs Labs: 07/19/18 19:09 07/19/18 19:09 PT 19.6 SECONDS (9.7-12.2) H 07/19/18 19:09 INR 1.8 07/19/18 19:09 APTT 39 SECONDS (21-34) H 07/19/18 19:09 Assessment and Plan - Assessment and Plan (Free Text) Assessment: 68 y/ o female with hx of ESRD on HD, AFib (on Coumadin), HTN, BL Lila Bull, CPD, CAD, PAD brought to ER from HD center as she was complaining of chest pain and palpitations 1hour into her HD session today on 07/15/18. On presentation, pt was noted to be in Rapid Afib with RVR and had elevated troponins so she was admitted to ICU. Her arrythemia responded to IV Cardizem and troponin trended down.She was evaluated by cardiology who did not recommend intervention given her poor vascular access. She was started on ASA, Plavix, and Heparin ggt as per NSTEMI protocol. Pt was downgraded to Telemetry on 07/16. While there, an REAL TIME ANALYST was called on 07/17 as patient was dyspnic, desaturating and had an episode of melena. She was transferred to ICU, placed on BIPAP, transfused 1 unit PRBC and started on PPX drip. Pt became more lethargic and hemodynamically untable and was intubated on 07/19/18. Shortly after she had cardiac arrest x2, with ROSC. GI states no plan for endoscopy at this point given that pt is unstable. Pt is currently on Dopamine and Vasopressin. Plan: Neuro - Comatose - GCS 3 - Pupils minimally reactive Cardio - Bradycardic intermittently throughout the day - BP now stable on 2 pressors- Dopamine and Vasopressin. Maintain MAP>65 - Troponin 10.5 (baseline troponin ~0.3). Repeats trending down 12>6. likely 2/2 pt being on dialysis - Myocardial Stress Test (03/2018): Normal, EF 48% - Last Echo (03/2018): EF 50-55%, Mild LVH, Left Atrial pressure moderately elevated, RVSP 37, Mild pulmonary HTN, Mild- mod pericardial effusion noted - Cardiology consulted- no cardiac intervention given pt's vascular issues Pulm -Intubated on MV, PRVC FIO2 100% Saturating 90%, RR 20 - VBG: respiratory acidosis pH 7.09, pCO2 72, HCO3 15.7 - Monitor respiratory status GI - Renal Diet - Active GI bleed, melena - GI: no plan for endoscopy given pt is acutely unstable - Continue with PPi ggt - Coagulation reversal agents given Renal - ESRD on HD MWF, completed today - BUN 57 Cr 4.0 (baseline Cr 2-3) on admission; cont to trend - Nephrology consulted, Dr. North Heme - Hg 6.4>7.8. Repeat labs at 6pm. Will monitor closely and transfuse if needed - Chronically Anemic, Likely ACD - Coagulation: INR 2.1, PTT 42. S/P FFP x4, DDAVP, Vitamin K IV x2, - ASA, Plavix, and Heparin held in light of GI bleed PPX: - DVT ppx- SCD's given GI bleed - GI ppx-- Protonix ggt Pt seen, examined with, and plan discussed with Dr. Grier, attending physician. Mónica Jane, PGY2
--- NOTE | 2018-07-19 23:38 | CP.PCM.PN ---
Subjective - Date & Time of Evaluation Date of Evaluation: 07/19/18 Time of Evaluation: 23:59 - Subjective Subjective: CODE BLUE NOTE Code Cristobal was called by the RN at 9:54pm. Chest compressions started. Med cart opened and ACLS protocol followed. In total, 4 rounds of epi, 2 bicarb, and 2 shocks given. Patient went in and out of asystole and polyphasic Vfib. ROSC was achieved and primary contacted and informed. Code Cristobal was called by the RN at 10:39pm. Chest compressions started. Med cart opened and ACLS protocol followed. In total, 2 amps of epi and 1 of bicarb were given. ROSC achieved at 10:44pm. Primary contacted, Cardio contacted and infor med of events. Code Cristobal was called by the RN at 11:26pm. Chest compressions started. No medications were needed to achieve ROSC. Code ended at 11:28pm. Objective - Vital Signs/Intake and Output Vital Signs (last 24 hours): Temp Pulse Resp BP Pulse Ox 97.7 F 101 H 24 96/49 L 88 L 07/19/18 17:10 07/19/18 19:43 07/19/18 19:43 07/19/18 19:43 07/19/18 19:43 Intake and Output: 07/19/18 07/20/18 18:59 06:59 Intake Total 228.1 648.1 Output Total 50 Balance 228.1 598.1 - Medications Medications: Current Medications Acetaminophen (Tylenol 325mg Tab) 650 mg PO Q6 PRN PRN Reason: Pain, Mild (1-3) Last Admin: 07/15/18 04:16 Dose: 650 mg Cinacalcet (Sensipar) 90 mg PO DAILY [facility] Last Admin: 07/19/18 10:15 Dose: Not Given Diltiazem HCl (Cardizem Cd) 180 mg PO DAILY [facility] Last Admin: 07/19/18 10:15 Dose: Not Given Ezetimibe (Zetia) 10 mg PO DAILY [facility] Last Admin: 07/19/18 10:15 Dose: Not Given Epoetin Amol (Procrit) 10,000 unit IV MWF [facility] Last Admin: 07/16/18 13:00 Dose: 10,000 unit Dopamine HCl/Dextrose (Dopamine 400mg/250ml D5w) 400 mg in 250 mls @ 2.694 mls/hr IV .Q24H PRN; Protocol PRN Reason: TITRATE PER MD ORDER Last Titration: 07/19/18 17:15 Dose: 20 mcg/kg/min, 26.944 mls/hr Vasopressin 40 units/ Sodium (Chloride) 40 mls @ 0.6 mls/hr IV .Q24H BILL; Protocol Last Admin: 07/19/18 17:40 Dose: 0.02 units/min, 1.2 mls/hr Lidocaine (Lidoderm) 1 ea TD DAILY BILL Last Admin: 07/19/18 09:46 Dose: 1 ea Metoprolol Tartrate (Lopressor) 12.5 mg PO BID BILL Last Admin: 07/19/18 18:29 Dose: Not Given Nitroglycerin (Nitro-Bid 2% Oint) 1 ea TOP Q4H BILL Last Admin: 07/19/18 20:05 Dose: Not Given Pantoprazole Sodium (Protonix Inj) 40 mg IVP Q12H BILL Last Admin: 07/19/18 19:45 Dose: 40 mg Rosuvastatin Calcium (Crestor) 10 mg PO HS BILL Last Admin: 07/19/18 21:28 Dose: Not Given - Labs Labs: 07/19/18 19:09 07/19/18 19:09 PT 19.6 SECONDS (9.7-12.2) H 07/19/18 19:09 INR 1.8 07/19/18 19:09 APTT 39 SECONDS (21-34) H 07/19/18 19:09
[2018-07-19] MEDS ORDERED: Sodium Bicarbonate 8.4% 150 MEQ in Dextrose 5% In Water 1,000 ML IV SCH (23:45)
--- NOTE | 2018-07-20 00:44 | CP.PCM.PCO ---
Addendum Addendum: 07/20/18 00:43 Code blue initiated 5 times since 7:00pm.patient could not be resuscitated the 5th time
--- NOTE | 2018-07-20 00:51 | CP.PCM.PRO ---
Pronouncement of Note - Clinical Findings Physical Exam: No Response Verbal/Painful Stimuli, Absent Peripheral Puls es{Carotid & Femoral}, Absent Heart & Breath Sounds, No Pupillary Light Reflex, No Corneal Reflex, Pupils Fixed & Dilated, Absence of Vital Signs - Pronouncement Time Time of Pronouncement of : 00:34 - Notifications Pronouncement Notifications: Atending Notified Phlebotomy Supervisor Notified: No - [place]: [id number]
[2018-07-20] MEDS: Nitroglycerin 2% Ointment Foilpak UD TOP SCH (01:22)
[2018-07-20 03:41] VITALS: BP 55/25; PULSE 136; RESP 28
[2018-07-20 03:48] VITALS: TEMP 96.1; O2SAT 78
== END 2018-07-20 02:30 ==
LOC: C.ER 12:27 → C.9E 14:36 → C.9I 15:24
PROVIDERS: ADMIT Internal Medicine; ATTEND Internal Medicine
PROC: 5A1D70Z Performance of Urinary Filtration, Intermittent, Less than 6 Hours Per Day (ICD-10-PCS; principal; 2018-07-16)
PROC: 5A09357 Assistance with Respiratory Ventilation, Less than 24 Consecutive Hours, Continuous Positive Airway Pressure (ICD-10-PCS; 2018-07-19)
PROC: 5A1935Z Respiratory Ventilation, Less than 24 Consecutive Hours (ICD-10-PCS; 2018-07-19)
PROC: 0BH17EZ Insertion of Endotracheal Airway into Trachea, Via Natural or Artificial Opening (ICD-10-PCS; 2018-07-19)
PROC: 5A12012 Performance of Cardiac Output, Single, Manual (ICD-10-PCS; 2018-07-19)
PROC: 30233K1 Transfusion of Nonautologous Frozen Plasma into Peripheral Vein, Percutaneous Approach (ICD-10-PCS; 2018-07-19)
PROC: 5A1D70Z Performance of Urinary Filtration, Intermittent, Less than 6 Hours Per Day (ICD-10-PCS; 2018-07-19)
DX: I21.4 Non-ST elevation (NSTEMI) myocardial infarction (principal); N18.6 End stage renal disease; I13.2 Hypertensive heart and chronic kidney disease with heart failure and with stage 5 chronic kidney disease, or end stage renal disease; I47.1 Supraventricular tachycardia; K92.1 Melena; D62 Acute posthemorrhagic anemia; I48.91 Unspecified atrial fibrillation; Q61.2 Polycystic kidney, adult type; N25.81 Secondary hyperparathyroidism of renal origin; J44.9 Chronic obstructive pulmonary disease, unspecified; E11.22 Type 2 diabetes mellitus with diabetic chronic kidney disease; E11.51 Type 2 diabetes mellitus with diabetic peripheral angiopathy without gangrene; I31.3 Pericardial effusion (noninflammatory); E11.65 Type 2 diabetes mellitus with hyperglycemia; I25.10 Atherosclerotic heart disease of native coronary artery without angina pectoris; I50.9 Heart failure, unspecified; D72.829 Elevated white blood cell count, unspecified; I27.20 Pulmonary hypertension, unspecified; I46.9 Cardiac arrest, cause unspecified; I49.01 Ventricular fibrillation; R09.02 Hypoxemia; R79.1 Abnormal coagulation profile; K21.9 Gastro-esophageal reflux disease without esophagitis; E78.00 Pure hypercholesterolemia, unspecified; R54 Age-related physical debility; Z99.2 Dependence on renal dialysis; Z89.512 Acquired absence of left leg below knee; Z89.612 Acquired absence of left leg above knee; Z79.01 Long term (current) use of anticoagulants; Z86.010 Personal history of colon polyps; Z91.19 Patient's noncompliance with other medical treatment and regimen; Z87.01 Personal history of pneumonia (recurrent); Z91.14 Patient's other noncompliance with medication regimen; Z95.5 Presence of coronary angioplasty implant and graft